=== PATIENT | female | born 1965 | race African-American/Black ===

== ENCOUNTER 2016-10-14 21:24 | Emergency (ER) | payer MEDICARE, MEDICAID ==
[2016-10-14] MEDS ORDERED: ASPIRIN 81 MG TABLET, CHEWABLE PO ONE (21:55)
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
[2016-10-14] MEDS ORDERED: ALPRAZOLAM 0.5 MG TABLET PO ONE (22:47)
[2016-10-14 22:59] LABS: ABSOLUTE BASOPHILS # (AUTO) 0.1 10^3/uL (0.0-0.2); ABSOLUTE EOSINOPHILS # (AUTO) 0.1 10^3/uL (0.0-0.6); ABSOLUTE LYMPHOCYTES (AUTO) 2.9 10^3/uL (0.5-4.7); ABSOLUTE NEUT (AUTO) 9.6 10^3/uL (1.7-8.2); BASOPHILS % (AUTO) 0.5 % (0-2); EOSINOPHILS % (AUTO) 1.1 % (0-6); HEMOGLOBIN 13.5 g/dL (12.0-15.5); HGB HCT DIFFERENCE -0.5; LYMPHOCYTES % (AUTO) 21.2 % (13-45); MEAN CORPUSCULAR HEMOGLOBIN 31.2 pg (27.0-33.4); MEAN CORPUSCULAR VOLUME 95 fl (80-97); MONOCYTES % (AUTO) 7.5 % (3-13); RED BLOOD COUNT 4.34 10^6/uL (3.72-5.28); SEGMENTED NEUTROPHILS % (AUTO) 69.7 % (42-78); WHITE BLOOD COUNT 13.8 10^3/uL (4.0-10.5)
[2016-10-14 23:15] LABS: BLOOD UREA NITROGEN 14 mg/dL (7-20); CREATININE RESULT 1.08 mg/dL (0.52-1.25); GLUCOSE 101 mg/dL (75-110)
[2016-10-14 23:16] LABS: ALANINE AMINOTRANSFERASE 25 U/L (9-52); ALBUMIN 4.5 g/dL (3.5-5.0); ALKALINE PHOSPHATASE 80 U/L (38-126); ANION GAP 13 (5-19); ASPARTATE AMINO TRANSFERASE 26 U/L (14-36); BILIRUBIN,TOTAL 0.5 mg/dL (0.2-1.3); CARBON DIOXIDE 28 mmol/L (22-30); CHLORIDE 103 mmol/L (98-107); CREATINE KINASE 145 U/L (30-135); LIPASE 125.7 U/L (23-300); POTASSIUM 3.3 mmol/L (3.6-5.0); SODIUM 144.4 mmol/L (137-145); TOTAL PROTEIN 7.5 g/dL (6.3-8.2)
[2016-10-14 23:27] LABS: CREATINE KINASE MB 1.67 ng/mL (<4.55); TROPONIN I < 0.012 ng/mL
[2016-10-15] LABS: APPEARANCE,URINE CLEAR; BILIRUBIN,URINE NEGATIVE (NEGATIVE); GLUCOSE, URINE NEGATIVE (NEGATIVE); KETONES,URINE NEGATIVE (NEGATIVE); LEUKOCYTE ESTERASE,URINE TRACE (NEGATIVE); NITRITE,URINE NEGATIVE (NEGATIVE); PROTEIN,URINE NEGATIVE (NEGATIVE); URINE SPECIFIC GRAVITY 1.009; UROBILINOGEN,URINE NEGATIVE mg/dL (<2.0)
[2016-10-15 00:21] LABS: URINE BARBITURATES SCREEN NEGATIVE; URINE METHADONE SCREEN NEGATIVE; URINE PHENCYCLIDINE SCREEN NEGATIVE
[2016-10-15 01:32] VITALS: BP 113/60
--- NOTE | 2016-10-15 08:13 | EKG REPORT ---
SEVERITY:- ABNORMAL ECG - SINUS RHYTHM PROBABLE LEFT ATRIAL ABNORMALITY PROBABLE LEFT VENTRICULAR HYPERTROPHY : Confirmed by: Pierre Jefferson MD 15-Oct-2016 08:12:47
== END 2016-10-15 01:40 | disposition home or self-care (01) ==
LOC: ER 21:24
DX: F41.9 Anxiety disorder, unspecified (principal); R07.9 Chest pain, unspecified; Z79.899 Other long term (current) drug therapy; F17.210 Nicotine dependence, cigarettes, uncomplicated
CPT/HCPCS: 93005; 99284; 36415; 82553; 82550; 83690; 85025; 80053; 81001; 84484; 80307; 71010; 93010; A9270

== ENCOUNTER → 2016-10-18 | Emergency (ER) | payer MEDICARE, MEDICAID ==
[~2016-10-18] MED LIST: ALPRAZOLAM 0.5 MG TABLET PO ONE; ASPIRIN 81 MG TABLET, CHEWABLE PO ONE; IBUPROFEN 800 MG TABLET PO ONE; LORAZEPAM 0.5 MG TABLET PO ONE; LORAZEPAM 0.5 MG TABLET PO PRN; MORPHINE SULFATE 10 MG/ML INJ IV ONE; NORMAL SALINE 1000 ML 1,000 ML IV PRN; OXYCODONE-ACETAMINOPHEN 5-325 MG TABLET PO ONE
[2016-10-18 13:22] LABS: ABSOLUTE BASOPHILS # (AUTO) 0.1 10^3/uL (0.0-0.2); ABSOLUTE LYMPHOCYTES (AUTO) 3.3 10^3/uL (0.5-4.7); ABSOLUTE NEUT (AUTO) 11.6 10^3/uL (1.7-8.2); BASOPHILS % (AUTO) 0.5 % (0-2); EOSINOPHILS % (AUTO) 0.1 % (0-6); HEMATOCRIT 42.9 % (36.0-47.0); HGB HCT DIFFERENCE -0.9; LYMPHOCYTES % (AUTO) 20.5 % (13-45); MEAN CORPUSCULAR HEMOGLOBIN 31.3 pg (27.0-33.4); MEAN CORPUSCULAR HGB CONC 32.7 g/dL (32.0-36.0); MEAN CORPUSCULAR VOLUME 96 fl (80-97); MONOCYTES % (AUTO) 6.4 % (3-13); RED BLOOD COUNT 4.49 10^6/uL (3.72-5.28); SEGMENTED NEUTROPHILS % (AUTO) 72.5 % (42-78)
--- NOTE | 2016-10-18 13:35 | ER Document Report ---
ED Syncope and Near Syncope <PILY WHITE - Last Filed: 10/19/16 06:50> <CHAO TAVARES - Last Filed: 10/19/16 20:37> <ISHAN HERRERA - Last Filed: 10/20/16 01:09> - General TRAVEL OUTSIDE OF THE [place] IN LAST 30 DAYS: No <WILFREDO CRAIG - Last Filed: 10/20/16 19:52> - General Chief Complaint: Fainting Stated Complaint: CHEST PAIN Time Seen by Provider: 10/18/16 12:40 Notes: Patient is a 51-year-old female presents emergency department via EMS after a near syncopal episode with associated chest pain shortness of breath. Patient states that she was walking across the street from her apartment when she got to the bus stop earlier this afternoon when she started getting short of breath , she went into her purse to find her albuterol inhaler. She states that she wasn't able to find it when she started seeing stars and fell on the ground. She states she hit the back of her head and now has an associated headache. She denies loss of consciousness, nausea, vomiting, confusion or altered mental status. She is also complaining of chest pain which is described as substernal and described as a pressure. She says this started after her fall, immediately after. She states that typically when she's had this chest pain before and is been related to her anxiety and has responded well to Xanax. Cards is Dr. Wilson Echo 09/30/2016 which showed Nl LVEF, mild Past medical history significant for anxiety/depression, history of a heart attack, history of stroke, asthma, COPD Past surgical history significant for hysterectomy and a right knee Social history significant for 40 pack years, denies a fall drug use Denies any allergies Primary care provider is Dr. Reese, fitness sales associate is Dr. Wilson (WILFREDO CRAIG) - Related Data Allergies/Adverse Reactions: cyclobenzaprine HCl [From Flexeril] Allergy (Verified 03/02/16 14:54) tramadol [Tramadol] Allergy (Verified 03/02/16 14:54) HTZ Allergy (Uncoded 03/02/16 14:54) Home Medications: Current Home Medications Alprazolam [Xanax 0.5 mg Tablet] 0.5 mg PO DAILY 10/19/16 [History] Amlodipine Besylate [Norvasc 5 mg Tablet] 5 mg PO DAILY 10/19/16 [History] Buspirone HCl [Buspar 15 mg Tablet] 7.5 mg PO BID 10/19/16 [History] Clonidine HCl [Catapres 0.1 mg Tablet] 0.1 mg PO Q12 10/19/16 [History] Hydralazine HCl [Apresoline 10 mg Tablet] 10 mg PO BIDACBS 10/19/16 [History] Lisinopril [Prinivil 40 mg Tablet] 40 mg PO DAILY 10/19/16 [History] Multivitamin [Multivitamins] 1 each PO DAILY 10/19/16 [History] Omeprazole 20 mg PO ACBRKFST 10/19/16 [History] Oxycodone HCl/Acetaminophen [Oxycodone-Acetaminophen 10-325] 1 each PO Q6HP PRN 10/19/16 [History] Potassium Chloride [Klor-Con 10 Meq Tablet.sa] 20 meq PO BIDACBSP PRN 10/19/16 [ History] Torsemide [Demadex 10 mg Tablet] 10 mg PO DAILY 10/19/16 [History] Past Medical History - General Information source: Patient - Social History Smoking Status: Current Every Day Smoker Family History: Malignancy, Other - [place] - Past Medical History Cardiac Medical History: Reports: Hx Heart Attack - mild, Hx Hypercholesterolemia, Hx Hypertension Pulmonary Medical History: Reports: Hx Asthma, Hx Bronchitis, Hx COPD Neurological Medical History: Reports: Hx Migraine, Hx Seizures Endocrine Medical History: Reports: Hx Diabetes Mellitus Type 2 - borderline Renal/ Medical History: Denies: Hx Peritoneal Dialysis GI Medical History: Reports: Hx Gastroesophageal Reflux Disease, Hx Ulcer Psychiatric Medical History: Reports: Hx Anxiety, Hx Depression Past Surgical History: Reports: Hx Hysterectomy, Hx Orthopedic Surgery - L leg AND R KNEE - Immunizations Hx Diphtheria, Pertussis, Tetanus Vaccination: Yes - <5 years <WILFREDO CRAIG - Last Filed: 10/20/16 19:52> Review of Systems - Review of Systems Constitutional: No symptoms reported EENT: No symptoms reported Cardiovascular: See HPI Respiratory: See HPI Gastrointestinal: No symptoms reported Genitourinary: No symptoms reported Female Genitourinary: No symptoms reported Musculoskeletal: No symptoms reported Skin: No symptoms reported Hematologic/Lymphatic: No symptoms reported Neurological/Psychological: See HPI <KIARAWILFREDO - Last Filed: 10/20/16 19:52> Physical Exam <PILY WHITE - Last Filed: 10/19/16 06:50> <CHAO TAVARES - Last Filed: 10/19/16 20:37> <ISHAN HERRERA - Last Filed: 10/20/16 01:09> <KIARAWILFREDO - Last Filed: 10/20/16 19:52> - Vital signs Vitals: Temp Pulse Resp BP Pulse Ox 98.4 F 87 15 118/62 97 10/18/16 12:19 10/18/16 12:19 10/18/16 12:19 10/18/16 12:19 10/18/16 12:19 (PILY WHITE) (CHAO TAVARES) (ISHAN HERRERA) (WILFREDO CRAIG) - Notes Notes: PHYSICAL EXAM GENERAL: Alert, interacts well. HEAD: Normocephalic, evidence of erythema and fluctuance superior to the occiput on the right side of her head. Tenderness to palpation EYES: Pupils equal, round, and reactive to light. Extraocular movements intact. ENT: Oral mucosa moist, tongue midline. NECK: Full range of motion. Supple. Trachea midline. LUNGS: Clear to auscultation bilaterally, no wheezes, rales, or rhonchi. No respiratory distress. HEART: Regular rate and rhythm. No murmurs, gallops, or rubs. Chest pain reproducible to palpation ABDOMEN: Soft, nondistended, nontender. No guarding, rebound, or rigidity.. Bowel sounds present in all 4 quadrants. EXTREMITIES: Moves all 4 extremities spontaneously. No edema, radial and dorsalis pedis pulses 2/4 bilaterally. No cyanosis. NEUROLOGICAL: Alert and oriented x3. Normal speech. PSYCH: Normal affect, normal mood. SKIN: Warm, dry, normal turgor. No rashes or lesions noted. (WILFREDO CRAIG) Course - Laboratory Result Diagrams: 10/18/16 13:13 10/18/16 13:13 <PILY WHITE - Last Filed: 10/19/16 06:50> - Laboratory Result Diagrams: 10/19/16 17:30 10/19/16 17:30 <CHAO TAVARES - Last Filed: 10/19/16 20:37> - Laboratory Result Diagrams: 10/19/16 17:30 10/19/16 17:30 <ISHAN HERRERA - Last Filed: 10/20/16 01:09> - Laboratory Result Diagrams: 10/19/16 17:30 10/19/16 17:30 - Diagnostic Test Radiology reviewed: Image reviewed, Reports reviewed - EKG Interpretation by Me EKG shows normal: Sinus rhythm Rate: Normal Rhythm: NSR When compared to previous EKG there are: No significant change <KIARAHALLEYWILFREDO - Last Filed: 10/20/16 19:52> - Re-evaluation Re-evalutation: 10/18/16 22:00 Concern for an NSTEMI with elevated troponin at 0.1 which is elevated from prior negative result. EKG nonischemic. Spoke with [facility] internal medicine Dr. Lainez, patient will be accepted to telemetry bed. Patient updated, still not complaining of any symptoms including chest pain. Pending room assignment in transfer. On reevaluation patient crying in the room, I asked if she is hurting or has any concerns, she states she is just anxious and needs something for anxiety. Patient was given 0.5 mg of Ativan. She states this did help when asked later. Troponins trended, steadily rising but not severely rising. On reevaluation patient appears to be resting but she complains that her head hurts where she hit it on the ground, she denies any chest pain but is requesting pain medication, she declines morphine when offered but states that she'll take an oxycodone because she takes this at home. Still pending transfer. Troponin still trending upwards, discussed with Dr. Rodriguez, recommends repeat EKG, repeat EKG shows no ischemic changes or concerning abnormalities. Still pending transfer (PILY WHITE) Patient reevaluated prior transfer. Patient's vital signs stable for transfer. Patient states she is low anxious. Transfer crew states they will give her medications once the heparin back of their truck. 10/19/16 20:37 (CHAO TAVARES) 10/20/16 01:09 (ISHAN HERRERA) 10/18/16 13:38 Patient is a 51-year-old female who presents emergency department after a near syncopal episode with associated shortness of breath, chest pain and headache after a fall where she hit her head. Patient is currently hemodynamically stable, no acute distress and afebrile. CT head did not reveal any evidence of fracture or bleed. EKG without evidence of acute changes. Labs show mild leukocytosis, no evidence of ARF. Cardiac enzymes: negative initial troponin but elevated CK-MB at 5.54 and a CK of 221. Patient kept for repeat troponin. 10/18/16 18:54 Waiting for repeat troponin, pateint has been asymptomatic in the department, denies any chest pain. 10/19/16 07:30 Patient's stable this morning resting comfortably in her bed watching TV. Denies any current chest pain or any episodes overnight. Discussed with her that if she has any episodes of chest pain today to alert her nurse her pain management and repeat EKG. Have called [facility] to discuss labs from overnight with her most recent troponin at 3 AM of 0.460. Discussed with hospitalist to keep her on a every 12 Lovenox and that she did receive a dose of aspirin upon arrival. We'll touch base with them later this morning for that status. 10/19/16 12:15 Patient reporting headache and low back pain. 10/19/16 14:27 Patient resting comfortably and sleeping. Arousable on exam. Denies any chest pain. States that she had a mild anxiety attack earlier without any chest pain to achieve repeat EKG was done which shows no significant changes. Otherwise she states that she has been asymptomatic throughout the day. 10/19/16 18:54 Patient resting comfortably started by her family. Denies any chest pain but asking for Ativan for her anxiety since she takes 6 mg of Xanax daily. States that she has had a mild headache earlier but that she is using an ice pack which helped. She's been hemodynamically stable throughout the day. (WILFREDO CRAIG) - Vital Signs Vital signs: Temp Pulse Resp BP Pulse Ox 98.1 F 75 18 170/88 H 95 10/19/16 20:51 10/19/16 20:51 10/19/16 20:51 10/19/16 20:51 10/19/16 20:51 (PILY WHITE) (CHAO TAVARES) (ISHAN HERRERA) (WILFREDO CRAIG) - Laboratory Laboratory results interpreted by me: 10/18/16 10/18/16 10/18/16 13:13 13:13 13:13 WBC 16.0 H RDW 15.0 H Absolute Neutrophils 11.6 H Est GFR ( Amer) 56 L Est GFR (Non-Af Amer) 46 L Creatine Kinase 221 H CK-MB (CK-2) 5.54 H 10/19/16 10/19/16 17:30 17:30 WBC 10.8 H RDW 15.0 H Absolute Neutrophils Est GFR ( Amer) 59 L Est GFR (Non-Af Amer) 49 L Creatine Kinase CK-MB (CK-2) (PILY WHITE) (CHAO TAVARES) (ISHAN HERRERA) (WILFREDO CRAIG) Discharge <PILY WHITE - Last Filed: 10/19/16 06:50> <CHAO TAVARES - Last Filed: 10/19/16 20:37> <ISHAN HERRERA - Last Filed: 10/20/16 01:09> <WILFREDO CRAIG - Last Filed: 10/20/16 19:52> - Discharge Clinical Impression: Near syncope Condition: Good Disposition: [facility] Additional Instructions: CHEST PAIN OF UNCLEAR CAUSE: The exact cause of your chest pain isn't clear. Fortunately, there is no evidence of a dangerous medical condition. Further testing may be required to find the source of the pain. Most often, we find that this pain is coming from the chest wall -- the muscles or rib joints in the chest. But chest pain can come from the lung and lung lining, the esophagus, the heart valves or heart lining, and even the stomach or gallbladder. Rest. Eat lightly until the pain is gone. We may prescribe medicine for pain and inflammation. You should call the physician immediately if the pain radiates to the shoulder, jaw or arms; if you start to run a fever or develop a cough; or if you develop shortness of breath, or other new or alarming symptoms. NORMAL EXAM AND WORKUP: At this time, your examination and workup show no significant abnormality. No significant abnormal physical findings were noted. All laboratory, EKG, and imaging (x-ray, CT scans, ultrasound) studies that were ordered show no significant abnormality. Although your examination and all studies that were ordered showed no significant abnormal finding, there are no examinations and no studies that are 100% accurate. There is always the possibility that some abnormality could exist and not be detected with physical examination or within the limits and capabilities of laboratory and other studies. You should return or follow up as you were instructed on your visit today for further evaluation if your symptoms do not resolve. ANGINA EPISODE: Your physician has diagnosed the pain you experienced as an episode of angina. Angina occurs when a portion of the heart muscle temporarily lacks oxygen. It does not cause any permanent heart damage, but serves as a warning. Hospitalization is not necessary now. Evaluation of your cardiac condition , and medical therapy for angina will be necessary. It's important you be sure to keep all appointments and take medication exactly as prescribed. Angina is usually treated with a type of "nitrate" medication. This is available as ointment, pills, or sublingual (under the tongue) tablets. Depending on your clinical situation, other medications may be added to help control angina. These may include beta blockers or calcium blockers. If episodes of angina are occurring with increased frequency, or if chest pain lasts longer than 15 minutes or does not respond to nitroglycerin, you must seek emergency medical care immediately. ASPIRIN: Aspirin has been shown to have a beneficial effect on blood circulation by reducing the clotting effect of platelets in the blood. These beneficial effects can be achieved by taking just a single baby (81 mg) aspirin a day. It is recommended that any person over the age of forty take a single baby aspirin every day for heart and brain circulation, unless you are allergic to aspirin or have some significant bleeding disorder. It is strongly recommended that people who have proven cardiac or blood circulation disturbances should take a baby aspirin every day. FOLLOW-UP CARE: If you have been referred to a physician for follow-up care, call the physician s office for an appointment as you were instructed or within the next two days. If you experience worsening or a significant change in your symptoms, notify the physician immediately or return to the Emergency Department at any time for re-evaluation. [facility] [address] [place] [address] Open until 10pm Referrals: MARTI REESE DO [Primary Care Provider] - Follow up as needed
[2016-10-18 13:51] LABS: ALANINE AMINOTRANSFERASE 31 U/L (9-52); ALBUMIN 4.8 g/dL (3.5-5.0); ALKALINE PHOSPHATASE 77 U/L (38-126); ANION GAP 13 (5-19); ASPARTATE AMINO TRANSFERASE 24 U/L (14-36); BILIRUBIN,TOTAL 0.6 mg/dL (0.2-1.3); BLOOD UREA NITROGEN 19 mg/dL (7-20); CARBON DIOXIDE 27 mmol/L (22-30); CHLORIDE 102 mmol/L (98-107); CREATINE KINASE 221 U/L (30-135); CREATININE RESULT 1.22 mg/dL (0.52-1.25); GLUCOSE 96 mg/dL (75-110); POTASSIUM 3.6 mmol/L (3.6-5.0); SODIUM 141.5 mmol/L (137-145); TOTAL PROTEIN 7.9 g/dL (6.3-8.2)
[2016-10-18 13:56] LABS: CREATINE KINASE MB 5.54 ng/mL (<4.55)
[2016-10-18 13:57] LABS: TROPONIN I < 0.012 ng/mL
--- NOTE | 2016-10-18 15:50 | EKG REPORT ---
SEVERITY:- BORDERLINE ECG - SINUS RHYTHM PROBABLE LEFT ATRIAL ABNORMALITY : Confirmed by: Gloria Wilson 18-Oct-2016 15:49:45
[2016-10-18] MEDS: ENOXAPARIN SODIUM INJ 80 MG/0.8 ML DISP.SYRIN SUBCUT SCH (22:15)
[2016-10-19] MEDS: ENOXAPARIN SODIUM INJ 80 MG/0.8 ML DISP.SYRIN SUBCUT SCH (09:50)
--- NOTE | 2016-10-19 11:47 | EKG REPORT ---
SEVERITY:- BORDERLINE ECG - SINUS ARRHYTHMIA, RATE 50-69 PROBABLE LEFT ATRIAL ABNORMALITY : Confirmed by: Sarah Padgett MD 19-Oct-2016 11:46:23
[2016-10-19 17:39] LABS: ABSOLUTE BASOPHILS # (AUTO) 0.1 10^3/uL (0.0-0.2); ABSOLUTE EOSINOPHILS # (AUTO) 0.1 10^3/uL (0.0-0.6); ABSOLUTE LYMPHOCYTES (AUTO) 3.7 10^3/uL (0.5-4.7); ABSOLUTE MONOCYTES (AUTO) 0.9 10^3/uL (0.1-1.4); BASOPHILS % (AUTO) 1.3 % (0-2); EOSINOPHILS % (AUTO) 0.6 % (0-6); HEMATOCRIT 40.3 % (36.0-47.0); HEMOGLOBIN 13.4 g/dL (12.0-15.5); HGB HCT DIFFERENCE -0.1; LYMPHOCYTES % (AUTO) 33.9 % (13-45); MEAN CORPUSCULAR HEMOGLOBIN 31.6 pg (27.0-33.4); MEAN CORPUSCULAR HGB CONC 33.3 g/dL (32.0-36.0); MEAN CORPUSCULAR VOLUME 95 fl (80-97); MONOCYTES % (AUTO) 8.4 % (3-13); RED BLOOD COUNT 4.24 10^6/uL (3.72-5.28); SEGMENTED NEUTROPHILS % (AUTO) 55.8 % (42-78); WHITE BLOOD COUNT 10.8 10^3/uL (4.0-10.5)
[2016-10-19 17:53] LABS: ALANINE AMINOTRANSFERASE 27 U/L (9-52); ALBUMIN 3.8 g/dL (3.5-5.0); ALKALINE PHOSPHATASE 67 U/L (38-126); ANION GAP 13 (5-19); ASPARTATE AMINO TRANSFERASE 22 U/L (14-36); BILIRUBIN,TOTAL 0.6 mg/dL (0.2-1.3); BLOOD UREA NITROGEN 20 mg/dL (7-20); CALCIUM 10.2 mg/dL (8.4-10.2); CARBON DIOXIDE 24 mmol/L (22-30); CHLORIDE 106 mmol/L (98-107); CREATININE RESULT 1.17 mg/dL (0.52-1.25); GLUCOSE 101 mg/dL (75-110); POTASSIUM 3.7 mmol/L (3.6-5.0); SODIUM 142.9 mmol/L (137-145); TOTAL PROTEIN 6.8 g/dL (6.3-8.2)
--- NOTE | 2016-10-19 18:42 | EKG REPORT ---
SEVERITY:- NORMAL ECG - SINUS RHYTHM : Confirmed by: Sarah Padgett MD 19-Oct-2016 18:42:03
[2016-10-19 20:51] VITALS: BP 170/88
== END | disposition short-term general hospital (02) ==
LOC: ER 12:03
DX: R55 Syncope and collapse (principal); R07.9 Chest pain, unspecified; F41.9 Anxiety disorder, unspecified; F17.210 Nicotine dependence, cigarettes, uncomplicated; R51 Headache; M54.5 Low back pain; F17.200 Nicotine dependence, unspecified, uncomplicated; K21.9 Gastro-esophageal reflux disease without esophagitis; E78.00 Pure hypercholesterolemia, unspecified; I10 Essential (primary) hypertension; R73.03 Prediabetes; Z90.710 Acquired absence of both cervix and uterus; Z79.899 Other long term (current) drug therapy; I25.2 Old myocardial infarction
CPT/HCPCS: 93005; 96376; 94640; 99285; 96372; 96374; 96375; 36415; 82553; 82550; 85025; 80053; 84484; 71010; 70450; 93010; A9270 ×3; J7030; J1650; J2270

== ENCOUNTER 2016-11-11 23:29 | Emergency (ER) | payer MEDICARE, MEDICAID ==
--- NOTE | 2016-11-11 23:52 | ER Document Report ---
ED Medical Screen (RME) - General Stated Complaint: CHEST PAIN, DIFFICULTY BREATHING Time seen by provider: 23:49 Mode of Arrival: Wheelchair Information source: Patient Notes: Chest pain, throat swelling, having trouble breathing for 3 days. She states she had to cancel's some her appointments due to his feeling weak. The feeling weak and vomiting. States she went to a heart doctor today. She says that she woke up out of her sleep today and her doctor told her that when she does that that means her heart is stopped. States her throat is swollen and she was told she has a thyroid. I have greeted and performed a rapid initial assessment of this patient. A comprehensive ED assessment and evaluation of the patient, analysis of test results and completion of medical decision making process will be conducted by an additional ED providers. TRAVEL OUTSIDE OF THE [place] IN LAST 30 DAYS: No - Related Data Allergies/Adverse Reactions: cyclobenzaprine HCl [From Flexeril] Allergy (Verified 03/02/16 14:54) tramadol [Tramadol] Allergy (Verified 03/02/16 14:54) HTZ Allergy (Uncoded 03/02/16 14:54) Past Medical History - Past Medical History Cardiac Medical History: Reports: Hx Heart Attack - mild, Hx Hypercholesterolemia, Hx Hypertension Pulmonary Medical History: Reports: Hx Asthma, Hx Bronchitis, Hx COPD Neurological Medical History: Reports: Hx Migraine, Hx Seizures Endocrine Medical History: Reports: Hx Diabetes Mellitus Type 2 - borderline Renal/ Medical History: Denies: Hx Peritoneal Dialysis GI Medical History: Reports: Hx Gastroesophageal Reflux Disease, Hx Ulcer Psychiatric Medical History: Reports: Hx Anxiety, Hx Depression Past Surgical History: Reports: Hx Hysterectomy, Hx Orthopedic Surgery - L leg AND R KNEE - Immunizations Hx Diphtheria, Pertussis, Tetanus Vaccination: Yes - <5 years
[2016-11-11 23:53] VITALS: BP 156/83
[2016-11-12 00:47] LABS: ABSOLUTE BASOPHILS # (AUTO) 0.1 10^3/uL (0.0-0.2); ABSOLUTE EOSINOPHILS # (AUTO) 0.1 10^3/uL (0.0-0.6); ABSOLUTE LYMPHOCYTES (AUTO) 2.1 10^3/uL (0.5-4.7); ABSOLUTE MONOCYTES (AUTO) 0.6 10^3/uL (0.1-1.4); ABSOLUTE NEUT (AUTO) 4.5 10^3/uL (1.7-8.2); BASOPHILS % (AUTO) 0.7 % (0-2); EOSINOPHILS % (AUTO) 1.9 % (0-6); HEMATOCRIT 40.3 % (36.0-47.0); HEMOGLOBIN 13.6 g/dL (12.0-15.5); HGB HCT DIFFERENCE 0.5; LYMPHOCYTES % (AUTO) 28.5 % (13-45); MEAN CORPUSCULAR HEMOGLOBIN 32.1 pg (27.0-33.4); MEAN CORPUSCULAR HGB CONC 33.7 g/dL (32.0-36.0); MEAN CORPUSCULAR VOLUME 95 fl (80-97); MONOCYTES % (AUTO) 7.8 % (3-13); RED BLOOD COUNT 4.24 10^6/uL (3.72-5.28); RED CELL DISTRIBUTION WIDTH 14.9 % (11.5-14.0); SEGMENTED NEUTROPHILS % (AUTO) 61.1 % (42-78); WHITE BLOOD COUNT 7.3 10^3/uL (4.0-10.5)
[2016-11-12 01:00] LABS: ALANINE AMINOTRANSFERASE 31 U/L (9-52); ALBUMIN 4.8 g/dL (3.5-5.0); ALKALINE PHOSPHATASE 83 U/L (38-126); ANION GAP 13 (5-19); ASPARTATE AMINO TRANSFERASE 24 U/L (14-36); BILIRUBIN,TOTAL 0.9 mg/dL (0.2-1.3); BLOOD UREA NITROGEN 14 mg/dL (7-20); CALCIUM 10.8 mg/dL (8.4-10.2); CARBON DIOXIDE 25 mmol/L (22-30); CHLORIDE 106 mmol/L (98-107); CREATINE KINASE 131 U/L (30-135); CREATININE RESULT 1.14 mg/dL (0.52-1.25); GLUCOSE 95 mg/dL (75-110); MAGNESIUM 2.1 mg/dL (1.6-2.3); POTASSIUM 4.4 mmol/L (3.6-5.0); SODIUM 143.5 mmol/L (137-145)
[2016-11-12 01:05] LABS: CREATINE KINASE MB 1.97 ng/mL (<4.55)
[2016-11-12 01:07] LABS: TROPONIN I < 0.012 ng/mL
--- NOTE | 2016-11-12 12:42 | EKG REPORT ---
SEVERITY:- ABNORMAL ECG - SINUS RHYTHM CONSIDER LEFT VENTRICULAR HYPERTROPHY : Confirmed by: Gloria Wilson 12-Nov-2016 12:41:09
== END 2016-11-12 01:20 | disposition left against medical advice (07) ==
LOC: ER 23:29
DX: R07.9 Chest pain, unspecified (principal); R06.00 Dyspnea, unspecified; R09.89 Other specified symptoms and signs involving the circulatory and respiratory systems; R53.1 Weakness; I25.2 Old myocardial infarction; I10 Essential (primary) hypertension; J44.9 Chronic obstructive pulmonary disease, unspecified; J45.909 Unspecified asthma, uncomplicated; Z88.8 Allergy status to other drugs, medicaments and biological substances; Z88.5 Allergy status to narcotic agent; Z87.19 Personal history of other diseases of the digestive system; Z53.20 Procedure and treatment not carried out because of patient's decision for unspecified reasons; R06.02 Shortness of breath; R53.83 Other fatigue
CPT/HCPCS: 36415; 71020; 80053; 82550; 82553; 83735; 84443; 84484; 85025; 93005; 93010; 99281

== ENCOUNTER 2016-11-14 20:55 | Emergency (ER) | payer MEDICARE, MEDICAID ==
[2016-11-14] MEDS ORDERED: ASPIRIN 81 MG TABLET, CHEWABLE PO ONE (20:59)
[2016-11-14 21:42] LABS: ABSOLUTE EOSINOPHILS # (AUTO) 0.1 10^3/uL (0.0-0.6); ABSOLUTE NEUT (AUTO) 9.9 10^3/uL (1.7-8.2); BASOPHILS % (AUTO) 0.3 % (0-2); EOSINOPHILS % (AUTO) 0.8 % (0-6); HEMATOCRIT 39.7 % (36.0-47.0); HEMOGLOBIN 13.4 g/dL (12.0-15.5); HGB HCT DIFFERENCE 0.5; LYMPHOCYTES % (AUTO) 21.4 % (13-45); MEAN CORPUSCULAR HEMOGLOBIN 32.1 pg (27.0-33.4); MEAN CORPUSCULAR HGB CONC 33.8 g/dL (32.0-36.0); MEAN CORPUSCULAR VOLUME 95 fl (80-97); MONOCYTES % (AUTO) 6.9 % (3-13); RED BLOOD COUNT 4.17 10^6/uL (3.72-5.28); RED CELL DISTRIBUTION WIDTH 14.7 % (11.5-14.0); SEGMENTED NEUTROPHILS % (AUTO) 70.6 % (42-78); WHITE BLOOD COUNT 14.1 10^3/uL (4.0-10.5)
[2016-11-14] MEDS ORDERED: LORAZEPAM 1 MG TABLET PO ONE (21:52)
[2016-11-14] MEDS ORDERED: NORMAL SALINE 1000 ML 1,000 ML IV ONE ×2 (21:52→23:11)
--- NOTE | 2016-11-14 21:53 | ER Document Report ---
ED General - General Stated Complaint: WEAKNESS Notes: Patient is a 51-year-old female who presents with concerns of feeling "bad". States that she feels generally ill and has not been drinking fluids for the past 2 days due to some throat discomfort. She is otherwise a very poor historian unable to better clarify why she is here in the emergency department or what made her call 911. She states nothing improves or worsens or symptoms. Patient does seem to be paranoid, stating that she thinks that her water may be contaminated and that somebody may be trying to switch her medications to intentionally make her ill. She denies any suicidal or homicidal ideation. No chest pain, shortness of breath, cough, sputum production or fever. No headache or neck pain. She is not seen her primary care doctor regarding today' s concerns. She has a history of present in the emergency department on multiple occasions for vague symptoms similar to today's presentation TRAVEL OUTSIDE OF THE [place] IN LAST 30 DAYS: No - Related Data Allergies/Adverse Reactions: cyclobenzaprine HCl [From Flexeril] Allergy (Verified 03/02/16 14:54) tramadol [Tramadol] Allergy (Verified 03/02/16 14:54) HTZ Allergy (Uncoded 03/02/16 14:54) Past Medical History - General Information source: Patient - Social History Smoking Status: Current Every Day Smoker Frequency of alcohol use: None Drug Abuse: None Lives with: Alone Family History: Reviewed & Not Pertinent, Malignancy, Other - [place] - Past Medical History Cardiac Medical History: Reports: Hx Heart Attack - mild, Hx Hypercholesterolemia, Hx Hypertension Pulmonary Medical History: Reports: Hx Asthma, Hx Bronchitis, Hx COPD Neurological Medical History: Reports: Hx Migraine, Hx Seizures Endocrine Medical History: Reports: Hx Diabetes Mellitus Type 2 - borderline Renal/ Medical History: Denies: Hx Peritoneal Dialysis GI Medical History: Reports: Hx Gastroesophageal Reflux Disease, Hx Ulcer Psychiatric Medical History: Reports: Hx Anxiety, Hx Depression Past Surgical History: Reports: Hx Hysterectomy, Hx Orthopedic Surgery - L leg AND R KNEE - Immunizations Hx Diphtheria, Pertussis, Tetanus Vaccination: Yes - <5 years Review of Systems - Review of Systems Notes: Constitutional: Negative for fever. Positive for generalized weakness HENT: Negative for sore throat. Eyes: Negative for visual changes. Cardiovascular: Negative for chest pain. Respiratory: Negative for shortness of breath. Gastrointestinal: Negative for abdominal pain, vomiting or diarrhea. Genitourinary: Negative for dysuria. Musculoskeletal: Negative for back pain. Skin: Negative for rash. Neurological: Negative for headaches, weakness or numbness. 10 point ROS negative except as marked above and in HPI. Physical Exam - Vital signs Vitals: Pulse Ox 96 11/14/16 21:00 Interpretation: Normal Notes: PHYSICAL EXAMINATION: GENERAL: Well-appearing, well-nourished and in no acute distress. HEAD: Atraumatic, normocephalic. EYES: Pupils equal round and reactive to light, extraocular movements intact, sclera anicteric, conjunctiva are normal. ENT: nares patent, oropharynx clear without exudates. Moderately dry mucous membranes. NECK: Normal range of motion, supple without lymphadenopathy LUNGS: Breath sounds clear to auscultation bilaterally and equal. No wheezes rales or rhonchi. HEART: Regular rate and rhythm without murmurs ABDOMEN: Soft, nontender, normoactive bowel sounds. No guarding, no rebound. No masses appreciated. EXTREMITIES: Normal range of motion, no pitting or edema. No cyanosis. NEUROLOGICAL: No focal neurological deficits. Moves all extremities spontaneously and on command. PSYCH: Anxious, tremulous SKIN: Warm, Dry, normal turgor, no rashes or lesions noted. Course - Re-evaluation Re-evalutation: 11/14/16 21:52 Patient presenting complaining of generalized weakness, poor po intake, and fatigue. Patient is highly anxious on arrival. She initially had mild hypertension for EMS likely secondary to volume depletion. She does have a mild acute kidney injury at time of presentation. Her blood pressure has normalized after receiving IV fluids. Patient denies any chest pain, and her EKG as well as troponin are reassuring. Chest x-ray is clear. The remainder laboratories are unremarkable and repeat physical exams remain reassuring. Her vitals have remained within normal limits. At this time and do not suspect any acute life-threatening etiology of patient's presentation and have encouraged her to continue to drink plenty of fluids and follow-up closely with her primary care physician in the next 1-2 days given her acute kidney injury for repeat basic metabolic panel. Her creatinine did downtrend here after receiving 1 L fluid and BUN/cr ratio is 19 consistent with pre-renal azotemia. W ill discharge with return precautions and follow-up recommendations. Verbal discharge instructions given a the bedside and opportunity for questions given. Medication warnings reviewed. Patient is in agreement with this plan and has verbalized understanding of return precautions and the need for primary care follow-up in the next 24-72 hours. - Vital Signs Vital signs: Temp Pulse Resp BP Pulse Ox 18 109/71 95 11/15/16 01:23 11/15/16 01:23 11/15/16 01:23 - Laboratory Result Diagrams: 11/14/16 21:27 11/15/16 00:36 Laboratory results interpreted by me: 11/14/16 11/14/16 11/15/16 21:27 21:27 00:36 WBC 14.1 H RDW 14.7 H Absolute Neutrophils 9.9 H BUN 33 H 32 H Creatinine 1.93 H 1.72 H Est GFR ( Amer) 33 L 38 L Est GFR (Non-Af Amer) 27 L 31 L Calcium 10.9 H Creatine Kinase 196 H - Diagnostic Test Radiology reviewed: Image reviewed, Reports reviewed Radiology results interpreted by me: 11/15/16 00:15 Chest x-ray: No acute infiltrate - EKG Interpretation by Me Additional EKG results interpreted by me: 11/15/16 00:16 Normal sinus rhythm. Rate 83. No ST elevations or depressions with exception of V2 which has a 0.25 mm elevation. Discharge - Discharge Clinical Impression: Acute kidney injury, Weakness Condition: Good Disposition: HOME, SELF-CARE Additional Instructions: Your labs show that you are dehydrated and your kidney function is slightly worse than normal. You need to have a follow-up appointment with her primary care doctor in the next several days to have his lab rechecked. Please continue drink plenty of fluids at home. Referrals: MARTI OWUSU DO [Primary Care Provider] - Follow up as needed
[2016-11-14 21:58] LABS: ALANINE AMINOTRANSFERASE 25 U/L (9-52); ALKALINE PHOSPHATASE 78 U/L (38-126); ANION GAP 16 (5-19); ASPARTATE AMINO TRANSFERASE 23 U/L (14-36); BILIRUBIN,TOTAL 0.7 mg/dL (0.2-1.3); BLOOD UREA NITROGEN 33 mg/dL (7-20); CALCIUM 10.9 mg/dL (8.4-10.2); CARBON DIOXIDE 23 mmol/L (22-30); CHLORIDE 100 mmol/L (98-107); CREATINE KINASE 196 U/L (30-135); CREATININE RESULT 1.93 mg/dL (0.52-1.25); GLUCOSE 110 mg/dL (75-110); POTASSIUM 3.8 mmol/L (3.6-5.0); SODIUM 138.7 mmol/L (137-145)
--- NOTE | 2016-11-14 22:01 | EKG REPORT ---
SEVERITY:- ABNORMAL ECG - SINUS RHYTHM CONSIDER LEFT VENTRICULAR HYPERTROPHY : Confirmed by: Gloria Wilson 14-Nov-2016 22:00:56
[2016-11-14 22:15] LABS: CREATINE KINASE MB 2.52 ng/mL (<4.55)
[2016-11-14 22:16] LABS: TROPONIN I < 0.012 ng/mL
[2016-11-15] MEDS ORDERED: LIDOCAINE 2% VISCOUS SOLN 20 ML UDCUP PO ONE (00:19)
[2016-11-15] MEDS ORDERED: METOCLOPRAMIDE HCL ORAL SOLN 10 MG/10 ML UDCUP PO ONE (00:19)
[2016-11-15] MEDS ORDERED: MAG HYDROX/AL HYDROX/SIMETH SUSP 30 ML UDCUP PO ONE (00:19)
[2016-11-15 01:07] LABS: ANION GAP 12 (5-19); BLOOD UREA NITROGEN 32 mg/dL (7-20); CARBON DIOXIDE 22 mmol/L (22-30); CHLORIDE 105 mmol/L (98-107); CREATININE RESULT 1.72 mg/dL (0.52-1.25); GLUCOSE 101 mg/dL (75-110); POTASSIUM 3.9 mmol/L (3.6-5.0); SODIUM 138.9 mmol/L (137-145)
[2016-11-15 01:45] VITALS: BP 109/71
== END 2016-11-15 01:50 | disposition home or self-care (01) ==
LOC: ER 20:55
DX: N17.9 Acute kidney failure, unspecified (principal); R53.1 Weakness; F17.210 Nicotine dependence, cigarettes, uncomplicated
CPT/HCPCS: 93005; 99285; 96360; 36415; 82553; 82550; 85025; 80048; 80053; 84484; 71010; 93010; A9270 ×3; J3490; J7030

== ENCOUNTER 2016-11-21 03:50 | Emergency (ER) | payer MEDICARE, MEDICAID | END 2016-11-21 05:25 | disposition left against medical advice (07) | LOC: ER 03:50 | DX: Z53.21 Procedure and treatment not carried out due to patient leaving prior to being seen by health care provider (principal) ==

== ENCOUNTER 2017-02-16 09:48 | Emergency (ER) | payer MEDICARE, MEDICAID ==
[2017-02-16 10:13] LABS: ABSOLUTE BASOPHILS # (AUTO) 0.1 10^3/uL (0.0-0.2); ABSOLUTE EOSINOPHILS # (AUTO) 0.1 10^3/uL (0.0-0.6); ABSOLUTE LYMPHOCYTES (AUTO) 2.3 10^3/uL (0.5-4.7); ABSOLUTE MONOCYTES (AUTO) 0.5 10^3/uL (0.1-1.4); ABSOLUTE NEUT (AUTO) 4.9 10^3/uL (1.7-8.2); BASOPHILS % (AUTO) 0.6 % (0-2); EOSINOPHILS % (AUTO) 0.9 % (0-6); HEMATOCRIT 40.2 % (36.0-47.0); HEMOGLOBIN 13.7 g/dL (12.0-15.5); HGB HCT DIFFERENCE 0.9; LYMPHOCYTES % (AUTO) 29.7 % (13-45); MEAN CORPUSCULAR HGB CONC 34.1 g/dL (32.0-36.0); MEAN CORPUSCULAR VOLUME 94 fl (80-97); MONOCYTES % (AUTO) 6.3 % (3-13); RED BLOOD COUNT 4.28 10^6/uL (3.72-5.28); RED CELL DISTRIBUTION WIDTH 13.6 % (11.5-14.0); SEGMENTED NEUTROPHILS % (AUTO) 62.5 % (42-78); WHITE BLOOD COUNT 7.9 10^3/uL (4.0-10.5)
[2017-02-16 10:30] LABS: ALANINE AMINOTRANSFERASE 23 U/L (9-52); ALBUMIN 3.9 g/dL (3.5-5.0); ALKALINE PHOSPHATASE 81 U/L (38-126); ANION GAP 10 (5-19); ASPARTATE AMINO TRANSFERASE 20 U/L (14-36); BILIRUBIN,DIRECT 0.4 mg/dL (0.0-0.4); BILIRUBIN,TOTAL 0.5 mg/dL (0.2-1.3); BLOOD UREA NITROGEN 13 mg/dL (7-20); CALCIUM 9.5 mg/dL (8.4-10.2); CARBON DIOXIDE 26 mmol/L (22-30); CHLORIDE 108 mmol/L (98-107); CREATINE KINASE 134 U/L (30-135); CREATININE RESULT 1.08 mg/dL (0.52-1.25); GLUCOSE 112 mg/dL (75-110); POTASSIUM 3.3 mmol/L (3.6-5.0); SODIUM 143.7 mmol/L (137-145); TOTAL PROTEIN 7.3 g/dL (6.3-8.2)
--- NOTE | 2017-02-16 10:31 | ER Document Report ---
ED General - General Chief Complaint: Near Syncope Stated Complaint: WEAKNESS Time Seen by Provider: 02/16/17 09:50 Mode of Arrival: Medic Information source: Patient Notes: 51 yr old female presents with hx ot htn and noting that she took 2 of her blood pressure medications . pt notes she felt weak, almost passed out. pt notes that since then her symptoms have improved and she feels better and has no complaints. TRAVEL OUTSIDE OF THE [place] IN LAST 30 DAYS: No - HPI Onset: Just prior to arrival Onset/Duration: Sudden Quality of pain: No pain Severity: Mild Pain Level: Denies Associated symptoms: Weakness Exacerbated by: Denies Relieved by: Denies Similar symptoms previously: No Recently seen / treated by doctor: No - Related Data Allergies/Adverse Reactions: cyclobenzaprine HCl [From Flexeril] Allergy (Verified 02/16/17 09:53) tramadol [Tramadol] Allergy (Verified 02/16/17 09:53) HTZ Allergy (Uncoded 02/16/17 09:53) Past Medical History - Social History Smoking Status: Never Smoker Cigarette use (# per day): No Chew tobacco use (# tins/day): No Smoking Education Provided: No Family History: Reviewed & Not Pertinent, Malignancy, Other - [place] - Past Medical History Cardiac Medical History: Reports: Hx Heart Attack - mild, Hx Hypercholesterolemia, Hx Hypertension Pulmonary Medical History: Reports: Hx Asthma, Hx Bronchitis, Hx COPD Neurological Medical History: Reports: Hx Migraine, Hx Seizures Endocrine Medical History: Reports: Hx Diabetes Mellitus Type 2 - borderline Renal/ Medical History: Denies: Hx Peritoneal Dialysis GI Medical History: Reports: Hx Gastroesophageal Reflux Disease, Hx Ulcer Psychiatric Medical History: Reports: Hx Anxiety, Hx Depression Past Surgical History: Reports: Hx Hysterectomy, Hx Orthopedic Surgery - L leg AND R KNEE - Immunizations Hx Diphtheria, Pertussis, Tetanus Vaccination: Yes - <5 years Review of Systems - Review of Systems Notes: PHYSICAL EXAMINATION: GENERAL: Well-appearing, well-nourished and in no acute distress. HEAD: Atraumatic, normocephalic. EYES: Pupils equal round and reactive to light, extraocular movements intact, conjunctiva are normal. ENT: Nares patent, oropharynx clear without exudates. Moist mucous membranes. NECK: Normal range of motion, supple without lymphadenopathy LUNGS: Breath sounds clear to auscultation bilaterally and equal. No wheezes rales or rhonchi. HEART: Regular rate and rhythm without murmurs ABDOMEN: Soft, nontender, nondistended abdomen. No guarding, no rebound. No masses appreciated. Female : deferred Musculoskeletal: Normal range of motion, no pitting or edema. No cyanosis. NEUROLOGICAL: Cranial nerves grossly intact. Normal speech, normal gait. Normal sensory, motor exams PSYCH: flat affect SKIN: Warm, Dry, normal turgor, no rashes or lesions noted. Physical Exam - Vital signs Vitals: Resp 17 02/16/17 09:50 Course - Re-evaluation Re-evalutation: 02/16/17 10:30 02/16/17 11:13 Patient symptoms have completely resolved, she is at this time stable, lab work notes no significant abnormality EKG was normal vital signs are stable. Blood pressure has improved. I will discharge her home with understand that she does not overdose on her medications. She states she will not and will follow up with her primary care physician After performing a Medical Screening Examination, I estimate there is LOW risk for INTRACRANIAL HEMORRHAGE, ISCHEMIC CVA, MALIGNANT DYSRHYTHMIA, ACUTE CORONARY SYNDROME, MENINGITIS, PULMONARY EMBOLISM, or SEPSIS thus I consider the discharge disposition reasonable. I have reevaluated this patient multiple times and no significant life threatening changes are noted. The patient and I have discussed the diagnosis and risks, and we agree with discharging home with close follow-up with the understanding that symptoms and presentations can change. We also discussed returning to the Emergency Department immediately if new or worsening symptoms occur. We have discussed the symptoms which are most concerning (e.g., changing or worsening pain, weakness, vomiting, fever) that necessitate immediate return. - Vital Signs Vital signs: Temp Pulse Resp BP Pulse Ox 14 139/69 H 93 02/16/17 10:50 02/16/17 10:50 02/16/17 10:50 - Laboratory Result Diagrams: 02/16/17 09:55 02/16/17 09:55 Laboratory results interpreted by me: 02/16/17 09:55 Potassium 3.3 L Chloride 108 H Est GFR (Non-Af Amer) 53 L Glucose 112 H - EKG Interpretation by Sc EKG shows normal: Sinus rhythm, [place], Intervals, QRS Complexes - No acute abnormality Discharge - Discharge Clinical Impression: Pre-syncope Hypotension Qualifiers: Hypotension type: unspecified hypotension type Qualified Code(s): I95.9 - Hypotension, unspecified Condition: Stable Disposition: HOME, SELF-CARE Instructions: Dizziness ([facility]) Referrals: MARTI OWUSU DO [Primary Care Provider] - Follow up tomorrow
[2017-02-16 10:41] LABS: TROPONIN I < 0.012 ng/mL
[2017-02-16 11:22] VITALS: BP 134/74
--- NOTE | 2017-02-16 13:34 | EKG REPORT ---
SEVERITY:- BORDERLINE ECG - SINUS RHYTHM BORDERLINE T ABNORMALITIES, INFERIOR LEADS : Confirmed by: Pierre Jefferson MD 16-Feb-2017 13:34:01
== END 2017-02-16 11:37 | disposition home or self-care (01) ==
LOC: ER 09:48
DX: R55 Syncope and collapse (principal); I95.9 Hypotension, unspecified; R53.1 Weakness; Z79.899 Other long term (current) drug therapy
CPT/HCPCS: 36415; 80053; 82550; 82553; 84484; 85025; 93005; 93010; 99285

== ENCOUNTER 2017-04-07 11:08 | Emergency (ER) | payer MEDICARE, MEDICAID ==
[2017-04-07] MEDS ORDERED: METHYLPREDNISOLONE INJ 125 MG/2 ML SDV IM ONE (11:47)
[2017-04-07] MEDS ORDERED: LIDOCAINE 5% (700 MG) TRANSDERMAL ADH..PATCH TP ONE (11:47)
--- NOTE | 2017-04-07 12:00 | ER Document Report ---
HPI - HPI Pain Level: 5 Notes: Patient is a 52-year-old female presents the ED complaining of a fall on a bus this morning. Patient states that she hurt her right shoulder, right ribs, and low back. Patient states that she is a sharp pain. Patient states that she still able to ambulate without any difficulty. The pain does not radiate in any of the locations. Patient states that she did just start physical therapy for core muscle improvement. She denies any loss of control of bowel or bladder. Denies any urinary retention. Denies any numbness or tingling. Denies saddle anesthesia. Patient states that moving her arm in abduction does increase the pain in her shoulder. Not moving does help her pain. Patient states that she is allergic to tramadol, Flexeril, and HCTZ. She does take medication for hypertension, GERD, chronic knee/back pain otherwise. Patient states that she does take oxycodone and she did take 1 just prior to arrival for her pain. Patient also takes an aspirin daily along with Xanax. Patient states that she does smoke but denies any other illicit drugs. Denies any back procedures or injections. Denies any diabetes. Denies any headache, fever, URI , sore throat, dysphagia, dysphasia, chest pain, palpitations, syncope, cough, wheeze, shortness of breath, abdominal pain, nausea/vomiting/diarrhea, dysuria, hematuria, muscle paralysis/weakness, or rash. No recent illness/sick contacts/ travel. - ROS Notes: REVIEW OF SYSTEMS: CONSTITUTIONAL : Denies fever, chills, or sweats. Denies recent illness. EENT: Denies eye, ear, throat, or mouth pain or symptoms. Denies nasal or sinus congestion or discharge. Denies throat, tongue, or mouth swelling or difficulty swallowing. CARDIOVASCULAR: Denies chest pain. Denies palpitations or racing or irregular heart beat. Denies ankle edema. RESPIRATORY: Denies cough, cold, or chest congestion. Denies shortness of breath, difficulty breathing, or wheezing. GASTROINTESTINAL: Denies abdominal pain or distention. Denies nausea, vomiting , or diarrhea. Denies blood in vomitus, stools, or per rectum. Denies black, tarry stools. Denies constipation. GENITOURINARY: Denies difficulty urinating, painful urination, burning, frequency, blood in urine, or discharge. MUSCULOSKELETAL: see hpi SKIN: Denies rash, lesions or sores.. NEUROLOGICAL: Denies confusion or altered mental status. Denies passing out or loss of consciousness. Denies dizziness or lightheadedness. Denies headache. Denies weakness or paralysis or loss of use of either side. Denies problems with gait or speech. Denies sensory loss, numbness, or tingling. Denies seizures. PSYCHIATRIC: Denies anxiety or stress. Denies depression, suicidal ideation, or homicidal ideation. ALL OTHER SYSTEMS REVIEWED AND NEGATIVE. Dictation was performed using [employer] voice recognition software - REPRODUCTIVE Reproductive: DENIES: : - DERM Skin Color: Normal Past Medical History - Social History Smoking Status: Current Every Day Smoker Chew tobacco use (# tins/day): No Frequency of alcohol use: None Drug Abuse: None Family History: Reviewed & Not Pertinent, Malignancy, Other - [place] Patient has suicidal ideation: No Patient has homicidal ideation: No - Past Medical History Cardiac Medical History: Reports: Hx Heart Attack - mild, Hx Hypercholesterolemia, Hx Hypertension Pulmonary Medical History: Reports: Hx Asthma, Hx Bronchitis, Hx COPD Neurological Medical History: Reports: Hx Migraine, Hx Seizures Endocrine Medical History: Reports: Hx Diabetes Mellitus Type 2 - borderline Renal/ Medical History: Denies: Hx Peritoneal Dialysis GI Medical History: Reports: Hx Gastroesophageal Reflux Disease, Hx Ulcer Psychiatric Medical History: Reports: Hx Anxiety, Hx Depression Past Surgical History: Reports: Hx Hysterectomy, Hx Orthopedic Surgery - L leg AND R KNEE - Immunizations Hx Diphtheria, Pertussis, Tetanus Vaccination: Yes - <5 years Vertical Provider Document - CONSTITUTIONAL Agree With Documented VS: Yes Notes: PHYSICAL EXAMINATION: GENERAL: Well-appearing, well-nourished and in no acute distress. HEAD: Atraumatic, normocephalic. No varner sign EYES: Pupils equal round and reactive to light, extraocular movements intact, sclera anicteric, conjunctiva are normal. No raccoon eyes ENT: EAC clear b/l. TM's intact b/l without erythema, fluid, or perforation. Nares patent and without discharge. oropharynx clear without exudates. No tonsilar hypertrophy or erythema. Moist mucous membranes. No sinus tenderness. No hemotympanum, No CSF discharge. NECK: Normal range of motion, supple without lymphadenopathy. No rigidity/ tenderness. + tenderness to rt trap mm LUNGS: Breath sounds clear to auscultation bilaterally and equal. No wheezes rales or rhonchi. HEART: Regular rate and rhythm without murmurs, rubs, gallops. ABDOMEN: Soft, nontender, nondistended abdomen. No guarding, no rebound. No masses appreciated. Normal bowel sounds present. No CVA tenderness bilaterally. No ecchymosis. Musculoskeletal: Rt shoulder: FROM to passive/active. Strength 5+/5. + mild tenderness to palp of the rt shoulder. RC intact. Speed neg. Impingement neg. + tenderness to rt rib approx #8-9. No ecchymosis or deformity. Back: FROM to passive/active. Strength 5+/5. + mild tenderness to L-spine paraspinal and min. midline near L4. SLR negative b/l. Extremities: No cyanosis, clubbing, or edema b/l. Peripheral pulses 2+. Capillary refill less than 3 seconds. NEUROLOGICAL: MMSE intact. Cranial nerves grossly intact. Normal speech, normal gait. Normal sensory, motor exams. Reflexes 2+ b/l PSYCH: Normal mood, normal affect. SKIN: Warm, Dry, normal turgor, no rashes or lesions noted. - INFECTION CONTROL TRAVEL OUTSIDE OF THE [place] IN LAST 30 DAYS: No - RESPIRATORY O2 Sat by Pulse Oximetry: 96 Course - Re-evaluation Re-evalutation: 04/07/17 13:08 Patient is an afebrile, well-hydrated, 52-year-old female presents the ED status post fall with right shoulder, low back, right rib pain, suspect contusion and sprain/strain vitals are stable. PE otherwise unremarkable for any focal neurological deficits at this time. Low suspicion for any expanding/ ruptured AAA, fracture, cauda equina syndrome, epidural mass lesion, disc herniation causing severe spinal stenosis. X-rays of the shoulder, low back, right ribs were unremarkable. Toradol 15 mg given IM along with a Lidoderm patch today in the office. Conservative measures for symptoms. I will send her home with Voltaren gel. Continue other medications as he normally would. Recheck your PCM in 2-3 days. Return to the ED with any worsening/concerning symptoms otherwise as reviewed in discharge. Patient is in agreement. - Vital Signs Vital signs: Temp Pulse Resp BP Pulse Ox 98.6 F 91 20 118/70 96 04/07/17 11:19 04/07/17 11:19 04/07/17 11:19 04/07/17 11:19 04/07/17 11:19 Discharge - Discharge Clinical Impression: Shoulder pain, right Qualifiers: Chronicity: acute Qualified Code(s): M25.511 - Pain in right shoulder Low back pain Qualifiers: Chronicity: acute Back pain laterality: right Sciatica presence: unspecified whether sciatica present Qualified Code(s): M54.5 - Low back pain Contusion Qualifiers: Encounter type: initial encounter Contusion area: shoulder Laterality: right Qualified Code(s): S40.011A - Contusion of right shoulder, initial encounter Condition: Stable Disposition: HOME, SELF-CARE Instructions: Ice & Elevation ([facility]), Ice Packs ([facility]), Warm Packs ([facility]), Low Back Pain ([facility]), Stretching Exercises for the Back ([facility]), Exercise Program for the Shoulder ([facility]), Shoulder Injury ([facility]) Additional Instructions: Rest, Ice, Compression, Elevation Tylenol/ibuprofen as needed Light stretches daily Strength exercises as able Moist heat and massage may help F/u with your PCP in 2-3 days for a recheck Consider consult(s) with Orthopedics, physical therapy for ongoing/worsening symptoms Return to the ED with any worsening symptoms and/or development of fever, headache, chest pain, palpitations, syncope, shortness of breath, trouble breathing, abdominal pain, n/v/d, blood in stool/urine, loss of control of bowel /bladder, urinary retention, muscle weakness/paralysis, numbness/tingling, or other worsening symptoms that are concerning to you. Prescriptions: Diclofenac Sodium [Voltaren] 4 gm TP QID PRN #100 gel..gm. PRN Reason: Referrals: MARTI OWUSU DO [Primary Care Provider] - Follow up as needed [facility] [Provider Group] - Follow up as needed
--- NOTE | 2017-04-07 12:49 | RADIOLOGY REPORT (SQ) ---
EXAM DESCRIPTION: RIBS RIGHT W/PA CHEST COMPLETED DATE/TIME: 04/07/2017 12:35 pm REASON FOR STUDY: fall, pain to rt shoulder/low back/rt ribs COMPARISON: None. TECHNIQUE: Frontal view of the chest and additional views of the right ribs acquired. NUMBER OF VIEWS: Three views LIMITATIONS: None. FINDINGS: FRONTAL CXR: No pneumothorax. No pleural effusion. No atelectasis or infiltrates. RIBS: No displaced rib fractures. No lytic or blastic bony lesions. OTHER: No other significant finding. IMPRESSION: NO PNEUMOTHORAX. NO DISPLACED RIB FRACTURES. COMMENT: SITE OF TRAUMA/COMPLAINT MARKED/STAMP COMPLETED: No TECHNICAL DOCUMENTATION: JOB ID: [id number] [employer]- All Rights Reserved
--- NOTE | 2017-04-07 12:50 | RADIOLOGY REPORT (SQ) ---
EXAM DESCRIPTION: SHOULDER RIGHT 2 OR MORE VIEWS COMPLETED DATE/TIME: 04/07/2017 12:35 pm REASON FOR STUDY: fall, pain to rt shoulder/low back/rt ribs COMPARISON: None. NUMBER OF VIEWS: Three views. TECHNIQUE: Internal rotation, external rotation, and Y view images acquired of the right shoulder. LIMITATIONS: None. FINDINGS: MINERALIZATION: Normal. BONES: No acute fracture or dislocation. No worrisome bone lesions. JOINTS: No dislocation. VISUALIZED LUNGS AND RIBS: No pneumothorax. No rib fracture. SOFT TISSUES: No radiopaque foreign body. OTHER: No other significant finding. IMPRESSION: NEGATIVE STUDY OF THE RIGHT SHOULDER. NO RADIOGRAPHIC EVIDENCE OF ACUTE INJURY. TECHNICAL DOCUMENTATION: JOB ID: [id number] [employer]- All Rights Reserved
--- NOTE | 2017-04-07 12:52 | RADIOLOGY REPORT (SQ) ---
EXAM DESCRIPTION: L SPINE WHOLE COMPLETED DATE/TIME: 04/07/2017 12:35 pm REASON FOR STUDY: fall, pain to rt shoulder/low back/rt ribs COMPARISON: 01/15/2014 NUMBER OF VIEWS: Five views including obliques. TECHNIQUE: AP, lateral, oblique, and sacral radiographic images acquired of the lumbar spine. LIMITATIONS: None. FINDINGS: MINERALIZATION: Normal. SEGMENTATION: Normal. No transitional anatomy. ALIGNMENT: There is minimal levoscoliosis centered about L2. VERTEBRAE: Maintained height. No fracture or worrisome bone lesion. DISCS: Preserved height. No significant osteophytes or end plate irregularity. POSTERIOR ELEMENTS: Hypertrophic facet changes are present at L4-5 L5-S1. HARDWARE: None in the spine. PARASPINAL SOFT TISSUES: Normal. PELVIS: Intact as visualized. No fractures or worrisome bone lesions. SI joints intact. OTHER: No other significant finding. IMPRESSION: Mild facet arthropathy with minimal scoliosis. TECHNICAL DOCUMENTATION: JOB ID: [id number] [employer]- All Rights Reserved
[2017-04-07 13:24] VITALS: BP 106/69
== END 2017-04-07 13:15 | disposition home or self-care (01) ==
LOC: ER 11:08
DX: S40.011A Contusion of right shoulder, initial encounter (principal); M25.511 Pain in right shoulder; R07.81 Pleurodynia; M54.5 Low back pain; I10 Essential (primary) hypertension; K21.9 Gastro-esophageal reflux disease without esophagitis; F17.200 Nicotine dependence, unspecified, uncomplicated; X58.XXXA Exposure to other specified factors, initial encounter
CPT/HCPCS: 99283; 96372; 72110; 71101; 73030; J2930

== ENCOUNTER 2017-05-12 23:58 | Emergency (ER) | payer MEDICARE, MEDICAID ==
[2017-05-13] MEDS ORDERED: ONDANSETRON 4 MG TAB.RAPDIS PO ONE (02:49)
[2017-05-13] MEDS ORDERED: NORMAL SALINE 1000 ML 1,000 ML IV ONE (06:12)
--- NOTE | 2017-05-13 06:48 | ER Document Report ---
ED General - General Chief Complaint: Vomiting/Diarrhea Stated Complaint: VOMITING,DIARRHEA Time Seen by Provider: 05/13/17 06:05 Mode of Arrival: Ambulatory Information source: Patient Notes: 52-year-old female presents with complaints of vomiting and diarrhea of 3 week duration. Patient denies any fevers or chills admits symptoms started when her air conditioner unit stopped functioning appropriately. TRAVEL OUTSIDE OF THE [place] IN LAST 30 DAYS: No - HPI Onset: Other Onset/Duration: Persistent Quality of pain: No pain Severity: Mild Pain Level: Denies Associated symptoms: Diarrhea, Nausea, Vomiting Exacerbated by: Denies Relieved by: Denies Similar symptoms previously: No Recently seen / treated by doctor: No - Related Data Allergies/Adverse Reactions: cyclobenzaprine HCl [From Flexeril] Allergy (Verified 04/07/17 11:18) tramadol [Tramadol] Allergy (Verified 04/07/17 11:18) HTZ Allergy (Uncoded 04/07/17 11:18) Past Medical History - Social History Smoking Status: Current Every Day Smoker Cigarette use (# per day): Yes Chew tobacco use (# tins/day): No Smoking Education Provided: No Family History: Reviewed & Not Pertinent, Malignancy, Other - [place] Patient has suicidal ideation: No Patient has homicidal ideation: No - Past Medical History Cardiac Medical History: Reports: Hx Heart Attack - mild, Hx Hypercholesterolemia, Hx Hypertension Pulmonary Medical History: Reports: Hx Asthma, Hx Bronchitis, Hx COPD Neurological Medical History: Reports: Hx Migraine, Hx Seizures Endocrine Medical History: Reports: Hx Diabetes Mellitus Type 2 - borderline Renal/ Medical History: Denies: Hx Peritoneal Dialysis GI Medical History: Reports: Hx Gastroesophageal Reflux Disease, Hx Ulcer Psychiatric Medical History: Reports: Hx Anxiety, Hx Depression Past Surgical History: Reports: Hx Hysterectomy, Hx Orthopedic Surgery - L leg AND R KNEE - Immunizations Hx Diphtheria, Pertussis, Tetanus Vaccination: Yes - <5 years Review of Systems - Review of Systems Notes: REVIEW OF SYSTEMS: CONSTITUTIONAL : Denies fever, chills, or sweats. Denies recent illness. EENT: Denies eye, ear, throat, or mouth pain or symptoms. Denies nasal or sinus congestion or discharge. Denies throat, tongue, or mouth swelling or difficulty swallowing. CARDIOVASCULAR: Denies chest pain. Denies palpitations or racing or irregular heart beat. Denies ankle edema. RESPIRATORY: Denies cough, cold, or chest congestion. Denies shortness of breath, difficulty breathing, or wheezing. GASTROINTESTINAL: Admits to nausea vomiting diarrhea GENITOURINARY: Denies difficulty urinating, painful urination, burning, frequency, blood in urine, or discharge. FEMALE GENITOURINARY: Denies vaginal bleeding, heavy or abnormal periods, irregular periods. Denies vaginal discharge or odor. MUSCULOSKELETAL: Denies back or neck pain or stiffness. Denies joint pain or swelling. SKIN: Denies rash, lesions or sores. HEMATOLOGIC : Denies easy bruising or bleeding. LYMPHATIC: Denies swollen, enlarged glands. NEUROLOGICAL: Denies confusion or altered mental status. Denies passing out or loss of consciousness. Denies dizziness or lightheadedness. Denies headache. Denies weakness or paralysis or loss of use of either side. Denies problems with gait or speech. Denies sensory loss, numbness, or tingling. Denies seizures. PSYCHIATRIC: Denies anxiety or stress. Denies depression, suicidal ideation, or homicidal ideation. ALL OTHER SYSTEMS REVIEWED AND NEGATIVE. PHYSICAL EXAMINATION: GENERAL: Well-appearing, well-nourished and in no acute distress. HEAD: Atraumatic, normocephalic. EYES: Pupils equal round and reactive to light, extraocular movements intact, conjunctiva are normal. ENT: Nares patent, oropharynx clear without exudates. Moist mucous membranes. NECK: Normal range of motion, supple without lymphadenopathy LUNGS: Breath sounds clear to auscultation bilaterally and equal. No wheezes rales or rhonchi. HEART: Regular rate and rhythm without murmurs ABDOMEN: Soft, nontender, nondistended abdomen. No guarding, no rebound. No masses appreciated. Female : deferred Musculoskeletal: Normal range of motion, no pitting or edema. No cyanosis. NEUROLOGICAL: Cranial nerves grossly intact. Normal speech, normal gait. Normal sensory, motor exams PSYCH: Normal mood, normal affect. SKIN: Warm, Dry, normal turgor, no rashes or lesions noted. Dictation was performed using [employer] voice recognition software Physical Exam - Vital signs Vitals: Temp Pulse Resp BP Pulse Ox 98.6 F 81 18 149/80 H 96 05/13/17 01:03 05/13/17 01:03 05/13/17 01:03 05/13/17 01:03 05/13/17 01:03 Course - Re-evaluation Re-evalutation: 05/13/17 06:48 This is an overall extremely well-appearing female no acute distress who presents with complaints of nausea vomiting diarrhea of 3 week duration, lab work is pending at this time 05/13/17 07:31 Labwork notes extremely mild elevation of creatinine. Otherwise patient looks well she has been given IV fluids and would be discharged home at this time After performing a Medical Screening Examination, I estimate there is LOW risk for ACUTE APPENDICITIS, BOWEL OBSTRUCTION, ACUTE CHOLECYSTITIS, PERFORATED DIVERTICULITIS, INCARCERATED HERNIA, PANCREATITIS, PELVIC INFLAMMATORY DISEASE, PERFORATED ULCER, ECTOPIC , or TUBO-OVARIAN ABSCESS, thus I consider the discharge disposition reasonable. Also, there is no evidence or peritonitis , sepsis, or toxicity. I have reevaluated this patient multiple times and no significant life threatening changes are noted. The patient and I have discussed the diagnosis and risks, and we agree with discharging home with close follow-up with the understanding that symptoms and presentations can change. We also discussed returning to the Emergency Department immediately if new or worsening symptoms occur. We have discussed the symptoms which are most concerning (e.g., bloody stool, fever, changing or worsening pain, vomiting) that necessitate immediate return. - Vital Signs Vital signs: Temp Pulse Resp BP Pulse Ox 98.6 F 81 18 149/80 H 96 05/13/17 01:03 05/13/17 01:03 05/13/17 01:03 05/13/17 01:03 05/13/17 01:03 - Laboratory Result Diagrams: 05/13/17 06:53 05/13/17 06:53 Laboratory results interpreted by me: 05/13/17 05/13/17 06:53 06:53 RDW 14.8 H Creatinine 1.28 H Est GFR ( Amer) 53 L Est GFR (Non-Af Amer) 44 L Calcium 10.3 H Direct Bilirubin 0.5 H AST 43 H Total Protein 8.9 H Discharge - Discharge Clinical Impression: Nausea vomiting and diarrhea, Renal insufficiency Condition: Stable Disposition: HOME, SELF-CARE Instructions: Vomiting ([facility]) Prescriptions: Ciprofloxacin HCl [Cipro 500 mg Tablet] 500 mg PO BID #6 tablet Referrals: MARTI OWUSU DO [Primary Care Provider] - Follow up in 3-5 days
[2017-05-13 07:05] LABS: ABSOLUTE BASOPHILS # (AUTO) 0.2 10^3/uL (0.0-0.2); ABSOLUTE EOSINOPHILS # (AUTO) 0.1 10^3/uL (0.0-0.6); ABSOLUTE LYMPHOCYTES (AUTO) 2.7 10^3/uL (0.5-4.7); ABSOLUTE MONOCYTES (AUTO) 0.7 10^3/uL (0.1-1.4); ABSOLUTE NEUT (AUTO) 4.7 10^3/uL (1.7-8.2); BASOPHILS % (AUTO) 1.8 % (0-2); EOSINOPHILS % (AUTO) 0.9 % (0-6); HEMATOCRIT 42.8 % (36.0-47.0); HEMOGLOBIN 14.5 g/dL (12.0-15.5); HGB HCT DIFFERENCE 0.7; LYMPHOCYTES % (AUTO) 32.5 % (13-45); MEAN CORPUSCULAR HEMOGLOBIN 32.8 pg (27.0-33.4); MEAN CORPUSCULAR HGB CONC 33.9 g/dL (32.0-36.0); MEAN CORPUSCULAR VOLUME 97 fl (80-97); MONOCYTES % (AUTO) 8.7 % (3-13); RED BLOOD COUNT 4.43 10^6/uL (3.72-5.28); RED CELL DISTRIBUTION WIDTH 14.8 % (11.5-14.0); SEGMENTED NEUTROPHILS % (AUTO) 56.1 % (42-78); WHITE BLOOD COUNT 8.3 10^3/uL (4.0-10.5)
[2017-05-13 07:21] LABS: ALANINE AMINOTRANSFERASE 28 U/L (9-52); ALBUMIN 4.8 g/dL (3.5-5.0); ALKALINE PHOSPHATASE 86 U/L (38-126); ANION GAP 10 (5-19); ASPARTATE AMINO TRANSFERASE 43 U/L (14-36); BILIRUBIN,DIRECT 0.5 mg/dL (0.0-0.4); BILIRUBIN,TOTAL 0.8 mg/dL (0.2-1.3); BLOOD UREA NITROGEN 18 mg/dL (7-20); CALCIUM 10.3 mg/dL (8.4-10.2); CARBON DIOXIDE 30 mmol/L (22-30); CHLORIDE 103 mmol/L (98-107); CREATININE RESULT 1.28 mg/dL (0.52-1.25); GLUCOSE 81 mg/dL (75-110); LIPASE 106.3 U/L (23-300); POTASSIUM 3.8 mmol/L (3.6-5.0); SODIUM 142.8 mmol/L (137-145); TOTAL PROTEIN 8.9 g/dL (6.3-8.2)
[2017-05-13 07:54] VITALS: BP 159/90
== END 2017-05-13 07:53 | disposition home or self-care (01) ==
LOC: ER 23:58
DX: R11.2 Nausea with vomiting, unspecified (principal); R19.7 Diarrhea, unspecified; N28.9 Disorder of kidney and ureter, unspecified; F17.210 Nicotine dependence, cigarettes, uncomplicated; I10 Essential (primary) hypertension; I25.2 Old myocardial infarction; J44.9 Chronic obstructive pulmonary disease, unspecified; Z87.19 Personal history of other diseases of the digestive system; Z88.5 Allergy status to narcotic agent; Z88.8 Allergy status to other drugs, medicaments and biological substances
CPT/HCPCS: 99284; 96360; 36415; 83690; 85025; 80053; A9270; J7030; S0119

== ENCOUNTER 2017-11-18 13:56 | Emergency (ER) | payer MEDICARE, MEDICAID ==
[2017-11-18 14:30] VITALS: BP 129/72
--- NOTE | 2017-11-18 15:08 | ER Document Report ---
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 She came to the emergency room from Dr. Reese's office. She went to his office today to get her Percocet prescription. She takes 10 mg 4 times a day for chronic neck pain and bilateral knee pain because of musculoskeletal injuries. She states she is calling in January her because there was a problem with his transport bus. No chest pain or shortness of breath. No fever. No abdominal pain. Associated Symptoms: None Exacerbated by: Movement, Walking Relieved by: Denies Similar symptoms previously: Yes Recently seen / treated by doctor: No - ROS ROS below otherwise negative: Yes Systems Reviewed and Negative: Yes All other systems reviewed and negative - REPRODUCTIVE Reproductive: DENIES: : Past Medical History - General Information source: Patient - Social History Smoking Status: Current Every Day Smoker Frequency of alcohol use: None Drug Abuse: None Lives with: Family Family History: Reviewed & Not Pertinent, Malignancy, Other - [place] - Past Medical History Cardiac Medical History: Reports: Hx Heart Attack - mild, Hx Hypercholesterolemia, Hx Hypertension Pulmonary Medical History: Reports: Hx Asthma, Hx Bronchitis, Hx COPD Neurological Medical History: Reports: Hx Migraine, Hx Seizures Endocrine Medical History: Reports: Hx Diabetes Mellitus Type 2 - borderline Renal/ Medical History: Denies: Hx Peritoneal Dialysis GI Medical History: Reports: Hx Gastroesophageal Reflux Disease, Hx Ulcer Psychiatric Medical History: Reports: Hx Anxiety, Hx Depression Past Surgical History: Reports: Hx Hysterectomy, Hx Orthopedic Surgery - L leg AND R KNEE - Immunizations Hx Diphtheria, Pertussis, Tetanus Vaccination: Yes - <5 years Vertical Provider Document - CONSTITUTIONAL Agree With Documented VS: Yes Exam Limitations: No Limitations - INFECTION CONTROL TRAVEL OUTSIDE OF THE [place] IN LAST 30 DAYS: No - NECK Neck: Supple - Nontender C-spine - RESPIRATORY Respiratory: Breath Sounds Normal, No Respiratory Distress O2 Sat by Pulse Oximetry: 96 - CARDIOVASCULAR Cardiovascular: Regular Rate, Regular Rhythm - BACK Back: Normal Inspection - Mild tender bilateral lumbar paraspinal muscles nontender spinous process. - MUSCULOSKELETAL/EXTREMETIES Musculoskeletal/Extremeties: ROZ TARIQ - NEURO Level of Consciousness: Awake, Alert, Appropriate Motor/Sensory: No Motor Deficit, No Sensory Deficit - DERM Integumentary: Warm, Dry Course - Re-evaluation Re-evalutation: 11/18/17 16:34 X-rays are negative for fracture. There is arthritis in the right knee with no effusion. Osteopenia in the lumbar spine. Tib-fib negative. - Vital Signs Vital signs: Temp Pulse Resp BP Pulse Ox 98.1 F 99 16 129/72 H 96 11/18/17 14:29 11/18/17 14:29 11/18/17 14:29 11/18/17 14:29 11/18/17 14:29 Procedures - Immobilization Right Knee Time completed: 16:50 Pre-Proc Neuro Vasc Exam: Normal Immobilizer type: Knee immobilizer Performed by: RN Post-Proc Neuro Vasc Exam: Normal Alignment checked and good: Yes Discharge - Discharge Clinical Impression: Arthritis Right knee sprain Qualifiers: Encounter type: initial encounter Involved ligament of knee: unspecified ligament Qualified Code(s): S83.91XA - Sprain of unspecified site of right knee , initial encounter Lumbar back sprain Qualifiers: Encounter type: initial encounter Qualified Code(s): S33.5XXA - Sprain of ligaments of lumbar spine, initial encounter Condition: Good Disposition: HOME, SELF-CARE Instructions: Knee Immobilizing Splint ([facility]) Additional Instructions: See your orthopedic doctor for follow-up Copy of x-rays given to you Return to the emergency room symptoms worsen Knee immobilizer this week. Referrals: MARTI REESE DO [Primary Care Provider] - Follow up as needed
--- NOTE | 2017-11-18 15:50 | RADIOLOGY REPORT (SQ) ---
EXAM DESCRIPTION: L SPINE WHOLE COMPLETED DATE/TIME: 11/18/2017 3:41 pm REASON FOR STUDY: twisting injury COMPARISON: 04/07/2017, 01/15/2014 NUMBER OF VIEWS: Five views including obliques. TECHNIQUE: AP, lateral, oblique, and sacral radiographic images acquired of the lumbar spine. LIMITATIONS: None. FINDINGS: MINERALIZATION: Osteoporotic SEGMENTATION: Normal. No transitional anatomy. ALIGNMENT: Normal. VERTEBRAE: Maintained height. No fracture or worrisome bone lesion. DISCS: Preserved height. No significant osteophytes or end plate irregularity. POSTERIOR ELEMENTS: Bilateral lower lumbar facet arthropathy at L4-5 and L5-S1 HARDWARE: None in the spine. PARASPINAL SOFT TISSUES: Normal. PELVIS: Not included in the field of view. SI joints unremarkable OTHER: No other significant finding. IMPRESSION: No acute fracture or malalignment. Bones are osteoporotic. TECHNICAL DOCUMENTATION: JOB ID: [id number] [employer]- All Rights Reserved Reading location - IP/workstation name: [email or web address]
--- NOTE | 2017-11-18 15:51 | RADIOLOGY REPORT (SQ) ---
EXAM DESCRIPTION: TIBIA FIBULA RIGHT COMPLETED DATE/TIME: 11/18/2017 3:41 pm REASON FOR STUDY: twisting injury COMPARISON: Right knee films same date NUMBER OF VIEWS: Two views. TECHNIQUE: Two radiographic images acquired of the right tibia and fibula to include the knee and an kle in at least one projection. LIMITATIONS: None. FINDINGS: MINERALIZATION: Normal. BONES: No acute fracture or dislocation. No worrisome bone lesions. SOFT TISSUES: No obvious swelling or foreign body. OTHER: No other significant finding. IMPRESSION: NEGATIVE STUDY OF THE RIGHT TIBIA AND FIBULA. NO RADIOGRAPHIC EVIDENCE OF ACUTE INJURY. TECHNICAL DOCUMENTATION: JOB ID: [id number] [employer]- All Rights Reserved Reading location - IP/workstation name: [email or web address]
--- NOTE | 2017-11-18 15:53 | RADIOLOGY REPORT (SQ) ---
EXAM DESCRIPTION: KNEE RIGHT 4 VIEWS COMPLETED DATE/TIME: 11/18/2017 3:41 pm REASON FOR STUDY: twisting injury COMPARISON: Right knee three views 01/14/2016 NUMBER OF VIEWS: Four views. TECHNIQUE: AP, lateral, and both oblique radiographic images acquired of the right knee. LIMITATIONS: None. FINDINGS: MINERALIZATION: Osteopenic BONES: No acute fracture or dislocation. No worrisome bone lesions. JOINT: No suprapatellar knee joint effusion. There is moderate patellofemoral and medial compartment joint space narrowing. Medial compartment bony spurring. SOFT TISSUES: No soft tissue swelling. No radio-opaque foreign body. OTHER: No other significant finding. IMPRESSION: No acute fracture or malalignment. Patellofemoral and medial compartment osteoarthritis TECHNICAL DOCUMENTATION: JOB ID: [id number] [employer]- All Rights Reserved Reading location - IP/workstation name: [email or web address]
== END 2017-11-18 16:48 | disposition home or self-care (01) ==
LOC: ER 13:56
DX: S83.91XA Sprain of unspecified site of right knee, initial encounter (principal); S33.5XXA Sprain of ligaments of lumbar spine, initial encounter; M54.5 Low back pain; M25.561 Pain in right knee; M54.2 Cervicalgia; G89.29 Other chronic pain; M25.562 Pain in left knee; F17.200 Nicotine dependence, unspecified, uncomplicated; X50.1XXA Overexertion from prolonged static or awkward postures, initial encounter
CPT/HCPCS: 99283; 73564; 72110; 73590; L1830

== ENCOUNTER 2017-11-29 11:28 | Emergency (ER) | payer MEDICARE, MEDICAID ==
--- NOTE | 2017-11-29 12:05 | ER Document Report ---
ED General - General Stated Complaint: CHEST PAIN Time Seen by Provider: 11/29/17 11:34 Mode of Arrival: Medic Information source: Patient Notes: 52-year-old female extensive history of anxiety presents with complaints of anxiety attack. Patient notes she has not taken her medication today, no she feels extremely anxious, is complaining of shortness of breath chest pain. Daughter notes that she is extremely anxious as well. Denies any fevers or chills. Patient notes this chest pain similar to all her previous chest pains in the past, denies any difficulty or difference in this chest pain TRAVEL OUTSIDE OF THE [place] IN LAST 30 DAYS: No - HPI Onset: Just prior to arrival Onset/Duration: Sudden Quality of pain: Sharp Severity: Mild Pain Level: 1 Associated symptoms: Chest pain Exacerbated by: Other Relieved by: Other - anxiety medication Similar symptoms previously: Yes Recently seen / treated by doctor: Yes - Related Data Allergies/Adverse Reactions: cyclobenzaprine HCl [From Flexeril] Allergy (Verified 11/18/17 14:10) tramadol [Tramadol] Allergy (Verified 11/18/17 14:10) HTZ Allergy (Uncoded 11/18/17 14:10) Past Medical History - Social History Smoking Status: Never Smoker Cigarette use (# per day): No Chew tobacco use (# tins/day): No Smoking Education Provided: No Family History: Reviewed & Not Pertinent, Malignancy, Other - [place] - Past Medical History Cardiac Medical History: Reports: Hx Heart Attack - mild, Hx Hypercholesterolemia, Hx Hypertension Pulmonary Medical History: Reports: Hx Asthma, Hx Bronchitis, Hx COPD Neurological Medical History: Reports: Hx Migraine, Hx Seizures Endocrine Medical History: Reports: Hx Diabetes Mellitus Type 2 - borderline Renal/ Medical History: Denies: Hx Peritoneal Dialysis GI Medical History: Reports: Hx Gastroesophageal Reflux Disease, Hx Ulcer Psychiatric Medical History: Reports: Hx Anxiety, Hx Depression Past Surgical History: Reports: Hx Hysterectomy, Hx Orthopedic Surgery - L leg AND R KNEE - Immunizations Hx Diphtheria, Pertussis, Tetanus Vaccination: Yes - <5 years Review of Systems - Review of Systems Notes: REVIEW OF SYSTEMS: CONSTITUTIONAL : Denies fever, chills, or sweats. Denies recent illness. EENT: Denies eye, ear, throat, or mouth pain or symptoms. Denies nasal or sinus congestion or discharge. Denies throat, tongue, or mouth swelling or difficulty swallowing. CARDIOVASCULAR: Admits to chest pain RESPIRATORY: Denies cough, cold, or chest congestion. Denies shortness of breath, difficulty breathing, or wheezing. GASTROINTESTINAL: Denies abdominal pain or distention. Denies nausea, vomiting , or diarrhea. Denies blood in vomitus, stools, or per rectum. Denies black, tarry stools. Denies constipation. GENITOURINARY: Denies difficulty urinating, painful urination, burning, frequency, blood in urine, or discharge. FEMALE GENITOURINARY: Denies vaginal bleeding, heavy or abnormal periods, irregular periods. Denies vaginal discharge or odor. MUSCULOSKELETAL: Denies back or neck pain or stiffness. Denies joint pain or swelling. SKIN: Denies rash, lesions or sores. HEMATOLOGIC : Denies easy bruising or bleeding. LYMPHATIC: Denies swollen, enlarged glands. NEUROLOGICAL: Denies confusion or altered mental status. Denies passing out or loss of consciousness. Denies dizziness or lightheadedness. Denies headache. Denies weakness or paralysis or loss of use of either side. Denies problems with gait or speech. Denies sensory loss, numbness, or tingling. Denies seizures. PSYCHIATRIC: Admits to severe anxiety ALL OTHER SYSTEMS REVIEWED AND NEGATIVE. PHYSICAL EXAMINATION: GENERAL: Well-appearing, well-nourished and in no acute distress. Patient is hyperventilating HEAD: Atraumatic, normocephalic. EYES: Pupils equal round and reactive to light, extraocular movements intact, conjunctiva are normal. ENT: Nares patent, oropharynx clear without exudates. Moist mucous membranes. NECK: Normal range of motion, supple without lymphadenopathy LUNGS: Breath sounds clear to auscultation bilaterally and equal. No wheezes rales or rhonchi. HEART: Regular rate and rhythm without murmurs ABDOMEN: Soft, nontender, nondistended abdomen. No guarding, no rebound. No masses appreciated. Female : deferred Musculoskeletal: Normal range of motion, no pitting or edema. No cyanosis. NEUROLOGICAL: Cranial nerves grossly intact. Normal speech, normal gait. Normal sensory, motor exams PSYCH: Extremely anxious SKIN: Warm, Dry, normal turgor, no rashes or lesions noted. Dictation was performed using [employer] voice recognition software Physical Exam - Vital signs Vitals: Pulse Ox 97 11/29/17 11:32 Course - Re-evaluation Re-evalutation: Patient is hyperventilating upon arrival, states this is similar until her previous anxiety attacks 11/29/17 12:39 Patient is quite anxious, her only complaints at this time are what TV channels we have, if she can have a cracker, and her complaints about staff members. Lab work cardiac workup pending nonetheless 11/29/17 16:02 Cardiac workup was benign, I explained that this is not a complete cardiac evaluation and a complete evaluation would require further cardiac enzymes possible stress test versus heart catheterization, both she and daughter state they understand, they do believe that this is just anxiety related wish to be discharged so she can go eat in the cafeteria. I will discharge at the request After performing a Medical Screening Examination, I estimate there is LOW risk for RUPTURED ESOPHAGUS, PNEUMOTHORAX, PULMONARY EMBOLISM, ACUTE CORONARY SYNDROME, OR THORACIC AORTIC DISSECTION, thus I consider the discharge disposition reasonable. I have reevaluated this patient multiple times and no significant life threatening changes are noted. The patient and I have discussed the diagnosis and risks, and we agree with discharging home with close follow-up. We also discussed returning to the Emergency Department immediately if new or worsening symptoms occur. We have discussed the symptoms which are most concerning (e.g., bloody sputum, worsening pain or shortness of breath) that necessitate immediate return. - Vital Signs Vital signs: Temp Pulse Resp BP Pulse Ox 98.7 F 120 H 22 H 180/100 H 97 11/29/17 12:33 11/29/17 12:33 11/29/17 12:33 11/29/17 12:33 11/29/17 12:33 - Laboratory Result Diagrams: 11/29/17 13:10 11/29/17 13:10 Laboratory results interpreted by me: 11/29/17 13:10 Est GFR (Non-Af Amer) 57 L Calcium 10.6 H - Diagnostic Test Radiology reviewed: Image reviewed, Reports reviewed - No acute abnormality - EKG Interpretation by Me EKG shows normal: Sinus rhythm, [place], Intervals, QRS Complexes Discharge - Discharge Clinical Impression: Anxiety Condition: Stable Disposition: HOME, SELF-CARE Instructions: Chest Pain of Unclear Cause ([facility]) Referrals: MARTI OWUSU DO [Primary Care Provider] - Follow up as needed SPEEDY ROBERTSON MD [ACTIVE STAFF] - Follow up tomorrow
--- NOTE | 2017-11-29 12:22 | RADIOLOGY REPORT (SQ) ---
EXAM DESCRIPTION: CHEST SINGLE VIEW COMPLETED DATE/TIME: 11/29/2017 12:05 pm REASON FOR STUDY: bed 4 cp COMPARISON: None. EXAM PARAMETERS: NUMBER OF VIEWS: One view. TECHNIQUE: Single frontal radiographic view of the chest acquired. RADIATION DOSE: NA LIMITATIONS: None. FINDINGS: LUNGS AND PLEURA: No opacities, masses or pneumothorax. No pleural effusion. MEDIASTINUM AND HILAR STRUCTURES: No masses. Contour normal. HEART AND VASCULAR STRUCTURES: Heart normal in size. Normal vasculature. BONES: No acute findings. HARDWARE: None in the chest. OTHER: No other significant finding. IMPRESSION: NO ACUTE RADIOGRAPHIC FINDING IN THE CHEST. TECHNICAL DOCUMENTATION: JOB ID: [id number] [employer]- All Rights Reserved Reading location - IP/workstation name: [email or web address]
[2017-11-29] MEDS ORDERED: LORAZEPAM 1 MG TABLET PO ONE (13:01)
[2017-11-29 13:22] LABS: ABSOLUTE BASOPHILS # (AUTO) 0.1 10^3/uL (0.0-0.2); ABSOLUTE EOSINOPHILS # (AUTO) 0.1 10^3/uL (0.0-0.6); ABSOLUTE LYMPHOCYTES (AUTO) 3.3 10^3/uL (0.5-4.7); ABSOLUTE MONOCYTES (AUTO) 0.6 10^3/uL (0.1-1.4); ABSOLUTE NEUT (AUTO) 5.1 10^3/uL (1.7-8.2); EOSINOPHILS % (AUTO) 0.6 % (0-6); HEMATOCRIT 40.9 % (36.0-47.0); HEMOGLOBIN 14.1 g/dL (12.0-15.5); LYMPHOCYTES % (AUTO) 35.8 % (13-45); MEAN CORPUSCULAR HEMOGLOBIN 32.8 pg (27.0-33.4); MEAN CORPUSCULAR HGB CONC 34.4 g/dL (32.0-36.0); MEAN CORPUSCULAR VOLUME 95 fl (80-97); MONOCYTES % (AUTO) 6.7 % (3-13); PLATELET COUNT 236 10^3/uL (150-450); RED BLOOD COUNT 4.29 10^6/uL (3.72-5.28); RED CELL DISTRIBUTION WIDTH 13.8 % (11.5-14.0); SEGMENTED NEUTROPHILS % (AUTO) 55.9 % (42-78); TOTAL CELLS COUNTED % (AUTO) 100 %; WHITE BLOOD COUNT 9.1 10^3/uL (4.0-10.5)
[2017-11-29 13:40] LABS: ALANINE AMINOTRANSFERASE 23 U/L (9-52); ALBUMIN 4.4 g/dL (3.5-5.0); ALKALINE PHOSPHATASE 67 U/L (38-126); ANION GAP 12 (5-19); ASPARTATE AMINO TRANSFERASE 18 U/L (14-36); BILIRUBIN,DIRECT 0.2 mg/dL (0.0-0.4); BILIRUBIN,TOTAL 0.4 mg/dL (0.2-1.3); BLOOD UREA NITROGEN 19 mg/dL (7-20); CALCIUM 10.6 mg/dL (8.4-10.2); CARBON DIOXIDE 28 mmol/L (22-30); CHLORIDE 103 mmol/L (98-107); CREATINE KINASE 118 U/L (30-135); GLUCOSE 84 mg/dL (75-110); POTASSIUM 3.7 mmol/L (3.6-5.0); SODIUM 143.2 mmol/L (137-145); TOTAL PROTEIN 7.2 g/dL (6.3-8.2)
[2017-11-29 13:53] LABS: CREATINE KINASE MB 0.86 ng/mL (<4.55)
[2017-11-29 13:54] LABS: TROPONIN I < 0.012 ng/mL
[2017-11-29] MEDS ORDERED: ALPRAZOLAM 0.5 MG TABLET PO ONE (13:58)
[2017-11-29 14:31] VITALS: BP 180/100
--- NOTE | 2017-11-29 21:25 | EKG REPORT ---
SEVERITY:- BORDERLINE ECG - SINUS RHYTHM PROBABLE LEFT ATRIAL ABNORMALITY : Confirmed by: Gloria Wilson 29-Nov-2017 21:24:42
== END 2017-11-29 14:30 | disposition home or self-care (01) ==
LOC: ER 11:28
DX: F41.9 Anxiety disorder, unspecified (principal); R07.9 Chest pain, unspecified; J44.9 Chronic obstructive pulmonary disease, unspecified; I10 Essential (primary) hypertension; I25.2 Old myocardial infarction; Z88.8 Allergy status to other drugs, medicaments and biological substances; Z88.5 Allergy status to narcotic agent
CPT/HCPCS: 93005; 99284; 36415; 82553; 82550; 85025; 80053; 84484; 71045; 93010; A9270

== ENCOUNTER → 2017-12-08 | Outpatient (CLI) | payer MEDICARE, MEDICAID ==
--- NOTE | 2017-12-08 13:21 | RADIOLOGY REPORT (SQ) ---
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 TECHNIQUE: Axial images acquired through the thoracic spine without intravenous contrast. Images re viewed with lung, soft tissue and bone windows. Reconstructed coronal and sagittal MPR images review ed. Images stored on PACS. All CT scanners at this facility use dose modulation, iterative reconstruction, and/or weight based d osing when appropriate to reduce radiation dose to as low as reasonably achievable (ALARA). [facility]: Dose Right [facility]: CareDose [facility]: Dose Right [facility]: Teradose 4D [facility]: [employer] RADIATION DOSE: CT Rad equipment meets quality standard of care and radiation dose reduction techniq ues were employed. CTDIvol: 6.8 mGy. DLP: 224 mGy-cm. mGy. LIMITATIONS: None. FINDINGS: VISUALIZED LUNGS: Small medial peripheral emphysematous blebs are seen in the right lung. SOFT TISSUES: No soft tissue swelling. No masses. VERTEBRAL BODIES: No fractures. No dislocation. No acute findings. DISCS: No significant disc space narrowing. ALIGNMENT: Normal. TRANSVERSE PROCESSES, POSTERIOR ELEMENTS: No fractures. No dislocation. No acute findings. HARDWARE: None in the spine. VISUALIZED RIBS: No fractures. OTHER: No other significant finding. IMPRESSION: NORMAL CT OF THE THORACIC SPINE. THERE ARE SOME SMALL EMPHYSEMATOUS BLEBS IN THE RIGHT LUNG. TECHNICAL DOCUMENTATION: JOB ID: [id number] Quality ID # [id number]: Final reports with documentation of one or more dose reduction techniques (e.g., Au tomated exposure control, adjustment of the mA and/or kV according to patient size, use of iterative reconstruction technique) 2010 [employer]- All Rights Reserved Reading location - IP/workstation name: [email or web address]
== END ==
LOC: RAD 10:07
PROVIDERS: ATTEND Orthopaedic Surgery
DX: M47.814 Spondylosis without myelopathy or radiculopathy, thoracic region (principal)
CPT/HCPCS: 72128

== ENCOUNTER 2018-03-19 15:19 | Emergency (ER) | payer MEDICARE, MEDICAID ==
[2018-03-19 15:28] VITALS: BP 155/106
[2018-03-19] MEDS ORDERED: CLONIDINE HCL 0.1 MG TABLET PO ONE (16:02)
[2018-03-19] MEDS ORDERED: ALPRAZOLAM 0.5 MG TABLET PO ONE (16:02)
[2018-03-19] MEDS ORDERED: POTASSIUM CHLORIDE 10 MEQ CAPSULE.ER PO ONE (16:03)
[2018-03-19] MEDS ORDERED: TORSEMIDE 20 MG TABLET PO ONE (16:03)
[2018-03-19] MEDS ORDERED: ONDANSETRON 4 MG TAB.RAPDIS PO ONE (16:03)
--- NOTE | 2018-03-19 16:17 | ER Document Report ---
HPI - HPI Patient complains to provider of: med refill uri Onset: Other - Patient requesting med refills because she has not been to her doctor yet Quality of pain: Achy Pain Level: 5 Associated Symptoms: Rhinnorhea, Sinus pain/drainage Exacerbated by: Denies Relieved by: Denies Similar symptoms previously: Yes Recently seen / treated by doctor: No - ROS ROS below otherwise negative: Yes - CONSTITUTIONAL Constitutional: DENIES: Fever, Chills - EENT EENT: REPORTS: Nasal Drainage-Clear - NEURO Neurology: REPORTS: Headache - CARDIOVASCULAR Cardiovascular: DENIES: Chest pain - RESPIRATORY Respiratory: REPORTS: Coughing - GASTROINTESTINAL Gastrointestinal: REPORTS: Nausea - REPRODUCTIVE Reproductive: DENIES: : - DERM Skin Color: Normal Skin Problems: None Past Medical History - General Information source: Patient - Social History Smoking Status: Unknown if Ever Smoked Family History: Reviewed & Not Pertinent, Malignancy, Other Patient has suicidal ideation: No Patient has homicidal ideation: No - Past Medical History Cardiac Medical History: Reports: Hx Heart Attack - mild, Hx Hypercholesterolemia, Hx Hypertension Pulmonary Medical History: Reports: Hx Asthma, Hx Bronchitis, Hx COPD Neurological Medical History: Reports: Hx Migraine, Hx Seizures Endocrine Medical History: Reports: Hx Diabetes Mellitus Type 2 - borderline Renal/ Medical History: Reports: None Malignancy Medical History: Reports: None GI Medical History: Reports: Hx Gastroesophageal Reflux Disease, Hx Ulcer Psychiatric Medical History: Reports: Hx Anxiety, Hx Depression Past Surgical History: Reports: Hx Hysterectomy, Hx Orthopedic Surgery - L leg AND R KNEE - Immunizations Hx Diphtheria, Pertussis, Tetanus Vaccination: Yes - <5 years Vertical Provider Document - CONSTITUTIONAL Agree With Documented VS: Yes Exam Limitations: No Limitations General Appearance: WD/WN, No Apparent Distress - INFECTION CONTROL TRAVEL OUTSIDE OF THE [place] IN LAST 30 DAYS: No - HEENT HEENT: negative: Normal ENT Exam Notes: Postnasal drip with swelling and purulent drainage to the nose. Patient's main reason for coming to the ED for was for a refill for her chronic medications of Xanax pressure medications and potassiums. Patient was given 1 dose of each of her medications as well as one Zofran while in the emergency room. She was instructed to follow-up with her primary doctor tomorrow she states she has a blood pressure medications at the pharmacy she just could not get them today. She was instructed to go to the pharmacy and get her medications in the morning and take them as prescribed. - RESPIRATORY Respiratory: Breath Sounds Normal, No Respiratory Distress - CARDIOVASCULAR Cardiovascular: Regular Rate, Regular Rhythm Course - Vital Signs Vital signs: Temp Pulse Resp BP Pulse Ox 98.9 F 98 16 155/106 H 93 03/19/18 15:26 03/19/18 15:26 03/19/18 15:26 03/19/18 15:26 03/19/18 15:26 Discharge - Discharge Clinical Impression: Medication refill URI (upper respiratory infection) Qualifiers: URI type: unspecified URI Qualified Code(s): J06.9 - Acute upper respiratory infection, unspecified Condition: Stable Disposition: HOME, SELF-CARE Additional Instructions: UPPER RESPIRATORY ILLNESS: You have a viral infection of the respiratory passages -- a "cold." This common infection causes nasal congestion, drainage, and often sore throat and cough. It is highly contagious. The disease usually lasts about 10 to 14 days. There is no "cure" for the viral infection -- it must run its course. If there is a complication, such as bacterial infection in the nose, sinuses, middle ear, or bronchial tubes, antibiotics may be required. The antibiotics won't affect the virus. Drink plenty of fluids. A humidifier may help. An expectorant medication or decongestant may make you more comfortable. Use acetaminophen or ibuprofen for fever or aches. See the doctor if fever persists over two days, if there is any significant worsening of your symptoms, or if you simply fail to improve as expected. Came to the ED today for medication refills for your chronic medications and your Xanax. I have given you 1 dose of each of the medications. You state that you have a refill of all the medications except for Xanax at the pharmacy but she just cannot get them today. You need to go tomorrow morning and get all of your medications you need to follow-up with your primary doctor to get a refill on your Xanax. As I will not write a prescription for your Xanax. USE OF ACETAMINOPHEN (Tylenol): Acetaminophen may be taken for pain relief or fever control. It's much safer than aspirin, offering a wider range of "safe" dosages. It is safe during . Some brand names are Tylenol, Panadol, Datril, Anacin 3, Tempra, and Liquiprin. Acetaminophen can be repeated every four hours. The following are maximum recommended dosages: >89 pounds or adults 650 mg to 900 mg Acetaminophen can be repeated every four hours. Maximum dose not to exceed 4000 mg a day. SMOKING: If you smoke, you should stop smoking. The tar and chemicals in cigarette smoke are harmful. Smoking has been shown to cause: emphysema chronic bronchitis lung cancer mouth and throat cancer stomach and pancreas cancer premature aging defects In addition, smoking increases ear and lung infections in children of smokers. FOLLOW-UP CARE: If you have been referred to a physician for follow-up care, call the physician s office for an appointment as you were instructed or within the next two days. If you experience worsening or a significant change in your symptoms, notify the physician immediately or return to the Emergency Department at any time for re-evaluation. Forms: Elevated Blood Pressure, Smoking Cessation Education Referrals: MARTI OWUSU DO [Primary Care Provider] - Follow up tomorrow
== END 2018-03-19 16:29 | disposition home or self-care (01) ==
LOC: ER 15:19
DX: Z76.0 Encounter for issue of repeat prescription (principal); J06.9 Acute upper respiratory infection, unspecified; R09.89 Other specified symptoms and signs involving the circulatory and respiratory systems; R51 Headache; I25.2 Old myocardial infarction; I10 Essential (primary) hypertension; J44.9 Chronic obstructive pulmonary disease, unspecified; E11.9 Type 2 diabetes mellitus without complications
CPT/HCPCS: 99281; A9270 ×5; S0119

== ENCOUNTER 2018-03-26 11:35 | Emergency (ER) | payer MEDICARE, MEDICAID ==
[2018-03-26 12:04] VITALS: BP 176/82
--- NOTE | 2018-03-26 12:26 | ER Document Report ---
HPI - HPI Pain Level: 4 Notes: Patient is a 53-year-old female with a history of anxiety and chronic pain who presents to the ED complaining of right dorsal proximal foot pain 3 weeks status post injury. Patient states that she had had this evaluated by her primary care doctor and has an x-ray ordered for tomorrow. Patient states that she did not want to wait just want to come in. Patient states that she is ambulating and has been weightbearing since then. Patient has not noticed any obvious swelling, bruising, or deformity. Pain does not radiate. Denies any headache, fever, URI, sore throat, chest pain, palpitations, syncope, cough, shortness of breath, wheeze, dyspnea, abdominal pain, nausea/vomiting/diarrhea, urinary retention, dysuria, hematuria, numbness/tingling, muscle paralysis/ weakness, or rash. - ROS Systems Reviewed and Negative: Yes All other systems reviewed and negative - REPRODUCTIVE Reproductive: DENIES: : Past Medical History - Social History Smoking Status: Unknown if Ever Smoked Family History: Reviewed & Not Pertinent, Malignancy, Other - Past Medical History Cardiac Medical History: Reports: Hx Heart Attack - mild, Hx Hypercholesterolemia, Hx Hypertension Pulmonary Medical History: Reports: Hx Asthma, Hx Bronchitis, Hx COPD Neurological Medical History: Reports: Hx Migraine, Hx Seizures Endocrine Medical History: Reports: Hx Diabetes Mellitus Type 2 - borderline Renal/ Medical History: Denies: Hx Peritoneal Dialysis GI Medical History: Reports: Hx Gastroesophageal Reflux Disease, Hx Ulcer Psychiatric Medical History: Reports: Hx Anxiety, Hx Depression Past Surgical History: Reports: Hx Hysterectomy, Hx Orthopedic Surgery - L leg AND R KNEE - Immunizations Hx Diphtheria, Pertussis, Tetanus Vaccination: Yes - <5 years Vertical Provider Document - CONSTITUTIONAL Agree With Documented VS: Yes Notes: PHYSICAL EXAMINATION: GENERAL: Well-appearing, well-nourished and in no acute distress. LUNGS: Breath sounds clear to auscultation bilaterally and equal. No wheezes rales or rhonchi. HEART: Regular rate and rhythm without murmurs, rubs, gallops. Musculoskeletal: Rt foot/ankle: FROM to passive/active dorsiflexion. Strength 5 +/5. N/V intact distal. Nontender to the ankle. No bony tenderness of the foot. Achilles intact. I am able to manipulate her foot and ankle without any signs of discomfort or tenderness noted. Patient is ambulating and weightbearing. There is no obvious effusion, swelling, deformity, ecchymosis noted. There is a plantar wart and callus buildup to the plantar foot. Extremities: No cyanosis, clubbing, or edema b/l. Peripheral pulses 2+. Capillary refill less than 3 seconds. NEUROLOGICAL: Normal speech, normal gait. Normal sensory, motor exams PSYCH: Normal mood, normal affect. SKIN: See above. Warm, Dry, normal turgor, no rashes or lesions noted. - INFECTION CONTROL TRAVEL OUTSIDE OF THE [place] IN LAST 30 DAYS: No Course - Re-evaluation Re-evalutation: 03/26/18 12:24 Patient is an afebrile, well-hydrated, 53-year-old female who presents to the ED with right foot pain which I suspect to be a probable contusion. Vitals are acceptable without any significant tachycardia, tachypnea, or hypoxia. PE is otherwise unremarkable for any neurovascular compromise, obvious tendon/ ligament rupture, obvious fracture/dislocation, septic joint. [place] foot/ ankle rules negative. No tenderness on exam. Advised patient that her presentation and symptomatology do not warrant an emergent XR at this time and she should keep her appointments as her PCM ordered already. Ankle stirrup provided today. Patient declined any Tylenol or Motrin at this time. Patient is nontoxic-appearing. Patient is able to ambulate and weight-bear. No other labs or imaging warranted at this time based on H&P. Conservative measures otherwise for symptoms. Recheck with your PCM in 3-5 days. Consider consult orthopedics. Return to the ED with any worsening/concerning symptoms otherwise as reviewed in discharge. Patient is in agreement. - Vital Signs Vital signs: Temp Pulse Resp BP Pulse Ox 99 F 99 20 176/82 H 96 03/26/18 12:02 03/26/18 12:02 03/26/18 12:02 03/26/18 12:02 03/26/18 12:02 Discharge - Discharge Clinical Impression: Right foot pain Condition: Stable Disposition: HOME, SELF-CARE Additional Instructions: Rest, Ice, Compression, Elevation Tylenol/ibuprofen as needed Light stretches daily Strength exercises as able Moist heat and massage may help F/u with your PCP in 3-5 days for a recheck Consider consult(s) with Orthopedics/physical therapy for ongoing/worsening symptoms Return to the ED with any worsening symptoms and/or development of fever, headache, chest pain, palpitations, syncope, shortness of breath, trouble breathing, abdominal pain, n/v/d, muscle weakness/paralysis, numbness/tingling, swelling, redness, or other worsening symptoms that are concerning to you. Forms: Elevated Blood Pressure Referrals: MARTI OWUSU DO [Primary Care Provider] - Follow up in 3-5 days [facility] [Provider Group] - Follow up as needed
== END 2018-03-26 12:30 | disposition home or self-care (01) ==
LOC: ER 11:35
DX: M79.671 Pain in right foot (principal); I10 Essential (primary) hypertension; J44.9 Chronic obstructive pulmonary disease, unspecified; E11.9 Type 2 diabetes mellitus without complications
CPT/HCPCS: 99283; L1902

== ENCOUNTER 2018-04-04 09:11 | Emergency (ER) | payer MEDICARE, MEDICAID ==
--- NOTE | 2018-04-04 10:27 | RADIOLOGY REPORT (SQ) ---
EXAM DESCRIPTION: TIBIA FIBULA RIGHT COMPLETED DATE/TIME: 04/04/2018 10:17 am REASON FOR STUDY: pain after tripping in store COMPARISON: None. NUMBER OF VIEWS: Four views. TECHNIQUE: Two radiographic images acquired of the right tibia and fibula to include the knee and an kle in at least one projection. LIMITATIONS: None. FINDINGS: MINERALIZATION: Normal. BONES: No acute fracture or dislocation. No worrisome bone lesions. SOFT TISSUES: No obvious swelling or foreign body. OTHER: No other significant finding. IMPRESSION: NEGATIVE STUDY OF THE RIGHT TIBIA AND FIBULA. NO RADIOGRAPHIC EVIDENCE OF ACUTE INJURY. TECHNICAL DOCUMENTATION: JOB ID: [id number] [employer]- All Rights Reserved Reading location - IP/workstation name: [email or web address]
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
[2018-04-04 10:44] VITALS: BP 140/85
== END 2018-04-04 10:45 | disposition home or self-care (01) ==
LOC: ER 09:11
DX: S83.91XA Sprain of unspecified site of right knee, initial encounter (principal); W01.0XXA Fall on same level from slipping, tripping and stumbling without subsequent striking against object, initial encounter; Y93.89 Activity, other specified; Y92.811 Bus as the place of occurrence of the external cause; M79.604 Pain in right leg; F17.200 Nicotine dependence, unspecified, uncomplicated; I10 Essential (primary) hypertension; I25.2 Old myocardial infarction; J44.9 Chronic obstructive pulmonary disease, unspecified; Z98.890 Other specified postprocedural states
CPT/HCPCS: 99283; 73564; 73590; L1830

== ENCOUNTER → 2018-04-04 | Outpatient (CLI) | payer MEDICARE, MEDICAID ==
--- NOTE | 2018-04-04 11:32 | RADIOLOGY REPORT (SQ) ---
EXAM DESCRIPTION: FOOT RIGHT COMPLETE COMPLETED DATE/TIME: 04/04/2018 11:23 am REASON FOR STUDY: RIGHT FOOT PAIN M79.671 PAIN IN RIGHT FOOT COMPARISON: None. NUMBER OF VIEWS: Three views. TECHNIQUE: AP, lateral and oblique radiographic images acquired of the right foot. LIMITATIONS: None. FINDINGS: MINERALIZATION: Normal. BONES: No acute fracture or dislocation. No worrisome bone lesions. JOINTS: Mild hallux valgus deformity at the right 1st metatarsophalangeal joint, unchanged. SOFT TISSUES: No soft tissue swelling. No foreign body. OTHER: No other significant finding. IMPRESSION: Hallux valgus deformity. No acute findings. TECHNICAL DOCUMENTATION: JOB ID: [id number] [employer]- All Rights Reserved Reading location - IP/workstation name: [email or web address]
== END ==
LOC: RAD 11:01
PROVIDERS: ATTEND Family Medicine
DX: M79.671 Pain in right foot (principal); M20.11 Hallux valgus (acquired), right foot

== ENCOUNTER 2018-04-14 14:25 | Emergency (ER) | payer MEDICARE, MEDICAID ==
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
--- NOTE | 2018-04-14 16:06 | RADIOLOGY REPORT (SQ) ---
EXAM DESCRIPTION: CHEST 2 VIEWS COMPLETED DATE/TIME: 04/14/2018 3:49 pm REASON FOR STUDY: SOB COMPARISON: Chest x-ray 11/12/2016. EXAM PARAMETERS: NUMBER OF VIEWS: two views TECHNIQUE: Digital Frontal and Lateral radiographic views of the chest acquired. RADIATION DOSE: NA LIMITATIONS: none FINDINGS: LUNGS AND PLEURA: No consolidation, pneumothorax or pleural effusion. MEDIASTINUM AND HILAR STRUCTURES: No masses or contour abnormalities. HEART AND VASCULAR STRUCTURES: Heart normal size. No evidence for failure. BONES: No acute findings. HARDWARE: None in the chest. IMPRESSION: NO ACUTE RADIOGRAPHIC FINDING IN THE CHEST. TECHNICAL DOCUMENTATION: JOB ID: [id number] [employer]- All Rights Reserved Reading location - IP/workstation name: [email or web address]
[2018-04-14 16:19] LABS: ABSOLUTE BASOPHILS # (AUTO) 0.2 10^3/uL (0.0-0.2); ABSOLUTE EOSINOPHILS # (AUTO) 0.1 10^3/uL (0.0-0.6); ABSOLUTE LYMPHOCYTES (AUTO) 3.4 10^3/uL (0.5-4.7); ABSOLUTE MONOCYTES (AUTO) 0.5 10^3/uL (0.1-1.4); ABSOLUTE NEUT (AUTO) 6.5 10^3/uL (1.7-8.2); BASOPHILS % (AUTO) 1.7 % (0-2); EOSINOPHILS % (AUTO) 1.1 % (0-6); HEMATOCRIT 44.4 % (36.0-47.0); HEMOGLOBIN 15.4 g/dL (12.0-15.5); LYMPHOCYTES % (AUTO) 31.7 % (13-45); MEAN CORPUSCULAR HEMOGLOBIN 32.6 pg (27.0-33.4); MEAN CORPUSCULAR HGB CONC 34.7 g/dL (32.0-36.0); MEAN CORPUSCULAR VOLUME 94 fl (80-97); MONOCYTES % (AUTO) 5.1 % (3-13); PLATELET COUNT 272 10^3/uL (150-450); RED BLOOD COUNT 4.71 10^6/uL (3.72-5.28); SEGMENTED NEUTROPHILS % (AUTO) 60.4 % (42-78); TOTAL CELLS COUNTED % (AUTO) 100 %; WHITE BLOOD COUNT 10.7 10^3/uL (4.0-10.5)
[2018-04-14 16:38] LABS: ALANINE AMINOTRANSFERASE 20 U/L (9-52); ALBUMIN 4.6 g/dL (3.5-5.0); ALKALINE PHOSPHATASE 65 U/L (38-126); ANION GAP 17 (5-19); ASPARTATE AMINO TRANSFERASE 21 U/L (14-36); BILIRUBIN,DIRECT 0.4 mg/dL (0.0-0.4); BILIRUBIN,TOTAL 0.5 mg/dL (0.2-1.3); BLOOD UREA NITROGEN 27 mg/dL (7-20); CALCIUM 10.3 mg/dL (8.4-10.2); CARBON DIOXIDE 23 mmol/L (22-30); CHLORIDE 103 mmol/L (98-107); GLUCOSE 130 mg/dL (75-110); POTASSIUM 3.8 mmol/L (3.6-5.0); SODIUM 143.4 mmol/L (137-145); TOTAL PROTEIN 8.4 g/dL (6.3-8.2)
[2018-04-14 16:50] LABS: NT PRO BNP 363 pg/mL (5-900)
[2018-04-14 16:54] LABS: TROPONIN I < 0.012 ng/mL
[2018-04-14] MEDS ORDERED: RINGERS SOLUTION,LACTATED 1,000 ML IV ONE (19:20)
[2018-04-14] MEDS ORDERED: ALPRAZOLAM 0.5 MG TABLET PO ONE (20:09)
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
[2018-04-14 20:20] VITALS: BP 157/79
--- NOTE | 2018-04-14 22:15 | EKG REPORT ---
SEVERITY:- ABNORMAL ECG - SINUS RHYTHM PROBABLE LEFT ATRIAL ABNORMALITY LEFT VENTRICULAR HYPERTROPHY : Confirmed by: Gloria Wilson 14-Apr-2018 22:15:09
== END 2018-04-14 20:20 | disposition home or self-care (01) ==
LOC: ER 14:25
DX: E86.0 Dehydration (principal); R55 Syncope and collapse; R79.89 Other specified abnormal findings of blood chemistry; R45.1 Restlessness and agitation; F17.200 Nicotine dependence, unspecified, uncomplicated; I10 Essential (primary) hypertension; I25.2 Old myocardial infarction; J44.9 Chronic obstructive pulmonary disease, unspecified; Z87.828 Personal history of other (healed) physical injury and trauma; Z88.8 Allergy status to other drugs, medicaments and biological substances; Z88.5 Allergy status to narcotic agent
CPT/HCPCS: 93005; 99284; 96360; 36415; 85025; 80053; 84484; 83880; 71046; 93010; A9270; J7120

== ENCOUNTER 2018-04-15 14:54 | Emergency (ER) | payer MEDICARE, MEDICAID ==
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
[2018-04-15 15:56] VITALS: BP 160/76
== END 2018-04-15 16:05 | disposition home or self-care (01) ==
LOC: ER 14:54
DX: T22.10XA Burn of first degree of shoulder and upper limb, except wrist and hand, unspecified site, initial encounter (principal); T20.10XA Burn of first degree of head, face, and neck, unspecified site, initial encounter; X10.0XXA Contact with hot drinks, initial encounter; Y92.511 Restaurant or cafe as the place of occurrence of the external cause; F17.210 Nicotine dependence, cigarettes, uncomplicated; E78.00 Pure hypercholesterolemia, unspecified; I10 Essential (primary) hypertension; J44.9 Chronic obstructive pulmonary disease, unspecified; E11.9 Type 2 diabetes mellitus without complications; I25.2 Old myocardial infarction; Z90.710 Acquired absence of both cervix and uterus
CPT/HCPCS: 99283; 99406

== ENCOUNTER → 2018-04-18 | Outpatient (CLI) | payer MEDICARE, MEDICAID ==
[~2018-04-18] MED LIST changes: -ALPRAZOLAM 0.5 MG TABLET PO ONE; -ASPIRIN 81 MG TABLET, CHEWABLE PO ONE; +DIAZEPAM 5 MG TABLET ONE; -IBUPROFEN 800 MG TABLET PO ONE; -LORAZEPAM 0.5 MG TABLET PO ONE; -LORAZEPAM 0.5 MG TABLET PO PRN; -MORPHINE SULFATE 10 MG/ML INJ IV ONE; -NORMAL SALINE 1000 ML 1,000 ML IV PRN; -OXYCODONE-ACETAMINOPHEN 5-325 MG TABLET PO ONE
--- NOTE | 2018-04-18 12:37 | RADIOLOGY REPORT (SQ) ---
EXAM DESCRIPTION: MRI CERVICAL SPINE WITHOUT COMPLETED DATE/TIME: 04/18/2018 10:40 am REASON FOR STUDY: CERVICAL RADICULOPATHY (M54.12) M54.12 RADICULOPATHY, CERVICAL REGION COMPARISON: None. TECHNIQUE: Sagittal and Axial imaging includes T1, T2, STIR and gradient echo sequences. LIMITATIONS: Motion. FINDINGS: ALIGNMENT: Normal. VERTEBRAE: Intact. BONE MARROW: Normal. No marrow replacement or reactive changes. DISCS: Desiccation multiple levels. HARDWARE: None in the spine. CORD AND BASE OF BRAIN: Lacunar infarcts in the cleve. SOFT TISSUES: No soft tissue masses. C1-C2: No significant spinal stenosis. C2-C3: Minimal narrowing of the spinal canal due to disc bulge. C3-C4: Mild left and moderate right neural foraminal narrowing due to disc osteophyte complex. C4-C5: Mild left neural foraminal narrowing due to uncovertebral arthropathy. C5-C6: No significant spinal stenosis or exit foraminal stenosis. C6-C7: No significant spinal stenosis or exit foraminal stenosis. C7-T1: No significant spinal stenosis or exit foraminal stenosis. UPPER THORACIC: Incompletely imaged. No significant spinal stenosis or exit foraminal stenosis. OTHER: No other significant finding. IMPRESSION: Mild spinal stenosis C2-3. Neural foraminal stenosis C3-4 and C4-5. TECHNICAL DOCUMENTATION: JOB ID: [id number] [employer]- All Rights Reserved Reading location - IP/workstation name: [email or web address]
== END ==
LOC: RAD 09:19
PROVIDERS: ATTEND Physician Assistant
DX: M54.12 Radiculopathy, cervical region (principal)
CPT/HCPCS: 72141; A9270

== ENCOUNTER 2018-04-19 11:22 | Emergency (ER) | payer MEDICARE, MEDICAID ==
[2018-04-19 11:29] VITALS: BP 136/89
--- NOTE | 2018-04-19 12:16 | ER Document Report ---
ED Eye Complaint - General Chief Complaint: Eye Problem Stated Complaint: SKIN PROBLEM Time Seen by Provider: 04/19/18 12:12 Notes: 53-year-old -Citizen Of [place] female patient to the emergency department complaining of some eye discomfort. Patient states that she had hot coffee splashed on her face a few days ago at [employer] restaurant when she was getting some hot coffee. States that she cussed out the lady and through the coffee away. Is going to avinash them. Has had worsening pain in her eyes and some blurred vision but no pain currently. Has been rubbing antibiotic ointment on her face. States that she is not hurting anywhere else. No eye pain but just some blurry vision. TRAVEL OUTSIDE OF THE [place] IN LAST 30 DAYS: No - HPI Eye location: Bilateral Occurred at: Public place - Related Data Allergies/Adverse Reactions: cyclobenzaprine HCl [From Flexeril] Allergy (Verified 04/19/18 11:39) tramadol [Tramadol] Allergy (Verified 04/19/18 11:39) HTZ Allergy (Uncoded 04/19/18 11:39) Past Medical History - General Information source: Patient - Social History Smoking Status: Current Every Day Smoker Chew tobacco use (# tins/day): No Frequency of alcohol use: None Lives with: Family Family History: Reviewed & Not Pertinent, Malignancy, Other Patient has suicidal ideation: No Patient has homicidal ideation: No - Past Medical History Cardiac Medical History: Reports: Hx Heart Attack - mild, Hx Hypercholesterolemia, Hx Hypertension Pulmonary Medical History: Reports: Hx Asthma, Hx Bronchitis, Hx COPD Neurological Medical History: Reports: Hx Migraine, Hx Seizures Endocrine Medical History: Reports: Hx Diabetes Mellitus Type 2 - borderline Renal/ Medical History: Denies: Hx Peritoneal Dialysis GI Medical History: Reports: Hx Gastroesophageal Reflux Disease, Hx Ulcer Psychiatric Medical History: Reports: Hx Anxiety, Hx Depression Past Surgical History: Reports: Hx Hysterectomy, Hx Orthopedic Surgery - L leg AND R KNEE - Immunizations Hx Diphtheria, Pertussis, Tetanus Vaccination: Yes - <5 years Review of Systems - Review of Systems Constitutional: No symptoms reported EENT: Blurred vision. denies: Eye pain, Eye discharge, Nose pain, Mouth pain Cardiovascular: denies: Chest pain, Palpitations, Heart racing Respiratory: denies: Cough, Hurts to breathe, Short of breath Musculoskeletal: denies: Back pain, Joint pain, Muscle pain Skin: See HPI, Other - Facial de la cruz. denies: Dryness, Lesions Physical Exam - Vital signs Vitals: Temp Pulse Resp BP Pulse Ox 97.9 F 103 H 16 136/89 H 94 04/19/18 11:28 04/19/18 11:28 04/19/18 11:28 04/19/18 11:28 04/19/18 11:28 Interpretation: Normal - HEENT Head: Normocephalic, Atraumatic Eyes: Normal Pupils: PERRL Visual acuity- Right eye: 20/40 Visual acuity- Left eye: 20/100 Visual acuity- Both eyes: 0 Corrective lenses worn: No Notes: There is no conjunctival inflammation. There is no injection. There is no obvious foreign bodies. There are no defects noted on the cornea with ophthalmoscopic evaluation. Funduscopic exam is normal. Visual acuity intact bilaterally. Pupils are equal round and reactive to light and accommodation. Extraocular muscles are intact with no pain with eye movement. - Respiratory Respiratory status: No respiratory distress Chest status: Nontender Breath sounds: Normal Chest palpation: Normal - Cardiovascular Rhythm: Regular Heart sounds: Normal auscultation Murmur: No - Psychological Associated symptoms: Agitated, Angry - Skin Skin Temperature: Warm Skin Moisture: Dry Skin Color: Normal, Other - No obvious de la cruz seem to the face. Patient has a bandage on her right upper extremity that she did not want to remove. Course - Re-evaluation Re-evalutation: 04/19/18 12:12 There is no evidence of significant de la cruz to the face. There is no evidence of abnormality on physical exam or eye exam. Patient does have a large amount of ointment on her face. I have question whether she is gotten some of the antibiotic ointment that she placed on her face and her eyes which may be causing some eye irritation. The funduscopic exam was unremarkable. Visual acuity was unremarkable. At this time I am recommending that she use some clear eyes eye lubricating drops. Avoid placing antibiotic ointment around her eyes and follow-up with an narrow gauge brakeman or flatwork washer for further evaluation of vision problems if they exist. Patient denies any eye pain at this time. No painful eye movement. No fever. No headaches. Discharge at this time in stable condition. - Vital Signs Vital signs: Temp Pulse Resp BP Pulse Ox 97.9 F 103 H 16 136/89 H 94 04/19/18 11:28 04/19/18 11:28 04/19/18 11:28 04/19/18 11:28 04/19/18 11:28 Discharge - Discharge Clinical Impression: Ocular pain, bilateral Condition: Good Disposition: HOME, SELF-CARE Instructions: Eyedrop Use (OM) Additional Instructions: There does not appear to be any significant de la cruz or injuries to your eye or face at this time. Please follow-up with an narrow gauge brakeman or flatwork washer if symptoms persist. You may try to use eyedrops to help lubricate the eyes. Avoid placing antibiotic ointment around the eyes as it may get in your eyes causing eye pain, vision problems and other issues. Return for any worsening concerns. Prescriptions: Naphazoline HCl/Glycerin [Clear Eyes Cooling Comfort Drp] 15 ml OU QID 7 Days # 1 bottle Referrals: MARTI OWUSU DO [Primary Care Provider] - Follow up as needed
== END 2018-04-19 12:22 | disposition home or self-care (01) ==
LOC: ER 11:22
DX: H57.13 Ocular pain, bilateral (principal); T20.00XA Burn of unspecified degree of head, face, and neck, unspecified site, initial encounter; X10.0XXA Contact with hot drinks, initial encounter; Y93.89 Activity, other specified; Y92.511 Restaurant or cafe as the place of occurrence of the external cause; F17.200 Nicotine dependence, unspecified, uncomplicated; H53.8 Other visual disturbances; I10 Essential (primary) hypertension; J44.9 Chronic obstructive pulmonary disease, unspecified; E11.9 Type 2 diabetes mellitus without complications; Z88.8 Allergy status to other drugs, medicaments and biological substances; Z88.5 Allergy status to narcotic agent
CPT/HCPCS: 99283

== ENCOUNTER 2018-06-12 15:28 | Emergency (ER) | payer MEDICARE, MEDICAID | END 2018-06-12 17:30 | disposition left against medical advice (07) | LOC: ER 15:28 | DX: H53.8 Other visual disturbances (principal); Z53.21 Procedure and treatment not carried out due to patient leaving prior to being seen by health care provider ==

== ENCOUNTER 2018-09-09 02:34 | Emergency (ER) | payer MEDICARE, MEDICAID ==
[2018-09-09 03:29] VITALS: BP 208/88
[2018-09-09] MEDS ORDERED: KETOROLAC TROMETHAMINE 60 MG/2 ML SDV IM ONE (03:59)
[2018-09-09] MEDS ORDERED: CLONIDINE HCL 0.2 MG TABLET PO ONE (04:01)
--- NOTE | 2018-09-09 04:02 | ER Document Report ---
HPI - HPI Patient complains to provider of: fall, pain Time Seen by Provider: 09/09/18 03:45 Pain Level: 5 Context: 53-year-old female with chief complaint of fall injury, she states she got out of a car quickly, tripped, landed against glass, states she hit both knees on the ground, hurt her right foot over the top, hit her left rib, hit her head on the glass. No headache, no vomiting, no loss of consciousness. She is not on a blood thinner. Denies focal numbness or weakness. Denies incontinence. Denies any other injuries. Past medical history of hypertension, anxiety. Missed her medications today. - REPRODUCTIVE Reproductive: DENIES: : Past Medical History - General Information source: Patient - Social History Smoking Status: Never Smoker Family History: Reviewed & Not Pertinent, Malignancy, Other - Past Medical History Cardiac Medical History: Reports: Hx Heart Attack - mild, Hx Hypercholesterolemia, Hx Hypertension Pulmonary Medical History: Reports: Hx Asthma, Hx Bronchitis, Hx COPD Neurological Medical History: Reports: Hx Migraine, Hx Seizures Endocrine Medical History: Reports: Hx Diabetes Mellitus Type 2 - borderline Renal/ Medical History: Denies: Hx Peritoneal Dialysis GI Medical History: Reports: Hx Gastroesophageal Reflux Disease, Hx Ulcer Psychiatric Medical History: Reports: Hx Anxiety, Hx Depression Past Surgical History: Reports: Hx Hysterectomy, Hx Orthopedic Surgery - L leg AND R KNEE - Immunizations Hx Diphtheria, Pertussis, Tetanus Vaccination: Yes - <5 years Vertical Provider Document - CONSTITUTIONAL General Appearance: WD/WN, No Apparent Distress, Other - Patient pacing around but does not appear to be in distress or pain - INFECTION CONTROL TRAVEL OUTSIDE OF THE [place] IN LAST 30 DAYS: No - HEENT HEENT: Atraumatic, Normal ENT Exam, Normocephalic - NECK Neck: Normal Inspection - RESPIRATORY Respiratory: Breath Sounds Normal, No Respiratory Distress, Other - Minimal nonspecific tenderness over the left ribs over the lateral aspect, no bruising or swelling, chest examination unremarkable otherwise - CARDIOVASCULAR Cardiovascular: Regular Rate, Regular Rhythm. negative: Tachycardia - Patient is not tachycardic on my exam - GI/ABDOMEN Gastrointestinal: Abdomen Soft, Abdomen Non-Tender - BACK Back: Normal Inspection - MUSCULOSKELETAL/EXTREMETIES Musculoskeletal/Extremeties: MAEW, FROM, Tender - Patient complains of palpation of both kneecaps and proximal tibias, no bruising or swelling noted, full range of motion noted, hips unremarkable, ankles unremarkable, pain with palpation over the dorsum of the right foot. Normal distal neurovascular exam. Patient also complains of palpation of both shoulders specifically over the humeral heads. Upper extremity exam is unremarkable otherwise bilaterally. - NEURO Level of Consciousness: Awake, Alert, Appropriate Motor/Sensory: No Motor Deficit, No Sensory Deficit - DERM Integumentary: Warm, Dry, No Rash Course - Re-evaluation Re-evalutation: Patient initially was worked up, talking rapidly, pacing around the room. She was calm and after discussion. She does not have any signs of head injury, she denies headache. Neck and back examination unremarkable with no signs of trauma. I do not see any signs of trauma over the shoulders, chest, abdomen, or extremities although patient has multiple locations of pain, mainly her shoulders, left ribs, bilateral knees, and right foot. These were imaged but without any acute findings. On reevaluation patient is calm and well-appearing. She states she has missed doses of her blood pressure medications including long acting once, clonidine, hydralazine. She states she will go home and take her medications, is asking for something here as well, she was given Toradol and clonidine. She is very well-appearing, no neurological deficits, no concerning abnormalities at this time, a symptom that from missing her blood pressure medications at home. She states she will follow-up and have this rechecked. She states she wants a muscle relaxer, she already has pain medication at home. She was prescribed this. Discussed expectations, follow-up, and return precautions. Patient states understanding and agreement. - Vital Signs Vital signs: Temp Pulse Resp BP Pulse Ox 98.6 F 106 H 16 208/88 H 97 09/09/18 02:49 09/09/18 02:49 09/09/18 02:49 09/09/18 03:29 09/09/18 02:49 - Diagnostic Test Radiology reviewed: Image reviewed, Reports reviewed Discharge - Discharge Clinical Impression: Rib pain on left side, Right foot pain Fall Qualifiers: Encounter type: initial encounter Qualified Code(s): W19.XXXA - Unspecified fall, initial encounter Shoulder pain Qualifiers: Chronicity: acute Laterality: bilateral Qualified Code(s): M25.511 - Pain in right shoulder Knee pain Qualifiers: Chronicity: acute Laterality: bilateral Qualified Code(s): M25.561 - Pain in right knee Condition: Stable Disposition: HOME, SELF-CARE Additional Instructions: Your x-rays do not show any fractures or concerning abnormalities. You will likely be progressively sore for the next 2 days, apply heat to your neck/ shoulders, apply ice to your knees and foot, rest. Take your medications for pain and blood pressure, please follow-up very closely with your primary provider to have your blood pressure rechecked for additional evaluation and management. Return if you worsen including severe headache, vomiting, passing out, difficulty breathing, numbness, or any other concerning or worsening symptoms. Prescriptions: Methocarbamol [Robaxin 750 mg Tablet] 750 mg PO Q6 PRN #20 tablet PRN Reason: Forms: Return to Work Referrals: SUSANA MCNEILL PA-C [NO LOCAL MD] - Follow up as needed
--- NOTE | 2018-09-09 04:27 | RADIOLOGY REPORT (SQ) ---
EXAM DESCRIPTION: XR RIBS UNILATERAL WITH CHEST COMPLETED DATE/TME: 09/09/2018 03:58 CLINICAL HISTORY: 53 years, Female, fall, pain COMPARISON: Chest x-ray 11/29/2017 NUMBER OF VIEWS: 3 TECHNIQUE: Frontal view the chest and 2 views of the left ribs LIMITATIONS: None. FINDINGS: The heart size is normal. Minor scarring left lung base. Lungs are otherwise clear. No pneumothorax. Osteopenia. Negative for left rib fracture. IMPRESSION: No acute cardiopulmonary process. Negative for left rib fracture. copyright 2010 [employer]- All Rights Reserved
--- NOTE | 2018-09-09 04:33 | RADIOLOGY REPORT (SQ) ---
EXAM DESCRIPTION: XR KNEE 1-2 VIEWS BILATERAL COMPLETED DATE/TME: 09/09/2018 03:58 CLINICAL HISTORY: 53 years, Female, fall, pain COMPARISON: None. NUMBER OF VIEWS: 4 TECHNIQUE: Frontal and lateral views of each knee LIMITATIONS: None. FINDINGS: Left knee: Osteopenia. Negative for fracture or dislocation. Tricompartmental degenerative change. No joint effusion. Right knee: Osteopenia. Negative for fracture or dislocation. Tricompartmental degenerative change. No evidence for joint effusion. IMPRESSION: Osteopenia with degenerative change bilaterally copyright 2010 [employer]- All Rights Reserved
--- NOTE | 2018-09-09 04:37 | RADIOLOGY REPORT (SQ) ---
EXAM DESCRIPTION: XR FOOT 3 OR MORE VIEWS COMPLETED DATE/TME: 09/09/2018 03:58 CLINICAL HISTORY: 53 years, Female, fall, pain COMPARISON: 04/04/2018 right foot NUMBER OF VIEWS: 3 TECHNIQUE: 3 view right foot LIMITATIONS: None. FINDINGS: Osteopenia with hallux valgus deformity. Old fracture deformity of the tarsal navicular. No radiographic evidence for acute fracture or dislocation. Tiny calcaneal spurs. Degenerative changes of the foot. IMPRESSION: No acute osseous abdomen only. Osteopenia. Hallux valgus deformity with degenerative change copyright 2010 [employer]- All Rights Reserved
== END 2018-09-09 05:15 | disposition home or self-care (01) ==
LOC: ER 02:34
DX: S09.90XA Unspecified injury of head, initial encounter (principal); M25.511 Pain in right shoulder; M25.561 Pain in right knee; R07.81 Pleurodynia; M79.671 Pain in right foot; W01.198A Fall on same level from slipping, tripping and stumbling with subsequent striking against other object, initial encounter; Y92.89 Other specified places as the place of occurrence of the external cause; I25.2 Old myocardial infarction; E78.00 Pure hypercholesterolemia, unspecified; I10 Essential (primary) hypertension; J44.9 Chronic obstructive pulmonary disease, unspecified; E11.9 Type 2 diabetes mellitus without complications; Z90.710 Acquired absence of both cervix and uterus
CPT/HCPCS: 99283; 96372; 73630; 71101; 73560; A9270; J1885

== ENCOUNTER → 2018-09-29 | Outpatient (CLI) | payer MEDICARE, MEDICAID ==
--- NOTE | 2018-09-29 10:10 | RADIOLOGY REPORT (SQ) ---
EXAM DESCRIPTION: CT HEAD WITHOUT COMPLETED DATE/TIME: 09/29/2018 9:56 am REASON FOR STUDY: CLOSED HEAD INJURY (S09.90XA) S09.90XA UNSPECIFIED INJURY OF HEAD, INITIAL ENCOUN TER COMPARISON: 123 mean TECHNIQUE: Axial images acquired through the brain without intravenous contrast. Images reviewed wi th bone, brain and subdural windows. Images stored on PACS. All CT scanners at this facility use dose modulation, iterative reconstruction, and/or weight based d osing when appropriate to reduce radiation dose to as low as reasonably achievable (ALARA). [facility]: Dose Right [facility]: CareDose [facility]: Dose Right [facility]: Teradose 4D [facility]: [place] RADIATION DOSE: CT Rad equipment meets quality standard of care and radiation dose reduction techniq ues were employed. CTDIvol: 48.7 mGy. DLP: 1053 mGy-cm. mGy. LIMITATIONS: None. FINDINGS: VENTRICLES: Normal size and contour. CEREBRUM: No masses. No hemorrhage. No midline shift. No evidence for acute infarction. Normal gra y/white matter differentiation. No areas of low density in the white matter. CEREBELLUM: No masses. No hemorrhage. No alteration of density. No evidence for acute infarction. EXTRAAXIAL SPACES: No masses or extra-axial collection. Mild prominence of the extra-axial space com patible with parenchymal volume loss. ORBITS AND GLOBE: No intra- or extraconal masses. Normal contour of globe without masses. CALVARIUM: No fracture. PARANASAL SINUSES: No fluid or mucosal thickening. SOFT TISSUES: No mass or hematoma. OTHER: No other significant finding. IMPRESSION: No evidence of acute intracranial abnormality. EVIDENCE OF ACUTE STROKE: NO. COMMENT: Quality ID # [id number]: Final reports with documentation of one or more dose reduction techniques (e.g., Automated exposure control, adjustment of the mA and/or kV according to patient size, use of iterative reconstruction technique) TECHNICAL DOCUMENTATION: JOB ID: [id number] [employer]- All Rights Reserved Reading location - IP/workstation name: PENDING SALE TO [email or web address]
--- NOTE | 2018-09-29 11:30 | RADIOLOGY REPORT (SQ) ---
EXAM DESCRIPTION: CERV SP 4 OR 5 VIEWS COMPLETED DATE/TIME: 09/29/2018 9:48 am REASON FOR STUDY: INJURY OF NECK (S19.9XXA) S09.90XA UNSPECIFIED INJURY OF HEAD, INITIAL ENCOUNTER COMPARISON: None. NUMBER OF VIEWS: Five views. TECHNIQUE: AP, lateral, obliques and odontoid radiographic images acquired of the cervical spine. LIMITATIONS: None. FINDINGS: MINERALIZATION: Normal. ALIGNMENT: Anatomic. VERTEBRAE: Vertebral bodies of normal height. DISCS: No significant osteophytes or sclerosis. Disc height maintained. FORAMINA: No osteophytes or foraminal narrowing. LATERAL AND POSTERIOR ELEMENTS: Facets, lateral masses and spinous processes without significant find ings. HARDWARE: None in the spine. SOFT TISSUES: No masses or calcifications. Lung apices clear. OTHER: No other significant finding. IMPRESSION: NO SIGNIFICANT RADIOGRAPHIC FINDING IN THE CERVICAL SPINE. TECHNICAL DOCUMENTATION: JOB ID: [id number] [employer]- All Rights Reserved Reading location - IP/workstation name: [email or web address]
== END ==
LOC: RAD 08:34
PROVIDERS: ATTEND Family Medicine
DX: S19.9XXA Unspecified injury of neck, initial encounter (principal); S09.90XA Unspecified injury of head, initial encounter; X58.XXXA Exposure to other specified factors, initial encounter
CPT/HCPCS: 70450; 72050

== ENCOUNTER 2019-01-04 03:26 | Emergency (ER) | payer MEDICARE, MEDICAID ==
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
[2019-01-04 06:15] LABS: ABSOLUTE LYMPHOCYTES (AUTO) 2.6 10^3/uL (0.5-4.7); ABSOLUTE MONOCYTES (AUTO) 0.7 10^3/uL (0.1-1.4); ABSOLUTE NEUT (AUTO) 9.2 10^3/uL (1.7-8.2); BASOPHILS % (AUTO) 0.2 % (0-2); EOSINOPHILS % (AUTO) 0.3 % (0-6); HEMOGLOBIN 15.7 g/dL (12.0-15.5); LYMPHOCYTES % (AUTO) 20.5 % (13-45); MEAN CORPUSCULAR HEMOGLOBIN 33.7 pg (27.0-33.4); MEAN CORPUSCULAR HGB CONC 35.7 g/dL (32.0-36.0); MEAN CORPUSCULAR VOLUME 94 fl (80-97); MONOCYTES % (AUTO) 5.4 % (3-13); PLATELET COUNT 279 10^3/uL (150-450); RED BLOOD COUNT 4.66 10^6/uL (3.72-5.28); RED CELL DISTRIBUTION WIDTH 14.6 % (11.5-14.0); SEGMENTED NEUTROPHILS % (AUTO) 73.6 % (42-78); TOTAL CELLS COUNTED % (AUTO) 100 %; WHITE BLOOD COUNT 12.5 10^3/uL (4.0-10.5)
[2019-01-04 06:37] LABS: ALBUMIN 4.7 g/dL (3.5-5.0); ANION GAP 9 (5-19); BLOOD UREA NITROGEN 11 mg/dL (7-20); CALCIUM 10.4 mg/dL (8.4-10.2); CARBON DIOXIDE 35 mmol/L (22-30); CHLORIDE 99 mmol/L (98-107); GLUCOSE 101 mg/dL (75-110); SODIUM 142.9 mmol/L (137-145)
[2019-01-04 06:38] LABS: ALANINE AMINOTRANSFERASE 15 U/L (9-52); ALKALINE PHOSPHATASE 81 U/L (38-126); ASPARTATE AMINO TRANSFERASE 39 U/L (14-36); BILIRUBIN,DIRECT 0.2 mg/dL (0.0-0.4); BILIRUBIN,TOTAL 0.7 mg/dL (0.2-1.3); TOTAL PROTEIN 8.7 g/dL (6.3-8.2)
[2019-01-04 06:42] LABS: POTASSIUM 2.5 mmol/L (3.6-5.0)
[2019-01-04] MEDS ORDERED: NORMAL SALINE 1000 ML 1,000 ML IV ONE (06:48)
[2019-01-04] MEDS ORDERED: POTASSI CL 20 MEQ/50 ML RIDER 20 MEQ/50 ML RTUPB IV ONE (06:49)
[2019-01-04] MEDS ORDERED: POTASSIUM CHLORIDE 10 MEQ CAPSULE.ER PO ONE (06:49)
[2019-01-04] MEDS ORDERED: ONDANSETRON 4 MG TAB.RAPDIS PO ONE (07:04)
[2019-01-04] MEDS ORDERED: SULFAMETHOXAZOLE/TRIMETHOPRIM 800-160 MG TABLET PO ONE (07:04)
[2019-01-04 08:44] LABS: APPEARANCE,URINE CLOUDY; BILIRUBIN,URINE SMALL (NEGATIVE); COLOR,URINE AMBER; GLUCOSE, URINE NEGATIVE (NEGATIVE); KETONES,URINE TRACE mg/dL (NEGATIVE); LEUKOCYTE ESTERASE,URINE TRACE (NEGATIVE); NITRITE,URINE NEGATIVE (NEGATIVE); PROTEIN,URINE >=500 mg/dL (NEGATIVE); URINE SPECIFIC GRAVITY 1.027
[2019-01-04 10:24] VITALS: BP 192/93
== END 2019-01-04 10:20 | disposition home or self-care (01) ==
LOC: ER 03:26
DX: K92.1 Melena (principal); E87.6 Hypokalemia; R10.9 Unspecified abdominal pain; E78.00 Pure hypercholesterolemia, unspecified; I10 Essential (primary) hypertension; J44.9 Chronic obstructive pulmonary disease, unspecified; Z88.6 Allergy status to analgesic agent; Z90.710 Acquired absence of both cervix and uterus; I25.2 Old myocardial infarction
CPT/HCPCS: 99285; 96365; 96366; 86900; 86901; 36415; 87045; 87205; 86850; 85025; 82272; 80053; 81001; A9270 ×3; J3480; J7030; S0119

== ENCOUNTER 2019-02-15 14:49 | Emergency (ER) | payer MEDICARE, MEDICAID ==
[2019-02-15] MEDS ORDERED: ASPIRIN 81 MG TABLET, CHEWABLE PO ONE (17:03)
[2019-02-15] MEDS ORDERED: ONDANSETRON 4 MG TAB.RAPDIS PO ONE (17:04)
[2019-02-15] MEDS ORDERED: CLONIDINE HCL 0.1 MG TABLET PO ONE (17:04)
--- NOTE | 2019-02-15 17:06 | ER Document Report ---
ED Medical Screen (RME) - General Chief Complaint: Anxiety Stated Complaint: ANXIETY Time Seen by Provider: 02/15/19 17:03 Primary Care Provider: MARTI OWUSU DO [Primary Care Provider] - Follow up as needed Information source: Patient Notes: Patient states she was at her primary doctor's office to have a routine Pap smear. Patient states that while she was there she became anxious developed chest pain nausea patient states that the headache is resolved but she still has chest discomfort at this time. Patient denies any anxiety at this time. Patient also complains of constipation over the past 3 days with black stools yesterday and today. Patient states that she has not taken some of her blood pressure medications today such as her clonidine and 1 of her medicines that begins with an H. I have greeted and performed a rapid initial assessment of this patient. A comprehensive ED assessment and evaluation of the patient, analysis of test results and completion of the medical decision making process will be conducted by additional ED providers. TRAVEL OUTSIDE OF THE [place] IN LAST 30 DAYS: No - Related Data Allergies/Adverse Reactions: cyclobenzaprine HCl [From Flexeril] Allergy (Verified 02/15/19 14:56) tramadol [Tramadol] Allergy (Verified 02/15/19 14:56) anesthesia Allergy (Severe, Uncoded 02/15/19 14:56) HTZ Allergy (Uncoded 02/15/19 14:56) Past Medical History - Past Medical History Cardiac Medical History: Reports: Hx Heart Attack - mild, Hx Hypercholesterolemia, Hx Hypertension Pulmonary Medical History: Reports: Hx Asthma, Hx Bronchitis, Hx COPD Neurological Medical History: Reports: Hx Migraine, Hx Seizures Endocrine Medical History: Reports: Hx Diabetes Mellitus Type 2 - borderline Renal/ Medical History: Denies: Hx Peritoneal Dialysis GI Medical History: Reports: Hx Gastroesophageal Reflux Disease, Hx Ulcer Psychiatric Medical History: Reports: Hx Anxiety, Hx Depression Past Surgical History: Reports: Hx Hysterectomy, Hx Orthopedic Surgery - L leg AND R KNEE - Immunizations Hx Diphtheria, Pertussis, Tetanus Vaccination: Yes - <5 years Physical Exam - Vital signs Vitals: BP 188/99 H 02/15/19 14:50 - General General appearance: Alert Notes: Tangential speech, respirations unlabored Course - Vital Signs Vital signs: Temp Pulse Resp BP Pulse Ox 98.7 F 78 16 197/75 H 95 02/15/19 15:04 02/15/19 15:04 02/15/19 15:04 02/15/19 15:04 02/15/19 15:04 Doctor's Discharge - Discharge Referrals: MARTI OWUSU DO [Primary Care Provider] - Follow up as needed
--- NOTE | 2019-02-15 17:26 | RADIOLOGY REPORT (SQ) ---
EXAM DESCRIPTION: CHEST 2 VIEWS COMPLETED DATE/TIME: 02/15/2019 5:15 pm REASON FOR STUDY: cp COMPARISON: 04/14/2018 EXAM PARAMETERS: NUMBER OF VIEWS: two views TECHNIQUE: Digital Frontal and Lateral radiographic views of the chest acquired. RADIATION DOSE: NA LIMITATIONS: none FINDINGS: LUNGS AND PLEURA: Slight scarring or atelectasis at the right lung base. No opacities, m asses or pneumothorax. No pleural effusion. MEDIASTINUM AND HILAR STRUCTURES: No masses or contour abnormalities. HEART AND VASCULAR STRUCTURES: Heart normal size. No evidence for failure. BONES: No acute findings. HARDWARE: None in the chest. OTHER: No other significant finding. IMPRESSION: 1. No significant interval changes since the prior examination dated 04/14/2018. No acu te findings. TECHNICAL DOCUMENTATION: JOB ID: [id number] [employer]- All Rights Reserved Reading location - IP/workstation name: [email or web address]
[2019-02-15 17:59] LABS: ABSOLUTE BASOPHILS # (AUTO) 0.1 10^3/uL (0.0-0.2); ABSOLUTE EOSINOPHILS # (AUTO) 0.1 10^3/uL (0.0-0.6); ABSOLUTE LYMPHOCYTES (AUTO) 3.4 10^3/uL (0.5-4.7); ABSOLUTE MONOCYTES (AUTO) 0.7 10^3/uL (0.1-1.4); ABSOLUTE NEUT (AUTO) 6.5 10^3/uL (1.7-8.2); BASOPHILS % (AUTO) 0.9 % (0-2); EOSINOPHILS % (AUTO) 0.6 % (0-6); HEMATOCRIT 43.4 % (36.0-47.0); HEMOGLOBIN 14.6 g/dL (12.0-15.5); LYMPHOCYTES % (AUTO) 31.7 % (13-45); MEAN CORPUSCULAR HEMOGLOBIN 31.8 pg (27.0-33.4); MEAN CORPUSCULAR HGB CONC 33.7 g/dL (32.0-36.0); MEAN CORPUSCULAR VOLUME 94 fl (80-97); MONOCYTES % (AUTO) 6.3 % (3-13); PLATELET COUNT 257 10^3/uL (150-450); RED CELL DISTRIBUTION WIDTH 13.9 % (11.5-14.0); SEGMENTED NEUTROPHILS % (AUTO) 60.5 % (42-78); TOTAL CELLS COUNTED % (AUTO) 100 %; WHITE BLOOD COUNT 10.8 10^3/uL (4.0-10.5)
[2019-02-15 18:16] LABS: ALANINE AMINOTRANSFERASE 28 U/L (9-52); ALBUMIN 4.3 g/dL (3.5-5.0); ALKALINE PHOSPHATASE 57 U/L (38-126); ANION GAP 12 (5-19); ASPARTATE AMINO TRANSFERASE 27 U/L (14-36); BILIRUBIN,DIRECT 0.3 mg/dL (0.0-0.4); BILIRUBIN,TOTAL 0.7 mg/dL (0.2-1.3); BLOOD UREA NITROGEN 16 mg/dL (7-20); CALCIUM 10.4 mg/dL (8.4-10.2); CARBON DIOXIDE 31 mmol/L (22-30); CHLORIDE 100 mmol/L (98-107); GLUCOSE 119 mg/dL (75-110); INTERNATIONAL RATION (INR) 0.89; POTASSIUM 3.5 mmol/L (3.6-5.0); PROTHROMBIN TIME 12.5 SEC (11.4-15.4); SODIUM 142.6 mmol/L (137-145); TOTAL PROTEIN 7.6 g/dL (6.3-8.2)
[2019-02-15 18:17] LABS: PARTIAL THROMBOPLASTIN TIME 32.1 SEC (23.5-35.8)
[2019-02-15 19:07] VITALS: BP 148/72
[2019-02-15] MEDS ORDERED: ALPRAZOLAM 0.25 MG TABLET PO ONE (19:13)
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
--- NOTE | 2019-02-16 22:37 | EKG REPORT ---
SEVERITY:- ABNORMAL ECG - SINUS RHYTHM PROBABLE LEFT VENTRICULAR HYPERTROPHY : Confirmed by: Gloria Wilson 16-Feb-2019 22:36:48
== END 2019-02-15 19:42 | disposition home or self-care (01) ==
LOC: ER 14:49
DX: F41.9 Anxiety disorder, unspecified (principal); R07.9 Chest pain, unspecified; I11.0 Hypertensive heart disease with heart failure; R61 Generalized hyperhidrosis; I50.9 Heart failure, unspecified; I25.10 Atherosclerotic heart disease of native coronary artery without angina pectoris; F17.200 Nicotine dependence, unspecified, uncomplicated; J44.9 Chronic obstructive pulmonary disease, unspecified; E11.9 Type 2 diabetes mellitus without complications
CPT/HCPCS: 93005; 99284; 36415; 85025; 85610; 85730; 80053; 84484; 71046; 93010; A9270 ×4; S0119

== ENCOUNTER 2019-03-02 17:22 | Emergency (ER) | payer MEDICARE, MEDICAID ==
[2019-03-02 17:40] VITALS: BP 138/85
[2019-03-02] MEDS ORDERED: METHOCARBAMOL 750 MG TABLET PO ONE (18:46)
[2019-03-02] MEDS ORDERED: KETOROLAC TROMETHAMINE 60 MG/2 ML SDV IM ONE (18:46)
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
== END 2019-03-02 19:00 | disposition home or self-care (01) ==
LOC: ER 17:22
DX: M54.2 Cervicalgia (principal); M25.512 Pain in left shoulder; M25.511 Pain in right shoulder; M25.531 Pain in right wrist; W22.09XA Striking against other stationary object, initial encounter; Y93.89 Activity, other specified; Y92.811 Bus as the place of occurrence of the external cause; I25.10 Atherosclerotic heart disease of native coronary artery without angina pectoris; I10 Essential (primary) hypertension; J44.9 Chronic obstructive pulmonary disease, unspecified; Z79.891 Long term (current) use of opiate analgesic
CPT/HCPCS: 99283; 96372; L0120; J1885; A9270; J3490

== ENCOUNTER 2019-03-03 14:19 | Emergency (ER) | payer MEDICARE, MEDICAID ==
[2019-03-03 14:50] VITALS: BP 150/88
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
[2019-03-03] MEDS ORDERED: ACETAMINOPHEN 325 MG TABLET PO ONE (16:16)
--- NOTE | 2019-03-03 17:29 | EKG REPORT ---
SEVERITY:- ABNORMAL ECG - SINUS TACHYCARDIA CONSIDER LEFT VENTRICULAR HYPERTROPHY : Confirmed by: Pierre Jefferson MD 03-Mar-2019 17:28:34
== END 2019-03-03 17:03 | disposition home or self-care (01) ==
LOC: ER 14:19
DX: R52 Pain, unspecified (principal); V89.2XXD Person injured in unspecified motor-vehicle accident, traffic, subsequent encounter; E78.00 Pure hypercholesterolemia, unspecified; I10 Essential (primary) hypertension; J44.9 Chronic obstructive pulmonary disease, unspecified; E11.9 Type 2 diabetes mellitus without complications; I25.2 Old myocardial infarction; Z90.710 Acquired absence of both cervix and uterus
CPT/HCPCS: 93005; 99283; 93010; A9270

== ENCOUNTER 2019-03-13 14:26 | Emergency (ER) | payer MEDICARE, MEDICAID ==
[2019-03-13] MEDS ORDERED: PROMETHAZINE HCL 25 MG TABLET PO ONE (16:03)
[2019-03-13] MEDS ORDERED: HYDROCODONE/ACETAMINOPHEN 5-325 MG TABLET PO ONE (16:04)
[2019-03-13] MEDS ORDERED: MECLIZINE HCL 12.5 MG TABLET PO ONE (16:04)
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
[2019-03-13 17:12] LABS: ABSOLUTE LYMPHOCYTES (AUTO) 2.4 10^3/uL (0.5-4.7); ABSOLUTE MONOCYTES (AUTO) 0.8 10^3/uL (0.1-1.4); ABSOLUTE NEUT (AUTO) 8.9 10^3/uL (1.7-8.2); BASOPHILS % (AUTO) 0.4 % (0-2); EOSINOPHILS % (AUTO) 0.4 % (0-6); HEMATOCRIT 40.8 % (36.0-47.0); HEMOGLOBIN 13.7 g/dL (12.0-15.5); LYMPHOCYTES % (AUTO) 19.7 % (13-45); MEAN CORPUSCULAR HGB CONC 33.6 g/dL (32.0-36.0); MEAN CORPUSCULAR VOLUME 95 fl (80-97); MONOCYTES % (AUTO) 6.5 % (3-13); PLATELET COUNT 198 10^3/uL (150-450); RED BLOOD COUNT 4.29 10^6/uL (3.72-5.28); RED CELL DISTRIBUTION WIDTH 14.4 % (11.5-14.0); TOTAL CELLS COUNTED % (AUTO) 100 %; WHITE BLOOD COUNT 12.2 10^3/uL (4.0-10.5)
[2019-03-13 17:18] LABS: APPEARANCE,URINE CLOUDY; BILIRUBIN,URINE NEGATIVE (NEGATIVE); COLOR,URINE YELLOW; GLUCOSE, URINE NEGATIVE (NEGATIVE); KETONES,URINE NEGATIVE (NEGATIVE); LEUKOCYTE ESTERASE,URINE TRACE (NEGATIVE); NITRITE,URINE NEGATIVE (NEGATIVE); PROTEIN,URINE 100 mg/dL (NEGATIVE); URINE SPECIFIC GRAVITY 1.014
[2019-03-13 17:29] LABS: ANION GAP 9 (5-19); BLOOD UREA NITROGEN 29 mg/dL (7-20); CARBON DIOXIDE 32 mmol/L (22-30); CHLORIDE 99 mmol/L (98-107); GLUCOSE 95 mg/dL (75-110); POTASSIUM 3.7 mmol/L (3.6-5.0); SODIUM 139.5 mmol/L (137-145)
[2019-03-13 18:29] VITALS: BP 131/85
--- NOTE | 2019-03-14 07:58 | EKG REPORT ---
SEVERITY:- ABNORMAL ECG - SINUS RHYTHM PROBABLE LEFT VENTRICULAR HYPERTROPHY : Confirmed by: Sarah Padgett MD 14-Mar-2019 07:57:33
== END 2019-03-13 18:29 | disposition home or self-care (01) ==
LOC: ER 14:26
DX: R42 Dizziness and giddiness (principal); G89.29 Other chronic pain; M25.562 Pain in left knee; M79.10 Myalgia, unspecified site; R51 Headache; F17.200 Nicotine dependence, unspecified, uncomplicated; R73.03 Prediabetes; I50.9 Heart failure, unspecified; I25.2 Old myocardial infarction; E78.00 Pure hypercholesterolemia, unspecified; I11.0 Hypertensive heart disease with heart failure; Z90.710 Acquired absence of both cervix and uterus
CPT/HCPCS: 93005; 99284; 36415; 83735; 85025; 80048; 81001; 84484; 93010; A9270 ×3; J3490

== ENCOUNTER 2019-04-22 15:53 | Emergency (ER) | payer MEDICARE, MEDICAID ==
[2019-04-22 17:47] LABS: ABSOLUTE BASOPHILS # (AUTO) 0.1 10^3/uL (0.0-0.2); ABSOLUTE EOSINOPHILS # (AUTO) 0.1 10^3/uL (0.0-0.6); ABSOLUTE LYMPHOCYTES (AUTO) 3.9 10^3/uL (0.5-4.7); ABSOLUTE MONOCYTES (AUTO) 0.8 10^3/uL (0.1-1.4); ABSOLUTE NEUT (AUTO) 7.6 10^3/uL (1.7-8.2); BASOPHILS % (AUTO) 0.7 % (0-2); EOSINOPHILS % (AUTO) 0.9 % (0-6); HEMATOCRIT 42.7 % (36.0-47.0); HEMOGLOBIN 14.5 g/dL (12.0-15.5); LYMPHOCYTES % (AUTO) 31.1 % (13-45); MEAN CORPUSCULAR HEMOGLOBIN 32.3 pg (27.0-33.4); MEAN CORPUSCULAR VOLUME 95 fl (80-97); MONOCYTES % (AUTO) 6.2 % (3-13); PLATELET COUNT 253 10^3/uL (150-450); RED BLOOD COUNT 4.49 10^6/uL (3.72-5.28); RED CELL DISTRIBUTION WIDTH 14.9 % (11.5-14.0); SEGMENTED NEUTROPHILS % (AUTO) 61.1 % (42-78); TOTAL CELLS COUNTED % (AUTO) 100 %; WHITE BLOOD COUNT 12.4 10^3/uL (4.0-10.5)
[2019-04-22 17:52] LABS: APPEARANCE,URINE CLEAR; BILIRUBIN,URINE NEGATIVE (NEGATIVE); CALCIUM OXALATE CRYSTALS,URINE MODERATE /HPF; COLOR,URINE YELLOW; GLUCOSE, URINE NEGATIVE (NEGATIVE); KETONES,URINE 20 mg/dL (NEGATIVE); LEUKOCYTE ESTERASE,URINE NEGATIVE (NEGATIVE); NITRITE,URINE NEGATIVE (NEGATIVE); PROTEIN,URINE NEGATIVE (NEGATIVE); URINE SPECIFIC GRAVITY 1.018; UROBILINOGEN,URINE NEGATIVE mg/dL (<2.0)
[2019-04-22 17:55] LABS: INTERNATIONAL RATION (INR) 0.92; PROTHROMBIN TIME 12.3 SEC (11.4-15.4)
[2019-04-22 18:09] LABS: ALANINE AMINOTRANSFERASE 31 U/L (9-52); ALBUMIN 4.5 g/dL (3.5-5.0); ALKALINE PHOSPHATASE 63 U/L (38-126); ANION GAP 11 (5-19); ASPARTATE AMINO TRANSFERASE 28 U/L (14-36); BILIRUBIN,DIRECT 0.4 mg/dL (0.0-0.4); BILIRUBIN,TOTAL 0.7 mg/dL (0.2-1.3); BLOOD UREA NITROGEN 11 mg/dL (7-20); CALCIUM 10.3 mg/dL (8.4-10.2); CARBON DIOXIDE 23 mmol/L (22-30); CHLORIDE 108 mmol/L (98-107); CREATINE KINASE 211 U/L (30-135); GLUCOSE 102 mg/dL (75-110); POTASSIUM 3.7 mmol/L (3.6-5.0); TOTAL PROTEIN 7.6 g/dL (6.3-8.2)
[2019-04-22 18:20] LABS: CREATINE KINASE MB 2.38 ng/mL (<4.55); TROPONIN I < 0.012 ng/mL
--- NOTE | 2019-04-22 20:17 | RADIOLOGY REPORT (SQ) ---
EXAM DESCRIPTION: XR CHEST 1 VIEW COMPLETED DATE/TME: 04/22/2019 17:21 CLINICAL HISTORY: chest discomfort; Hx CHF COMPARISON: February 15, 2019 FINDINGS: Cardiac silhouette is within normal limits. EKG leads project over the chest. There is no focal parenchymal or pleural disease. Straightening of the upper pulmonary vessels compatible underlying emphysematous changes. There is no acute osseous process visualized. IMPRESSION: No evidence of acute cardiopulmonary disease.
[2019-04-22] MEDS ORDERED: CLONIDINE HCL 0.1 MG TABLET PO ONE (20:38)
[2019-04-22] MEDS ORDERED: ONDANSETRON 4 MG TAB.RAPDIS PO ONE (20:38)
--- NOTE | 2019-04-22 20:44 | ER Document Report ---
ED Blood Pressure Problem - General Chief Complaint: High Blood Pressure Stated Complaint: HIGH BLOOD PRESSURE Time Seen by Provider: 04/22/19 17:08 TRAVEL OUTSIDE OF THE [place] IN LAST 30 DAYS: No - HPI Notes: Patient is a 54-year-old female that presents to the emergency department for chief complaint of hypertension and anxiety. Patient states she has been weaning herself off of Xanax while starting a new prescription of Zoloft. She has now been off of the Xanax for the last 3 days. For the last 3 days she reports feeling shaky, nauseated and very anxious. She states that she was on 2 mg of Xanax daily and had decreased to 1 mg daily for 5 days and then 0.5 mg daily for 5 days prior to coming off the medicine 3 days ago. The Zoloft was started 4 weeks ago. She denies any history of seizures or severe withdrawal symptoms in the past. Patient does state that she feels generally fidgety. She reports some shortness of breath but denies any chest pain. Patient also states she checked her blood pressure today and it was 229/82. She did take her hydralazine, lisinopril, and amlodipine today. She states she is supposed to have clonidine but that prescription has run out. She is currently in between primary care doctors. She does also state that she has an appointment with pain management on Tuesday to restart her Percocet, they had refused to refill it while she was on the Xanax. Past Medical History: Pretension, hyperlipidemia, CHF, anxiety Past Surgical History: Reviewed in chart Social History: Daily tobacco. Denies drug and alcohol use Family History: Reviewed and noncontributory for presenting illness Allergies: Reviewed, see documented allergy list. REVIEW OF SYSTEMS: CONSTITUTIONAL : No fever No chills No diaphoresis No recent illness EENT: No vision changes No congestion No sore throat CARDIOVASCULAR: No chest pain No palpitations RESPIRATORY: shortness of breath No cough No difficulty breathing GASTROINTESTINAL: No abdominal pain nausea vomiting diarrhea GENITOURINARY: No dysuria No hematuria No difficulty urinating MUSCULOSKELETAL: No back pain No leg pain No arm pain SKIN: No rashes No lesions LYMPHATIC: No swollen, enlarged glands. NEUROLOGICAL: No lightheadedness No headache No weakness No paresthesias PSYCHIATRIC: anxiety No depression PHYSICAL EXAMINATION: Vital signs reviewed, nursing noted reviewed. GENERAL: Well-appearing, well-nourished and in no acute distress. HEAD: Atraumatic, normocephalic. EYES: Eyes appear normal, extraocular movements intact, sclera anicteric, conjunctiva are normal. ENT: nares patent, oropharynx clear without exudates. Moist mucous membranes. NECK: Normal range of motion, supple without lymphadenopathy LUNGS: Breath sounds clear to auscultation bilaterally and equal. No wheezes rales or rhonchi. HEART: Regular rate and rhythm without murmurs ABDOMEN: Soft, nontender, normoactive bowel sounds. No rebound, guarding, or rigidity. No masses appreciated. EXTREMITIES: Nontender, good range of motion, no pitting or edema. NEUROLOGICAL: Tremulous, no focal neurological deficits. Moves all extremities spontaneously Motor and sensory grossly intact on exam. PSYCH: Normal mood, normal affect. SKIN: Warm, Dry, normal turgor, no rashes or lesions noted on exposed skin - Related Data Allergies/Adverse Reactions: cyclobenzaprine HCl [From Flexeril] Allergy (Verified 04/22/19 16:08) tramadol [Tramadol] Allergy (Verified 04/22/19 16:08) anesthesia Allergy (Severe, Uncoded 04/22/19 16:08) HTZ Allergy (Uncoded 04/22/19 16:08) Past Medical History - Social History Smoking Status: Unknown if Ever Smoked Family History: Reviewed & Not Pertinent, Malignancy, Other Patient has suicidal ideation: No Patient has homicidal ideation: No - Past Medical History Cardiac Medical History: Reports: Hx Congestive Heart Failure, Hx Heart Attack - mild, Hx Hypercholesterolemia, Hx Hypertension Pulmonary Medical History: Reports: Hx Asthma, Hx Bronchitis, Hx COPD Neurological Medical History: Reports: Hx Migraine, Hx Seizures Endocrine Medical History: Reports: Hx Diabetes Mellitus Type 2 - borderline Renal/ Medical History: Denies: Hx Peritoneal Dialysis GI Medical History: Reports: Hx Gastroesophageal Reflux Disease, Hx Ulcer Psychiatric Medical History: Reports: Hx Anxiety, Hx Depression Past Surgical History: Reports: Hx Hysterectomy, Hx Orthopedic Surgery - L leg AND R KNEE - Immunizations Hx Diphtheria, Pertussis, Tetanus Vaccination: Yes - <5 years Physical Exam - Vital signs Vitals: Temp Pulse Resp BP Pulse Ox 98.5 F 76 20 194/80 H 95 04/22/19 16:17 04/22/19 16:17 04/22/19 16:17 04/22/19 16:17 04/22/19 16:17 Course - Re-evaluation Re-evalutation: 04/22/19 20:41 Vitals reviewed. Nursing notes reviewed. Patient is well-appearing with normal vital signs. She is not currently tachycardic or hypoxic. She does complain of some shortness of breath but denies any change from her baseline and states that some of it feels like anxiety. She does smoke tobacco daily. She denies any history of DVT/PE, chest pain, exogenous estrogen use, recent surgery travel or immobilizations. There is no family history of DVT/PE. A d-dimer was ordered in triage because patient was complaining of shortness of breath. Her d-dimer is elevated. I did discuss with her that without CT scan in the setting of shortness of breath and elevated d-dimer it is possible that she has a pulmonary embolism however my clinical suspicion is very low. Patient states that she has had so many CT scans in the past that previous doctors had recommended that she never obtain a CT scan again because of the risk of radiation. Patient at this point is declining CT imaging. I do not feel that she is requiring further imaging at this point to evaluate for PE. Her symptoms are related to her Xanax withdrawal. She did taper herself off of the Xanax well and her symptoms currently are minimal. She has no focal neurologic deficits and is not having any seizures. The remainder of her work-up today is unremarkable. Her blood pressure has been elevated likely related to her withdrawals and difficult to control blood pressure at baseline she is on 4 medications. Patient was given a dose of her home clonidine and Zofran for further management. She was encouraged to establish with a primary care doctor tomorrow and has requested Dr. Montenegro's information to establish his primary care. I do not see any indication at this point for admission. Patient in agreement with outpatient follow-up and return precautions. Laboratory 04/22/19 04/22/19 04/22/19 17:25 17:25 17:25 WBC 12.4 H RBC 4.49 Hgb 14.5 Hct 42.7 MCV 95 MCH 32.3 MCHC 34.0 RDW 14.9 H Plt Count 253 Seg Neutrophils % 61.1 Lymphocytes % 31.1 Monocytes % 6.2 Eosinophils % 0.9 Basophils % 0.7 Absolute Neutrophils 7.6 Absolute Lymphocytes 3.9 Absolute Monocytes 0.8 Absolute Eosinophils 0.1 Absolute Basophils 0.1 PT 12.3 INR 0.92 D-Dimer 0.90 H Sodium 142.4 Potassium 3.7 Chloride 108 H Carbon Dioxide 23 Anion Gap 11 BUN 11 Creatinine 0.75 Est GFR ( Amer) > 60 Est GFR (Non-Af Amer) > 60 Glucose 102 Calcium 10.3 H Total Bilirubin 0.7 Direct Bilirubin 0.4 Neonat Total Bilirubin Not Reportable Neonat Direct Bilirubin Not Reportable Neonat Indirect Bili Not Reportable AST 28 ALT 31 Alkaline Phosphatase 63 Creatine Kinase 211 H CK-MB (CK-2) Troponin I Total Protein 7.6 Albumin 4.5 Urine Color Urine Appearance Urine pH Ur Specific [place] Urine Protein Urine Glucose (UA) Urine Ketones Urine Blood Urine Nitrite Urine Bilirubin Urine Urobilinogen Ur Leukocyte Esterase Urine WBC (Auto) Urine RBC (Auto) U Hyaline Cast (Auto) Squamous Epi Cells Auto Calcium Oxalate Cr Auto Urine Mucus (Auto) Urine Ascorbic Acid 04/22/19 04/22/19 17:25 17:25 WBC RBC Hgb Hct MCV MCH MCHC RDW Plt Count Seg Neutrophils % Lymphocytes % Monocytes % Eosinophils % Basophils % Absolute Neutrophils Absolute Lymphocytes Absolute Monocytes Absolute Eosinophils Absolute Basophils PT INR D-Dimer Sodium Potassium Chloride Carbon Dioxide Anion Gap BUN Creatinine Est GFR ( Amer) Est GFR (Non-Af Amer) Glucose Calcium Total Bilirubin Direct Bilirubin Neonat Total Bilirubin Neonat Direct Bilirubin Neonat Indirect Bili AST ALT Alkaline Phosphatase Creatine Kinase CK-MB (CK-2) 2.38 Troponin I < 0.012 Total Protein Albumin Urine Color YELLOW Urine Appearance CLEAR Urine pH 5.0 Ur Specific [place] 1.018 Urine Protein NEGATIVE Urine Glucose (UA) NEGATIVE Urine Ketones 20 H Urine Blood NEGATIVE Urine Nitrite NEGATIVE Urine Bilirubin NEGATIVE Urine Urobilinogen NEGATIVE Ur Leukocyte Esterase NEGATIVE Urine WBC (Auto) 5 Urine RBC (Auto) 1 U Hyaline Cast (Auto) 1 Squamous Epi Cells Auto 2 Calcium Oxalate Cr Auto MODERATE Urine Mucus (Auto) OCC Urine Ascorbic Acid NEGATIVE Chest X-Ray 04/22/19 17:21 IMPRESSION: No evidence of acute cardiopulmonary disease. 04/22/19 20:45 - Vital Signs Vital signs: Temp Pulse Resp BP Pulse Ox 98.5 F 76 19 212/78 H 98 04/22/19 16:17 04/22/19 16:17 04/22/19 20:00 04/22/19 19:01 04/22/19 20:00 - Laboratory Result Diagrams: 04/22/19 17:25 04/22/19 17:25 Laboratory results interpreted by me: 04/22/19 04/22/19 04/22/19 17:25 17:25 17:25 WBC 12.4 H RDW 14.9 H D-Dimer 0.90 H Chloride 108 H Calcium 10.3 H Creatine Kinase 211 H Urine Ketones 04/22/19 17:25 WBC RDW D-Dimer Chloride Calcium Creatine Kinase Urine Ketones 20 H Discharge - Discharge Clinical Impression: Elevated blood pressure reading Benzodiazepine withdrawal Qualifiers: Complication of substance-induced condition: uncomplicated Qualified Code(s): F13.230 - Sedative, hypnotic or anxiolytic dependence with withdrawal, uncomplicated Condition: Stable Disposition: HOME, SELF-CARE Instructions: High Blood Pressure ([facility]), Clonidine (Catapres) ([facility]) Additional Instructions: Please return to the emergency department if you have any worsening, or concern of your symptoms. Please return to the emergency department if you develop chest pain, difficulty breathing, severe abdominal pain, or ongoing vomiting. Please follow-up with your primary care physician in 2-3 days and any other recommended physicians. If prescribed, take all medications as directed. If you have any questions or concerns do not hesitate to return the emergency department for evaluation. [] Prescriptions: Clonidine HCl [Catapres] 0.1 mg PO Q12 #14 tablet Forms: Smoking Cessation Education Referrals: KWAKU MONTENERGO MD [ACTIVE STAFF] - Follow up tomorrow
[2019-04-22 21:15] VITALS: BP 213/82
--- NOTE | 2019-04-22 21:38 | ER Document Report ---
ED Medical Screen (RME) - General Chief Complaint: High Blood Pressure Stated Complaint: HIGH BLOOD PRESSURE Time Seen by Provider: 04/22/19 17:08 Primary Care Provider: KWAKU MONTENEGRO MD [ACTIVE STAFF] - Follow up tomorrow Notes: Patient is a 54-year-old female who presents the emergency department with a chief complaint of high blood pressure and shortness of breath. She states that she is being weaned off her Xanax and she ran out of Xanax 3 days ago. She states that when she takes a deep breath and she has some chest pain. She states that she tried to take some Tylenol, but did not help. Patient is also being transitioned to Zoloft and she is now on her fourth week of being on her Zoloft. Patient does have history of a heart murmur, CHF, myocardial infarction, and anxiety. Dr. Wilson is her valve repairer. Exam: Breath sounds clear to auscultation bilaterally. I have greeted and performed a rapid initial assessment of this patient. A comprehensive ED assessment and evaluation of the patient, analysis of test results and completion of medical decision making process will be conducted by an additional ED providers. TRAVEL OUTSIDE OF THE [place] IN LAST 30 DAYS: No - Related Data Allergies/Adverse Reactions: cyclobenzaprine HCl [From Flexeril] Allergy (Verified 04/22/19 16:08) tramadol [Tramadol] Allergy (Verified 04/22/19 16:08) anesthesia Allergy (Severe, Uncoded 04/22/19 16:08) HTZ Allergy (Uncoded 04/22/19 16:08) Past Medical History - Past Medical History Cardiac Medical History: Reports: Hx Congestive Heart Failure, Hx Heart Attack - mild, Hx Hypercholesterolemia, Hx Hypertension Pulmonary Medical History: Reports: Hx Asthma, Hx Bronchitis, Hx COPD Neurological Medical History: Reports: Hx Migraine, Hx Seizures Endocrine Medical History: Reports: Hx Diabetes Mellitus Type 2 - borderline Renal/ Medical History: Denies: Hx Peritoneal Dialysis GI Medical History: Reports: Hx Gastroesophageal Reflux Disease, Hx Ulcer Psychiatric Medical History: Reports: Hx Anxiety, Hx Depression Past Surgical History: Reports: Hx Hysterectomy, Hx Orthopedic Surgery - L leg AND R KNEE - Immunizations Hx Diphtheria, Pertussis, Tetanus Vaccination: Yes - <5 years Physical Exam - Vital signs Vitals: Temp Pulse Resp BP Pulse Ox 98.5 F 76 20 194/80 H 95 04/22/19 16:17 04/22/19 16:17 04/22/19 16:17 04/22/19 16:17 04/22/19 16:17 Course - Vital Signs Vital signs: Temp Pulse Resp BP Pulse Ox 98.1 F 76 17 213/82 H 98 04/22/19 21:00 04/22/19 16:17 04/22/19 21:01 04/22/19 21:00 04/22/19 21:01 - Laboratory Result Diagrams: 04/22/19 17:25 04/22/19 17:25 Laboratory results interpreted by me: 04/22/19 04/22/19 04/22/19 17:25 17:25 17:25 WBC 12.4 H RDW 14.9 H D-Dimer 0.90 H Chloride 108 H Calcium 10.3 H Creatine Kinase 211 H Urine Ketones 04/22/19 17:25 WBC RDW D-Dimer Chloride Calcium Creatine Kinase Urine Ketones 20 H Doctor's Discharge - Discharge Clinical Impression: Elevated blood pressure reading Benzodiazepine withdrawal Qualifiers: Complication of substance-induced condition: uncomplicated Qualified Code(s): F13.230 - Sedative, hypnotic or anxiolytic dependence with withdrawal, uncomplicated Condition: Stable Disposition: HOME, SELF-CARE Instructions: Clonidine (Catapres) ([facility]), High Blood Pressure ([facility]) Additional Instructions: Please return to the emergency department if you have any worsening, or concern of your symptoms. Please return to the emergency department if you develop chest pain, difficulty breathing, severe abdominal pain, or ongoing vomiting. Please follow-up with your primary care physician in 2-3 days and any other recommended physicians. If prescribed, take all medications as directed. If you have any questions or concerns do not hesitate to return the emergency department for evaluation. [] Prescriptions: Clonidine HCl [Catapres] 0.1 mg PO Q12 #14 tablet Forms: Smoking Cessation Education Referrals: KWAKU MONTENEGRO MD [ACTIVE STAFF] - Follow up tomorrow
--- NOTE | 2019-04-22 21:55 | EKG REPORT ---
SEVERITY:- ABNORMAL ECG - SINUS RHYTHM CONSIDER LEFT VENTRICULAR HYPERTROPHY : Confirmed by: Gloria Wilson 22-Apr-2019 21:54:47
== END 2019-04-22 21:24 | disposition home or self-care (01) ==
LOC: ER 15:53
DX: F13.230 Sedative, hypnotic or anxiolytic dependence with withdrawal, uncomplicated (principal); I11.0 Hypertensive heart disease with heart failure; I50.9 Heart failure, unspecified; R06.02 Shortness of breath; I25.2 Old myocardial infarction; F41.9 Anxiety disorder, unspecified; Z79.899 Other long term (current) drug therapy
CPT/HCPCS: 93005; 99284; 36415; 82553; 82550; 85025; 85610; 80053; 81001; 84484; 85379; 71045; 93010; A9270 ×2; S0119

== ENCOUNTER 2019-05-18 10:52 | Observation (INO) | payer MEDICARE, MEDICAID ==
[2019-05-18] MEDS ORDERED: ASPIRIN 81 MG TABLET, CHEWABLE PO ONE (11:33)
[2019-05-18 11:34] LABS: ABSOLUTE BASOPHILS # (AUTO) 0.1 10^3/uL (0.0-0.2); ABSOLUTE EOSINOPHILS # (AUTO) 0.1 10^3/uL (0.0-0.6); ABSOLUTE LYMPHOCYTES (AUTO) 2.8 10^3/uL (0.5-4.7); ABSOLUTE MONOCYTES (AUTO) 0.6 10^3/uL (0.1-1.4); ABSOLUTE NEUT (AUTO) 5.8 10^3/uL (1.7-8.2); BASOPHILS % (AUTO) 1.1 % (0-2); EOSINOPHILS % (AUTO) 1.3 % (0-6); HEMATOCRIT 39.5 % (36.0-47.0); HEMOGLOBIN 13.7 g/dL (12.0-15.5); LYMPHOCYTES % (AUTO) 30.2 % (13-45); MEAN CORPUSCULAR HGB CONC 34.6 g/dL (32.0-36.0); MEAN CORPUSCULAR VOLUME 95 fl (80-97); MONOCYTES % (AUTO) 5.8 % (3-13); PLATELET COUNT 212 10^3/uL (150-450); RED BLOOD COUNT 4.14 10^6/uL (3.72-5.28); RED CELL DISTRIBUTION WIDTH 15.4 % (11.5-14.0); SEGMENTED NEUTROPHILS % (AUTO) 61.6 % (42-78); TOTAL CELLS COUNTED % (AUTO) 100 %; WHITE BLOOD COUNT 9.4 10^3/uL (4.0-10.5)
[2019-05-18] MEDS ORDERED: NORMAL SALINE 1000 ML 1,000 ML IV ONE (11:40)
--- NOTE | 2019-05-18 11:41 | ER Document Report ---
ED General - General Chief Complaint: Chest Pain Stated Complaint: TROUBLE BREATHING Time Seen by Provider: 05/18/19 11:13 Primary Care Provider: CHRISTIANO CLEMENTS PA-C [Primary Care Provider] - Follow up as needed TRAVEL OUTSIDE OF THE [place] IN LAST 30 DAYS: No - HPI Notes: 54-year-old female with history of hypertension and hyperlipidemia to the emergency department with complaints of chest pain and shortness of breath that began this morning. She states that she was walking to [employer] when her symptoms began. She states that it was midsternal and nonradiating. She states that she also felt lightheaded like she is going to pass out. She states that she was diaphoretic but is also hot outside. She states that she typically does not exercise. She states that she is to see Dr. christine may but does not currently have any primary care. She states that when she got home she took a second lisinopril. She states that she supposed to take 20 mg of lisinopril as well as clonidine and hydrochlorothiazide. States when she got home from the walk, she took a 2nd Lisinopril. She then called the medics as she still was feeling chest pain and SOB. Medics report low blood pressure. States she takes a baby aspirin every morning and did take one today. States that she thinks she may have had a heart attack two years ago. She states that she was seen by a Topology Teacher in [facility] and had a heart cath. States that she had a negative cath and does not have any stents. She smokes 10 cigarettes a day. She denies any recent travel or recent new leg swelling. Denies any recent surgeries. She states that her chest pain has gotten better, but she still feels pressure, like something is sitting on her chest. - Related Data Allergies/Adverse Reactions: cyclobenzaprine HCl [From Flexeril] Allergy (Verified 05/18/19 10:55) tramadol [Tramadol] Allergy (Verified 05/18/19 10:55) anesthesia Allergy (Severe, Uncoded 05/18/19 10:55) HTZ Allergy (Uncoded 05/18/19 10:55) Past Medical History - General Information source: Patient - Social History Smoking Status: Current Every Day Smoker Frequency of alcohol use: None Drug Abuse: None Family History: Reviewed & Not Pertinent, Malignancy, Other Patient has suicidal ideation: No Patient has homicidal ideation: No - Past Medical History Cardiac Medical History: Reports: Hx Congestive Heart Failure, Hx Heart Attack - mild, Hx Hypercholesterolemia, Hx Hypertension Pulmonary Medical History: Reports: Hx Asthma, Hx Bronchitis, Hx COPD Neurological Medical History: Reports: Hx Migraine, Hx Seizures Endocrine Medical History: Reports: Hx Diabetes Mellitus Type 2 - borderline Renal/ Medical History: Denies: Hx Peritoneal Dialysis GI Medical History: Reports: Hx Gastroesophageal Reflux Disease, Hx Ulcer Psychiatric Medical History: Reports: Hx Anxiety, Hx Depression Past Surgical History: Reports: Hx Hysterectomy, Hx Orthopedic Surgery - L leg AND R KNEE - Immunizations Hx Diphtheria, Pertussis, Tetanus Vaccination: Yes - <5 years Review of Systems - Review of Systems Constitutional: Diaphoresis. denies: Chills, Fever EENT: No symptoms reported Cardiovascular: Chest pain, Dyspnea, Lightheaded. denies: Palpitations, Syncope, Dizziness Respiratory: Cough, Short of breath Gastrointestinal: denies: Abdominal pain, Diarrhea, Nausea, Vomiting Physical Exam - Vital signs Vitals: Temp Pulse Resp BP Pulse Ox 98.1 F 73 16 115/60 100 05/18/19 10:57 05/18/19 10:57 05/18/19 10:57 05/18/19 10:57 05/18/19 10:57 Interpretation: Normal - General General appearance: Appears well, Alert, Anxious In distress: None - HEENT Head: Normocephalic, Atraumatic Eyes: Normal Pupils: PERRL - Respiratory Respiratory status: No respiratory distress Chest status: Nontender Breath sounds: Normal Chest palpation: Normal - Cardiovascular Rhythm: Regular Heart sounds: Normal auscultation Murmur: No - Abdominal Inspection: Normal Distension: No distension Bowel sounds: Normal Tenderness: Nontender Organomegaly: No organomegaly - Back Back: Normal, Nontender - Neurological Neuro grossly intact: Yes Cognition: Normal Orientation: AAOx4 Michael Coma Scale Eye Opening: Spontaneous Michael Coma Scale Verbal: Oriented [place] Coma Scale Motor: Obeys Commands [place] Coma Scale Total: 15 Speech: Normal Motor strength normal: LUE, RUE, LLE, RLE Sensory: Normal - Psychological Associated symptoms: Normal affect, Normal mood - Skin Skin Temperature: Warm Skin Moisture: Dry Skin Color: Normal Course - Re-evaluation Re-evalutation: 05/18/19 13:39 Rounded on patient. She is chest pain-free. Patient has a heart score of 4. Noted labs with mild acute kidney injury. Initial troponin is 0.018. We will plan on admission for patient given her risk factors and the story. Discussed this patient with Dr. Ortiz, ER attending, and he agrees with the plan. Spoke with TAE Salvador, hospitalist TAE. He accepts patient for admission. He is aware of first troponin, chest x-ray, history, heart score, EKG findings. He will come and see the patient. Impression: Chest pain with heart score 4. Will admit patient for trending troponins and stress testing. Patient agrees with the plan. - Vital Signs Vital signs: Temp Pulse Resp BP Pulse Ox 98.1 F 68 16 122/60 100 05/18/19 10:57 05/18/19 12:16 05/18/19 10:57 05/18/19 12:16 05/18/19 10:57 - Laboratory Result Diagrams: 05/18/19 11:20 05/18/19 12:00 Laboratory results interpreted by me: 05/18/19 05/18/19 11:20 12:00 RDW 15.4 H Potassium 3.4 L Chloride 97 L BUN 29 H Creatinine 1.46 H Est GFR ( Amer) 45 L Est GFR (MDRD) Non-Af 37 L Creatine Kinase 194 H Discharge - Discharge Clinical Impression: Chest pain Qualifiers: Chest pain type: unspecified Qualified Code(s): R07.9 - Chest pain, unspecified Condition: Stable Disposition: ADMITTED INPATIENT Admitting Provider: Usman (Hospitalist) Unit Admitted: Medical Floor Referrals: CHRISTIANO CLEMENTS PA-C [Primary Care Provider] - Follow up as needed
--- NOTE | 2019-05-18 11:44 | RADIOLOGY REPORT (SQ) ---
EXAM DESCRIPTION: CHEST SINGLE VIEW COMPLETED DATE/TIME: 05/18/2019 11:37 am REASON FOR STUDY: chest pain COMPARISON: 04/22/2019 NUMBER OF VIEWS: One view. TECHNIQUE: Single frontal radiographic image of the chest acquired. LIMITATIONS: None. FINDINGS: LUNGS AND PLEURA: Stable appearance. MEDIASTINUM AND HILAR STRUCTURES: Stable heart size and mediastinal structures. HEART AND VASCULAR STRUCTURES: Stable appearance. SUPPORT DEVICES: Appropriate location without change. BONES: No acute findings. OTHER: No other significant finding. IMPRESSION: STABLE APPEARANCE OF THE CHEST. SUPPORT DEVICES UNCHANGED. TECHNICAL DOCUMENTATION: JOB ID: [id number] [employer]- All Rights Reserved Reading location - IP/workstation name: [email or web address]
--- NOTE | 2019-05-18 12:27 | EKG REPORT ---
SEVERITY:- ABNORMAL ECG - SINUS RHYTHM PROBABLE LVH WITH SECONDARY REPOL ABNRM : Confirmed by: Sarah Padgett MD 18-May-2019 12:25:54
[2019-05-18 12:32] LABS: ALBUMIN 4.1 g/dL (3.5-5.0); ALKALINE PHOSPHATASE 58 U/L (38-126); ANION GAP 11 (5-19); ASPARTATE AMINO TRANSFERASE 30 U/L (14-36); BILIRUBIN,DIRECT 0.3 mg/dL (0.0-0.4); BILIRUBIN,TOTAL 0.7 mg/dL (0.2-1.3); BLOOD UREA NITROGEN 29 mg/dL (7-20); CALCIUM 10.1 mg/dL (8.4-10.2); CARBON DIOXIDE 30 mmol/L (22-30); CHLORIDE 97 mmol/L (98-107); CREATINE KINASE 194 U/L (30-135); GLUCOSE 91 mg/dL (75-110); POTASSIUM 3.4 mmol/L (3.6-5.0); TOTAL PROTEIN 6.8 g/dL (6.3-8.2)
[2019-05-18 12:43] LABS: CREATINE KINASE MB 1.86 ng/mL (<4.55)
[2019-05-18 12:54] LABS: TROPONIN I 0.018 ng/mL
[2019-05-18 13:05] LABS: INTERNATIONAL RATION (INR) 0.97; PROTHROMBIN TIME 12.9 SEC (11.4-15.4)
[2019-05-18 13:06] LABS: PARTIAL THROMBOPLASTIN TIME 27.6 SEC (23.5-35.8)
[2019-05-18] MEDS ORDERED: OXYCODONE-ACETAMINOPHEN 5-325 MG TABLET PO ONE (14:09)
[2019-05-18] MEDS ORDERED: MAG HYDROX/AL HYDROX/SIMETH SUSP 30 ML UDCUP PO PRN (15:21)
[2019-05-18] MEDS ORDERED: NITROGLYCERIN 0.4 MG/TAB 25 TAB/BOTTLE SL PRN (15:21)
--- NOTE | 2019-05-18 15:41 | PDOC H&P ---
History of Present Illness Admission Date/PCP: 05/18/19 13:42 CHRISTIANO CLEMENTS PA-C Admitted 05/18/2019 patient states she sees [facility] for her care History of Present Illness: GERRY VELIZ is a 54 year old female 05/18/2019 patient is a 54-year-old black female who is brought to the emergency room for chest pain and shortness of breath. Patient states she was walking on the road to the [facility] when she started getting lightheaded chest pain sweating and short of breath. Patient also started having muscle cramps. Patient went home and started eaten a banana because of the cramps and also took a lisinopril 20 mg. When EMS got there the pressure was reportedly 88/50 Patient tells me she thinks she has had a heart attack 2 years ago and even was transferred to [facility] where she had a cath done. Patient states that the cath was "negative". Patient was actually here at this hospital prior to the transfer for the chest pain. Patient has a strong history of panic attacks and anxiety and depression. She also tells me that she takes Percocet for her pain but does not go on any more detail. When I have seen the patient in the emergency room today she is laughing and talking about her "CODE STATUS" patient appears to be in no distress. Patient states that she sees [facility] her care Past Medical History Cardiac Medical History: Reports: Congestive Heart Failure, Myocardial Infarction - mild, Hyperlipidema, Hypertension Pulmonary Medical History: Reports: Asthma, Bronchitis, Chronic Obstructive Pulmonary Disease (COPD) Neurological Medical History: Reports: Migraine, Seizures Endocrine Medical History: Reports: Diabetes Mellitus Type 2 - borderline, Other - Borderline diet controlled only Malignancy Medical History: Reports: None GI Medical History: Reports: Gastroesophageal Reflux Disease Psychiatric Medical History: Reports: Depression, General Anxiety Disorder Past Surgical History Past Surgical History: Reports: Hysterectomy, Orthopedic Surgery - L leg AND R KNEE Social History Smoking Status: Current Every Day Smoker - Advance Directive Resuscitation Status: Full Code Family History Family History: Reviewed & Not Pertinent, Malignancy, Other Parental Family History Reviewed: No Children Family History Reviewed: No Sibling(s) Family History Reviewed.: No - She lives alone Medication/Allergy Home Medications: Furosemide [Lasix 20 mg Tablet] 20 mg PO DAILY 05/18/19 Gabapentin [Neurontin 300 mg Capsule] 300 mg PO TID 05/18/19 Lisinopril [Prinivil] 20 mg PO DAILY 05/18/19 Allergies/Adverse Reactions: cyclobenzaprine HCl [From Flexeril] Allergy (Verified 05/18/19 10:55) tramadol [Tramadol] Allergy (Verified 05/18/19 10:55) anesthesia Allergy (Severe, Uncoded 05/18/19 10:55) HTZ Allergy (Uncoded 05/18/19 10:55) Review of Systems Constitutional: ABSENT: chills, fever(s), headache(s), weight gain, weight loss Eyes: ABSENT: visual disturbances Cardiovascular: ABSENT: chest pain, dyspnea on exertion, edema, orthropnea, palpitations Respiratory: ABSENT: cough, hemoptysis Gastrointestinal: ABSENT: abdominal pain, constipation, diarrhea, hematemesis, hematochezia, nausea, vomiting Neurological: ABSENT: abnormal gait, abnormal speech, confusion, dizziness, focal weakness, syncope Psychiatric: ABSENT: anxiety, depression, homidical ideation, suicidal ideation Physical Exam Vital Signs: Temp Pulse Resp BP Pulse Ox 97.7 F 61 17 127/57 H 93 05/18/19 15:13 05/18/19 15:13 05/18/19 15:13 05/18/19 15:13 05/18/19 15:13 Intake & Output 05/17/19 05/18/19 05/19/19 06:59 06:59 06:59 Intake Total 1000 Balance 1000 Weight 68.039 kg General appearance: PRESENT: no acute distress, well-developed, well-nourished, other - Patient is laughing and joking her CODE STATUS no distress Head exam: PRESENT: atraumatic, normocephalic Respiratory exam: PRESENT: clear to auscultation milind. ABSENT: rales, rhonchi, wheezes Cardiovascular exam: PRESENT: RRR. ABSENT: diastolic murmur, rubs, systolic murmur Neurological exam: PRESENT: alert, awake, oriented to person, oriented to place, oriented to time, oriented to situation, CN II-XII grossly intact. ABSENT: motor sensory deficit Psychiatric exam: PRESENT: appropriate affect, normal mood. ABSENT: homicidal ideation, suicidal ideation Results Laboratory Results: 05/18/19 11:20 05/18/19 12:00 05/18/19 05/18/19 05/18/19 11:20 11:20 12:00 WBC 9.4 RBC 4.14 Hgb 13.7 Hct 39.5 MCV 95 MCH 33.0 MCHC 34.6 RDW 15.4 H Plt Count 212 Seg Neutrophils % 61.6 Sodium Cancelled 137.9 Potassium Cancelled 3.4 L Chloride Cancelled 97 L Carbon Dioxide Cancelled 30 Anion Gap Cancelled 11 BUN Cancelled 29 H Creatinine Cancelled 1.46 H Est GFR ( Amer) Cancelled 45 L Est GFR (Non-Af Amer) Cancelled Glucose Cancelled 91 Calcium Cancelled 10.1 Total Bilirubin Cancelled 0.7 AST Cancelled 30 Alkaline Phosphatase Cancelled 58 Total Protein Cancelled 6.8 Albumin Cancelled 4.1 05/18/19 05/18/19 05/18/19 11:20 11:20 12:00 Creatine Kinase Cancelled 194 H CK-MB (CK-2) Cancelled Troponin I Cancelled 05/18/19 12:00 Creatine Kinase CK-MB (CK-2) 1.86 Troponin I 0.018 Impressions: Chest X-Ray 05/18/19 11:26 IMPRESSION: STABLE APPEARANCE OF THE CHEST. SUPPORT DEVICES UNCHANGED. Assessment and Plan - Diagnosis (1) Depression Is this a current diagnosis for this admission?: Yes Plan: Patient states that she sometimes has panic attacks as well as trouble with anxiety and depression. However she takes no medicine for this now. (2) Anxiety Is this a current diagnosis for this admission?: Yes Plan: Patient states that she has had anxiety, panic attacks for many years patient states she does not take any medicine for that (3) Hypertension Is this a current diagnosis for this admission?: Yes Plan: Patient is supposed to be taken lisinopril either 20 or 40 mg a day. Patient seems to take it when she needs to her when she feels like it is supposed to on a regular basis. Patient took an extra lisinopril this morning when she was having chest pain patient's blood pressure was 88/50 by EMS, when she arrived in the emergency room it was 115/60 (4) Borderline diabetes Is this a current diagnosis for this admission?: Yes Plan: States she takes no medicine for her diabetes only watches her diet - Time Time Spent with patient: 25-34 minutes
[2019-05-18 16:34] LABS: CHOLESTEROL 131.46 mg/dL (0-200); TRIGLYCERIDES 180 mg/dL (<150)
[2019-05-18 16:45] LABS: DIRECT LDL 50 mg/dL (<100)
[2019-05-18] MEDS: FAMOTIDINE 20 MG TABLET PO SCH (17:43)
[2019-05-18] MEDS: ACETAMINOPHEN 325 MG TABLET PO PRN (17:49)
[2019-05-18] MEDS ORDERED: HEPARIN SOD (PORCINE) 1,000 UNIT/ML 10 ML VIAL IV ONE (18:10)
[2019-05-18] MEDS ORDERED: HEPARIN SODIUM,PORCINE/D5W 25,000 UNIT/250 ML RTUINJ IV PRN (18:10)
[2019-05-18] MEDS: HEPARIN SOD (PORCINE) 1,000 UNIT/ML 10 ML VIAL IV PRN (18:40)
[2019-05-18] MEDS: TORSEMIDE 20 MG TABLET PO SCH (20:45)
[2019-05-18] MEDS: OXYCODONE-ACETAMINOPHEN 5-325 MG TABLET PO PRN (20:47)
[2019-05-18] MEDS: OXYCODONE HCL IR 5 MG TABLET PO PRN (20:47)
[2019-05-18] MEDS ORDERED: ATORVASTATIN CALCIUM 40 MG TABLET PO SCH (22:00)
[2019-05-18] MEDS ORDERED: GABAPENTIN 300 MG CAPSULE PO SCH (22:00)
[2019-05-18] MEDS ORDERED: ATORVASTATIN CALCIUM 10 MG TABLET PO SCH (22:00)
[2019-05-18 23:01] LABS: APPEARANCE,URINE CLEAR; BILIRUBIN,URINE NEGATIVE (NEGATIVE); COLOR,URINE STRAW; GLUCOSE, URINE NEGATIVE (NEGATIVE); KETONES,URINE NEGATIVE (NEGATIVE); LEUKOCYTE ESTERASE,URINE NEGATIVE (NEGATIVE); NITRITE,URINE NEGATIVE (NEGATIVE); PROTEIN,URINE NEGATIVE (NEGATIVE); UROBILINOGEN,URINE NEGATIVE mg/dL (<2.0)
[2019-05-19] MEDS: ACETAMINOPHEN 325 MG TABLET PO PRN ×3 (01:02→16:23)
[2019-05-19] MEDS: ONDANSETRON 4 MG TAB.RAPDIS PO PRN ×2 (01:07→12:21)
[2019-05-19] MEDS: HEPARIN SOD (PORCINE) 1,000 UNIT/ML 10 ML VIAL IV PRN (02:06)
[2019-05-19] MEDS: OXYCODONE HCL IR 5 MG TABLET PO PRN ×3 (02:51→18:20)
[2019-05-19] MEDS: OXYCODONE-ACETAMINOPHEN 5-325 MG TABLET PO PRN ×3 (02:51→18:20)
[2019-05-19] MEDS: ATORVASTATIN CALCIUM 40 MG TABLET PO SCH (08:01)
[2019-05-19] MEDS ORDERED: FUROSEMIDE 20 MG TABLET PO SCH (10:00)
[2019-05-19] MEDS: ASPIRIN 81 MG TABLET, ENT COATED PO SCH (10:24)
[2019-05-19] MEDS: LISINOPRIL 10 MG TABLET PO SCH (10:24)
[2019-05-19] MEDS: FAMOTIDINE 20 MG TABLET PO SCH ×2 (10:26→18:21)
[2019-05-19] MEDS: POTASSIUM CHLORIDE 10 MEQ CAPSULE.ER PO SCH ×2 (12:04→18:19)
[2019-05-19] MEDS: TORSEMIDE 20 MG TABLET PO SCH (13:01)
[2019-05-19] MEDS ORDERED: NITROGLYCERIN 5 MG (0.2 MG/HR) PATCH.TD24 TD ONE (13:19)
[2019-05-19] MEDS ORDERED: TORSEMIDE 20 MG TABLET PO ONE (13:30)
--- NOTE | 2019-05-19 13:44 | Progress Note Acknowledgement ---
Progress Note Acknowledgement Progess Note Acknowledgement: I, the undersigned member of the medical staff with appropriate privileges and with supervisory authority over [ PAC], a dependent practice allied health professional, acknowledge that I have reviewed the progress notes entered on this patient, and in my professional judgment believe that the assessment made and/or any care evidenced was appropriate
--- NOTE | 2019-05-19 13:57 | PDOC PROGRESS REPORT ---
Subjective Progress Note for:: 05/19/19 Subjective:: This is a 54-year-old black female who was admitted through the emergency room yesterday for chest pain. Patient's initial troponin is normal at 0.018, second troponin did up at 0.109, third was about the same at 0.10 troponin was checked this morning at 0300 hrs. which was down to .065 After seeing the troponins to trend up the patient was placed on heparin IV. Patient has had no chest pain to speak of since she is been here. Patient does have a history of having a previous [place] 2 years ago and a negative cath in [place] at that time Reason For Visit: CHEST PAIN Physical Exam Vital Signs: Temp Pulse Resp BP Pulse Ox 97.7 F 64 17 150/61 H 100 05/19/19 07:34 05/19/19 12:09 05/19/19 07:34 05/19/19 12:09 05/19/19 12:09 Intake & Output 05/18/19 05/19/19 05/20/19 06:59 06:59 06:59 Intake Total 1573 Output Total 400 Balance 1173 Weight 68.039 kg General appearance: PRESENT: no acute distress, other - Having talking texting on her cell phone Respiratory exam: PRESENT: clear to auscultation milind. ABSENT: rales, rhonchi, wheezes Cardiovascular exam: PRESENT: RRR. ABSENT: diastolic murmur, rubs, systolic murmur Neurological exam: PRESENT: alert, awake, oriented to person, oriented to place, oriented to time, oriented to situation, CN II-XII grossly intact. ABSENT: motor sensory deficit Psychiatric exam: PRESENT: appropriate affect, normal mood. ABSENT: homicidal ideation, suicidal ideation Results Laboratory Results: 05/18/19 11:20 05/18/19 12:00 05/18/19 05/18/19 16:05 22:38 Triglycerides 180 H Cholesterol 131.46 LDL Cholesterol Direct 50 VLDL Cholesterol 36.0 H HDL Cholesterol 44 Urine Color STRAW Urine Appearance CLEAR Urine pH 6.0 Ur Specific [place] 1.010 Urine Protein NEGATIVE Urine Glucose (UA) NEGATIVE Urine Ketones NEGATIVE Urine Blood NEGATIVE Urine Nitrite NEGATIVE Ur Leukocyte Esterase NEGATIVE Urine WBC (Auto) 1 Urine RBC (Auto) 1 08/23/19 08/23/19 08/23/19 11:20 11:20 12:00 Creatine Kinase Cancelled 194 H CK-MB (CK-2) Cancelled Troponin I Cancelled 05/18/19 05/18/19 05/18/19 12:00 16:05 16:05 Creatine Kinase CK-MB (CK-2) 1.86 2.56 Troponin I 0.018 0.109 05/18/19 05/19/19 21:06 03:45 Creatine Kinase CK-MB (CK-2) Troponin I 0.105 0.065 Impressions: Chest X-Ray 05/18/19 11:26 IMPRESSION: STABLE APPEARANCE OF THE CHEST. SUPPORT DEVICES UNCHANGED. Assessment and Plan - Diagnosis (1) Depression Is this a current diagnosis for this admission?: Yes Plan: Patient states that she sometimes has panic attacks as well as trouble with anxiety and depression. However she takes no medicine for this now. 05/19/2019 patient is on no medication for depression or anxiety now. Patient exhibits no behavior of depression or anxiety while in the hospital (2) Anxiety Is this a current diagnosis for this admission?: Yes Plan: Patient states that she has had anxiety, panic attacks for many years patient states she does not take any medicine for that 05/19/2019 patient has not asked for any medicine for anxiety, she did asked se veral times "am I going to ". I reassured patient that she was medically stable. (3) Hypertension Is this a current diagnosis for this admission?: Yes Plan: Patient is supposed to be taken lisinopril either 20 or 40 mg a day. Patient seems to take it when she needs to her when she feels like it is supposed to on a regular basis. Patient took an extra lisinopril this morning when she was having chest pain patient's blood pressure was 88/50 by EMS, when she arrived in the emergency room it was 115/60 05/19/2019 patient is on Lipitor 40 mg a day, lisinopril 20 mg a day. (4) Borderline diabetes Is this a current diagnosis for this admission?: Yes Plan: Patient's hemoglobin A1c is 5.5, she is on no medicine for diabetes.. Patient reports being "borderline diabetic" (5) Chest pain Qualifiers: Chest pain type: unspecified Qualified Code(s): R07.9 - Chest pain, unspecified Is this a current diagnosis for this admission?: Yes Plan: 05/19/2019 patient was admitted for chest pain. Patient has had a cardiac work- up. The music composition teacher has seen the patient and has made several good recommendations based on the patient's studies today. He does not feel that her chest pain is based on a cardiac ischemic problem - Time Time Spent with patient: 25-34 minutes
[2019-05-19] MEDS: PENICILLIN V POTASSIUM 500 MG TABLET PO SCH ×2 (16:23→21:23)
--- NOTE | 2019-05-19 19:10 | EKG REPORT ---
SEVERITY:- ABNORMAL ECG - SINUS RHYTHM PROBABLE LVH WITH SECONDARY REPOL ABNRM : Confirmed by: Sarah Padgett MD 19-May-2019 19:09:31
[2019-05-19] MEDS: CLONIDINE HCL 0.1 MG TABLET PO SCH (21:23)
--- NOTE | 2019-05-20 00:11 | PDOC CONSULTATION ---
Consultation-Blank Consultation: CARDIOLOGY CONSULTATION by Dr. Sarah Padgett on 05/19/2019. Patient seen at 8:30 AM. 60 minutes spent on this patient with more than 50% time spent in direct patient care. REASON FOR CONSULTATION: Patient with chest pain with borderline elevated troponin. CONSULT REQUESTING PROVIDER: Jose Elias Madeleine PEDROZA, [facility]. HISTORY PRESENT ILLNESS: The patient gives conflicting history. To me she states that she was walking on [place] when she felt lightheaded and diaphoretic and felt generalized tightness, and felt short of breath and thought that she had an asthmatic attack. She states her blood pressure was low at which time she also had some generalized chest tightness/pain. This was after she had taken gabapentin for her chronic pain. She states her blood pressure was low but she still took lisinopril and her blood pressure dropped into the 70s. And the pain continued. She states that when she came to the emergency room her blood pressure was low and she was given IV fluids and her blood pressure came up. Since then the patient has no further chest pain or discomfort. She denies any past history of myocardial infarction or coronary artery disease. She states she has a history of hypertension. She states her kidney functions deteriorated. She takes diuretics. But the patient is on a good dose of diuretics at home. She also has a history of chronic pain syndrome. She also has a history of severe anxiety with panic attacks and history of depression. She has no history of COPD although she states she has a history of asthma. She is a smoker. There is no history of sleep apnea. She states she is a diet-controlled diabetic. There is no history of thyroid disease. She states about a year ago she had congestive heart failure by diagnosis, and said had a cardiology work-up and it seems that she had a negative nuclear stress test, it is unknown what her ejection fraction was. But since then she has not had any problems of heart failure. There is no history of syncope. Note that the patient's EKG shows LVH with strain pattern. No acute ischemic changes. And the troponin I is borderline elevated at 0.109 being the peak value and subsequently it has trended down. Her renal function in the past has known to be reduced, but post hydration there is a prior GFR which is greater than 60. At present the GFR is 48, and the patient has been hydrated. Past Medical History Cardiac Medical History: Reports: Congestive Heart Failure, - mild, Hyperlipidema, Hypertension. She denies coronary artery disease or VA. There is no palpitations or cardiac arrhythmia. Pulmonary Medical History: Reports: Asthma, Bronchitis, Chronic Obstructive Pulmonary Disease (COPD). No history of sleep apnea or pulmonary embolism. Neurological Medical History: Reports: Migraine, Seizures. No history of TIA CVA Endocrine Medical History: Reports: Diabetes Mellitus Type 2: Borderline diet controlled only. No history of thyroid disease Malignancy Medical History: Reports: None GI Medical History: Reports: Gastroesophageal Reflux Disease. No history of GI bleed. Psychiatric Medical History: Reports: Depression, General Anxiety Disorder. MUSCULOSKELETAL: History of arthritis and chronic pain. No history of collagen vascular disease. Renal: The patient seems to have intermittent renal insufficiency secondary to possibly overdiuresis. No recurrent UTIs. Past Surgical History Past Surgical History: Reports: Hysterectomy, Orthopedic Surgery - L leg AND R KNEE Social History Smoking Status: Current Every Day Smoker. There is no history of EtOH abuse. No history of street drug abuse. - Advance Directive Resuscitation Status: Full Code. She states her aunt is her surrogate healthcare decision maker. Family History Family History: Reviewed & Not Pertinent, Malignancy. Her father had a myocardial infarction. Her brother had premature coronary artery disease and myocardial infarction. She lives alone Medication/Allergy Home Medications: Furosemide [Lasix 20 mg Tablet] 20 mg PO DAILY 05/18/19 Gabapentin [Neurontin 300 mg Capsule] 300 mg PO TID 05/18/19 Lisinopril [Prinivil] 20 mg PO DAILY 05/18/19 Allergies/Adverse Reactions: cyclobenzaprine HCl [From Flexeril] Allergy.tramadol [Tramadol] Allergy .anesthesia Allergy HTZ Allergy Review of Systems Constitutional: ABSENT: chills, fever(s), headache(s), weight gain, weight loss Eyes: ABSENT: visual disturbances Cardiovascular: ABSENT: , dyspnea on exertion, edema, orthropnea, palpitations. She states she had generalized chest tightness like her usual asthmatic attack, and shortness of breath, but no audible wheezing. Respiratory: ABSENT: cough, hemoptysis. Denies any wheezing Gastrointestinal: ABSENT: abdominal pain, constipation, diarrhea, hematemesis, hematochezia, nausea, vomiting Neurological: ABSENT: abnormal gait, abnormal speech, confusion, dizziness, focal weakness, syncope Psychiatric: ABSENT: , homidical ideation, suicidal ideation ENDOCRINE: No history of polydipsia polyuria. No history of heat or cold intolerance. PHYSICAL EXAMINATION: The patient is well-built and well-nourished. At present in no acute distress. 05/19/19 07:34 Temperature 97.7 F Temperature Oral Source Pulse Rate 77 Respiratory 17 Rate Blood Pressure 139/67 H Blood Pressure 91 Mean BP Location Left Arm BP Position Sitting O2 Sat by Pulse 94 Oximetry Oxygen Delivery Room Air Method Head: Is atraumatic normocephalic. EYES: Pupils equal round regular reactive to light accommodation. Extraocular movements are normal. There is no conjunctival pallor. There is no scleral icterus. EARS: Tympanic membranes are intact. External auditory canals are clear. NOSE: There is no deviated nasal septum. There is no inflammation nasal mucous membrane. MOUTH: Mucous members of mouth are present chest moist. Tongue is just moist. There is no ulcers. There is no bleeding from the gums. THROAT: There is no redness of the oropharynx. There is no exudates. SKIN: There is no petechia or ecchymosis. There is no skin rashes skin lesions. NECK: Is supple. There is no JVD. Carotids equal there is no bruit. There is no lymphadenopathy. There is no goiter. There is no accessory muscle respiration use. Trachea central. LUNGS: Shows diminished air entry prolonged expiration, without any rhonchi rales or wheezing. On percussion there is hyperresonance throughout. On palpation there is no chest wall tenderness. HEART: S1-S2 is heard. There is no S3 gallop. There is no S4 gallop. There is systolic murmur in the left sternal border and the apex there is no rub. ABDOMEN: Soft. There is no hepatosplenomegaly. Bowel sounds are well heard. There is no tender areas of masses. EXTREMITIES: Femorals well felt. Leg pulses are well felt. There is no pedal edema. There is no cyanosis or clubbing. Capillary refill is normal. There is no DVT or cellulitis. There is no calf tenderness. OSTOMY NURSE: The patient is conscious awake alert oriented x3 with no focal deficits. PSYCHIATRIC: Patient is a type patient judgment insight are intact her affect is normal. EKG: The patient's initial EKG shows sinus rhythm LVH by voltage. Subsequently EKG shows sinus rhythm with LVH with strain pattern. Current Medications Generic Name Dose Route Start Last Admin Trade Name Freq PRN Reason Stop Dose Admin Acetaminophen 650 mg 05/18/19 15:21 05/19/19 16:23 Tylenol 325 Mg Tablet PO 06/17/19 15:20 650 mg Q4HP PRN Administration FOR HEADACHE Al Hydrox/Mg Hydrox/Simethicone 30 ml 05/18/19 15:21 Maalox Plus Susp 30 Udcup PO 06/17/19 15:20 Q4HP PRN HEARTBURN Aspirin 81 mg 05/19/19 10:00 05/19/19 10:24 Ecotrin 81 Mg Ec Tablet PO 06/18/19 09:59 81 mg DAILY [place] Administration Atorvastatin Calcium 40 mg 05/19/19 08:00 05/19/19 08:01 Lipitor 40 Mg Tablet PO 06/18/19 07:59 40 mg QAM [place] Administration Clonidine 0.1 mg 05/19/19 22:00 05/19/19 21:23 Catapres 0.1 Mg Tablet PO 06/18/19 21:59 0.1 mg Q12 [place] Administration Famotidine 20 mg 05/18/19 18:00 05/19/19 18:21 Pepcid 20 Mg Tablet PO 06/17/19 17:59 20 mg BID [place] Administration Lisinopril 20 mg 05/19/19 10:00 05/19/19 10:24 Prinivil 10 Mg Tablet PO 06/18/19 09:59 20 mg DAILY [place] Administration Nitroglycerin 1 tab 05/18/19 15:21 Nitrostat 0.4 Mg (1/150 Gr) Tabs 25/Bottle SL Q5MP PRN FOR CHEST PAIN Ondansetron HCl 4 mg 05/18/19 15:21 05/19/19 12:21 Zofran Odt 4 Mg Tablet PO 06/17/19 15:20 4 mg Q6HP PRN Administration FOR NAUSEA/VOMITING Oxycodone HCl 5 mg 05/18/19 20:20 05/19/19 18:20 Oxy-Ir 5 Mg Tablet PO 05/25/19 20:19 5 mg Q6HP PRN Administration FOR PAIN Oxycodone/Acetaminophen 1 tab 05/18/19 20:19 05/19/19 18:20 Percocet 5-325 Mg Tablet PO 05/25/19 20:18 1 tab Q6HP PRN Administration FOR PAIN Penicillin V Potassium 500 mg 05/19/19 15:00 05/19/19 21:23 Penicillin Vk 500 Mg Tablet PO 05/26/19 14:59 500 mg Q8 [place] Administration Potassium Chloride 20 meq 05/19/19 11:00 05/19/19 18:19 Klor-Con 10 Meq Capsule Er PO 06/18/19 10:59 20 meq BID [place] Administration Sodium Chloride 2.5 ml 05/18/19 15:30 05/19/19 21:23 Saline Flush 2.5 Ml Monoject Prefil Syrin IV 06/17/19 15:29 2.5 ml Q8 [place] Administration Discontinued Medications Generic Name Dose Route Start Last Admin Trade Name Freq PRN Reason Stop Dose Admin Aspirin 324 mg 05/18/19 11:33 05/18/19 11:50 Aspirin 81 Mg Chewable Tablet PO 05/18/19 11:34 324 mg NOW ONE Administration Atorvastatin Calcium 10 mg 05/18/19 22:00 Lipitor 10 Mg Tablet PO 06/17/19 21:59 [facility] Atorvastatin Calcium 40 mg 05/18/19 22:00 Lipitor 40 Mg Tablet PO 06/17/19 21:59 [facility] Furosemide 20 mg 05/19/19 10:00 Lasix 20 Mg Tablet PO 06/18/19 09:59 DAILY [facility] Gabapentin 300 mg 05/18/19 22:00 Neurontin 300 Mg Capsule PO 06/17/19 21:59 Q8 [facility] Heparin Sodium (Porcine) 4,000 unit 05/18/19 18:10 05/18/19 18:42 Heparin Inj 1,000 Unit/Ml 10 Ml Vial IV 05/18/19 18:11 Not Given NOW ONE Heparin Sodium (Porcine) 0 - 12,000 unit 05/18/19 21:11 05/19/19 02:06 Heparin Inj 1,000 Unit/Ml 10 Ml Vial IV 06/17/19 21:10 1,875 units .BOLUS PER PROTOCOL PRN Administration RESPOND TO aPTT VALUE Protocol Sodium Chloride 1,000 mls @ 0 mls/hr 05/18/19 11:40 05/18/19 12:41 Nacl 0.9% 1000 Ml Iv Soln IV 05/18/19 11:41 Infused BOLUS ONE Infusion Wide Open Heparin Sodium/Dextrose 25,000 unit in 250 mls @ 0 mls/hr 05/18/19 18:10 05/19/19 14:02 Heparin Rtu 25,000 Unit/250 Ml D5w Premix IV 06/17/19 18:09 Infused CONTINUOUS PRN Titration THIS MED IS NOT "PRN" Protocol Titrate Nitroglycerin 1 each 05/19/19 13:19 05/19/19 14:21 Nitro-Dur 5 Mg (0.2 Mg/Hr) Transdermal Patch TD 05/19/19 13:20 1 each NOW ONE Administration Oxycodone/Acetaminophen 1 tab 05/18/19 14:09 05/18/19 14:38 Percocet 5-325 Mg Tablet PO 05/18/19 14:10 1 tab NOW ONE Administration Torsemide 20 mg 05/18/19 19:30 05/19/19 13:01 Demadex 20 Mg Tablet PO 06/17/19 19:29 Not Given BID [place] Torsemide 20 mg 05/19/19 13:30 05/19/19 13:05 Demadex 20 Mg Tablet PO 05/19/19 13:31 20 mg NOW ONE Administration Labs- Entire Visit 05/18/19 05/18/19 05/18/19 11:20 11:20 11:20 WBC 9.4 RBC 4.14 Hgb 13.7 Hct 39.5 MCV 95 MCH 33.0 MCHC 34.6 RDW 15.4 H Plt Count 212 Lymph % (Auto) 30.2 [place] % (Auto) 5.8 Eos % (Auto) 1.3 Baso % (Auto) 1.1 Absolute Neuts (auto) 5.8 Absolute Lymphs (auto) 2.8 Absolute Monos (auto) 0.6 Absolute Eos (auto) 0.1 Absolute Basos (auto) 0.1 Seg Neutrophils % 61.6 PT Cancelled INR Cancelled INR (Anticoag Therapy) Cancelled APTT Cancelled Sodium Cancelled Potassium Cancelled Chloride Cancelled Carbon Dioxide Cancelled Anion Gap Cancelled BUN Cancelled Creatinine Cancelled Est GFR ( Amer) Cancelled Est GFR (Non-Af Amer) Cancelled Est GFR (MDRD) Non-Af Cancelled Glucose Cancelled Hemoglobin A1c % Calcium Cancelled Total Bilirubin Cancelled Direct Bilirubin Cancelled Neonat Total Bilirubin Cancelled Neonat Direct Bilirubin Cancelled Neonat Indirect Bili Cancelled AST Cancelled ALT Cancelled Alkaline Phosphatase Cancelled Creatine Kinase Cancelled CK-MB (CK-2) Troponin I Total Protein Cancelled Albumin Cancelled Triglycerides Cholesterol LDL Cholesterol Direct VLDL Cholesterol HDL Cholesterol EGFR Cancelled Urine Color Urine Appearance Urine pH Ur Specific [place] Urine Protein Urine Glucose (UA) Urine Ketones Urine Blood Urine Nitrite Urine Bilirubin Urine Urobilinogen Ur Leukocyte Esterase Urine WBC (Auto) Urine RBC (Auto) Squamous Epi Cells Auto Urine Mucus (Auto) Urine Ascorbic Acid 05/18/19 05/18/19 05/18/19 11:20 12:00 12:00 WBC RBC Hgb Hct MCV MCH MCHC RDW Plt Count Lymph % (Auto) [place] % (Auto) Eos % (Auto) Baso % (Auto) Absolute Neuts (auto) Absolute Lymphs (auto) Absolute Monos (auto) Absolute Eos (auto) Absolute Basos (auto) Seg Neutrophils % PT INR INR (Anticoag Therapy) APTT Sodium 137.9 Potassium 3.4 L Chloride 97 L Carbon Dioxide 30 Anion Gap 11 BUN 29 H Creatinine 1.46 H Est GFR ( Amer) 45 L Est GFR (Non-Af Amer) Est GFR (MDRD) Non-Af 37 L Glucose 91 Hemoglobin A1c % Calcium 10.1 Total Bilirubin 0.7 Direct Bilirubin 0.3 Neonat Total Bilirubin Not Reportable Neonat Direct Bilirubin Not Reportable Neonat Indirect Bili Not Reportable AST 30 ALT 24 Alkaline Phosphatase 58 Creatine Kinase 194 H CK-MB (CK-2) Cancelled 1.86 Troponin I Cancelled 0.018 Total Protein 6.8 Albumin 4.1 Triglycerides Cholesterol LDL Cholesterol Direct VLDL Cholesterol HDL Cholesterol EGFR Urine Color Urine Appearance Urine pH Ur Specific [place] Urine Protein Urine Glucose (UA) Urine Ketones Urine Blood Urine Nitrite Urine Bilirubin Urine Urobilinogen Ur Leukocyte Esterase Urine WBC (Auto) Urine RBC (Auto) Squamous Epi Cells Auto Urine Mucus (Auto) Urine Ascorbic Acid 05/18/19 05/18/19 05/18/19 12:44 16:05 16:05 WBC RBC Hgb Hct MCV MCH MCHC RDW Plt Count Lymph % (Auto) [place] % (Auto) Eos % (Auto) Baso % (Auto) Absolute Neuts (auto) Absolute Lymphs (auto) Absolute Monos (auto) Absolute Eos (auto) Absolute Basos (auto) Seg Neutrophils % PT 12.9 INR 0.97 INR (Anticoag Therapy) APTT 27.6 Sodium Potassium Chloride Carbon Dioxide Anion Gap BUN Creatinine Est GFR ( Amer) Est GFR (Non-Af Amer) Est GFR (MDRD) Non-Af Glucose Hemoglobin A1c % Calcium Total Bilirubin Direct Bilirubin Neonat Total Bilirubin Neonat Direct Bilirubin Neonat Indirect Bili AST ALT Alkaline Phosphatase Creatine Kinase CK-MB (CK-2) 2.56 Troponin I 0.109 Total Protein Albumin Triglycerides Cholesterol LDL Cholesterol Direct VLDL Cholesterol HDL Cholesterol EGFR Urine Color Urine Appearance Urine pH Ur Specific [place] Urine Protein Urine Glucose (UA) Urine Ketones Urine Blood Urine Nitrite Urine Bilirubin Urine Urobilinogen Ur Leukocyte Esterase Urine WBC (Auto) Urine RBC (Auto) Squamous Epi Cells Auto Urine Mucus (Auto) Urine Ascorbic Acid 05/18/19 05/18/19 05/18/19 16:05 16:05 21:06 WBC RBC Hgb Hct MCV MCH MCHC RDW Plt Count Lymph % (Auto) [place] % (Auto) Eos % (Auto) Baso % (Auto) Absolute Neuts (auto) Absolute Lymphs (auto) Absolute Monos (auto) Absolute Eos (auto) Absolute Basos (auto) Seg Neutrophils % PT INR INR (Anticoag Therapy) APTT Sodium Potassium Chloride Carbon Dioxide Anion Gap BUN Creatinine Est GFR ( Amer) Est GFR (Non-Af Amer) Est GFR (MDRD) Non-Af Glucose Hemoglobin A1c % 5.5 Calcium Total Bilirubin Direct Bilirubin Neonat Total Bilirubin Neonat Direct Bilirubin Neonat Indirect Bili AST ALT Alkaline Phosphatase Creatine Kinase CK-MB (CK-2) Troponin I 0.105 Total Protein Albumin Triglycerides 180 H Cholesterol 131.46 LDL Cholesterol Direct 50 VLDL Cholesterol 36.0 H HDL Cholesterol 44 EGFR Urine Color Urine Appearance Urine pH Ur Specific [place] Urine Protein Urine Glucose (UA) Urine Ketones Urine Blood Urine Nitrite Urine Bilirubin Urine Urobilinogen Ur Leukocyte Esterase Urine WBC (Auto) Urine RBC (Auto) Squamous Epi Cells Auto Urine Mucus (Auto) Urine Ascorbic Acid 05/18/19 05/19/19 05/19/19 22:38 00:47 03:45 WBC RBC Hgb Hct MCV MCH MCHC RDW Plt Count Lymph % (Auto) [place] % (Auto) Eos % (Auto) Baso % (Auto) Absolute Neuts (auto) Absolute Lymphs (auto) Absolute Monos (auto) Absolute Eos (auto) Absolute Basos (auto) Seg Neutrophils % PT INR INR (Anticoag Therapy) APTT 51.0 H Sodium Potassium Chloride Carbon Dioxide Anion Gap BUN Creatinine Est GFR ( Amer) Est GFR (Non-Af Amer) Est GFR (MDRD) Non-Af Glucose Hemoglobin A1c % Calcium Total Bilirubin Direct Bilirubin Neonat Total Bilirubin Neonat Direct Bilirubin Neonat Indirect Bili AST ALT Alkaline Phosphatase Creatine Kinase CK-MB (CK-2) Troponin I 0.065 Total Protein Albumin Triglycerides Cholesterol LDL Cholesterol Direct VLDL Cholesterol HDL Cholesterol EGFR Urine Color STRAW Urine Appearance CLEAR Urine pH 6.0 Ur Specific [place] 1.010 Urine Protein NEGATIVE Urine Glucose (UA) NEGATIVE Urine Ketones NEGATIVE Urine Blood NEGATIVE Urine Nitrite NEGATIVE Urine Bilirubin NEGATIVE Urine Urobilinogen NEGATIVE Ur Leukocyte Esterase NEGATIVE Urine WBC (Auto) 1 Urine RBC (Auto) 1 Squamous Epi Cells Auto <1 Urine Mucus (Auto) RARE Urine Ascorbic Acid NEGATIVE 05/19/19 07:57 WBC RBC Hgb Hct MCV MCH MCHC RDW Plt Count Lymph % (Auto) [place] % (Auto) Eos % (Auto) Baso % (Auto) Absolute Neuts (auto) Absolute Lymphs (auto) Absolute Monos (auto) Absolute Eos (auto) Absolute Basos (auto) Seg Neutrophils % PT INR INR (Anticoag Therapy) APTT 95.5 H Sodium Potassium Chloride Carbon Dioxide Anion Gap BUN Creatinine Est GFR ( Amer) Est GFR (Non-Af Amer) Est GFR (MDRD) Non-Af Glucose Hemoglobin A1c % Calcium Total Bilirubin Direct Bilirubin Neonat Total Bilirubin Neonat Direct Bilirubin Neonat Indirect Bili AST ALT Alkaline Phosphatase Creatine Kinase CK-MB (CK-2) Troponin I Total Protein Albumin Triglycerides Cholesterol LDL Cholesterol Direct VLDL Cholesterol HDL Cholesterol EGFR Urine Color Urine Appearance Urine pH Ur Specific [place] Urine Protein Urine Glucose (UA) Urine Ketones Urine Blood Urine Nitrite Urine Bilirubin Urine Urobilinogen Ur Leukocyte Esterase Urine WBC (Auto) Urine RBC (Auto) Squamous Epi Cells Auto Urine Mucus (Auto) Urine Ascorbic Acid Chest X-Ray 05/18/19 11:26 IMPRESSION: STABLE APPEARANCE OF THE CHEST. SUPPORT DEVICES UNCHANGED. [I do not see any support devices on the x-ray. My interpretation x-ray is within normal limits.] IMPRESSION/RECOMMENDATION: 1. Vague chest pains appears to be noncardiac with borderline elevated troponin right. No definite evidence of non-ST elevation VA. Probably there is chest symptoms and the patient shortness of breath the patient's borderline elevation of troponin without reaching the non-ST elevation VA range is secondary to hypotension secondary to lisinopril. 2. Multiple CAD risk factors namely age, hypertension, diet-controlled diabetes, smoking, and family history of CAD. Would recommend outpatient IV Lexiscan Cardiolite stress test. 3. Hypertension: We will readjust the patient's blood pressure medications. 4. Acute renal failure: Most likely secondary to overdiuresis. We will stop the patient's diuretics. Recheck the patient's labs in the a.m. 5. Diet-controlled diabetes mellitus type 2: We will check the patient's hemoglobin A1c to see diabetic control. 6. Mild hypertriglyceridemia: Note that the patient's HDL and LDL levels are within acceptable limits. At regular there is rides a borderline elevated at 180. Hence this is one more reason to check the patient's hemoglobin A1c to see her diabetic control. 7. History of asthma/COPD: Continue antiasthmatic/anti-COPD medications as needed 8. History of chronic pain syndrome 9. History of tobacco abuse: Tobacco cessation counseling done. 5 minutes spent on this patient. Medications reviewed. Medications adjusted. Will add nitrates. Continue aspirin continue clonidine. Would recommend change the lisinopril to 10 mg p.o. twice daily. Management plan and medication changes discussed with the attending provider on the case medical decision making is of high complexity in view of the need to change medications. Would recommend outpatient echocardiogram and stress testing with nuclear imaging. The patient is asked to follow-up with me. 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 Hence we will give the patient contact numbers. Will follow.
[2019-05-20] MEDS: ACETAMINOPHEN 325 MG TABLET PO PRN (01:11)
[2019-05-20] MEDS: PENICILLIN V POTASSIUM 500 MG TABLET PO SCH (05:17)
[2019-05-20] MEDS: OXYCODONE HCL IR 5 MG TABLET PO PRN (08:30)
[2019-05-20] MEDS: OXYCODONE-ACETAMINOPHEN 5-325 MG TABLET PO PRN (08:30)
[2019-05-20 08:41] LABS: ALBUMIN 4.6 g/dL (3.5-5.0); ALKALINE PHOSPHATASE 60 U/L (38-126); ANION GAP 12 (5-19); ASPARTATE AMINO TRANSFERASE 34 U/L (14-36); BILIRUBIN,DIRECT 0.2 mg/dL (0.0-0.4); BILIRUBIN,TOTAL 0.6 mg/dL (0.2-1.3); BLOOD UREA NITROGEN 23 mg/dL (7-20); CALCIUM 10.3 mg/dL (8.4-10.2); CARBON DIOXIDE 33 mmol/L (22-30); CHLORIDE 96 mmol/L (98-107); GLUCOSE 101 mg/dL (75-110); POTASSIUM 3.6 mmol/L (3.6-5.0); TOTAL PROTEIN 7.6 g/dL (6.3-8.2)
[2019-05-20] MEDS: FAMOTIDINE 20 MG TABLET PO SCH (09:12)
[2019-05-20] MEDS: ATORVASTATIN CALCIUM 40 MG TABLET PO SCH (09:12)
[2019-05-20] MEDS: ASPIRIN 81 MG TABLET, ENT COATED PO SCH (09:12)
[2019-05-20] MEDS: LISINOPRIL 10 MG TABLET PO SCH (09:12)
[2019-05-20] MEDS: POTASSIUM CHLORIDE 10 MEQ CAPSULE.ER PO SCH (09:12)
[2019-05-20] MEDS: CLONIDINE HCL 0.1 MG TABLET PO SCH (09:12)
[2019-05-20] MEDS: ONDANSETRON 4 MG TAB.RAPDIS PO PRN (09:18)
[2019-05-20 10:21] VITALS: BP 133/60
--- NOTE | 2019-05-30 13:48 | PDOC DISCHARGE SUMMARY ---
General - Admit/Disc Date/PCP Admission Date/Primary Care Provider: 05/18/19 13:42 She admitted on 05/18/2019 for chest pain and shortness of breath Discharge Date: 05/20/19 - Discharge Diagnosis (1) Depression Is this a current diagnosis for this admission?: Yes Summary: Patient was taking no medication for depression prior to admission. During patient's hospitalization there is no evidence of depression (2) Anxiety Is this a current diagnosis for this admission?: Yes Summary: Patient seemed anxious however on no medication prior to admission for anxiety. Patient asked several times "Am I going to " (3) Hypertension Is this a current diagnosis for this admission?: Yes Summary: On admission patient's blood pressure was 115/60 on discharge it was 151/59, patient's blood pressure was well maintained during hospitalization. Patient had several medication recommendations by cardiology which were followed, lisinopril 10 mg twice a day. (4) Borderline diabetes Is this a current diagnosis for this admission?: Yes Summary: Patient is on no medications for diabetes, states she controls it with diet. Urine glucose has been between 91 and 101 and hemoglobin A1c on admission was 5.5 and it was inadvertently repeated and 5.9 (5) Chest pain Is this a current diagnosis for this admission?: Yes Summary: She had no further chest pain after being admitted cardiology felt that this was noncardiac in origin. No evidence of ST elevation [place] or non-ST elevation [place]. She did have risk factors however cardiology recommended a outpatient - Additional Information Resuscitation Status: Full Code Discharge Diet: Diabetic Discharge Activity: Balance Activity w/Rest Prescriptions: Nitroglycerin [Nitrostat 0.4 mg (1/150 Gr) Tabs 25/Bottle] 1 tab SL Q5MP PRN #30 bottle PRN Reason: Penicillin V Potassium [Penicillin Vk 500 mg Tablet] 500 mg PO Q8 #30 tablet Lisinopril [Prinivil 10 mg Tablet] 10 mg PO DAILY #60 tablet Home Medications: Aspirin [Vic Chewable Aspirin] 81 mg PO DAILY 05/18/19 Atorvastatin Calcium [Lipitor 40 mg Tablet] 40 mg PO QHS 05/18/19 Clobetasol Propionate [Temovate 0.05% Cream 15 gm] 1 applic TP BIDP PRN 05/18/19 Clonidine HCl [Catapres 0.1 mg Tablet] 0.1 mg PO BID 05/18/19 Naloxone HCl [Evzio] 2 mg IM ASDIR PRN 05/18/19 Oxycodone HCl/Acetaminophen [Percocet 10-325 mg Tablet] 1 tab PO Q6HP PRN 05/18/19 Potassium Chloride [Klor-Con M20] 20 meq PO TID 05/18/19 Aspirin [Ecotrin 81 mg EC Tablet] 81 mg PO DAILY tabec 05/20/19 Clonidine HCl [Catapres 0.1 mg Tablet] 0.1 mg PO Q12 tablet 05/20/19 Lisinopril [Prinivil 10 mg Tablet] 10 mg PO DAILY #60 tablet 05/20/19 Nitroglycerin [Nitrostat 0.4 mg (1/150 Gr) Tabs /] 1 tab SL Q5MP PRN #30 bottle 05/20/19 Oxycodone HCl [Oxy-Ir 5 mg Tablet] 5 mg PO Q6HP PRN tablet 05/20/19 Penicillin V Potassium [Penicillin Vk 500 mg Tablet] 500 mg PO Q8 #30 tablet 05/20/19 Potassium Chloride [Klor-Con 10 Meq Capsule ER] 20 meq PO BID capsule.er 05/20/19 History of Present Illness History of Present Illness: GERRY VELIZ is a 54 year old female 05/18/2019 patient is a 54-year-old black female who is brought to the emergency room for chest pain and shortness of breath. Patient states she was walking on the road to the [employer] when she started getting lightheaded chest pain sweating and short of breath. Patient also started having muscle cramps. Patient went home and started eaten a banana because of the cramps and also took a lisinopril 20 mg. When EMS got there the pressure was reportedly 88/50 Patient tells me she thinks she has had a heart attack 2 years ago and even was transferred to [facility] where she had a cath done. Patient states that the cath was "negative". Patient was actually here at this hospital prior to the transfer for the chest pain. Patient has a strong history of panic attacks and anxiety and depression. She also tells me that she takes Percocet for her pain but does not go on any more detail. When I have seen the patient in the emergency room today she is laughing and talking about her "CODE STATUS" patient appears to be in no distress. Patient states that she sees [facility] her care Physical Exam Vital Signs: Temp Pulse Resp BP Pulse Ox 98.5 F 70 20 133/60 H 94 05/20/19 10:17 05/20/19 10:17 05/20/19 10:17 05/20/19 10:17 05/20/19 10:17 General appearance: PRESENT: no acute distress Respiratory exam: PRESENT: clear to auscultation milind. ABSENT: rales, rhonchi, wheezes Cardiovascular exam: PRESENT: RRR, other. ABSENT: diastolic murmur, rubs, systolic murmur Neurological exam: PRESENT: alert, awake, oriented to person, oriented to place, oriented to time, oriented to situation, CN II-XII grossly intact. ABSENT: motor sensory deficit Psychiatric exam: PRESENT: appropriate affect, normal mood. ABSENT: homicidal ideation, suicidal ideation Results Laboratory Results: 05/18/19 11:20 05/20/19 08:20 05/18/19 05/18/19 05/18/19 11:20 11:20 12:00 Creatine Kinase Cancelled 194 H CK-MB (CK-2) Cancelled Troponin I Cancelled 05/18/19 05/18/19 05/18/19 12:00 16:05 16:05 Creatine Kinase CK-MB (CK-2) 1.86 2.56 Troponin I 0.018 0.109 05/18/19 05/19/19 21:06 03:45 Creatine Kinase CK-MB (CK-2) Troponin I 0.105 0.065 Impressions: Chest X-Ray 05/18/19 11:26 IMPRESSION: STABLE APPEARANCE OF THE CHEST. SUPPORT DEVICES UNCHANGED. Qualifiers - * PATIENT BEING DISCHARGED WITH ANY OF THE FOLLOWING DIAGNOSIS: No Acute Heart Failure - Is this a Heart Failure Patient?: No Plan Time Spent: Greater than 30 Minutes
== END 2019-05-20 11:10 | disposition home or self-care (01) ==
LOC: ER 10:52 → EH 13:42 → INTOOBSV 13:42 → 4S 15:12
PROVIDERS: ADMIT Hospitalist; ATTEND Hospitalist
PROC: HZ31ZZZ Individual Counseling for Substance Abuse Treatment, Behavioral (ICD-10-PCS; principal; 2019-05-19)
DX: R07.89 Other chest pain (principal); F41.1 Generalized anxiety disorder; F32.9 Major depressive disorder, single episode, unspecified; I10 Essential (primary) hypertension; R73.03 Prediabetes; N17.9 Acute kidney failure, unspecified; E78.1 Pure hyperglyceridemia; G89.4 Chronic pain syndrome; J44.9 Chronic obstructive pulmonary disease, unspecified; F17.210 Nicotine dependence, cigarettes, uncomplicated; R79.89 Other specified abnormal findings of blood chemistry; M19.90 Unspecified osteoarthritis, unspecified site; R25.2 Cramp and spasm; I25.2 Old myocardial infarction; Z82.49 Family history of ischemic heart disease and other diseases of the circulatory system; Z79.891 Long term (current) use of opiate analgesic; Z79.899 Other long term (current) drug therapy
CPT/HCPCS: 93005 ×2; 99285; 96360; 36415 ×3; 82553; 82550; 85025; 85610; 85730 ×3; 80053 ×2; 81001; 84484 ×2; 83036 ×2; 80061; 71045; 93010 ×2; 99406; G0378 ×3; A9270 ×26; J1644 ×3; J3490 ×4; J7030; S0119

== ENCOUNTER 2019-06-04 13:59 | Emergency (ER) | payer MEDICARE, MEDICAID ==
[2019-06-04 14:29] VITALS: BP 154/68
[2019-06-04] MEDS ORDERED: ASPIRIN 81 MG TABLET, CHEWABLE PO ONE (14:35)
--- NOTE | 2019-06-04 14:35 | ER Document Report ---
ED Medical Screen (RME) - General Chief Complaint: Chest Tightness Stated Complaint: CHEST TIGHTNESS Time Seen by Provider: 06/04/19 14:32 Mode of Arrival: Ambulatory Information source: Patient Notes: 54-year-old female presented to ED for complaint of shortness of breath and chest feeling tight since . She states she has had a history of blood pressure cholesterol and heart attacks. She states she is breathing and moaning insulation use is why she is having the shortness of breath. She states she has a history of asthma bronchitis and COPD. States she smokes about 5 cigarettes a day but denies any alcohol or drugs. I have greeted and performed a rapid initial assessment of this patient. A comprehensive ED assessment and evaluation of the patient, analysis of test r esults and completion of medical decision making process will be conducted by an additional ED providers. TRAVEL OUTSIDE OF THE [place] IN LAST 30 DAYS: No - Related Data Allergies/Adverse Reactions: gabapentin Allergy (Severe, Verified 05/18/19 18:21) Edema cyclobenzaprine HCl [From Flexeril] Allergy (Verified 05/18/19 10:55) tramadol [Tramadol] Allergy (Verified 05/18/19 10:55) anesthesia Allergy (Severe, Uncoded 05/18/19 10:55) HTZ Allergy (Uncoded 05/18/19 10:55) Past Medical History - Past Medical History Cardiac Medical History: Reports: Hx Congestive Heart Failure, Hx Heart Attack - mild, Hx Hypercholesterolemia, Hx Hypertension Pulmonary Medical History: Reports: Hx Asthma, Hx Bronchitis, Hx COPD Neurological Medical History: Reports: Hx Migraine, Hx Seizures Endocrine Medical History: Reports: Hx Diabetes Mellitus Type 2 - borderline Renal/ Medical History: Denies: Hx Peritoneal Dialysis GI Medical History: Reports: Hx Gastroesophageal Reflux Disease, Hx Ulcer Psychiatric Medical History: Reports: Hx Anxiety, Hx Depression Past Surgical History: Reports: Hx Hysterectomy, Hx Orthopedic Surgery - L leg AND R KNEE - Immunizations Hx Diphtheria, Pertussis, Tetanus Vaccination: Yes - <5 years Physical Exam - Vital signs Vitals: Temp Pulse Resp BP Pulse Ox 99.4 F 96 16 154/68 H 92 06/04/19 14:28 06/04/19 14:28 06/04/19 14:28 06/04/19 14:28 06/04/19 14:28 Course - Vital Signs Vital signs: Temp Pulse Resp BP Pulse Ox 99.4 F 96 16 154/68 H 92 06/04/19 14:28 06/04/19 14:28 06/04/19 14:28 06/04/19 14:28 06/04/19 14:28
--- NOTE | 2019-06-04 14:46 | EKG REPORT ---
SEVERITY:- NORMAL ECG - SINUS RHYTHM : Confirmed by: Sarah Padgett MD 04-Jun-2019 14:45:57
--- NOTE | 2019-06-04 15:03 | RADIOLOGY REPORT (SQ) ---
EXAM DESCRIPTION: CHEST 2 VIEWS COMPLETED DATE/TIME: 06/04/2019 2:53 pm REASON FOR STUDY: short of breath COMPARISON: 05/18/2019 EXAM PARAMETERS: NUMBER OF VIEWS: two views TECHNIQUE: Digital Frontal and Lateral radiographic views of the chest acquired. RADIATION DOSE: NA LIMITATIONS: none FINDINGS: LUNGS AND PLEURA: No opacities, masses or pneumothorax. No pleural effusion. MEDIASTINUM AND HILAR STRUCTURES: No masses or contour abnormalities. HEART AND VASCULAR STRUCTURES: Heart normal size. No evidence for failure. BONES: No acute findings. HARDWARE: None in the chest. OTHER: No other significant finding. IMPRESSION: No acute abnormality of the lungs. No focal airspace opacity. TECHNICAL DOCUMENTATION: JOB ID: [id number] [employer]- All Rights Reserved Reading location - IP/workstation name: [email or web address]
[2019-06-04 15:34] LABS: ABSOLUTE BASOPHILS # (AUTO) 0.2 10^3/uL (0.0-0.2); ABSOLUTE EOSINOPHILS # (AUTO) 0.2 10^3/uL (0.0-0.6); ABSOLUTE LYMPHOCYTES (AUTO) 3.1 10^3/uL (0.5-4.7); ABSOLUTE MONOCYTES (AUTO) 0.6 10^3/uL (0.1-1.4); ABSOLUTE NEUT (AUTO) 4.6 10^3/uL (1.7-8.2); BASOPHILS % (AUTO) 1.8 % (0-2); HEMATOCRIT 37.5 % (36.0-47.0); HEMOGLOBIN 12.7 g/dL (12.0-15.5); MEAN CORPUSCULAR HEMOGLOBIN 33.2 pg (27.0-33.4); MEAN CORPUSCULAR VOLUME 98 fl (80-97); MONOCYTES % (AUTO) 6.8 % (3-13); PLATELET COUNT 241 10^3/uL (150-450); RED BLOOD COUNT 3.83 10^6/uL (3.72-5.28); RED CELL DISTRIBUTION WIDTH 15.3 % (11.5-14.0); SEGMENTED NEUTROPHILS % (AUTO) 53.4 % (42-78); TOTAL CELLS COUNTED % (AUTO) 100 %; WHITE BLOOD COUNT 8.6 10^3/uL (4.0-10.5)
[2019-06-04 15:49] LABS: INTERNATIONAL RATION (INR) 0.94; PROTHROMBIN TIME 12.6 SEC (11.4-15.4)
[2019-06-04 15:50] LABS: PARTIAL THROMBOPLASTIN TIME 28.1 SEC (23.5-35.8)
[2019-06-04 15:52] LABS: ALBUMIN 4.2 g/dL (3.5-5.0); ALKALINE PHOSPHATASE 69 U/L (38-126); ANION GAP 7 (5-19); ASPARTATE AMINO TRANSFERASE 31 U/L (14-36); BILIRUBIN,DIRECT 0.1 mg/dL (0.0-0.4); BILIRUBIN,TOTAL 0.3 mg/dL (0.2-1.3); BLOOD UREA NITROGEN 25 mg/dL (7-20); CARBON DIOXIDE 33 mmol/L (22-30); CHLORIDE 98 mmol/L (98-107); CREATINE KINASE 249 U/L (30-135); GLUCOSE 107 mg/dL (75-110); POTASSIUM 4.7 mmol/L (3.6-5.0); TOTAL PROTEIN 6.8 g/dL (6.3-8.2)
[2019-06-04 16:02] LABS: CREATINE KINASE MB 2.79 ng/mL (<4.55)
[2019-06-04 16:09] LABS: TROPONIN I < 0.012 ng/mL
--- NOTE | 2019-06-04 18:43 | ER Document Report ---
ED Cardiac - General Chief Complaint: Chest Tightness Stated Complaint: CHEST TIGHTNESS Time Seen by Provider: 06/04/19 14:32 Mode of Arrival: Ambulatory Information source: Patient TRAVEL OUTSIDE OF THE [place] IN LAST 30 DAYS: No - HPI Notes: Patient presents complaining of chest tightness. She states she feels mildly short of breath. She states this is because her apartment is full of mold. She states she has a dry cough. She denies any exertional pain. She states that "I need an inhaler". She denies any fevers. Patient's pain is mild and consist of a tightness that radiates across her chest. Nothing makes it significantly better or worse. Patient denies any previous history of blood clots or pulmonary embolism. No previous history of cardiac disease. She is a smoker. - Related Data Allergies/Adverse Reactions: gabapentin Allergy (Severe, Verified 05/18/19 18:21) Edema cyclobenzaprine HCl [From Flexeril] Allergy (Verified 05/18/19 10:55) tramadol [Tramadol] Allergy (Verified 05/18/19 10:55) anesthesia Allergy (Severe, Uncoded 05/18/19 10:55) HTZ Allergy (Uncoded 05/18/19 10:55) Past Medical History - General Information source: Patient - Social History Smoking Status: Current Every Day Smoker Frequency of alcohol use: None Drug Abuse: None Family History: Reviewed & Not Pertinent, Malignancy, Other Patient has suicidal ideation: No Patient has homicidal ideation: No - Past Medical History Cardiac Medical History: Reports: Hx Congestive Heart Failure, Hx Heart Attack - mild, Hx Hypercholesterolemia, Hx Hypertension Pulmonary Medical History: Reports: Hx Asthma, Hx Bronchitis, Hx COPD Neurological Medical History: Reports: Hx Migraine, Hx Seizures Endocrine Medical History: Reports: Hx Diabetes Mellitus Type 2 - borderline Renal/ Medical History: Denies: Hx Peritoneal Dialysis GI Medical History: Reports: Hx Gastroesophageal Reflux Disease, Hx Ulcer Psychiatric Medical History: Reports: Hx Anxiety, Hx Depression Past Surgical History: Reports: Hx Hysterectomy, Hx Orthopedic Surgery - L leg AND R KNEE - Immunizations Hx Diphtheria, Pertussis, Tetanus Vaccination: Yes - <5 years Review of Systems - Review of Systems Constitutional: denies: Chills, Fever Cardiovascular: Chest pain, Dyspnea Respiratory: Cough, Short of breath Gastrointestinal: denies: Abdominal pain, Vomiting -: Yes All other systems reviewed and negative Physical Exam - Vital signs Vitals: Temp Pulse Resp BP Pulse Ox 99.4 F 96 16 154/68 H 92 06/04/19 14:28 06/04/19 14:28 06/04/19 14:28 06/04/19 14:28 06/04/19 14:28 Interpretation: Normal - General General appearance: Appears well, Alert - HEENT Head: Normocephalic, Atraumatic Eyes: Normal Pupils: PERRL - Respiratory Respiratory status: No respiratory distress Chest status: Nontender Breath sounds: Normal Chest palpation: Normal - Cardiovascular Rhythm: Regular Heart sounds: Normal auscultation Murmur: No - Abdominal Inspection: Normal Distension: No distension Bowel sounds: Normal Tenderness: Nontender Organomegaly: No organomegaly - Back Back: Normal, Nontender - Extremities General upper extremity: Normal inspection, Nontender, Normal color, Normal ROM, Normal temperature General lower extremity: Normal inspection, Nontender, Normal color, Normal ROM, Normal temperature, Normal weight bearing. No: Williams's sign - Neurological Neuro grossly intact: Yes Cognition: Normal Orientation: AAOx4 Michael Coma Scale Eye Opening: Spontaneous [place] Coma Scale Verbal: Oriented Michael Coma Scale Motor: Obeys Commands [place] Coma Scale Total: 15 Speech: Normal Motor strength normal: LUE, RUE, LLE, RLE Sensory: Normal - Psychological Associated symptoms: Normal affect, Normal mood - Skin Skin Temperature: Warm Skin Moisture: Dry Skin Color: Normal Course - Re-evaluation Re-evalutation: 06/04/19 18:42 Patient presents with chest tightness. Presentation and work-up is not consistent with coronary artery disease. Her enzymes are negative. Her EKG does not show ischemic changes. My impression of her history is also that this is noncardiac. She is concerned that she had may have mold in her house. I have been instructed her to discuss this with her landlord and if no results reported to social media senior associate. I will discharge her with an inhaler. She has essentially no wheezes now but she is asked for an inhaler. She denied having a breathing treatment here. I find no evidence of infectious process at this time she with antibiotics. I have instructed her to follow-up with her primary care physician. She is also been instructed of the need to stop smoking. - Vital Signs Vital signs: Temp Pulse Resp BP Pulse Ox 99.4 F 96 16 154/68 H 92 06/04/19 14:28 06/04/19 14:28 06/04/19 14:28 06/04/19 14:28 06/04/19 14:28 - Laboratory Result Diagrams: 06/04/19 15:12 06/04/19 15:12 Laboratory results interpreted by me: 06/04/19 06/04/19 15:12 15:12 MCV 98 H RDW 15.3 H Carbon Dioxide 33 H BUN 25 H Est GFR ( Amer) 56 L Est GFR (MDRD) Non-Af 47 L Creatine Kinase 249 H - Diagnostic Test Radiology reviewed: Image reviewed, Reports reviewed - EKG Interpretation by Me EKG shows normal: Sinus rhythm Rate: Normal - 86 Rhythm: NSR Discharge - Discharge Clinical Impression: Chest pain Dyspnea Qualifiers: Dyspnea type: unspecified Qualified Code(s): R06.00 - Dyspnea, unspecified Condition: Stable Disposition: HOME, SELF-CARE Instructions: Chest Pain of Unclear Cause ([facility]), Dyspnea, Nonspecific ([facility]) Additional Instructions: Please discuss the mold in your apartment with your landlord. If you feel that you do not get satisfactory results from discussions with your landlord please discuss it with social media senior associate. Prescriptions: Albuterol Sulfate [Proair HFA Inhalation Aerosol 8.5 gm MDI] 2 puff IH Q4H PRN #1 mdi PRN Reason: Forms: Smoking Cessation Education Referrals: MATT VALVERDE MD [COMMUNITY BASED STAFF] - Follow up in 1 week
== END 2019-06-04 19:08 | disposition home or self-care (01) ==
LOC: ER 13:59
DX: R07.9 Chest pain, unspecified (principal); R06.02 Shortness of breath; R06.00 Dyspnea, unspecified; F17.200 Nicotine dependence, unspecified, uncomplicated; I11.0 Hypertensive heart disease with heart failure; I50.9 Heart failure, unspecified; R73.03 Prediabetes; E78.00 Pure hypercholesterolemia, unspecified; I25.2 Old myocardial infarction; Z88.6 Allergy status to analgesic agent; Z90.710 Acquired absence of both cervix and uterus
CPT/HCPCS: 93005; 99285; 36415; 82553; 82550; 85025; 85610; 85730; 80053; 84484; 71046; 93010; A9270

== ENCOUNTER 2019-06-12 09:31 | Emergency (ER) | payer MEDICARE, MEDICAID ==
[2019-06-12 09:39] VITALS: BP 174/89
--- NOTE | 2019-06-12 10:16 | ER Document Report ---
HPI - HPI Time Seen by Provider: 06/12/19 09:57 Pain Level: Denies Notes: Patient is a 54-year-old female with history of hypertension, hypercholesterolemia, congestive heart failure, tobacco abuse who presents primarily to discuss the mold in her house. Patient states that she has been here before the dog about moving her house and she is called multiple different avenues [place]. Patient states that they did come in with a chemical to treat, but she has noticed occasional itching on her skin and wheezing at times. She does have an inhaler at home. She currently does not have any trouble breathing or any rash to note. She will have an occasional cough. Denies any headache, fever, neck pain, URI, sore throat, chest pain, palpitations, syncope, shortness of breath, dyspnea, abdominal pain, nausea/vomiting/diarrhea, urinary retention, dysuria, hematuria, or rash. - ROS Systems Reviewed and Negative: Yes All other systems reviewed and negative - EENT EENT: DENIES: Sore Throat, Ear Pain, Eye problems - NEURO Neurology: DENIES: Headache, Weakness, Vision blurred, Dizzinesss / Vertigo - CARDIOVASCULAR Cardiovascular: DENIES: Chest pain - RESPIRATORY Respiratory: REPORTS: Trouble Breathing. DENIES: Coughing - GASTROINTESTINAL Gastrointestinal: DENIES: Abdominal Pain, Black / Bloody Stools - URINARY Urinary: DENIES: Dysuria, Urgency, Frequency - REPRODUCTIVE Reproductive: DENIES: : - MUSCULOSKELETAL Musculoskeletal: DENIES: Extremity pain Past Medical History - Social History Smoking Status: Current Every Day Smoker Family History: Reviewed & Not Pertinent, Malignancy, Other Patient has suicidal ideation: No Patient has homicidal ideation: No - Past Medical History Cardiac Medical History: Reports: Hx Congestive Heart Failure, Hx Heart Attack - mild, Hx Hypercholesterolemia, Hx Hypertension Pulmonary Medical History: Reports: Hx Asthma, Hx Bronchitis, Hx COPD Neurological Medical History: Reports: Hx Migraine, Hx Seizures Endocrine Medical History: Reports: Hx Diabetes Mellitus Type 2 - borderline Renal/ Medical History: Denies: Hx Peritoneal Dialysis GI Medical History: Reports: Hx Gastroesophageal Reflux Disease, Hx Ulcer Psychiatric Medical History: Reports: Hx Anxiety, Hx Depression Past Surgical History: Reports: Hx Hysterectomy, Hx Orthopedic Surgery - L leg AND R KNEE - Immunizations Hx Diphtheria, Pertussis, Tetanus Vaccination: Yes - <5 years Vertical Provider Document - CONSTITUTIONAL Agree With Documented VS: Yes Notes: PHYSICAL EXAMINATION: GENERAL: Well-appearing, well-nourished and in no acute distress. HEAD: Atraumatic, normocephalic. EYES: Pupils equal round and reactive to light, extraocular movements intact, sclera anicteric, conjunctiva are normal. ENT: Nares patent and without discharge. oropharynx clear without exudates. No tonsilar hypertrophy or erythema. Moist mucous membranes. NECK: Normal range of motion, supple without lymphadenopathy LUNGS: Breath sounds clear to auscultation bilaterally and equal. No wheezes rales or rhonchi. HEART: Regular rate and rhythm without murmurs, rubs, gallops. Musculoskeletal: FROM to passive/active. Strength 5+/5. Extremities: No cyanosis, clubbing, or edema b/l. Peripheral pulses 2+. Capillary refill less than 3 seconds. NEUROLOGICAL: Cranial nerves grossly intact. Normal speech, normal gait. PSYCH: Normal mood, normal affect. SKIN: Warm, Dry, normal turgor, no rashes or lesions noted. - INFECTION CONTROL TRAVEL OUTSIDE OF THE [place] IN LAST 30 DAYS: No Course - Re-evaluation Re-evalutation: 06/12/19 10:14 Patient is an afebrile, well-hydrated, 34-year-old female who presents with occasional cough and wheeze, suspect allergy versus viral illness. Vitals are acceptable without significant tachycardia, tachypnea, or hypoxia. PE is otherwise unremarkable. Patient is nontoxic-appearing and is tolerating p.o. without difficulty. Her lungs are clear to auscultation bilaterally. She does have an inhaler at home. She is allergic to multiple medications including steroids and she was told that she is not to take Benadryl. She has already contacted multiple outside sources for the mold problem in her home and it has been treated once recently. No work-up warranted at this time. Low suspicion for any ACS, PE, pneumothorax, pericarditis, dissection, respiratory compromise, severe dehydration, sepsis, meningitis, or other systemic emergent condition at this time. Patient is aware that her condition can change from initial presentation and she needs to monitor symptoms closely and seek medical attention for any acute changes. Recommend conservative measures for symptoms. Recheck with your PCM in 3-5 days. Consider consult with pulmonology. Return to the ED with any worsening/concerning symptoms otherwise as reviewed in discharge. Patient is in agreement. - Vital Signs Vital signs: Temp Pulse Resp BP Pulse Ox 97.9 F 84 16 174/89 H 94 06/12/19 09:38 06/12/19 09:38 06/12/19 09:38 06/12/19 09:38 06/12/19 09:38 Discharge - Discharge Clinical Impression: Cough Condition: Stable Disposition: HOME, SELF-CARE Additional Instructions: Stop smoking Maintain adequate fluid intake tylenol/ibuprofen as needed alternating every 3 hours for fever/body ache over the counter cold medication as needed for symptoms Humidified air may help Wash your hands regularly Wear a mask when coughing F/u: with your PCM in 3-5 days for a recheck Consider consult with pulmonology Return to the ED with any fever, altered mental status/behavior, chest pain, palpitations, syncope, headache, neck pain/stiffness, shortness of breath, chest pains, wheezing, drooling, trouble swallowing/breathing, abdominal pain, n/v/d, rash, or worsening/concerning symptoms otherwise. Forms: Elevated Blood Pressure, Smoking Cessation Education Referrals: SHRUTHI ARGUETA MD [ACTIVE STAFF] - Follow up as needed
== END 2019-06-12 10:25 | disposition home or self-care (01) ==
LOC: ER 09:31
DX: R05 Cough (principal); J44.9 Chronic obstructive pulmonary disease, unspecified; I10 Essential (primary) hypertension; L29.9 Pruritus, unspecified; F17.200 Nicotine dependence, unspecified, uncomplicated; Z77.120 Contact with and (suspected) exposure to mold (toxic); Z88.8 Allergy status to other drugs, medicaments and biological substances
CPT/HCPCS: 82962; 99283

== ENCOUNTER 2019-08-29 19:38 | Emergency (ER) | payer MEDICARE, MEDICAID ==
--- NOTE | 2019-08-29 21:32 | ER Document Report ---
HPI - HPI Time Seen by Provider: 08/29/19 21:23 Pain Level: 5 Context: 54-year-old female presents the emergency department with "black mold over my whole body" and shortness of breath. Patient states that is been going on for several months. Patient denies fevers or chills, denies sore throat, states "my lungs are clear, I done been been prayed over". Patient is perseverating about black mold and black mold exposure and states he is on the bottom of her feet. When examining her feet there is dry skin but there is no evidence of any mold. - REPRODUCTIVE Reproductive: DENIES: : Past Medical History - Social History Smoking Status: Current Every Day Smoker Family History: Reviewed & Not Pertinent, Malignancy, Other Patient has suicidal ideation: No Patient has homicidal ideation: No - Past Medical History Cardiac Medical History: Reports: Hx Congestive Heart Failure, Hx Heart Attack - mild, Hx Hypercholesterolemia, Hx Hypertension Pulmonary Medical History: Reports: Hx Asthma, Hx Bronchitis, Hx COPD Neurological Medical History: Reports: Hx Migraine, Hx Seizures Endocrine Medical History: Reports: Hx Diabetes Mellitus Type 2 - borderline Renal/ Medical History: Denies: Hx Peritoneal Dialysis GI Medical History: Reports: Hx Gastroesophageal Reflux Disease, Hx Ulcer Psychiatric Medical History: Reports: Hx Anxiety, Hx Depression Past Surgical History: Reports: Hx Hysterectomy, Hx Orthopedic Surgery - L leg AND R KNEE - Immunizations Hx Diphtheria, Pertussis, Tetanus Vaccination: Yes - <5 years Vertical Provider Document - CONSTITUTIONAL Notes: PHYSICAL EXAMINATION: Reviewed vital signs and charting by RN GENERAL: Alert, interacts well. No acute distress. HEAD: Normocephalic, atraumatic. EYES: Pupils equal and round. Extraocular movements intact. ENT: Oral mucosa moist, tongue midline. NECK: Full range of motion. Trachea midline. LUNGS: Clear to auscultation bilaterally, no wheezes, rales, or rhonchi. No respiratory distress. HEART: Regular rate and rhythm. No murmur ABDOMEN: soft, non-tender. No distention. Bowel sounds present EXTREMITIES: Moves all 4 extremities spontaneously. No edema, No cyanosis. PSYCH: Normal affect, normal mood. SKIN: Warm, dry, normal turgor. No rashes or lesions noted. - INFECTION CONTROL TRAVEL OUTSIDE OF THE [place] IN LAST 30 DAYS: No Course - Re-evaluation Re-evalutation: 08/29/19 23:32 Patient is well-appearing no acute distress, there is no signs at all of any moles on any part of her body, lungs are clear to auscultation in all beltran, she is afebrile, she has a normal physical exam. I have no suspicion for acute pneumonia, obstructive airway disease, or any infectious process. At this time she is stable for discharge with strict return precautions. - Vital Signs Vital signs: Temp Pulse Resp BP Pulse Ox 98.1 F 81 20 171/90 H 96 08/29/19 21:20 08/29/19 21:20 08/29/19 21:20 08/29/19 21:20 08/29/19 21:20 Discharge - Discharge Clinical Impression: Shortness of breath Condition: Good Disposition: HOME, SELF-CARE Additional Instructions: You were seen for shortness of breath. Your chest x-ray was completely normal and your lungs are clear. I did not see any evidence of mold on your body or your feet. This is all very reassuring. Please return to the emergency department if you develop worsening shortness of breath, severe chest pain, you pass out, you develop acute confusion or slurred speech, acute limb weakness, intractable nausea or vomiting, profuse diarrhea, or any other concerning symptoms.
--- NOTE | 2019-08-29 23:29 | RADIOLOGY REPORT (SQ) ---
EXAM DESCRIPTION: XR CHEST 2 VIEWS COMPLETED DATE/TME: 08/29/2019 21:29 CLINICAL HISTORY: 54 years, Female, sob, black mold exposure COMPARISON: Prior study from 06/04/2019 NUMBER OF VIEWS: Two TECHNIQUE: Frontal and lateral radiographs of the chest were obtained LIMITATIONS: None. FINDINGS: Cardiac and mediastinal contours are normal in appearance. Lungs are clear. No pleural effusion or pneumothorax. IMPRESSION: No acute disease. copyright 2010 [employer]- All Rights Reserved
[2019-08-29 23:48] VITALS: BP 152/84
== END 2019-08-29 23:46 | disposition home or self-care (01) ==
LOC: ER 19:38
DX: J44.9 Chronic obstructive pulmonary disease, unspecified (principal); R06.02 Shortness of breath; I10 Essential (primary) hypertension; I25.2 Old myocardial infarction; F17.200 Nicotine dependence, unspecified, uncomplicated
CPT/HCPCS: 71046; 99285

== ENCOUNTER 2019-09-20 12:45 | Observation (INO) | payer MEDICARE, MEDICAID ==
[2019-09-20] MEDS ORDERED: METHYLPREDNISOLONE INJ 125 MG/2 ML SDV ONE (12:52)
[2019-09-20] MEDS ORDERED: DIPHENHYDRAMINE HCL 50 MG/ML VIAL ONE (12:52)
[2019-09-20] MEDS ORDERED: FAMOTIDINE INJ/PF 20 MG/2 ML SDV IV ONE ×2 (12:53→13:13)
[2019-09-20] MEDS ORDERED: IPRATROPIUM/ALBUTEROL 0.5-2.5 MG/3 ML AMPUL NEB ONE (13:11)
[2019-09-20] MEDS ORDERED: DIPHENHYDRAMINE HCL 50 MG/ML VIAL IV ONE (13:13)
[2019-09-20] MEDS ORDERED: METHYLPREDNISOLONE INJ 125 MG/2 ML SDV IV ONE (13:13)
[2019-09-20] MEDS ORDERED: BUDESONIDE NEB 0.5 MG/2 ML AMPUL NEB ONE (13:15)
--- NOTE | 2019-09-20 13:25 | ER Document Report ---
ED Allergic Reaction - General Chief Complaint: Allergic Reaction Stated Complaint: PALPITATIONS Time Seen by Provider: 09/20/19 12:54 Information source: Patient Notes: Patient presents via EMS for acute allergic reaction. Possible causes in this case per the patient are drinking Sprite or mold exposure at home or the amoxicillin she is been taking for sinusitis. Patient took 2 Benadryl's at home. EMS started IV fluid for hypotension and nonspecific ST changes for a systolic of approximately 40. The blood pressure improved in route with IV fluids per EMS. Patient has a cardiac history with CHF and hypertension. Patient has started to break out in her skin on her chest. No tongue swelling. Mild shortness of breath. No other complaints. Smoker. TRAVEL OUTSIDE OF THE [place] IN LAST 30 DAYS: No - Related Data Allergies/Adverse Reactions: gabapentin Allergy (Severe, Verified 09/20/19 14:06) Edema cyclobenzaprine HCl [From Flexeril] Allergy (Verified 09/20/19 14:06) tramadol [Tramadol] Allergy (Verified 09/20/19 14:06) anesthesia Allergy (Severe, Uncoded 09/20/19 14:06) HTZ Allergy (Uncoded 09/20/19 14:06) Steroids Allergy (Uncoded 09/20/19 14:06) Past Medical History - Social History Smoking Status: Current Every Day Smoker Family History: Reviewed & Not Pertinent, Malignancy, Other Patient has suicidal ideation: No Patient has homicidal ideation: No - Past Medical History Cardiac Medical History: Reports: Hx Congestive Heart Failure, Hx Heart Attack - mild, Hx Hypercholesterolemia, Hx Hypertension Pulmonary Medical History: Reports: Hx Asthma, Hx Bronchitis, Hx COPD Neurological Medical History: Reports: Hx Migraine, Hx Seizures Endocrine Medical History: Reports: Hx Diabetes Mellitus Type 2 - borderline Renal/ Medical History: Denies: Hx Peritoneal Dialysis GI Medical History: Reports: Hx Gastroesophageal Reflux Disease, Hx Ulcer Psychiatric Medical History: Reports: Hx Anxiety, Hx Depression Past Surgical History: Reports: Hx Hysterectomy, Hx Orthopedic Surgery - L leg AND R KNEE - Immunizations Hx Diphtheria, Pertussis, Tetanus Vaccination: Yes - <5 years Review of Systems - Review of Systems Constitutional: denies: Chills, Fever Cardiovascular: Chest pain, Dyspnea -: Yes All other systems reviewed and negative Physical Exam - Vital signs Vitals: Temp Pulse Resp BP Pulse Ox 97.8 F 82 16 122/74 93 09/20/19 12:50 09/20/19 12:50 09/20/19 12:50 09/20/19 12:50 09/20/19 12:50 Interpretation: Normal - General General appearance: Appears well, Alert - HEENT Head: Normocephalic, Atraumatic Eyes: Normal Pupils: PERRL - Respiratory Respiratory status: No respiratory distress Chest status: Nontender Breath sounds: Normal Chest palpation: Normal - Cardiovascular Rhythm: Regular Heart sounds: Normal auscultation Murmur: No - Abdominal Inspection: Normal Distension: No distension Bowel sounds: Normal Tenderness: Nontender Organomegaly: No organomegaly - Back Back: Normal, Nontender - Extremities General upper extremity: Normal inspection, Nontender, Normal color, Normal ROM, Normal temperature General lower extremity: Normal inspection, Nontender, Normal color, Normal ROM, Normal temperature, Normal weight bearing. No: Williams's sign - Neurological Neuro grossly intact: Yes Cognition: Normal Orientation: AAOx4 Michael Coma Scale Eye Opening: Spontaneous Michael Coma Scale Verbal: Oriented Michael Coma Scale Motor: Obeys Commands Michael Coma Scale Total: 15 Speech: Normal Motor strength normal: LUE, RUE, LLE, RLE Sensory: Normal - Psychological Associated symptoms: Normal affect, Normal mood - Skin Skin Temperature: Warm Skin Moisture: Dry Skin Color: Normal Character of irregularity: Urticarial Course - Re-evaluation Re-evalutation: 09/20/19 13:26 I have ordered IV fluids with IV Benadryl, IV famotidine 20 and IV Solu-Medrol. I have also ordered inhaled steroids and DuoNeb. Patient symptoms have improved. EKG per my interpretation shows a normal sinus rhythm at a rate of 67 with left atrial abnormality. Positive artifact. QRS normal axis. 09/20/19 14:08 Labs reviewed. Chest x-ray per radiologist shows no acute disease. Patient is comfortable at this time. 09/20/19 16:41 1 L normal saline IV ordered for hypotension and dry mouth. 09/20/19 18:16 Discussed case in detail with Dr. Mary who agrees with admission to Dr. Coughlin. I spoke to Dr. Coughlin who agreed. Patient is stable. The reason for admission is the episodes of hypotension and there is severe allergic reaction. 09/20/19 18:19 - Vital Signs Vital signs: Temp Pulse Resp BP Pulse Ox 97.8 F 93 21 H 117/67 93 09/20/19 12:50 09/20/19 14:06 09/20/19 17:01 09/20/19 17:01 09/20/19 17:01 - Laboratory Result Diagrams: 09/20/19 12:22 09/20/19 12:22 Laboratory results interpreted by me: 09/20/19 09/20/19 12:22 12:22 MCH 33.5 H RDW 14.1 H Lymph % (Auto) 49.6 H Seg Neutrophils % 40.9 L Potassium 3.2 L Chloride 96 L BUN 30 H Creatinine 1.89 H Est GFR ( Amer) 33 L Est GFR (MDRD) Non-Af 28 L Glucose 117 H Discharge - Discharge Clinical Impression: Allergic reaction Qualifiers: Encounter type: initial encounter Qualified Code(s): T78.40XA - Allergy, unspecified, initial encounter Hypotension Qualifiers: Hypotension type: unspecified hypotension type Qualified Code(s): I95.9 - Hypotension, unspecified CHF (congestive heart failure) Qualifiers: Heart failure type: unspecified Heart failure chronicity: unspecified Qualified Code(s): I50.9 - Heart failure, unspecified Condition: Serious Disposition: ADMITTED INPATIENT Admitting Provider: Madyson (Hospitalist) Unit Admitted: Telemetry
[2019-09-20 13:37] LABS: ABSOLUTE EOSINOPHILS # (AUTO) 0.2 10^3/uL (0.0-0.6); ABSOLUTE LYMPHOCYTES (AUTO) 4.1 10^3/uL (0.5-4.7); ABSOLUTE MONOCYTES (AUTO) 0.6 10^3/uL (0.1-1.4); ABSOLUTE NEUT (AUTO) 3.4 10^3/uL (1.7-8.2); BASOPHILS % (AUTO) 0.3 % (0-2); HEMATOCRIT 42.7 % (36.0-47.0); HEMOGLOBIN 14.8 g/dL (12.0-15.5); LYMPHOCYTES % (AUTO) 49.6 % (13-45); MEAN CORPUSCULAR HEMOGLOBIN 33.5 pg (27.0-33.4); MEAN CORPUSCULAR HGB CONC 34.6 g/dL (32.0-36.0); MEAN CORPUSCULAR VOLUME 97 fl (80-97); MONOCYTES % (AUTO) 7.2 % (3-13); PLATELET COUNT 267 10^3/uL (150-450); RED BLOOD COUNT 4.41 10^6/uL (3.72-5.28); RED CELL DISTRIBUTION WIDTH 14.1 % (11.5-14.0); SEGMENTED NEUTROPHILS % (AUTO) 40.9 % (42-78); TOTAL CELLS COUNTED % (AUTO) 100 %; WHITE BLOOD COUNT 8.3 10^3/uL (4.0-10.5)
[2019-09-20 13:40] LABS: INTERNATIONAL RATION (INR) 0.89
[2019-09-20 13:53] LABS: ALBUMIN 4.3 g/dL (3.5-5.0); ALKALINE PHOSPHATASE 86 U/L (38-126); ANION GAP 15 (5-19); ASPARTATE AMINO TRANSFERASE 28 U/L (14-36); BILIRUBIN,DIRECT 0.2 mg/dL (0.0-0.4); BILIRUBIN,TOTAL 0.6 mg/dL (0.2-1.3); BLOOD UREA NITROGEN 30 mg/dL (7-20); CALCIUM 9.8 mg/dL (8.4-10.2); CARBON DIOXIDE 28 mmol/L (22-30); CHLORIDE 96 mmol/L (98-107); GLUCOSE 117 mg/dL (75-110); POTASSIUM 3.2 mmol/L (3.6-5.0); TOTAL PROTEIN 7.3 g/dL (6.3-8.2)
--- NOTE | 2019-09-20 13:55 | RADIOLOGY REPORT (SQ) ---
EXAM DESCRIPTION: CHEST SINGLE VIEW COMPLETED DATE/TIME: 09/20/2019 1:33 pm REASON FOR STUDY: SOB COMPARISON: 08/29/2019 EXAM PARAMETERS: NUMBER OF VIEWS: One view. TECHNIQUE: Single frontal radiographic view of the chest acquired. RADIATION DOSE: NA LIMITATIONS: None. FINDINGS: LUNGS AND PLEURA: No opacities, masses or pneumothorax. No pleural effusion. MEDIASTINUM AND HILAR STRUCTURES: No masses. Contour normal. HEART AND VASCULAR STRUCTURES: Heart normal in size. Normal vasculature. BONES: No acute findings. HARDWARE: None in the chest. OTHER: No other significant finding. IMPRESSION: NO ACUTE RADIOGRAPHIC FINDING IN THE CHEST. TECHNICAL DOCUMENTATION: JOB ID: [id number]- All Rights Reserved Reading location - IP/workstation name: [email or web address]
--- NOTE | 2019-09-20 16:27 | EKG REPORT ---
SEVERITY:- BORDERLINE ECG - SINUS RHYTHM PROBABLE LEFT ATRIAL ABNORMALITY : Confirmed by: Sarah Padgett MD 20-Sep-2019 16:26:07
[2019-09-20] MEDS ORDERED: NORMAL SALINE 1000 ML 1,000 ML IV ONE (16:40)
[2019-09-20] MEDS ORDERED: HYDRALAZINE HCL INJ/PF 20 MG/1 ML SDV IV PRN (18:31)
[2019-09-20] MEDS ORDERED: NORMAL SALINE 1000 ML 1,000 ML IV PRN (18:31)
[2019-09-20] MEDS ORDERED: DIPHENHYDRAMINE HCL 50 MG/ML VIAL IV PRN (18:31)
[2019-09-20] MEDS ORDERED: METOPROLOL TARTRATE PF/INJ 5 MG/5 ML SDV IV PRN (18:32)
[2019-09-20] MEDS ORDERED: LORAZEPAM INJ 2 MG/1 ML VIAL IV PRN (18:32)
[2019-09-20] MEDS ORDERED: ACETAMINOPHEN 325 MG TABLET PO PRN (18:38)
[2019-09-20] MEDS ORDERED: IPRATROPIUM/ALBUTEROL 0.5-2.5 MG/3 ML AMPUL NEB PRN (18:38)
[2019-09-20] MEDS ORDERED: PROMETHAZINE HCL INJ 25 MG/1 ML VIAL IV PRN (18:38)
[2019-09-20] MEDS ORDERED: TEMAZEPAM 7.5 MG CAPSULE PO PRN (18:38)
--- NOTE | 2019-09-20 18:44 | PDOC H&P ---
History of Present Illness Admission Date/PCP: 09/20/19 18:31 History of Present Illness: GERRY VELIZ is a 54 year old female past medical history of hypertension, CHF, CKD, opiate dependent chronic lower back pain, obesity, tobacco abuse presented to ED via EMS for acute allergic reaction. Stating that she broke out in a rash yesterday which was resolving but after having some Sprite today she started breaking and severe generalized urticarial rash accompanied by shortness of breath, chest tightness, and feeling lightheaded. EMS called was called and patient was found to be hypotensive with systolic BP of 40s, patient was given IV fluids and Benadryl and brought to ED. Patient is stating that she is living in a moldy house, and was given amoxicillin for her sinusitis by her PCP. On my encounter today patient resting comfortably in bed in no apparent distress, urticarial rash has resolved, denies any chest pain, nausea, vomiting, diarrhea, constipation, shortness of breath or any urinary symptoms. Past Medical History Cardiac Medical History: Reports: Congestive Heart Failure, Myocardial Infarction - mild, Hyperlipidema, Hypertension Pulmonary Medical History: Reports: Asthma, Bronchitis, Chronic Obstructive Pulmonary Disease (COPD) Neurological Medical History: Reports: Migraine, Seizures Endocrine Medical History: Reports: Diabetes Mellitus Type 2 - borderline GI Medical History: Reports: Gastroesophageal Reflux Disease Psychiatric Medical History: Reports: Depression Past Surgical History Past Surgical History: Reports: Hysterectomy, Orthopedic Surgery - L leg AND R KNEE Social History Smoking Status: Current Every Day Smoker Frequency of Alcohol Use: None Hx Recreational Drug Use: No Drugs: None Hx Prescription Drug Abuse: No Family History Family History: Reviewed & Not Pertinent, Malignancy, Other Parental Family History Reviewed: Yes Children Family History Reviewed: Yes Sibling(s) Family History Reviewed.: Yes Medication/Allergy Allergies/Adverse Reactions: gabapentin Allergy (Severe, Verified 09/20/19 14:06) Edema cyclobenzaprine HCl [From Flexeril] Allergy (Verified 09/20/19 14:06) tramadol [Tramadol] Allergy (Verified 09/20/19 14:06) anesthesia Allergy (Severe, Uncoded 09/20/19 14:06) HTZ Allergy (Uncoded 09/20/19 14:06) Steroids Allergy (Uncoded 09/20/19 14:06) Physical Exam Vital Signs: Temp Pulse Resp BP Pulse Ox 97.8 F 93 21 H 117/67 93 09/20/19 12:50 09/20/19 14:06 09/20/19 17:01 09/20/19 17:01 09/20/19 17:01 Intake & Output 09/19/19 09/20/19 09/21/19 06:59 06:59 06:59 Weight 71.2 kg Results Laboratory Results: 09/20/19 12:22 09/20/19 12:22 09/20/19 09/20/19 12:22 12:22 WBC 8.3 RBC 4.41 Hgb 14.8 Hct 42.7 MCV 97 MCH 33.5 H MCHC 34.6 RDW 14.1 H Plt Count 267 Seg Neutrophils % 40.9 L Sodium 139.3 Potassium 3.2 L Chloride 96 L Carbon Dioxide 28 Anion Gap 15 BUN 30 H Creatinine 1.89 H Est GFR ( Amer) 33 L Glucose 117 H Calcium 9.8 Magnesium 1.9 Total Bilirubin 0.6 AST 28 Alkaline Phosphatase 86 Total Protein 7.3 Albumin 4.3 Lipase 104.3 09/20/19 12:22 Troponin I < 0.012 Impressions: Chest X-Ray 09/20/19 13:04 IMPRESSION: NO ACUTE RADIOGRAPHIC FINDING IN THE CHEST. Assessment and Plan - Diagnosis (1) Anaphylactic reaction Qualifiers: Encounter type: initial encounter Qualified Code(s): T78.2XXA - Anaphylactic shock, unspecified, initial encounter Is this a current diagnosis for this admission?: Yes Plan: Most likely due to allergic reaction to amoxicillin. Patient was found by EMS to be hypotensive and was started on volume resuscitation which improved. Urticarial rash has improved. Vitals are stable. In no apparent distress. We will observe overnight. Admit to telemetry, start on antihistamine PRN, IV steroids, cautious volume resuscitation guided by volume status. (2) CHF (congestive heart failure) Qualifiers: Heart failure type: combined systolic and diastolic Heart failure chronicity: chronic Qualified Code(s): I50.42 - Chronic combined systolic (congestive) and diastolic (congestive) heart failure Is this a current diagnosis for this admission?: Yes Plan: History of CHF. Denies any history of CAD. No symptoms. Troponins negative. Well compensated. Restart home meds. Monitor volume status. Outpatient PCP follow-up. (3) Hypotension Qualifiers: Hypotension type: unspecified hypotension type Qualified Code(s): I95.9 - Hypotension, unspecified Is this a current diagnosis for this admission?: Yes Plan: Due to #1. Stable. Continue cautious volume resuscitation guided by volume status keeping in mind that patient history of CHF and CKD. (4) Acute kidney injury superimposed on CKD Is this a current diagnosis for this admission?: Yes Plan: Prerenal. Mostly due to anaphylactic shock. Baseline creatinine 1.5- 1.9. Cautious volume restriction guided by volume status, monitor electrolytes and volume status. CMP tomorrow. Avoid nephrotoxic meds. Outpatient PCP and nephrology follow-up.
[2019-09-20] MEDS: OXYCODONE-ACETAMINOPHEN 5-325 MG TABLET PO PRN (21:14)
[2019-09-20] MEDS: METHYLPREDNISOLONE INJ 40 MG/1 ML SDV IV SCH (22:05)
[2019-09-20] MEDS: HEPARIN SOD (PORCINE) 5,000 UNIT/ML 1 ML VIAL SUBCUT SCH (22:06)
[2019-09-21] MEDS: HEPARIN SOD (PORCINE) 5,000 UNIT/ML 1 ML VIAL SUBCUT SCH ×2 (05:29→14:11)
[2019-09-21] MEDS: METHYLPREDNISOLONE INJ 40 MG/1 ML SDV IV SCH ×2 (05:30→14:10)
[2019-09-21 05:35] LABS: HEMATOCRIT 37.8 % (36.0-47.0); MEAN CORPUSCULAR HEMOGLOBIN 33.4 pg (27.0-33.4); MEAN CORPUSCULAR HGB CONC 34.5 g/dL (32.0-36.0); MEAN CORPUSCULAR VOLUME 97 fl (80-97); PLATELET COUNT 206 10^3/uL (150-450); RED BLOOD COUNT 3.91 10^6/uL (3.72-5.28); WHITE BLOOD COUNT 6.9 10^3/uL (4.0-10.5)
[2019-09-21 05:45] LABS: ANION GAP 14 (5-19); BLOOD UREA NITROGEN 27 mg/dL (7-20); CALCIUM 10.1 mg/dL (8.4-10.2); CARBON DIOXIDE 27 mmol/L (22-30); CHLORIDE 102 mmol/L (98-107); GLUCOSE 179 mg/dL (75-110); POTASSIUM 3.1 mmol/L (3.6-5.0)
[2019-09-21] MEDS ORDERED: PANTOPRAZOLE SODIUM 40 MG TABLET.DR PO SCH (06:00)
[2019-09-21] MEDS: OXYCODONE-ACETAMINOPHEN 5-325 MG TABLET PO PRN ×2 (06:20→14:18)
[2019-09-21] MEDS ORDERED: POTASSIUM CHLORIDE 10 MEQ TABLET.ER PO ONE ×3 (08:00→15:39)
[2019-09-21] MEDS ORDERED: CLONIDINE HCL 0.1 MG TABLET PO SCH (10:00)
[2019-09-21] MEDS ORDERED: TORSEMIDE 20 MG TABLET PO SCH (10:00)
[2019-09-21] MEDS ORDERED: LISINOPRIL 10 MG TABLET PO SCH (10:00)
[2019-09-21 14:35] VITALS: BP 158/65
[2019-09-21] MEDS ORDERED: IPRATROPIUM/ALBUTEROL 0.5-2.5 MG/3 ML AMPUL NEB PRN (15:40)
[2019-09-21] MEDS ORDERED: NICOTINE 14 MG/24 HR PATCH.TD24 TD SCH (15:45)
[2019-09-21] MEDS ORDERED: LEVOFLOXACIN 500 MG TABLET PO SCH (15:45)
[2019-09-21] MEDS ORDERED: IPRATROPIUM/ALBUTEROL 0.5-2.5 MG/3 ML AMPUL NEB SCH (20:00)
[2019-09-21] MEDS ORDERED: METHYLPREDNISOLONE INJ 40 MG/1 ML SDV IV SCH (22:00)
[2019-09-21] MEDS ORDERED: ATORVASTATIN CALCIUM 40 MG TABLET PO SCH (22:00)
[2019-09-21] MEDS ORDERED: METHYLPREDNISOLONE INJ 125 MG/2 ML SDV IV SCH (22:00)
--- NOTE | 2019-09-22 14:32 | Left Against Medical Advice ---
Against Medical Advice Admission Date/Time: 09/20/19 18:31 Primary Care Provider: Date of Patient Emigration: 09/21/19 - Diagnosis: (1) Anaphylactic reaction Is this a current diagnosis for this admission?: Yes (2) CHF (congestive heart failure) Is this a current diagnosis for this admission?: Yes (3) Hypotension Is this a current diagnosis for this admission?: Yes (4) Acute kidney injury superimposed on CKD Is this a current diagnosis for this admission?: Yes - Summary: Summary: Please see Admission and Progress Notes as well. GERRY VELIZ is a 54 F, who LEFT AGAINST MEDICAL ADVICE. The Patient was admitted on 09/20/19 18:31. History of Present Illness: GERRY VELIZ is a 54 year old female past medical history of hypertension, CHF, CKD, opiate dependent chronic lower back pain, obesity, tobacco abuse presented to ED via EMS for acute allergic reaction. Stating that she broke out in a rash yesterday which was resolving but after having some Sprite today she started breaking and severe generalized urticarial rash accompanied by shortness of breath, chest tightness, and feeling lightheaded. EMS called was called and patient was found to be hypotensive with systolic BP of 40s, patient was given IV fluids and Benadryl and brought to ED. Patient is stating that she is living in a moldy house, and was given amoxicillin for her sinusitis by her PCP. On my encounter today patient resting comfortably in bed in no apparent distress, urticarial rash has resolved, denies any chest pain, nausea, vomiting, diarrhea, constipation, shortness of breath or any urinary symptoms. (1) Anaphylactic reaction Resolved. Most likely due to allergic reaction to amoxicillin. Patient was found by EMS to be hypotensive and was started on volume resuscitation which improved. Urticarial rash has improved. Vitals are stable. In no apparent distress. We will observe overnight. Admitted to telemetry, started on antihistamine PRN, IV steroids and cautious volume resuscitation guided by volume status. Patient was noted to be hypoxic on room air, with BPs not optimized and still hypokalemic. Patient was advised to stay another day to rule out cause of her hypoxia and replenish her potassium and optimize her BP, but she kept insisting that she does not feel short of breath and does not have any chest pain and decided to leave AGAINST MEDICAL ADVICE. (2) CHF (congestive heart failure) History of CHF. Denied any history of CAD. No symptoms. Troponins negative. Well compensated. Restarted home meds. Monitor volume status. Outpatient PCP follow-up. (3) Hypotension Due to #1. Stable. Continue cautious volume resuscitation guided by volume status keeping in mind that patient history of CHF and CKD. (4) Acute kidney injury superimposed on CKD Resolved. Mostly due to anaphylactic shock. Baseline creatinine 1.5- 1.9. Cautious volume restriction guided by volume status, monitor electrolytes and volume status. CMP tomorrow. Avoid nephrotoxic meds. Outpatient PCP and nephrology follow-up.
== END 2019-09-21 16:50 | disposition left against medical advice (07) ==
LOC: ER 12:45 → INTOOBSV 18:31 → EH 18:31 → 4N 22:35
PROVIDERS: ADMIT Internal Medicine; ATTEND Internal Medicine
DX: T78.2XXA Anaphylactic shock, unspecified, initial encounter (principal); I95.9 Hypotension, unspecified; I13.0 Hypertensive heart and chronic kidney disease with heart failure and stage 1 through stage 4 chronic kidney disease, or unspecified chronic kidney disease; I50.42 Chronic combined systolic (congestive) and diastolic (congestive) heart failure; N18.9 Chronic kidney disease, unspecified; N17.9 Acute kidney failure, unspecified; F11.20 Opioid dependence, uncomplicated; M54.5 Low back pain; J32.9 Chronic sinusitis, unspecified; R09.02 Hypoxemia; E87.6 Hypokalemia; F17.200 Nicotine dependence, unspecified, uncomplicated; R68.2 Dry mouth, unspecified; I25.2 Old myocardial infarction; Z77.120 Contact with and (suspected) exposure to mold (toxic); Z88.6 Allergy status to analgesic agent; Z88.4 Allergy status to anesthetic agent; Z88.8 Allergy status to other drugs, medicaments and biological substances
CPT/HCPCS: 93005; 94640 ×2; 99285; 96361; 96374; 96375; 36415 ×2; 83690; 83735; 84132; 85025; 85027; 85610; 80048; 80053; 84484; 71045; 93010; G0378 ×3; J1644 ×2; A9270 ×8; J1200; J0360; J2920 ×2; J2930; J2060; J7030; S0028; J3490; J7620

== ENCOUNTER 2019-09-22 04:19 | Inpatient (IN) | payer MEDICARE, MEDICAID ==
--- NOTE | 2019-09-22 05:18 | RADIOLOGY REPORT (SQ) ---
EXAM DESCRIPTION: X-ray two view chest. CLINICAL HISTORY: 54 years Female, cp COMPARISON: 06/04/2019 and 04/22/2019 TECHNIQUE: PA and Lateral views of the chest performed on 09/22/2019 at 5:02 AM FINDINGS: The lungs are well expanded and are grossly clear. The costophrenic sulci are clear. There is no evidence of a pneumothorax. The cardiac silhouette is normal in size. The mediastinal contours are normal. No acute osseous abnormalities are identified. No focal soft tissue abnormalities are identified. IMPRESSION: No definite acute intrathoracic disease or significant change when compared to the prior studies.
[2019-09-22 05:21] LABS: HEMATOCRIT 38.4 % (36.0-47.0); HEMOGLOBIN 13.2 g/dL (12.0-15.5); MEAN CORPUSCULAR HEMOGLOBIN 33.2 pg (27.0-33.4); MEAN CORPUSCULAR HGB CONC 34.3 g/dL (32.0-36.0); MEAN CORPUSCULAR VOLUME 97 fl (80-97); PLATELET COUNT 240 10^3/uL (150-450); RED BLOOD COUNT 3.97 10^6/uL (3.72-5.28); RED CELL DISTRIBUTION WIDTH 14.1 % (11.5-14.0)
[2019-09-22 05:25] LABS: WHITE BLOOD COUNT 23.7 10^3/uL (4.0-10.5)
[2019-09-22 05:35] LABS: ALBUMIN 4.3 g/dL (3.5-5.0); ALKALINE PHOSPHATASE 75 U/L (38-126); ANION GAP 12 (5-19); ASPARTATE AMINO TRANSFERASE 31 U/L (14-36); BILIRUBIN,DIRECT 0.2 mg/dL (0.0-0.4); BILIRUBIN,TOTAL 0.5 mg/dL (0.2-1.3); BLOOD UREA NITROGEN 27 mg/dL (7-20); CALCIUM 10.6 mg/dL (8.4-10.2); CARBON DIOXIDE 27 mmol/L (22-30); CHLORIDE 105 mmol/L (98-107); CREATINE KINASE 351 U/L (30-135); GLUCOSE 106 mg/dL (75-110); POTASSIUM 3.7 mmol/L (3.6-5.0); TOTAL PROTEIN 7.3 g/dL (6.3-8.2)
[2019-09-22 05:44] LABS: ABSOLUTE LYMPHOCYTES# (MANUAL) 1.2 10^3/uL (0.5-4.7); ABSOLUTE MONOCYTES # (MANUAL) 0.5 10^3/uL (0.1-1.4); BASOPHILS % (MANUAL) 0 % (0-2); EOSINOPHILS % (MANUAL) 0 % (0-6); LYMPHOCYTES % (MANUAL) 5 % (13-45); MONOCYTES % (MANUAL) 2 % (3-13); SEGMENTED NEUTROPHILS % (MAN) 93 % (42-78); TOTAL CELLS COUNTED 100
[2019-09-22 05:45] LABS: PLATELET COMMENT ADEQUATE; RBC MORPHOLOGY COMMENT NORMO-CYTIC/CHROMIC
[2019-09-22 05:47] LABS: CREATINE KINASE MB 7.61 ng/mL (<4.55)
[2019-09-22 05:56] LABS: TROPONIN I 0.255 ng/mL
[2019-09-22] MEDS ORDERED: ASPIRIN 81 MG TABLET, CHEWABLE PO ONE (06:24)
[2019-09-22] MEDS ORDERED: NITROGLYCERIN 2% OINTMENT 1 GM PACKET TP ONE (06:26)
[2019-09-22] MEDS ORDERED: ENALAPRILAT DIHYDRATE INJ/PF 1.25 MG/1 ML SDV IV ONE (06:35)
--- NOTE | 2019-09-22 06:35 | ER Document Report ---
ED General - General Chief Complaint: Anxiety Stated Complaint: CHEST PAIN Time Seen by Provider: 09/22/19 06:06 TRAVEL OUTSIDE OF THE [place] IN LAST 30 DAYS: No - HPI Notes: Patient is a 54-year-old female who presents to the emergency department for evaluation via EMS. She is an extremely difficult historian. Evidently, the patient was discharged from the hospital yesterday. I am unsure at this time as to whether or not she was discharged or actually left AGAINST MEDICAL ADVICE. The patient states she was very upset, states that she believes someone made an error, and she could have "overdosed" on her Percocet. She states she was very upset by this. She also states she was fighting with family members. Again the patient is not a good historian. She states that at 11:00 last night she re alized, after having been so angry, that she had not taken any of her antihypertensive medications. She states she took them then, felt dizzy, and called EMS. EMS told her that it might take an hour for her blood pressure to respond to the medications, but they did not bring her to the hospital at this time. I am unsure as to whether or not this was because patient refused. Evidently, later, the patient was sleeping and woke with a burning chest pain. She states to me repeatedly that she believes that this is her anxiety. She points to a central area in her chest, substernal. She states is a burning sensation. She states she has had this symptom before. She has some associated shortness of breath. Initially, the patient states to me that she has chest pain, currently. She then tells me that she has no pain at all, and it had subsided over the last hour. She cannot give me any numerical rating for her pain. I asked her if she has ever had a stress test or heart catheterization. Patient states simply "they killed my mom with 1 of those, I will never have a heart cath." - Related Data Allergies/Adverse Reactions: gabapentin Allergy (Severe, Verified 09/22/19 05:10) Edema cyclobenzaprine HCl [From Flexeril] Allergy (Verified 09/22/19 05:10) tramadol [Tramadol] Allergy (Verified 09/22/19 05:10) anesthesia Allergy (Severe, Uncoded 09/20/19 14:06) HTZ Allergy (Uncoded 09/20/19 14:06) Steroids Allergy (Uncoded 09/20/19 14:06) Home Medications: Patient unsure, list reviewed Past Medical History - General Information source: Patient - Social History Smoking Status: Current Every Day Smoker Family History: Reviewed & Not Pertinent, Malignancy, Other Patient has suicidal ideation: No Patient has homicidal ideation: No - Past Medical History Cardiac Medical History: Reports: Hx Congestive Heart Failure, Hx Heart Attack, Hx Hypercholesterolemia, Hx Hypertension Pulmonary Medical History: Reports: Hx Asthma, Hx Bronchitis, Hx COPD Neurological Medical History: Reports: Hx Migraine, Hx Seizures Endocrine Medical History: Reports: Hx Diabetes Mellitus Type 2 - borderline Renal/ Medical History: Denies: Hx Peritoneal Dialysis GI Medical History: Reports: Hx Gastroesophageal Reflux Disease, Hx Ulcer Psychiatric Medical History: Reports: Hx Anxiety, Hx Depression Past Surgical History: Reports: Hx Hysterectomy, Hx Orthopedic Surgery - L leg AND R KNEE - Immunizations Hx Diphtheria, Pertussis, Tetanus Vaccination: Yes - <5 years Review of Systems - Review of Systems Constitutional: No symptoms reported EENT: No symptoms reported Cardiovascular: See HPI Respiratory: See HPI Gastrointestinal: No symptoms reported Genitourinary: No symptoms reported Musculoskeletal: No symptoms reported Skin: No symptoms reported Neurological/Psychological: No symptoms reported Physical Exam - Vital signs Vitals: Resp 22 H 09/22/19 04:24 - Notes Notes: This is a 54-year-old female who appears her stated age, no acute distress. She does appear mildly anxious, exhibits somewhat stream of consciousness conversation. She smells strongly of cigarette smoke. Vital signs reviewed, please refer to chart. Head is normocephalic, atraumatic. Pupils equal round, reactive to light. Neck is supple without meningismus. Heart is regular rate and rhythm. Lungs reveal diminished breath sounds but no wheezes, rales, rhonchi. Abdomen is soft, nontender, normoactive bowel sounds throughout. Extremities without cyanosis, clubbing. Posterior calves are nontender. Peripheral pulses are equal. Skin is warm and dry. Patient is awake, alert, neurological exam is nonfocal. Course - Re-evaluation Re-evalutation: 09/22/19 06:31 Patient presents to the emergency department for evaluation. She had initial orders as placed per protocol in a patient having chest pain. I was notified by nursing that the patient's troponin came back as positive. At that point I went and evaluated the patient. Again she is a difficult historian, it is difficult to discern whether or not the patient is having active chest pain. Her blood pressure initially was markedly elevated. It has come down, although it is still elevated here in the emergency department. Patient was ordered aspirin and nitroglycerin paste. I have attempted to review patient's records from her recent hospital stay. It does appear she was treated for a COPD exacerbation and given steroids. This is the likely etiology of her marked leuk ocytosis. At any rate, will add a urinalysis with culture, as well as blood cultures. Repeat troponin will be ordered. During this note I received a phone call from Dr. Padgett, leadership recruiter. We discussed this patient. He asked that this patient be admitted to the hospital. He asked that Vasotec to be given for her high blood pressure, and he will see her in consultation. Will place phone call to hospitalist. - Vital Signs Vital signs: Temp Pulse Resp BP Pulse Ox 97.8 F 85 17 178/78 H 94 09/22/19 05:51 09/22/19 05:51 09/22/19 06:01 09/22/19 06:01 09/22/19 06:01 - Laboratory Result Diagrams: 09/22/19 05:00 09/22/19 05:00 Laboratory results interpreted by me: 09/22/19 09/22/19 09/22/19 05:00 05:00 05:00 WBC 23.7 H D RDW 14.1 H Seg Neuts % (Manual) 93 H Lymphocytes % (Manual) 5 L Monocytes % (Manual) 2 L Abs Neuts (Manual) 22.0 H BUN 27 H Est GFR ( Amer) 57 L Est GFR (MDRD) Non-Af 47 L Calcium 10.6 H Creatine Kinase 351 H CK-MB (CK-2) 7.61 H - Diagnostic Test Radiology reviewed: Reports reviewed Radiology results interpreted by me: 09/22/19 06:36 Chest X-Ray 09/22/19 00:00 IMPRESSION: No definite acute intrathoracic disease or significant change when compared to the prior studies. - EKG Interpretation by Me Additional EKG results interpreted by me: 09/22/19 06:36 Significant baseline artifact noted. Sinus mechanism with a rate of 98 bpm. Normal axis and intervals. Nonspecific ST changes, but no acute changes co ncerning for ST elevation [place]. Discharge - Discharge Clinical Impression: Chest pain, NSTEMI (non-ST elevated myocardial infarction), Leukocytosis Condition: Stable Disposition: ADMITTED INPATIENT Admitting Provider: Russ (Hospitalist) Unit Admitted: [facility]
[2019-09-22] MEDS ORDERED: MAG HYDROX/AL HYDROX/SIMETH SUSP 30 ML UDCUP PO PRN (08:54)
[2019-09-22] MEDS ORDERED: NORMAL SALINE 1000 ML 1,000 ML IV PRN ×2 (08:54→19:37)
[2019-09-22] MEDS ORDERED: TEMAZEPAM 7.5 MG CAPSULE PO PRN (08:54)
[2019-09-22] MEDS ORDERED: NITROGLYCERIN 0.4 MG/TAB 25 TAB/BOTTLE SL PRN (09:04)
[2019-09-22] MEDS ORDERED: MORPHINE SULFATE 10 MG/ML INJ IV PRN (09:04)
--- NOTE | 2019-09-22 09:18 | PDOC H&P ---
History of Present Illness Admission Date/PCP: 09/22/19 06:50 Patient complains of: Chest pain History of Present Illness: GERRY VELIZ is a 54 year old female who left the hospital AGAINST MEDICAL ADVICE yesterday. At that time she was admitted for an allergic reaction. She does have a history of hypertension, congestive heart failure, chronic kidney disease and opiate dependence. She continues to use tobacco products as well. After leaving the hospital AGAINST MEDICAL ADVICE yesterday afternoon the patient called EMS at 11:00 PM last night. She reports that she called because her heart was racing. EMS evaluated her on left. She called again at 3:00 AM this morning. She states that she was having palpitations and could not breathe. She reports a squeezing sensation substernally. She also reports that she did not feel sublingual nitroglycerin give her any relief. The patient was given high-dose steroids yesterday for the allergic reaction. Initially her blood pressure was quite low less than systolic blood pressure of 80, but this r esponded with IV fluids. She states that her blood pressure has been high last night. Upon presentation to the emergency department her blood pressure was 206/91. This was confirmed with a repeat check. Her serum troponin was elevated at 0.255. 2 days ago it was less than 0.012. Her EKG was fairly unremarkable. The patient was referred to the hospitalist service for admission. Past Medical History Cardiac Medical History: Reports: Congestive Heart Failure, Myocardial Infarction, Hyperlipidema, Hypertension Pulmonary Medical History: Reports: Asthma, Bronchitis, Chronic Obstructive Pulmonary Disease (COPD) Neurological Medical History: Reports: Migraine, Seizures Endocrine Medical History: Reports: Diabetes Mellitus Type 2 - borderline GI Medical History: Reports: Gastroesophageal Reflux Disease Psychiatric Medical History: Reports: Depression Past Surgical History Past Surgical History: Reports: Hysterectomy, Orthopedic Surgery - L leg AND R KNEE Social History Information Source: Patient, [facility] Records Lives with: Family Smoking Status: Current Every Day Smoker Electronic Cigarette use?: No Frequency of Alcohol Use: None Hx Recreational Drug Use: No Drugs: None Hx Prescription Drug Abuse: No - Chronic opiate use for chronic back pain - Advance Directive Resuscitation Status: Full Code Family History Family History: Reviewed & Not Pertinent, Malignancy, Other Parental Family History Reviewed: Yes Children Family History Reviewed: Yes Sibling(s) Family History Reviewed.: Yes Medication/Allergy Home Medications: Atorvastatin Calcium [Lipitor 40 mg Tablet] 40 mg PO DAILY 09/20/19 Clobetasol Propionate [Temovate 0.05% Cream 15 Gm] 1 applic TP BID 09/20/19 Clonidine HCl [Catapres 0.1 mg Tablet] 0.1 mg PO Q12 09/20/19 Lisinopril [Prinivil 10 mg Tablet] 10 mg PO Q12 09/20/19 Oxycodone HCl/Acetaminophen [Percocet 10-325 Mg Tablet] 1 each PO Q6HP PRN 09/20/19 Polyethylene Glycol 3350 [Miralax Powder 17 gm/Packet] 1 packet PO BID 09/20/19 Sennosides/Docusate Sodium [Senna-S Laxative Tablet] 1 each PO BIDP PRN 09/20/19 Torsemide [Demadex 20 mg Tablet] 20 mg PO Q12 09/20/19 Ammonium Lactate [Lac-Hydrin 12% Lotion 225Gm/Bottle] 1 applic TOP BID 09/22/19 Ondansetron [Ondansetron Odt] 8 mg SL BIDP PRN 09/22/19 Allergies/Adverse Reactions: gabapentin Allergy (Severe, Verified 09/22/19 05:10) Edema cyclobenzaprine HCl [From Flexeril] Allergy (Verified 09/22/19 05:10) tramadol [Tramadol] Allergy (Verified 09/22/19 05:10) anesthesia Allergy (Severe, Uncoded 09/20/19 14:06) HTZ Allergy (Uncoded 09/20/19 14:06) Steroids Allergy (Uncoded 09/20/19 14:06) Review of Systems Review of Systems: The first 25 minutes of this encounter were spent with the patient recounting the events of the last 24 hours. She started by stating that her illnesses are related to mold in her home. She states that black mold was discovered in 2017. She requested air filters possibly from her landlord and she states that she was declined. She reports that she spoke with the section 8 housing authority and states that they did not help. From water she reports a hole in her ceiling and that it is covered in plastic. She is her stove for heat. She then proceeded to characterize a psych social worker, who evidently arrested her son years ago that led to incarceration, as appropriate. She thinks he is told her Percocet. She is very paranoid about people in her house. She then began to complain about her hospitalization yesterday. In addition, she was arguing with her son's father and reports that she argued with the police. She then states that she is packing to move so it does appear that section 8 housing is helping her resolve this issue. Her demeanor reflected anxiety and paranoia. Cardiovascular: PRESENT: chest pain, palpitations Musculoskeletal: PRESENT: back pain Neurological: PRESENT: other - As discussed above Psychiatric: PRESENT: anxiety, other - Paranoid-like ideation Physical Exam Vital Signs: Temp Pulse Resp BP Pulse Ox 97.7 F 99 19 183/93 H 94 09/22/19 07:21 09/22/19 07:21 09/22/19 08:01 09/22/19 08:01 09/22/19 08:01 Intake & Output 09/21/19 09/22/19 09/23/19 06:59 06:59 06:59 Weight 68.946 kg General appearance: PRESENT: cooperative, well-developed, other - Well-developed 54-year-old black female resting in bed. She is in moderate distress. Head exam: PRESENT: atraumatic, normocephalic Eye exam: PRESENT: conjunctiva pale, EOMI. ABSENT: scleral icterus Ear exam: PRESENT: TM's normal bilaterally. ABSENT: bleeding, drainage Mouth exam: PRESENT: dry mucosa, tongue midline Respiratory exam: PRESENT: rales - Faint rales at bases, symmetrical, unlabored. ABSENT: accessory muscle use, prolonged expiratory phas, rhonchi, tachypnea, wheezes Cardiovascular exam: PRESENT: RRR, +S1, +S2 GI/Abdominal exam: PRESENT: normal bowel sounds, soft. ABSENT: distended, tenderness Rectal exam: PRESENT: deferred Gentrourinary exam: ABSENT: indwelling catheter Extremities exam: PRESENT: full ROM. ABSENT: joint swelling, pedal edema Musculoskeletal exam: PRESENT: ambulatory, normal inspection. ABSENT: deformity Neurological exam: PRESENT: alert, awake, oriented to person, oriented to place, oriented to time, oriented to situation, CN II-XII grossly intact Psychiatric exam: PRESENT: agitated, anxious Focused psych exam: PRESENT: paranoid - As described above, other - Patient expresses multiple concerns. She reports that someone has taken her Percocet tablets as she believes the number in the bottle does not correspond with her use. She worries that a suspicious psych social worker was in her house going through her things. She reports a purse that is missing. She brought up events from the past including her son's arrest. She is suspicious of wrongful arrest. She has been extremely anxious since signing out of the hospital yesterday. EMS was called to her house at 11 PM and 3:00 this morning. She spent a significant amount of time going over her living conditions. She states that there is significant mold including black mold. It is on her furniture. She blames that for many of her health issues. She states that the landlord's and director of section 8 housing has not done anything to help her. She worries that her house will catch fire because she uses her stove for heat as well as cooking. She was dissatisfied with her care in the hospital yesterday.. ABSENT: delusional, restlessness Skin exam: PRESENT: dry, normal color, warm Results Laboratory Results: 09/22/19 05:00 09/22/19 05:00 09/22/19 09/22/19 05:00 05:00 WBC 23.7 H D RBC 3.97 Hgb 13.2 Hct 38.4 MCV 97 MCH 33.2 MCHC 34.3 RDW 14.1 H Plt Count 240 Seg Neutrophils % Not Reportable Sodium 144.2 Potassium 3.7 Chloride 105 Carbon Dioxide 27 Anion Gap 12 BUN 27 H Creatinine 1.19 Est GFR ( Amer) 57 L Glucose 106 Calcium 10.6 H Total Bilirubin 0.5 AST 31 Alkaline Phosphatase 75 Total Protein 7.3 Albumin 4.3 09/22/19 09/22/19 09/22/19 05:00 05:00 07:44 Creatine Kinase 351 H CK-MB (CK-2) 7.61 H Troponin I 0.255 0.235 Impressions: Chest X-Ray 09/22/19 00:00 IMPRESSION: No definite acute intrathoracic disease or significant change when compared to the prior studies. Assessment and Plan - Diagnosis (1) NSTEMI (non-ST elevated myocardial infarction) Is this a current diagnosis for this admission?: Yes Plan: 09/22/2019-the patient's troponins were positive. There was no evidence of acute ST elevation. She also had marked hypertension. In addition to her baseline clonidine and torsemide she was given TIMI inhibitor's, aspirin and beta-blockers. I will continue to trend her troponins. Dr. Padgett, who is her claims correspondence clerk, will be seeing her as well. (2) Hypertensive emergency Is this a current diagnosis for this admission?: Yes Plan: 09/22/2019-the patient was given intravenous enalapril and topical nitroglycerin in the emergency department. This was in addition to aspirin and sublingual nitroglycerin. I will continue her clonidine for blood pressure and I have added metoprolol. She is on torsemide 20 mg twice daily. She will be admitted and monitored on telemetry with regular vital sign checks. Intravenous hydralazine will be available as needed. (3) Chest pain Qualifiers: Chest pain type: precordial pain Qualified Code(s): R07.2 - Precordial pain Is this a current diagnosis for this admission?: Yes Plan: 09/22/2019-she does have positive troponins but her presentation is not characteristic of cardiac pain. Regardless she was given nitrates, beta- blockers, diuretics and TIMI inhibitors. We will continue statin therapy. Consultation by Dr. Padgett has been requested as he is her outpatient claims correspondence clerk. Serial troponins have been ordered as well. (4) Leukocytosis Qualifiers: Leukocytosis type: leukemoid reaction Qualified Code(s): D72.823 - Leukemoid reaction Is this a current diagnosis for this admission?: Yes Plan: 09/22/2019-the patient did get high-dose steroids yesterday for an allergic reaction. The elevated white blood cell count can be secondary to the steroids. We will recheck tomorrow. There is no obvious focus of infection. (5) Anxiety Is this a current diagnosis for this admission?: Yes Plan: 09/22/2019-as noted above the patient has significant anxiety. This could be causing these symptoms. A panic attack could certainly be at the root of her presentation. This should not increase her troponins however but wide fluctuations in blood pressure over the last 24 hours as well as the marked hypertension today certainly could cause a troponin leak. (6) CHF (congestive heart failure) Qualifiers: Heart failure type: combined systolic and diastolic Heart failure chronicity: chronic Qualified Code(s): I50.42 - Chronic combined systolic (co ngestive) and diastolic (congestive) heart failure Is this a current diagnosis for this admission?: Yes Plan: 09/22/2019-I was unable to find an old echocardiogram in the patient's hospital records. She is documented as having combined systolic and diastolic failure. She will be on the TIMI inhibitor. Her BUN was elevated as well as her serum calcium so I have decreased the torsemide to 20 mg once daily. I will monitor her intake and output closely. She states that she has not been drinking much fluid and so I have ordered gentle hydration. (7) Hypercalcemia Is this a current diagnosis for this admission?: Yes Plan: 09/22/2019-serum calcium is slightly elevated. I have ordered gentle IV fluids and will recheck the serum calcium tomorrow. (8) Chronic pain with drug dependence Is this a current diagnosis for this admission?: Yes Plan: 09/22/2019-the patient was quite focused on her pain pills as noted above. We will continue her pain medications at this time. Urine toxicology screen was positive for opiates as expected and negative for all other substances. - Plan Summary Summary: 09/22/2019-the patient will be admitted to the [facility]. We will treat her hypertensive emergency with a combination of medications as well as as needed hydralazine. She is on nitroglycerin paste and was given aspirin as well. We will monitor her blood pressure and check serial troponins. She was found to be hypercalcemic with an elevated BUN. She may be intravascularly depleted and so I have given gentle fluids and will recheck electrolytes tomorrow. She does not appear to be in overt heart failure and did not require oxygen supplementation. Her claims correspondence clerk (Dr. Padgett) will be seeing her as well. - Time Time Spent with patient: 35 or more minutes Smoking Cessation Education: 3 to 10 minutes Medications reviewed and adjusted accordingly: Yes - Inpatient Certification Based on my medical assessment, after consideration of the patient's comorbidities, presenting symptoms, or acuity I expect that the services needed warrant INPATIENT care.: Yes I certify that my determination is in accordance with my understanding of Medicare's requirements for reasonable and necessary INPATIENT services [42 CFR 412.3e].: Yes Medical Necessity: Need For IV Fluids, Need For Continuous Telemetry Monitoring, Need for Pain Control Post Hospital Care: D/C Information Systems Technician Documentation
[2019-09-22] MEDS ORDERED: TORSEMIDE 20 MG TABLET PO SCH ×2 (10:00)
[2019-09-22] MEDS ORDERED: METOPROLOL TARTRATE 25 MG TABLET PO SCH ×2 (10:00→22:00)
[2019-09-22] MEDS ORDERED: CLONIDINE HCL 0.1 MG TABLET PO SCH (10:00)
[2019-09-22] MEDS: ASPIRIN 81 MG TABLET, ENT COATED PO SCH (11:08)
[2019-09-22] MEDS: FAMOTIDINE 20 MG TABLET PO SCH ×2 (11:08→22:37)
[2019-09-22] MEDS: NITROGLYCERIN 2% OINTMENT 1 GM PACKET TP SCH ×2 (11:09→17:40)
[2019-09-22] MEDS: POTASSIUM CHLORIDE 20 MEQ PACKET PO SCH ×2 (11:09→22:38)
[2019-09-22] MEDS: LORAZEPAM INJ 2 MG/1 ML VIAL IV PRN (11:22)
[2019-09-22 12:48] LABS: APPEARANCE,URINE CLEAR; BILIRUBIN,URINE NEGATIVE (NEGATIVE); COLOR,URINE YELLOW; GLUCOSE, URINE NEGATIVE (NEGATIVE); KETONES,URINE NEGATIVE (NEGATIVE); LEUKOCYTE ESTERASE,URINE NEGATIVE (NEGATIVE); NITRITE,URINE NEGATIVE (NEGATIVE); PROTEIN,URINE NEGATIVE (NEGATIVE); URINE SPECIFIC GRAVITY 1.016; UROBILINOGEN,URINE NEGATIVE mg/dL (<2.0)
--- NOTE | 2019-09-22 13:49 | EKG REPORT ---
SEVERITY:- ABNORMAL ECG - SINUS RHYTHM VENTRICULAR PREMATURE COMPLEX PROBABLE LEFT ATRIAL ABNORMALITY PROBABLE LVH WITH SECONDARY REPOL ABNRM : Confirmed by: Sarah Padgett MD 22-Sep-2019 13:49:02
[2019-09-22] MEDS: HEPARIN SOD (PORCINE) 5,000 UNIT/ML 1 ML VIAL SUBCUT SCH ×2 (14:01→22:43)
[2019-09-22] MEDS ORDERED: SENNOSIDES/DOCUSATE 8.6-50 MG 1 EACH TABLET PO PRN (14:27)
[2019-09-22] MEDS ORDERED: HYDRALAZINE HCL INJ/PF 20 MG/1 ML SDV IV PRN (14:33)
[2019-09-22 15:39] LABS: URINE AMPHETAMINES SCREEN NEGATIVE; URINE BARBITURATES SCREEN NEGATIVE; URINE BENZODIAZEPINES SCREEN NEGATIVE; URINE COCAINE SCREEN NEGATIVE; URINE MARIJUANA (THC) SCREEN NEGATIVE; URINE METHADONE SCREEN NEGATIVE; URINE PHENCYCLIDINE SCREEN NEGATIVE
[2019-09-22] MEDS ORDERED: NICOTINE 14 MG/24 HR PATCH.TD24 TD ONE (17:30)
[2019-09-22] MEDS: POLYETHYLENE GLYCOL 3350 POWDER 17 GM/1 PACKET PO SCH (17:40)
[2019-09-22] MEDS: OXYCODONE-ACETAMINOPHEN 5-325 MG TABLET PO PRN (17:40)
[2019-09-22] MEDS: ONDANSETRON 4 MG TAB.RAPDIS PO PRN (18:31)
[2019-09-22] MEDS ORDERED: ATORVASTATIN CALCIUM 40 MG TABLET PO SCH (22:00)
[2019-09-22] MEDS: LISINOPRIL 10 MG TABLET PO SCH (22:38)
[2019-09-22] MEDS: CLONIDINE HCL 0.1 MG TABLET PO SCH (22:38)
[2019-09-22] MEDS: NORMAL SALINE 1000 ML 1,000 ML IV PRN (22:57)
[2019-09-23] MEDS: OXYCODONE-ACETAMINOPHEN 5-325 MG TABLET PO PRN ×2 (00:35→08:27)
[2019-09-23] MEDS: NITROGLYCERIN 2% OINTMENT 1 GM PACKET TP SCH ×3 (00:36→12:46)
[2019-09-23] MEDS: LORAZEPAM INJ 2 MG/1 ML VIAL IV PRN ×2 (03:56→10:42)
[2019-09-23] MEDS: HEPARIN SOD (PORCINE) 5,000 UNIT/ML 1 ML VIAL SUBCUT SCH (05:53)
[2019-09-23 06:54] LABS: ANION GAP 8 (5-19); BLOOD UREA NITROGEN 24 mg/dL (7-20); CALCIUM 8.6 mg/dL (8.4-10.2); CARBON DIOXIDE 27 mmol/L (22-30); CHLORIDE 108 mmol/L (98-107); GLUCOSE 90 mg/dL (75-110); POTASSIUM 3.9 mmol/L (3.6-5.0)
[2019-09-23] MEDS: ONDANSETRON 4 MG TAB.RAPDIS PO PRN (08:27)
[2019-09-23] MEDS ORDERED: NICOTINE 14 MG/24 HR PATCH.TD24 TD SCH (10:00)
[2019-09-23] MEDS ORDERED: ATORVASTATIN CALCIUM 40 MG TABLET PO SCH (10:00)
[2019-09-23] MEDS ORDERED: SERTRALINE HCL 50 MG TABLET PO ONE (10:20)
--- NOTE | 2019-09-23 10:21 | PDOC PROGRESS REPORT ---
Subjective Progress Note for:: 09/23/19 Subjective:: Resting in bed. Still looks worried/anxious. Denies any chest pain. Reason For Visit: HYPERTENSIVE EMERGENCY,CHEST PAIN,ELEVATED TROPONI Physical Exam Vital Signs: Temp Pulse Resp BP Pulse Ox 98.5 F 66 16 168/71 H 98 09/23/19 07:57 09/23/19 07:57 09/23/19 07:57 09/23/19 07:57 09/23/19 07:57 Intake & Output 09/22/19 09/23/19 09/24/19 06:59 06:59 06:59 Intake Total 2913 Balance 2913 Weight 68.946 kg 74.4 kg General appearance: PRESENT: no acute distress, cooperative, mild distress - Still appears to be very worried and anxious, well-developed, well-nourished Head exam: PRESENT: atraumatic, normocephalic Respiratory exam: PRESENT: clear to auscultation milind, symmetrical, unlabored. ABSENT: accessory muscle use, prolonged expiratory phas, rales, rhonchi, tachypnea, wheezes Cardiovascular exam: PRESENT: RRR, +S1, +S2 GI/Abdominal exam: PRESENT: normal bowel sounds, soft. ABSENT: distended, ten derness Neurological exam: PRESENT: alert, awake, oriented to person, oriented to place, oriented to time, oriented to situation, CN II-XII grossly intact Psychiatric exam: PRESENT: anxious - Still appears slightly anxious. ABSENT: agitated Results Laboratory Results: 09/22/19 05:00 09/23/19 05:21 09/22/19 09/23/19 09/23/19 11:50 05:21 05:21 Sodium 142.5 Potassium 3.9 Chloride 108 H Carbon Dioxide 27 Anion Gap 8 BUN 24 H Creatinine 1.04 Est GFR ( Amer) > 60 Glucose 90 Calcium 8.6 Magnesium 1.8 TSH 1.73 Urine Color YELLOW Urine Appearance CLEAR Urine pH 6.0 Ur Specific [place] 1.016 Urine Protein NEGATIVE Urine Glucose (UA) NEGATIVE Urine Ketones NEGATIVE Urine Blood NEGATIVE Urine Nitrite NEGATIVE Ur Leukocyte Esterase NEGATIVE Urine WBC (Auto) 2 Urine RBC (Auto) 0 09/22/19 09/22/19 09/22/19 05:00 05:00 07:44 Creatine Kinase 351 H CK-MB (CK-2) 7.61 H Troponin I 0.255 0.235 09/22/19 09/22/19 14:02 19:15 Creatine Kinase CK-MB (CK-2) Troponin I 0.204 0.179 Impressions: Chest X-Ray 09/22/19 00:00 IMPRESSION: No definite acute intrathoracic disease or significant change when compared to the prior studies. Assessment and Plan - Diagnosis (1) NSTEMI (non-ST elevated myocardial infarction) Is this a current diagnosis for this admission?: Yes Plan: 09/22/2019-the patient's troponins were positive. There was no evidence of acute ST elevation. She also had marked hypertension. In addition to her baseline clonidine and torsemide she was given TIMI inhibitor's, aspirin and beta-blockers. I will continue to trend her troponins. Dr. Padgett, who is her collection teller, will be seeing her as well. 09/23/2019-troponins are coming down. The troponin leak could have been secondary to physiologic strain but qualifies as an NSTEMI. Continue current medications (2) Hypertensive emergency Is this a current diagnosis for this admission?: Yes Plan: 09/22/2019-the patient was given intravenous enalapril and topical nitroglycerin in the emergency department. This was in addition to aspirin and sublingual nitroglycerin. I will continue her clonidine for blood pressure and I have added metoprolol. She is on torsemide 20 mg twice daily. She will be admitted and monitored on telemetry with regular vital sign checks. Intravenous hydralazine will be available as needed. 09/23/2019-blood pressures improved. Continue current regimen (3) Chest pain Qualifiers: Chest pain type: precordial pain Qualified Code(s): R07.2 - Precordial pain Is this a current diagnosis for this admission?: Yes Plan: 09/22/2019-she does have positive troponins but her presentation is not characteristic of cardiac pain. Regardless she was given nitrates, beta-blocke rs, diuretics and TIMI inhibitors. We will continue statin therapy. Consultation by Dr. Padgett has been requested as he is her outpatient collection teller. Serial troponins have been ordered as well. 09/23/2019-no chest pain today (4) Leukocytosis Qualifiers: Leukocytosis type: leukemoid reaction Qualified Code(s): D72.823 - Leukemoid reaction Is this a current diagnosis for this admission?: Yes Plan: 09/22/2019-the patient did get high-dose steroids yesterday for an allergic reaction. The elevated white blood cell count can be secondary to the steroids. We will recheck tomorrow. There is no obvious focus of infection. 09/23/2019-white blood cell count is down to 11,000. Elevation was due to the steroid dosing that the patient received yesterday (5) Anxiety Is this a current diagnosis for this admission?: Yes Plan: 09/22/2019-as noted above the patient has significant anxiety. This could be causing these symptoms. A panic attack could certainly be at the root of her presentation. This should not increase her troponins however but wide fluctuations in blood pressure over the last 24 hours as well as the marked hypertension today certainly could cause a troponin leak. 09/23/2019-we reviewed the fact that she has a lot of stress in her life at this time. She did agreed to start Zoloft for its antianxiety properties and it is not addicting. (6) CHF (congestive heart failure) Qualifiers: Heart failure type: combined systolic and diastolic Heart failure chronicity: chronic Qualified Code(s): I50.42 - Chronic combined systolic (congestive) and diastolic (congestive) heart failure Is this a current diagnosis for this admission?: Yes Plan: 09/22/2019-I was unable to find an old echocardiogram in the patient's hospital records. She is documented as having combined systolic and diastolic failure. She will be on the TIMI inhibitor. Her BUN was elevated as well as her serum calcium so I have decreased the torsemide to 20 mg once daily. I will monitor her intake and output closely. She states that she has not been drinking much fluid and so I have ordered gentle hydration. 09/23/2019-asymptomatic at this time. Continue current regimen. (7) Hypercalcemia Is this a current diagnosis for this admission?: Yes Plan: 09/22/2019-serum calcium is slightly elevated. I have ordered gentle IV fluids and will recheck the serum calcium tomorrow. 09/23/2019-calcium normal (8) Chronic pain with drug dependence Is this a current diagnosis for this admission?: Yes Plan: 09/22/2019-the patient was quite focused on her pain pills as noted above. We will continue her pain medications at this time. Urine toxicology screen was positive for opiates as expected and negative for all other substances. 09/23/2019-continue current opiate dosing. No increases will be made. - Plan Summary Summary: 09/22/2019-the patient will be admitted to the [facility]. We will treat her hypertensive emergency with a combination of medications as well as as needed hydralazine. She is on nitroglycerin paste and was given aspirin as well. We will monitor her blood pressure and check serial troponins. She was found to be hypercalcemic with an elevated BUN. She may be intravascularly depleted and so I have given gentle fluids and will recheck electrolytes tomorrow. She does not appear to be in overt heart failure and did not require oxygen supplementation. Her collection teller (Dr. Padgett) will be seeing her as well. - Time Time Spent with patient: Less than 15 minutes Medications reviewed and adjusted accordingly: Yes Anticipated discharge: Home Within: within 24 hours
[2019-09-23] MEDS: CLONIDINE HCL 0.1 MG TABLET PO SCH (10:23)
[2019-09-23] MEDS: ASPIRIN 81 MG TABLET, ENT COATED PO SCH (10:23)
[2019-09-23] MEDS: FAMOTIDINE 20 MG TABLET PO SCH (10:24)
[2019-09-23] MEDS: LISINOPRIL 10 MG TABLET PO SCH (10:24)
[2019-09-23] MEDS: POTASSIUM CHLORIDE 20 MEQ PACKET PO SCH (10:24)
[2019-09-23] MEDS: POLYETHYLENE GLYCOL 3350 POWDER 17 GM/1 PACKET PO SCH (10:24)
[2019-09-23 10:31] LABS: HEMATOCRIT 35.1 % (36.0-47.0); HEMOGLOBIN 11.9 g/dL (12.0-15.5); MEAN CORPUSCULAR HEMOGLOBIN 33.4 pg (27.0-33.4); MEAN CORPUSCULAR HGB CONC 33.9 g/dL (32.0-36.0); MEAN CORPUSCULAR VOLUME 98 fl (80-97); PLATELET COUNT 197 10^3/uL (150-450); RED BLOOD COUNT 3.57 10^6/uL (3.72-5.28); RED CELL DISTRIBUTION WIDTH 14.3 % (11.5-14.0); WHITE BLOOD COUNT 11.3 10^3/uL (4.0-10.5)
[2019-09-23] MEDS: NORMAL SALINE 1000 ML 1,000 ML IV PRN (11:50)
[2019-09-23 12:18] VITALS: BP 131/64
--- NOTE | 2019-09-23 19:34 | EKG REPORT ---
SEVERITY:- ABNORMAL ECG - SINUS RHYTHM CONSIDER LEFT VENTRICULAR HYPERTROPHY : Confirmed by: Sarah Padgett MD 23-Sep-2019 19:33:30
[2019-09-23] MEDS ORDERED: METOPROLOL TARTRATE 25 MG TABLET PO SCH (22:00)
--- NOTE | 2019-09-23 22:37 | Left Against Medical Advice ---
Against Medical Advice Admission Date/Time: 09/22/19 06:50 Primary Care Provider: Date of Patient Emigration: 09/23/19 - Diagnosis: (1) NSTEMI (non-ST elevated myocardial infarction) Is this a current diagnosis for this admission?: Yes (2) Hypertensive emergency Is this a current diagnosis for this admission?: Yes (3) Chest pain Is this a current diagnosis for this admission?: Yes (4) Leukocytosis Is this a current diagnosis for this admission?: Yes (5) Anxiety Is this a current diagnosis for this admission?: Yes (6) CHF (congestive heart failure) Is this a current diagnosis for this admission?: Yes (7) Hypercalcemia Is this a current diagnosis for this admission?: Yes (8) Chronic pain with drug dependence Is this a current diagnosis for this admission?: Yes - Summary: Summary: Please see Admission and Progress Notes as well. GERRY VELIZ is a 54 F, who LEFT AGAINST MEDICAL ADVICE. The Patient was admitted on 09/22/19 06:50. The patient was fine earlier today. She has an outpatient stress test with Dr. Caraballo in 2 weeks. I was writing for cardiology's opinion regarding discharge to day as the patient is improved and currently pain-free. I was called this afternoon and the patient signed out AGAINST MEDICAL ADVICE. She did this 2 days ago as well.
[2019-09-24] MEDS ORDERED: SERTRALINE HCL 50 MG TABLET PO SCH (10:00)
== END 2019-09-23 14:45 | disposition left against medical advice (07) | DRG 281 ==
LOC: ER 04:19 → EH 06:50 → 3W 09:00
PROVIDERS: ADMIT Emergency Medicine; ATTEND Emergency Medicine
DX: I21.4 Non-ST elevation (NSTEMI) myocardial infarction (principal); I16.1 Hypertensive emergency; I13.0 Hypertensive heart and chronic kidney disease with heart failure and stage 1 through stage 4 chronic kidney disease, or unspecified chronic kidney disease; I50.42 Chronic combined systolic (congestive) and diastolic (congestive) heart failure; F41.9 Anxiety disorder, unspecified; E83.52 Hypercalcemia; G89.29 Other chronic pain; N18.9 Chronic kidney disease, unspecified; E78.5 Hyperlipidemia, unspecified; J44.9 Chronic obstructive pulmonary disease, unspecified; E11.22 Type 2 diabetes mellitus with diabetic chronic kidney disease; K21.9 Gastro-esophageal reflux disease without esophagitis; F32.9 Major depressive disorder, single episode, unspecified; F17.210 Nicotine dependence, cigarettes, uncomplicated; I25.2 Old myocardial infarction; R07.2 Precordial pain; E78.00 Pure hypercholesterolemia, unspecified; T38.0X5A Adverse effect of glucocorticoids and synthetic analogues, initial encounter; D72.823 Leukemoid reaction; Z79.899 Other long term (current) drug therapy; Z79.891 Long term (current) use of opiate analgesic; Z88.6 Allergy status to analgesic agent; Z88.4 Allergy status to anesthetic agent; Z88.8 Allergy status to other drugs, medicaments and biological substances
CPT/HCPCS: 36415; 71046; 80048; 80053; 80307; 80361; 81001; 82550; 82553; 82962; 83735; 84443; 84484; 85025; 85027; 87040; 87086; 93005; 93010; 99285; J2060; J3490; J7030; S0119

== ENCOUNTER 2019-10-04 14:55 | Emergency (ER) | payer MEDICARE, MEDICAID ==
--- NOTE | 2019-10-04 17:46 | RADIOLOGY REPORT (SQ) ---
EXAM DESCRIPTION: CHEST 2 VIEWS COMPLETED DATE/TIME: 10/04/2019 4:18 pm REASON FOR STUDY: sob COMPARISON: None. EXAM PARAMETERS: NUMBER OF VIEWS: two views TECHNIQUE: Digital Frontal and Lateral radiographic views of the chest acquired. RADIATION DOSE: NA LIMITATIONS: none FINDINGS: LUNGS AND PLEURA: Lungs are hyperinflated. No opacities, masses or pneumothorax. No pleur al effusion. MEDIASTINUM AND HILAR STRUCTURES: No masses or contour abnormalities. HEART AND VASCULAR STRUCTURES: Heart normal size. No evidence for failure. BONES: No acute findings. HARDWARE: None in the chest. OTHER: No other significant finding. IMPRESSION: No acute cardiopulmonary disease. Hyperinflated lungs which can be seen with obstructiv e lung disease. TECHNICAL DOCUMENTATION: JOB ID: [id number] [employer]- All Rights Reserved Reading location - IP/workstation name: [email or web address]
[2019-10-04] MEDS ORDERED: IPRATROPIUM/ALBUTEROL 0.5-2.5 MG/3 ML AMPUL NEB ONE ×2 (17:59→20:45)
--- NOTE | 2019-10-04 18:02 | ER Document Report ---
ED Medical Screen (RME) - General Chief Complaint: Nonproductive Cough Stated Complaint: COUGHING UP BLOOD Time Seen by Provider: 10/04/19 17:57 Mode of Arrival: Ambulatory Notes: Nurse was finally able to locate patient as patient had been called multiple times and had to be located patient presents complaining of cough for the past 2 weeks and states she has had blood in her sputum. Patient states she feels as though her symptoms are due to mold in her house. Patient is currently taking Levaquin for a sinus infection. Patient denies any fever. I have greeted and performed a rapid initial assessment of this patient. A comprehensive ED assessment and evaluation of the patient, analysis of test results and completion of the medical decision making process will be conducted by additional ED providers. TRAVEL OUTSIDE OF THE [place] IN LAST 30 DAYS: No - Related Data Allergies/Adverse Reactions: gabapentin Allergy (Severe, Verified 09/22/19 05:10) Edema cyclobenzaprine HCl [From Flexeril] Allergy (Verified 09/22/19 05:10) tramadol [Tramadol] Allergy (Verified 09/22/19 05:10) anesthesia Allergy (Severe, Uncoded 09/20/19 14:06) HTZ Allergy (Uncoded 09/20/19 14:06) Steroids Allergy (Uncoded 09/20/19 14:06) Past Medical History - Past Medical History Cardiac Medical History: Reports: Hx Congestive Heart Failure, Hx Heart Attack, Hx Hypercholesterolemia, Hx Hypertension Pulmonary Medical History: Reports: Hx Asthma, Hx Bronchitis, Hx COPD Neurological Medical History: Reports: Hx Migraine, Hx Seizures Endocrine Medical History: Reports: Hx Diabetes Mellitus Type 2 - borderline Renal/ Medical History: Denies: Hx Peritoneal Dialysis GI Medical History: Reports: Hx Gastroesophageal Reflux Disease, Hx Ulcer Psychiatric Medical History: Reports: Hx Anxiety, Hx Depression Past Surgical History: Reports: Hx Hysterectomy, Hx Orthopedic Surgery - L leg AND R KNEE - Immunizations Hx Diphtheria, Pertussis, Tetanus Vaccination: Yes - <5 years Physical Exam - Vital signs Vitals: Temp Pulse Resp BP Pulse Ox 99 F 119 H 18 152/82 H 92 10/04/19 15:11 10/04/19 15:11 10/04/19 15:11 10/04/19 15:11 10/04/19 15:11 - Respiratory Respiratory status: No respiratory distress Breath sounds: Productive cough, Wheezing - Scattered Course - Vital Signs Vital signs: Temp Pulse Resp BP Pulse Ox 99 F 119 H 18 152/82 H 92 10/04/19 15:11 10/04/19 15:11 10/04/19 15:11 10/04/19 15:11 10/04/19 15:11
[2019-10-04] MEDS ORDERED: ALBUTEROL SULFATE 0.083% NEB 2.5 MG/3 ML AMPUL NEB SCH (18:14)
[2019-10-04 19:15] LABS: APPEARANCE,URINE SLIGHTLY-CLOUDY; BILIRUBIN,URINE NEGATIVE (NEGATIVE); COLOR,URINE YELLOW; GLUCOSE, URINE NEGATIVE (NEGATIVE); KETONES,URINE NEGATIVE (NEGATIVE); LEUKOCYTE ESTERASE,URINE NEGATIVE (NEGATIVE); NITRITE,URINE NEGATIVE (NEGATIVE); PROTEIN,URINE 30 mg/dL (NEGATIVE); URINE SPECIFIC GRAVITY 1.017; UROBILINOGEN,URINE NEGATIVE mg/dL (<2.0)
[2019-10-04] MEDS ORDERED: ALBUTEROL SULFATE 0.083% NEB 2.5 MG/3 ML AMPUL NEB ONE ×2 (20:45→21:05)
--- NOTE | 2019-10-04 21:38 | ER Document Report ---
ED General - General Chief Complaint: Cough Stated Complaint: COUGHING UP BLOOD Time Seen by Provider: 10/04/19 17:57 Mode of Arrival: Ambulatory Information source: Patient TRAVEL OUTSIDE OF THE [place] IN LAST 30 DAYS: No - Related Data Allergies/Adverse Reactions: gabapentin Allergy (Severe, Verified 09/22/19 05:10) Edema cyclobenzaprine HCl [From Flexeril] Allergy (Verified 09/22/19 05:10) tramadol [Tramadol] Allergy (Verified 09/22/19 05:10) anesthesia Allergy (Severe, Uncoded 09/20/19 14:06) HTZ Allergy (Uncoded 09/20/19 14:06) Steroids Allergy (Uncoded 09/20/19 14:06) Past Medical History - Social History Smoking Status: Current Every Day Smoker Frequency of alcohol use: None Drug Abuse: None Family History: Reviewed & Not Pertinent, Malignancy, Other Patient has suicidal ideation: No Patient has homicidal ideation: No - Past Medical History Cardiac Medical History: Reports: Hx Congestive Heart Failure, Hx Heart Attack, Hx Hypercholesterolemia, Hx Hypertension Pulmonary Medical History: Reports: Hx Asthma, Hx Bronchitis, Hx COPD Neurological Medical History: Reports: Hx Migraine, Hx Seizures Endocrine Medical History: Reports: Hx Diabetes Mellitus Type 2 - borderline Renal/ Medical History: Denies: Hx Peritoneal Dialysis GI Medical History: Reports: Hx Gastroesophageal Reflux Disease, Hx Ulcer Psychiatric Medical History: Reports: Hx Anxiety, Hx Depression Past Surgical History: Reports: Hx Hysterectomy, Hx Orthopedic Surgery - L leg AND R KNEE - Immunizations Hx Diphtheria, Pertussis, Tetanus Vaccination: Yes - <5 years Physical Exam - Vital signs Vitals: Temp Pulse Resp BP Pulse Ox 99 F 119 H 18 152/82 H 92 10/04/19 15:11 10/04/19 15:11 10/04/19 15:11 10/04/19 15:11 10/04/19 15:11 Course - Vital Signs Vital signs: Temp Pulse Resp BP Pulse Ox 99 F 119 H 18 152/82 H 92 10/04/19 15:11 10/04/19 15:11 10/04/19 15:11 10/04/19 15:11 10/04/19 15:11 - Laboratory Laboratory results interpreted by me: 10/04/19 18:38 Urine Protein 30 H
--- NOTE | 2019-10-04 22:01 | ER Document Report ---
ED General - General Chief Complaint: Cough Stated Complaint: COUGHING UP BLOOD Time Seen by Provider: 10/04/19 17:57 Mode of Arrival: Ambulatory Information source: Patient TRAVEL OUTSIDE OF THE [place] IN LAST 30 DAYS: No - HPI Onset: Other - 2 Weeks Onset/Duration: Sudden Quality of pain: Other - Congestion Severity: Moderate Pain Level: Denies Associated symptoms: Hoarseness, Sinus pain/drainage - She has some nasal bloody phlegm around 24 hours ago. - Related Data Allergies/Adverse Reactions: gabapentin Allergy (Severe, Verified 09/22/19 05:10) Edema cyclobenzaprine HCl [From Flexeril] Allergy (Verified 09/22/19 05:10) tramadol [Tramadol] Allergy (Verified 09/22/19 05:10) anesthesia Allergy (Severe, Uncoded 09/20/19 14:06) HTZ Allergy (Uncoded 09/20/19 14:06) Steroids Allergy (Uncoded 09/20/19 14:06) Past Medical History - General Information source: Patient - Social History Smoking Status: Current Every Day Smoker Cigarette use (# per day): Yes Chew tobacco use (# tins/day): No Smoking Education Provided: Yes Frequency of alcohol use: None Drug Abuse: None Lives with: Family Family History: Reviewed & Not Pertinent, Malignancy, Other Patient has suicidal ideation: No Patient has homicidal ideation: No - Medical History Medical History: Other - Positive for hypercholesterolemia and also CHF and also COPD and an acute allergic reaction - Past Medical History Cardiac Medical History: Reports: Hx Congestive Heart Failure, Hx Heart Attack, Hx Hypercholesterolemia, Hx Hypertension Pulmonary Medical History: Reports: Hx Asthma, Hx Bronchitis, Hx COPD EENT Medical History: Reports: Other - Patient was placed on amoxicillin by her personal Dr. Antonio Neurological Medical History: Reports: Hx Migraine, Hx Seizures Endocrine Medical History: Reports: Hx Diabetes Mellitus Type 2 - borderline Renal/ Medical History: Denies: Hx Peritoneal Dialysis GI Medical History: Reports: Hx Gastroesophageal Reflux Disease, Hx Ulcer Psychiatric Medical History: Reports: Hx Anxiety, Hx Depression Past Surgical History: Reports: Hx Hysterectomy, Hx Orthopedic Surgery - L leg AND R KNEE - Immunizations Hx Diphtheria, Pertussis, Tetanus Vaccination: Yes - <5 years Review of Systems - Review of Systems Constitutional: Fever, Weakness EENT: Nose congestion, Other - The phlegm yesterday Cardiovascular: Other - Acute cardia Physical Exam - Vital signs Vitals: Temp Pulse Resp BP Pulse Ox 99 F 119 H 18 152/82 H 92 10/04/19 15:11 10/04/19 15:11 10/04/19 15:11 10/04/19 15:11 10/04/19 15:11 Interpretation: Febrile - HEENT Head: Normocephalic Eyes: Normal Conjunctiva: Normal Cornea: Normal Eyelashes: Normal Pupils: PERRL -: right: Iridectomy Sinus: Abnormal Nasal: Bloody discharge, Purulent discharge - Respiratory Respiratory status: No respiratory distress - Cardiovascular Rhythm: Tachycardia Heart sounds: Normal auscultation Murmur: No Course - Re-evaluation Re-evalutation: 10/04/19 22:00 Patient wanted to go home because she has been here a long time and therefore I advised her to get some labs but she will still wanted to go home I wrote her prescription for Z-Sergo. And nasal Bactroban she had spoken to her sister who works at [employer] as a nurse and the Z-Sergo was recommended by her. - Vital Signs Vital signs: Temp Pulse Resp BP Pulse Ox 99 F 119 H 18 152/82 H 92 10/04/19 15:11 10/04/19 15:11 10/04/19 15:11 10/04/19 15:11 10/04/19 15:11 - Laboratory Laboratory results interpreted by me: 10/04/19 18:38 Urine Protein 30 H - Diagnostic Test Radiology reviewed: Reports reviewed Discharge - Discharge Clinical Impression: URI (upper respiratory infection), Sinusitis Clinical Impression: (Ruled Out): Acute frontal sinusitis Condition: Fair Disposition: HOME, SELF-CARE Instructions: Upper Respiratory Illness ([facility]) Additional Instructions: Follow-up with personal doctor this week;return to ER as needed; take medicines as directed; return to ER if symptoms persist or worsen Prescriptions: Mupirocin [Bactroban 2% Ointment 22 gm] 1 applic NASL TID #1 tube Azithromycin [Zithromax 250 mg Tablet] 250 mg PO ASDIR PRN #6 tablet PRN Reason:
--- NOTE | 2019-10-04 22:02 | EKG REPORT ---
SEVERITY:- ABNORMAL ECG - SINUS TACHYCARDIA ATRIAL PREMATURE COMPLEX RAA, CONSIDER BIATRIAL ABNORMALITIES PROBABLE LVH WITH SECONDARY REPOL ABNRM : Confirmed by: Gloria Wilson 04-Oct-2019 22:01:44
[2019-10-04 22:29] VITALS: BP 184/88
== END 2019-10-04 22:32 | disposition home or self-care (01) ==
LOC: ER 14:55
DX: J06.9 Acute upper respiratory infection, unspecified (principal); J32.9 Chronic sinusitis, unspecified; I50.9 Heart failure, unspecified; E78.00 Pure hypercholesterolemia, unspecified; I11.0 Hypertensive heart disease with heart failure; R73.03 Prediabetes; Z90.710 Acquired absence of both cervix and uterus; Z88.6 Allergy status to analgesic agent; I25.2 Old myocardial infarction
CPT/HCPCS: 93005; 94640 ×2; 99284; 81001; 71046; 93010; A9270 ×2; J7620

== ENCOUNTER 2019-10-09 12:58 | Emergency (ER) | payer MEDICARE, MEDICAID ==
--- NOTE | 2019-10-09 13:26 | ER Document Report ---
ED Medical Screen (RME) - General Chief Complaint: Blood Pressure Problem Stated Complaint: BLOOD PRESSURE ISSUES/BODY ACHES Time Seen by Provider: 10/09/19 13:25 Primary Care Provider: MELVA BOSE MD [Primary Care Provider] - Follow up as needed TRAVEL OUTSIDE OF THE [place] IN LAST 30 DAYS: No - HPI Notes: 10/09/19 13:25 Patient is a 54-year-old female with a history of multiple chronic comorbidities who presents complaining of general weakness, lightheaded, nauseated over the past several days. Patient states that she was here couple days ago diagnosed with an upper respiratory illness and was placed on antibiotics. She has not noticed any fever or chest pain. I have treated and performed a rapid initial assessment of this patient. A comprehensive ED assessment and evaluation of the patient, analysis of test results and completion of medical decision making process will be conducted by additional ED providers. PHYSICAL EXAMINATION: GENERAL: Well-appearing, well-nourished and in no acute distress. A&Ox4. Answers questions appropriately. Heart: RRR Lungs: CTAB - Related Data Allergies/Adverse Reactions: gabapentin Allergy (Severe, Verified 09/22/19 05:10) Edema cyclobenzaprine HCl [From Flexeril] Allergy (Verified 09/22/19 05:10) tramadol [Tramadol] Allergy (Verified 09/22/19 05:10) anesthesia Allergy (Severe, Uncoded 09/20/19 14:06) HTZ Allergy (Uncoded 09/20/19 14:06) Steroids Allergy (Uncoded 09/20/19 14:06) Past Medical History - Past Medical History Cardiac Medical History: Reports: Hx Congestive Heart Failure, Hx Heart Attack, Hx Hypercholesterolemia, Hx Hypertension Pulmonary Medical History: Reports: Hx Asthma, Hx Bronchitis, Hx COPD Neurological Medical History: Reports: Hx Migraine, Hx Seizures Endocrine Medical History: Reports: Hx Diabetes Mellitus Type 2 - borderline Renal/ Medical History: Denies: Hx Peritoneal Dialysis GI Medical History: Reports: Hx Gastroesophageal Reflux Disease, Hx Ulcer Psychiatric Medical History: Reports: Hx Anxiety, Hx Depression Past Surgical History: Reports: Hx Hysterectomy, Hx Orthopedic Surgery - L leg AND R KNEE - Immunizations Hx Diphtheria, Pertussis, Tetanus Vaccination: Yes - <5 years Physical Exam - Vital signs Vitals: Temp Pulse Resp BP Pulse Ox 97.5 F 101 H 20 107/64 95 10/09/19 13:03 10/09/19 13:03 10/09/19 13:03 10/09/19 13:03 10/09/19 13:03 Course - Vital Signs Vital signs: Temp Pulse Resp BP Pulse Ox 97.5 F 101 H 20 107/64 95 10/09/19 13:03 10/09/19 13:03 10/09/19 13:03 10/09/19 13:03 10/09/19 13:03 Doctor's Discharge - Discharge Referrals: MELVA BOSE MD [Primary Care Provider] - Follow up as needed
[2019-10-09] MEDS ORDERED: NORMAL SALINE 1000 ML 1,000 ML IV ONE (13:27)
[2019-10-09] MEDS ORDERED: ONDANSETRON 4 MG TAB.RAPDIS PO ONE (13:27)
[2019-10-09 14:28] LABS: APPEARANCE,URINE CLOUDY; BILIRUBIN,URINE NEGATIVE (NEGATIVE); GLUCOSE, URINE NEGATIVE (NEGATIVE); KETONES,URINE TRACE mg/dL (NEGATIVE); PROTEIN,URINE 100 mg/dL (NEGATIVE)
[2019-10-09 14:29] LABS: COLOR,URINE YELLOW
[2019-10-09] MEDS ORDERED: ONDANSETRON 4 MG TAB.RAPDIS ONE (16:01)
[2019-10-09 16:14] LABS: ABSOLUTE EOSINOPHILS # (AUTO) 0.3 10^3/uL (0.0-0.6); ABSOLUTE LYMPHOCYTES (AUTO) 3.9 10^3/uL (0.5-4.7); ABSOLUTE MONOCYTES (AUTO) 1.1 10^3/uL (0.1-1.4); ABSOLUTE NEUT (AUTO) 8.2 10^3/uL (1.7-8.2); BASOPHILS % (AUTO) 0.3 % (0-2); EOSINOPHILS % (AUTO) 2.1 % (0-6); HEMATOCRIT 42.4 % (36.0-47.0); HEMOGLOBIN 14.7 g/dL (12.0-15.5); LYMPHOCYTES % (AUTO) 29.1 % (13-45); MEAN CORPUSCULAR HEMOGLOBIN 33.3 pg (27.0-33.4); MEAN CORPUSCULAR HGB CONC 34.7 g/dL (32.0-36.0); MEAN CORPUSCULAR VOLUME 96 fl (80-97); MONOCYTES % (AUTO) 8.2 % (3-13); PLATELET COUNT 291 10^3/uL (150-450); RED BLOOD COUNT 4.42 10^6/uL (3.72-5.28); RED CELL DISTRIBUTION WIDTH 14.3 % (11.5-14.0); SEGMENTED NEUTROPHILS % (AUTO) 60.3 % (42-78); TOTAL CELLS COUNTED % (AUTO) 100 %; WHITE BLOOD COUNT 13.5 10^3/uL (4.0-10.5)
[2019-10-09 16:31] LABS: ALBUMIN 4.7 g/dL (3.5-5.0); ALKALINE PHOSPHATASE 79 U/L (38-126); ANION GAP 14 (5-19); ASPARTATE AMINO TRANSFERASE 29 U/L (14-36); BILIRUBIN,DIRECT 0.3 mg/dL (0.0-0.4); BILIRUBIN,TOTAL 0.7 mg/dL (0.2-1.3); BLOOD UREA NITROGEN 30 mg/dL (7-20); CALCIUM 10.5 mg/dL (8.4-10.2); CARBON DIOXIDE 29 mmol/L (22-30); CHLORIDE 96 mmol/L (98-107); GLUCOSE 105 mg/dL (75-110); POTASSIUM 3.1 mmol/L (3.6-5.0)
[2019-10-09] MEDS ORDERED: POTASSIUM CHLORIDE 10 MEQ TABLET.ER PO ONE (16:54)
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
--- NOTE | 2019-10-09 16:57 | RADIOLOGY REPORT (SQ) ---
EXAM DESCRIPTION: CHEST 2 VIEWS COMPLETED DATE/TIME: 10/09/2019 4:17 pm REASON FOR STUDY: cough COMPARISON: Chest films 10/04/2019, 02/15/2019 CT chest 03/22/2016 EXAM PARAMETERS: NUMBER OF VIEWS: two views TECHNIQUE: Digital Frontal and Lateral radiographic views of the chest acquired. RADIATION DOSE: NA LIMITATIONS: none FINDINGS: LUNGS AND PLEURA: Lungs are hyperinflated from obstructive disease. No acute infiltrates. No pleural effusion. No pneumothorax. MEDIASTINUM AND HILAR STRUCTURES: No masses or contour abnormalities. HEART AND VASCULAR STRUCTURES: Heart normal size. No evidence for failure. BONES: No acute findings. HARDWARE: None in the chest. OTHER: No other significant finding. IMPRESSION: Obstructive lung disease. No acute infiltrates. TECHNICAL DOCUMENTATION: JOB ID: [id number] ERN- All Rights Reserved Reading location - IP/workstation name: [email or web address]
[2019-10-09] MEDS ORDERED: NICOTINE 21 MG/24 HR PATCH.TD24 TD ONE (20:03)
--- NOTE | 2019-10-09 21:30 | EKG REPORT ---
SEVERITY:- ABNORMAL ECG - SINUS RHYTHM PROBABLE LEFT ATRIAL ABNORMALITY PROBABLE LVH WITH SECONDARY REPOL ABNRM : Confirmed by: Sarah Padgett MD 09-Oct-2019 21:29:51
--- NOTE | 2019-10-09 21:30 | EKG REPORT ---
SEVERITY:- ABNORMAL ECG - SINUS RHYTHM NONSPECIFIC T ABNORMALITIES, INFERIOR LEADS : Confirmed by: Sarah Padgett MD 09-Oct-2019 21:29:47
[2019-10-09] MEDS ORDERED: OXYCODONE-ACETAMINOPHEN 5-325 MG TABLET PO ONE (22:06)
[2019-10-09 22:24] VITALS: BP 133/71
== END 2019-10-09 22:25 | disposition home or self-care (01) ==
LOC: ER 12:58
DX: J06.9 Acute upper respiratory infection, unspecified (principal); F11.29 Opioid dependence with unspecified opioid-induced disorder; M19.90 Unspecified osteoarthritis, unspecified site; M41.9 Scoliosis, unspecified; G89.29 Other chronic pain; F41.9 Anxiety disorder, unspecified; E87.6 Hypokalemia; R53.1 Weakness; I10 Essential (primary) hypertension; R42 Dizziness and giddiness; R11.0 Nausea; R07.9 Chest pain, unspecified; J44.9 Chronic obstructive pulmonary disease, unspecified; R05 Cough; H92.03 Otalgia, bilateral; R09.89 Other specified symptoms and signs involving the circulatory and respiratory systems; F17.210 Nicotine dependence, cigarettes, uncomplicated; Z77.120 Contact with and (suspected) exposure to mold (toxic); Z88.6 Allergy status to analgesic agent; Z88.8 Allergy status to other drugs, medicaments and biological substances; Z88.4 Allergy status to anesthetic agent
CPT/HCPCS: 93005 ×2; 99285; 36415; 83735; 85025; 80053; 81001; 84484; 71046; 93010; A9270 ×4; J7030; S0119

== ENCOUNTER 2019-10-10 07:55 | Emergency (ER) | payer MEDICARE, MEDICAID ==
[2019-10-10 08:16] VITALS: BP 125/92
== END 2019-10-10 08:07 | disposition left against medical advice (07) ==
LOC: ER 07:55
DX: Z53.21 Procedure and treatment not carried out due to patient leaving prior to being seen by health care provider (principal)

== ENCOUNTER → 2019-10-10 | Outpatient (CLI) | payer MEDICARE, MEDICAID ==
[~2019-10-10] MED LIST changes: -DIAZEPAM 5 MG TABLET ONE; +REGADENOSON INJ 0.4 MG/5 ML DISP.SYRIN IV ONE
--- NOTE | 2019-10-10 23:47 | DRAGON STRESS TEST REPORT ---
ntravenous Lexiscan Cardiolite stress test using single photon emmision computerized tomography. Date of procedure: 10/10/2019.Ordering Provider: Dr. Sarah Padgett.Patient's status: Out Patient. Indication: Chest pain. Coronary risk factors: Age, borderline diabetes mellitus, hypertension dyslipidemia tobacco abuse disorder, and family history of coronary artery disease. Resting EKG: Sinus Rhythm. LVH with strain pattern. Cannot exclude inferior and lateral wall ischemia. Stress EKG: No changes of ischemia. Patient had no chest pain discomfort, and there were no arrhythmias seen. Reason for termination: Protocol. Conclusions: Normal EKG and hemodynamic response to IV Lexiscan. Nuclear data: At rest the patient was given 10.45 millicuries of technetium 99m sestamibi injected intravenously. As per protocol rest non gated SPECT images were obtained. Subsequently the patient was given intravenous Lexiscan at a dose of 0.4 mg in 5 mL intravenously, followed by flush with normal saline. Subsequently the stress dose of 32.7 millicuries of technetium 99m sestamibi was injected intravenously. As per protocol stress gated images were obtained. Nuclear interpretation: Review of images showed that all segments of the myocardium had normal perfusion at rest, and normal perfusion post stress with IV Lexiscan. All segments of the myocardium had normal motion, contraction, and thickening by gated study. T. I D. ratio was read as abnormal by the computer at 1.22. Visually this is not reliable, and visual T I D ratio is normal. There is no transient ischemic dilatation of the left ventricle. Computer read rest, and stress left ventricular ejection fraction were 68 %, and 74 %, respectively. Conclusion: 1. There is no scintigraphic evidence of Lexiscan induced myocardial ischemia. 2. There is no scintigraphic evidence of myocardial infarction/scar. Recommendations: Aggressive risk factor modification, and treating the underlying co- morbidities. MTDD
== END ==
LOC: RAD 08:21
PROVIDERS: ATTEND Specialist
DX: R07.9 Chest pain, unspecified (principal)
CPT/HCPCS: 93017; 78452; A9500; J2785; Q9969

== ENCOUNTER → 2019-10-24 | Outpatient (CLI) | payer MEDICARE, MEDICAID ==
[2019-10-24 15:45] LABS: ANION GAP 9 (5-19); BLOOD UREA NITROGEN 16 mg/dL (7-20); CALCIUM 9.5 mg/dL (8.4-10.2); CARBON DIOXIDE 29 mmol/L (22-30); CHLORIDE 99 mmol/L (98-107); GLUCOSE 110 mg/dL (75-110); POTASSIUM 3.6 mmol/L (3.6-5.0)
== END ==
LOC: OD 14:51
PROVIDERS: ATTEND Specialist
DX: R07.9 Chest pain, unspecified (principal); I10 Essential (primary) hypertension; R01.1 Cardiac murmur, unspecified; R73.03 Prediabetes; G89.4 Chronic pain syndrome; E78.5 Hyperlipidemia, unspecified; F17.210 Nicotine dependence, cigarettes, uncomplicated; J44.9 Chronic obstructive pulmonary disease, unspecified; Z79.899 Other long term (current) drug therapy
CPT/HCPCS: 36415; 80048; 83036; 83735

== ENCOUNTER 2019-11-17 09:01 | Emergency (ER) | payer MEDICARE, MEDICAID ==
[2019-11-17] MEDS ORDERED: FAMOTIDINE INJ/PF 20 MG/2 ML SDV IV ONE (09:34)
--- NOTE | 2019-11-17 09:47 | ER Document Report ---
ED Allergic Reaction - General Chief Complaint: Breathing Difficulty Stated Complaint: POSSIBLE ALLERGIC REACTION Time Seen by Provider: 11/17/19 09:16 Primary Care Provider: MELVA BOSE MD [ACTIVE STAFF] - Follow up as needed Notes: Patient is a 54-year-old female with a history of congestive heart failure, COPD, chronic kidney disease, opioid dependence on chronic pain management, hypertension who presents emergency department who presents to the emergency department with a chief complaint of allergic reaction. Patient reports 30 minutes prior to arrival she accidentally took Augmentin. Patient reports that she was prescribed Augmentin back in August for a sinus infection. Patient reports at that time she did have an allergic reaction and was admitted to the hospital. Patient reports she did not throw away her bottle of Augmentin. Patient reports she went to go take a stool softener. Patient only took 1 Augmentin. Patient reports within 10 minutes she began to have some wheezing and shortness of breath. EMS did administer a DuoNeb, IV Solu-Medrol 125 mg and IV Benadryl 50 mg. Patient also reports having flulike symptoms since Tuesday. Unknown of sick contacts. Patient reports a productive cough. Patient reports she does have chronic bronchitis but does not currently have her nebulizer machine at home as it needs to be cleaned. Patient reports nausea without vomiting or diarrhea. Patient denies fever. Patient denies hives. Patient reports she feels like she is having bilateral hand swelling and itching to arms and legs. Denies chest pain. Patient reports she feels like her hands are shaking which started after the DuoNeb. Patient denies lip or tongue swelling. Patient denies difficulty breathing or swallowing. TRAVEL OUTSIDE OF THE [place] IN LAST 30 DAYS: No - Related Data Allergies/Adverse Reactions: amoxicillin Allergy (Severe, Verified 11/17/19 09:22) Hives gabapentin Allergy (Severe, Verified 11/17/19 09:22) Edema cyclobenzaprine HCl [From Flexeril] Allergy (Verified 11/17/19 09:22) tramadol [Tramadol] Allergy (Verified 11/17/19 09:22) anesthesia Allergy (Severe, Uncoded 09/20/19 14:06) HTZ Allergy (Uncoded 09/20/19 14:06) Steroids Allergy (Uncoded 09/20/19 14:06) Home Medications: Lisinopril, Clonidine, Percocet, "cholesterol med", "water pill", "potassium pill", patient unable to recall names of additional medications Past Medical History - General Information source: Patient - Social History Smoking Status: Current Every Day Smoker Chew tobacco use (# tins/day): No Frequency of alcohol use: Rare Drug Abuse: None Family History: Reviewed & Not Pertinent, Malignancy, Other Patient has suicidal ideation: No Patient has homicidal ideation: No - Past Medical History Cardiac Medical History: Reports: Hx Congestive Heart Failure, Hx Heart Attack, Hx Hypercholesterolemia, Hx Hypertension Pulmonary Medical History: Reports: Hx Asthma, Hx Bronchitis, Hx COPD Neurological Medical History: Reports: Hx Migraine, Hx Seizures Endocrine Medical History: Reports: Hx Diabetes Mellitus Type 2 - borderline Renal/ Medical History: Denies: Hx Peritoneal Dialysis GI Medical History: Reports: Hx Gastroesophageal Reflux Disease, Hx Ulcer Psychiatric Medical History: Reports: Hx Anxiety, Hx Depression Past Surgical History: Reports: Hx Hysterectomy, Hx Orthopedic Surgery - L leg AND R KNEE - Immunizations Hx Diphtheria, Pertussis, Tetanus Vaccination: Yes - <5 years Physical Exam - Vital signs Vitals: Pulse Ox 86 L 11/17/19 09:02 - Notes Notes: GENERAL: Well-appearing, well-nourished and in no acute distress. HEAD: Atraumatic, normocephalic. EYES: Pupils equal round and reactive to light, extraocular movements intact, sclera anicteric, conjunctiva are normal. ENT: Nares patent, oropharynx clear without exudates. Moist mucous membranes. Uvula is midline. Airway is patent without edema. NECK: Normal range of motion, supple without lymphadenopathy or JVD. LUNGS: Breath sounds clear to auscultation bilaterally and equal. No wheezes rales or rhonchi. HEART: Regular rate and rhythm without murmurs, rubs or gallops. ABDOMEN: Soft, nontender, normoactive bowel sounds. No guarding, no rebound. No masses appreciated. BACK: No cervical, thoracic, lumbar midline tenderness. No saddle anesthesia, normal distal neurovascular exam. GENITOURINARY: Deferred. EXTREMITIES: Normal range of motion, no pitting or edema. No clubbing or cyanosis. NEUROLOGICAL: Cranial nerves II through XII grossly intact. Normal speech, normal gait. PSYCH: Normal mood, normal affect. SKIN: Warm, Dry, normal turgor, no rashes or lesions noted. Course - Re-evaluation Re-evalutation: 11/17/19 09:44 Upon initial exam patient is resting upright on stretcher. Patient complaints of bilateral hand shaking which started after her DuoNeb. Patient currently does not have any obvious facial edema/angioedema, difficulty breathing or swallowing. There is no drooling. Airway is patent. Uvula is midline. Patient reports she is having right-sided body pain which is chronic in nature as she reports having nerve damage. Patient did take a Percocet around 7 AM this morning which she is prescribed for her chronic pain. Patient reports she feels like she may be shaking as she has anxiety. Patient asking for Xanax. Patient reports she is not prescribed Xanax currently but did take this in the past which help with her anxiety. Patient is on a monitor technician at this time, will continue to monitor closely. There is no hives or rash. In addition to the medications that EMS administered we will also give IV Pepcid, obtain a chest x-ray as she reports of flulike symptoms and a productive cough since Tuesday. Patient initially stated she was not having any tongue swelling but states "well, maybe my tongue is tingling." Patient is not currently tachycardic, hypotensive, or hypoxic. Supposedly patient was 86% on room air on arrival to the emergency department without respiratory distress. Patient placed on 2 L nasal cannula and is at 94%. 11/17/19 10:21 Patient is resting comfortably. Patient keeps removing her oxygen. She is 96% on room air at this time. We will continue to monitor. Patient's chest x-ray was unremarkable and patient does have a negative influenza test. Patient states she has been living in a house with black mold. I did inform her since she has been on multiple antibiotics over the past few months her upper respiratory symptoms and flulike symptoms could be due to the mold. Patient reports she is trying to move out of her apartment currently. Patient's lung sounds remain clear, breathing is even and unlabored, there are no hives noted. Patient is not scratching or itching her upper or lower extremities. Airway is patent without angioedema. We will continue to monitor. 11/17/19 12:13 Patient is resting comfortably on stretcher no acute distress. Patient's breathing even and unlabored. Lung sounds remain clear to auscultation. Patient is a 96% on room air, at rest. Patient is not itching. There are no hives. No facial edema, tongue swelling, uvula midline. Patient has a bottle of Augmentin here in the emergency department with her. We will appropriately dispose of this so the patient does not accidentally take this at home again. Patient reports she does have an albuterol inhaler at home. Her wheezing could have been due to the exposure to the black mold in her home, her COPD and recent complaint of URI. Patient reports she is been battling a URI for months. Patient reports she does have an albuterol nebulizer machine and does not need a refill for this. Patient has not been hypotensive, complaint of nausea or vomiting. Has tolerated liquids. We will give the patient a prescription for Pepcid, oral steroids which help with the acute exacerbation of her chronic bronchitis/COPD exacerbation as well as the possible allergic reaction, give a prescription for an EpiPen with a good Rx discount card. Patient verbalized understanding. - Vital Signs Vital signs: Temp Pulse Resp BP Pulse Ox 98 F 24 H 153/94 H 92 11/17/19 12:40 11/17/19 12:31 11/17/19 12:31 11/17/19 12:31 - Laboratory Laboratory results interpreted by tx: Laboratory 11/17/19 09:44 Influenza A (Rapid) NEGATIVE Influenza B (Rapid) NEGATIVE - Diagnostic Test Radiology reviewed: Reports reviewed Radiology results interpreted by me: 11/17/19 10:20 Chest X-Ray 11/17/19 09:34 IMPRESSION: NO ACUTE RADIOGRAPHIC FINDING IN THE CHEST. Discharge - Discharge Clinical Impression: Allergic reaction Qualifiers: Encounter type: initial encounter Qualified Code(s): T78.40XA - Allergy, unspecified, initial encounter COPD (chronic obstructive pulmonary disease) Qualifiers: COPD type: chronic bronchitis Chronic bronchitis type: mixed simple and mucopu rulent Qualified Code(s): J41.8 - Mixed simple and mucopurulent chronic bronchitis Condition: Stable Disposition: HOME, SELF-CARE Additional Instructions: *Today was in the emergency department for a possible allergic reaction after taking Augmentin. Please refrain from taking this medication as it was the medication that caused your itching. I am giving you a course of steroids that you will take over the next 5 days. Please start this tomorrow, 2-23-20. Please also take Pepcid. This is an acid suppressing medication that can also have antihistamine type effects to relieve rash and itching. If needed you can also take Benadryl at home, this is [id number]. I have also given you a prescription for an EpiPen, as well as a medication discount card. It is very important to get the EpiPen prescribed and to use this if you experience any faintness, difficulty swallowing, tightness in the chest, wheezing or indication that your throat is closing. If you do have to use your EpiPen or have any of the symptoms please call 911 immediately. ACUTE ALLERGIC REACTION: Your symptoms are due to an allergic reaction. Allergy can cause hives, swelling of the hands, feet, and face, hoarseness, and difficulty swallowing or breathing. It may be due to exposure to medication, animal dander, foods, infection, or insect bites. Medication is a common cause, even when prior use of this same medication caused no problems. Acute treatment may include adrenalin and antihistamines. Usually, the specific allergic agent can't be identified unless repeated episodes occur. Home treatment includes the following: (1) Stop any suspicious medications. This will be discussed with you. (2) Oral antihistamines for the next four to five days. Example, diphenhydramine (Benadryl) every four hours. (3) You may also use cimetidine (Tagamet), ranitidine (Zantac), or famotidine (Pepcid) every four hours if diphenhydramine is not controlling itching and hives. (4) Avoid aspirin until the hives completely disappear. (5) Avoid hot baths or showers until the hives are completely gone. Call the doctor if faintness, difficulty swallowing, tightness in the chest, or wheezing occurs. EPINEPHRINE: An injection of epinephrine (also called adrenalin) is used to treat allergic reactions, asthma, and some other medical conditions. It is a stimulant medication that consticts blood vessels, relaxes smooth muscles such as in the bronchioles of the lung, elevates blood pressure, and increases heart rate. It can temporarily make you feel very nervous and shakey, but it's affects last only a short time, about 15 to 30 minutes at most. STEROID MEDICATION INJECTION: You have been given an injection of medicine of the cortisone/steroid class. This medication is used to control inflammation or allergy. It is often continued as a pill for a short period of time, until the acute process subsides. There are usually no side effects from short-term use of cortisone-like medications. Some persons feel an increased sense of well-being and are not sl eepy at bedtime. Long-term use of cortisone medications is best avoided, unless required for a severe condition. If your condition does not remit, or relapses after the course of corticosteroid medication, you should consult your physician. STEROID MEDICATION: You have been given a medicine of the cortisone/steroid class. This medication is used to control inflammation or allergy. It is usually only given for a short period of time, until the acute process subsides. There are usually no side effects from short-term use of cortisone-like medications. Some persons feel an increased sense of well-being and are not sleepy at bedtime. Long-term use of cortisone medications is best avoided, unless required for a severe condition. If your condition does not remit, or relapses after the course of corticosteroid medication, you should consult your physician. ACID-SUPPRESSING MEDICATION: You have a prescription for medicine which reduces the stomach's secretion of acid. Examples include Zantac, Tagament, and Pepcid. These drugs are often used to allow healing of ulcers or esophagitis. They may be needed to prevent recurrence of ulcers in some patients, or to prevent damage from acid reflux in the esophagus. Take all medication as prescribed, even after the pain is gone. Regular antacids may be added as needed if you have symptoms while taking this medicine. These medications sometimes are prescribed for allergic reactions because they have anti-histaminic effects and relieve the rash and itching of the reaction. There are usually no side effects from this medication. But, in rare cases and particularly in the elderly, serious problems can occur. Contact your doctor if there is fever, rash, hallucinations, confusion, or unusual bruising. Contact your doctor at once if you develop lightheadedness, black or bloody stool, or bloody vomitus. ANTIHISTAMINES: An antihistamine has been given and/or prescribed to control your symptoms. Antihistamines are used for many reasons, including itching, watering eyes, runny nose, allergic swelling, hives, and insect stings. Antihistamines may cause drowsiness, especially with the first dose. Do not operate machinery or drive while under the effects of the medication. Other common side effects include dry mouth and eyes. In older persons, antihistam abdullahi can occasionally cause urinary retention, constipation, and trouble focusing the eyes. Do not combine the medication with alcohol, or with any other medication without talking to your doctor. USE OF DIPHENHYDRAMINE: The use of diphenhydramine (Benadryl) has been recommended to control allergic symptoms. The 25 mg strength is available over- the-counter, as well as the elixir. This antihistamine is used for many symptoms. It's useful for itching, watering eyes and nose, allergic swelling, hives, and insect stings. The medication can be repeated four times daily. Age Elixir (12.5 mg/tsp) 25 mg pill 2-3 yr 1/2 tsp 4-8 yr 1 tsp 9-14 yr 2 tsp one tab adult 1-2 tabs Antihistamines may cause drowsiness, especially with the first dose. Do not operate machinery or drive while under the effects of the medication. Do not combine the medication with alcohol, or with any other medication without talking to your doctor. FOLLOW-UP CARE: If you have been referred to a physician for follow-up care, call the physicians office for an appointment as you were instructed or within the next two days. If you experience worsening or a significant change in your symptoms, notify the physician immediately or return to the Emergency Department at any time for re-evaluation. Prescriptions: RX: Prednisone [Deltasone 20 mg Tablet] 40 mg PO DAILY 5 Days #10 tablet Epinephrine [Epipen 2-Sergo] 0.3 mg IM ONCE PRN #1 packet PRN Reason: Famotidine [Pepcid 20 mg Tablet] 20 mg PO DAILY #14 tablet Referrals: MELVA BOSE MD [ACTIVE STAFF] - Follow up as needed
[2019-11-17 10:12] LABS: A TYPE INFLUENZA AG NEGATIVE (NEGATIVE); B INFLUENZA AG NEGATIVE (NEGATIVE)
--- NOTE | 2019-11-17 10:18 | RADIOLOGY REPORT (SQ) ---
EXAM DESCRIPTION: CHEST 2 VIEWS COMPLETED DATE/TIME: 11/17/2019 10:05 am REASON FOR STUDY: Productive cough COMPARISON: 10/09/2019 EXAM PARAMETERS: NUMBER OF VIEWS: two views TECHNIQUE: Digital Frontal and Lateral radiographic views of the chest acquired. RADIATION DOSE: NA LIMITATIONS: none FINDINGS: LUNGS AND PLEURA: No opacities, masses or pneumothorax. No pleural effusion. MEDIASTINUM AND HILAR STRUCTURES: No masses or contour abnormalities. HEART AND VASCULAR STRUCTURES: Heart normal size. No evidence for failure. BONES: No acute findings. HARDWARE: None in the chest. OTHER: No other significant finding. IMPRESSION: NO ACUTE RADIOGRAPHIC FINDING IN THE CHEST. TECHNICAL DOCUMENTATION: JOB ID: [id number] 2010 [employer]- All Rights Reserved Reading location - IP/workstation name: [email or web address]
[2019-11-17 12:42] VITALS: BP 153/94
== END 2019-11-17 12:42 | disposition home or self-care (01) ==
LOC: ER 09:01
DX: J44.1 Chronic obstructive pulmonary disease with (acute) exacerbation (principal); T36.0X1A Poisoning by penicillins, accidental (unintentional), initial encounter; R06.02 Shortness of breath; I10 Essential (primary) hypertension; R05 Cough; R11.0 Nausea; F17.200 Nicotine dependence, unspecified, uncomplicated; E78.00 Pure hypercholesterolemia, unspecified; G89.29 Other chronic pain; Z79.891 Long term (current) use of opiate analgesic; Z79.899 Other long term (current) drug therapy; Z77.120 Contact with and (suspected) exposure to mold (toxic); Z88.6 Allergy status to analgesic agent; Z88.8 Allergy status to other drugs, medicaments and biological substances; Z88.4 Allergy status to anesthetic agent
CPT/HCPCS: 99284; 96374; 87804; 71046; S0028

== ENCOUNTER 2019-12-01 13:52 | Emergency (ER) | payer MEDICARE, MEDICAID ==
--- NOTE | 2019-12-01 14:17 | ER Document Report ---
ED Medical Screen (RME) - General Chief Complaint: Flu Symptoms Stated Complaint: HEADACHE/CONGESTION/SORE THROAT Time Seen by Provider: 12/01/19 14:10 Primary Care Provider: CHRISTIANO CLEMENTS PA-C [Primary Care Provider] - Follow up in 3-5 days Mode of Arrival: Ambulatory Information source: Patient Notes: 54-year-old female presented to ED for cough cold congestion sore throat facial pain started yesterday. She states she took some Benadryl this morning because she felt like her throat was swelling. She is alert oriented respirations regular nonlabored lungs clear to auscultation she does have an upper respiratory infection. She states she smokes about 10 cigarettes a day. TRAVEL OUTSIDE OF THE [place] IN LAST 30 DAYS: No - HPI Onset: Yesterday Onset/Duration: Intermittent Quality of pain: Achy Associated Symptoms: Body/muscle aches, Cough (productive), Rhinorrhea, Sinus pain/drainage, Sore throat Exacerbated by: Coughing Relieved by: Denies Similar symptoms previously: Yes Recently seen / treated by doctor: Yes - Related Data Smoking: Cigarettes - 10 cigarettes a day Frequency of alcohol use: None Drug Abuse: None Allergies/Adverse Reactions: amoxicillin Allergy (Severe, Verified 12/01/19 14:12) Hives gabapentin Allergy (Severe, Verified 12/01/19 14:12) Edema hydrochlorothiazide Allergy (Unknown, Verified 12/01/19 14:12) cyclobenzaprine HCl [From Flexeril] Allergy (Verified 12/01/19 14:12) tramadol [Tramadol] Allergy (Verified 12/01/19 14:12) anesthesia Allergy (Severe, Uncoded 12/01/19 14:12) Malignant Hyperthermia Steroids Allergy (Uncoded 12/01/19 14:12) Past Medical History - General Information source: Patient - Social History Cigarette use (# per day): Yes - Half pack per day Frequency of alcohol use: None Drug Abuse: None Lives with: Alone Family history: Reviewed & Not Pertinent - Past Medical History Cardiac Medical History: Reports: Hx Congestive Heart Failure, Hx Heart Attack, Hx Hypercholesterolemia, Hx Hypertension Pulmonary Medical History: Reports: Hx Asthma, Hx Bronchitis, Hx COPD Neurological Medical History: Reports: Hx Migraine, Hx Seizures Endocrine Medical History: Reports: Hx Diabetes Mellitus Type 2 - borderline Renal/ Medical History: Reports: None Malignancy Medical History: Reports: None GI Medical History: Reports: Hx Gastroesophageal Reflux Disease, Hx Ulcer Musculoskeltal Medical History: Reports None Skin Medical History: Reports None Psychiatric Medical History: Reports: Hx Anxiety, Hx Depression Traumatic Medical History: Reports: None Infectious Medical History: Reports: None Past Surgical History: Reports: Hx Hysterectomy, Hx Orthopedic Surgery - L leg AND R KNEE - Immunizations Hx Diphtheria, Pertussis, Tetanus Vaccination: Yes - <5 years Review of Systems - Review of Systems Constitutional: No symptoms reported EENT: No symptoms reported Cardiovascular: No symptoms reported Respiratory: No symptoms reported Gastrointestinal: No symptoms reported Genitourinary: No symptoms reported Female Genitourinary: No symptoms reported Musculoskeletal: No symptoms reported Skin: No symptoms reported Hematologic/Lymphatic: No symptoms reported Neurological/Psychological: No symptoms reported -: Yes All other systems reviewed and negative Physical Exam - Vital signs Vitals: Temp Pulse Resp BP Pulse Ox 98.6 F 106 H 14 178/96 H 95 12/01/19 14:11 12/01/19 14:11 12/01/19 14:11 12/01/19 14:11 12/01/19 14:11 Interpretation: Normal - General General appearance: Appears well, Alert - HEENT Head: Normocephalic, Atraumatic Eyes: Normal Pupils: PERRL Ears: Normal External canal: Normal Tympanic membrane: Normal Sinus: Normal Nasal: Purulent discharge, Swelling Mouth/Lips: Normal Mucous membranes: Normal Pharynx: Normal Neck: Normal - Respiratory Respiratory status: No respiratory distress Chest status: Nontender Breath sounds: Nonproductive cough Chest palpation: Normal - Cardiovascular Rhythm: Regular Heart sounds: Normal auscultation Murmur: No - Abdominal Inspection: Normal Distension: No distension Bowel sounds: Normal Tenderness: Nontender Organomegaly: No organomegaly - Back Back: Normal, Nontender - Extremities General upper extremity: Normal inspection, Nontender, Normal color, Normal ROM, Normal temperature General lower extremity: Normal inspection, Nontender, Normal color, Normal ROM, Normal temperature, Normal weight bearing. No: Williams's sign - Neurological Neuro grossly intact: Yes Cognition: Normal Orientation: AAOx4 Michael Coma Scale Eye Opening: Spontaneous [place] Coma Scale Verbal: Oriented Michael Coma Scale Motor: Obeys Commands Michael Coma Scale Total: 15 Speech: Normal Motor strength normal: LUE, RUE, LLE, RLE Sensory: Normal - Psychological Associated symptoms: Normal affect, Normal mood - Skin Skin Temperature: Warm Skin Moisture: Dry Skin Color: Normal Course - Re-evaluation Re-evalutation: 12/01/19 21:58 Discussed x-ray with Dr. Briceno. Due to her having COPD and atelectasis she was treated with azithromycin. Instructions were given to decrease or preferably stop smoking. Patient was instructed to please follow-up with her primary care doctor. Patient verbalized understanding and agreement with treatment plan. - Vital Signs Vital signs: Temp Pulse Resp BP Pulse Ox 98.5 F 98 18 187/92 H 95 12/01/19 15:23 12/01/19 15:23 12/01/19 15:23 12/01/19 15:23 12/01/19 15:23 - Diagnostic Test Radiology reviewed: Image reviewed, Reports reviewed Doctor's Discharge - Discharge Clinical Impression: Atelectasis of both lungs URI (upper respiratory infection) Qualifiers: URI type: unspecified viral URI Qualified Code(s): J06.9 - Acute upper respiratory infection, unspecified Condition: Stable Disposition: HOME, SELF-CARE Additional Instructions: Atelectasis Your symptoms are due to partial collapse of the lung, called atelectasis. When lung air sacs aren't filled properly with air, they can collapse. This is common after surgery. It may occur whenever breathing is weak or painful. To correct the collapse, we need to get your lung air sacs to open. Do breathing exercises for the next two days. Every 15 minutes while awake, rapidly suck in a full breath and hold it a few seconds. Sometimes we'll prescribe a machine to measure your progress. Call or return if there's increasing shortness of breath, fever or chills, increasing chest pain, productive cough, or coughing of blood. UPPER RESPIRATORY ILLNESS: You have a viral infection of the respiratory passages -- a "cold." This common infection causes nasal congestion, drainage, and often sore throat and cough. It is highly contagious. The disease usually lasts about 10 to 14 days. There is no "cure" for the viral infection -- it must run its course. If there is a complication, such as bacterial infection in the nose, sinuses, midd le ear, or bronchial tubes, antibiotics may be required. The antibiotics won't affect the virus. Drink plenty of fluids. A humidifier may help. An expectorant medication or decongestant may make you more comfortable. Use acetaminophen or ibuprofen for fever or aches. See the doctor if fever persists over two days, if there is any significant worsening of your symptoms, or if you simply fail to improve as expected. You have been recommended treatment with Flonase which is obxg-[id number] 1 spray each nostril twice a day. You could also use salt soda solution gargles. These will help to remove the drainage from the back your throat. Chloraseptic spray was nuty-gtz-[id number] that will also help with your sore throat. Saline spray several times a day to the nose Salt and soda solution gargle 1 quart of water 1 tablespoon of salt 1 teaspoon of baking soda Mixed 3 ingredients together and boil for 1 minute Placed in a covered quart jar Use 1/2 ounce of cold solution to gargle 3 times a day USE OF ACETAMINOPHEN (Tylenol): Acetaminophen may be taken for pain relief or fever control. It's much safer than aspirin, offering a wider range of "safe" dosages. It is safe during . Some brand names are Tylenol, Panadol, Datril, Anacin 3, Tempra, and Liquiprin. Acetaminophen can be repeated every four hours. The following are maximum recommended dosages: >89 pounds or adults 650 mg to 900 mg Acetaminophen can be repeated every four hours. Maximum dose not to exceed 4000 mg a day. Azithromycin Azithromycin (Zithromax) is a broad spectrum antibiotic in the same class as erythromycin. It can treat a variety of bacterial infections, but is most frequently used for respiratory infections. Azithromycin is extremely long-lasting. It accumulates in body tissues and continues to kill bacteria for many days. In order to improve absorption, Azithromycin should be taken at least one hour before or two hours after a meal. It does not have the same strong tendency to upset the stomach as erythromycin and is usually very well tolerated. Patients who have had a rash or other true allergic reactions to erythromyc in should not take this medication. Call if you develop gastrointestinal distress, severe diarrhea, rash, hives, itching, or shortness of breath. SMOKING: If you smoke, you should stop smoking. The tar and chemicals in cigarette smoke are harmful. Smoking has been shown to cause: emphysema chronic bronchitis lung cancer mouth and throat cancer stomach and pancreas cancer premature aging defects In addition, smoking increases ear and lung infections in children of smokers. FOLLOW-UP CARE: If you have been referred to a physician for follow-up care, call the physicians office for an appointment as you were instructed or within the next two days. If you experience worsening or a significant change in your symptoms, notify the physician immediately or return to the Emergency Department at any time for re-evaluation. Prescriptions: Azithromycin [Zithromax 250 mg Tablet] 250 mg PO ASDIR PRN #6 tablet PRN Reason: Forms: Elevated Blood Pressure, Smoking Cessation Education Referrals: CHRISTIANO CLEMENTS PA-C [Primary Care Provider] - Follow up in 3-5 days
--- NOTE | 2019-12-01 15:16 | RADIOLOGY REPORT (SQ) ---
EXAM DESCRIPTION: CHEST 2 VIEWS COMPLETED DATE/TIME: 12/01/2019 2:43 pm REASON FOR STUDY: Cough congestion COMPARISON: None. EXAM PARAMETERS: NUMBER OF VIEWS: two views TECHNIQUE: Digital Frontal and Lateral radiographic views of the chest acquired. RADIATION DOSE: NA LIMITATIONS: none FINDINGS: LUNGS AND PLEURA: Minimal atelectasis at the bases. No opacities. MEDIASTINUM AND HILAR STRUCTURES: No masses or contour abnormalities. HEART AND VASCULAR STRUCTURES: Heart normal size. No evidence for failure. BONES: No acute findings. HARDWARE: None in the chest. OTHER: No other significant finding. IMPRESSION: Minimal basilar atelectasis. TECHNICAL DOCUMENTATION: JOB ID: [id number] 2010 [employer]- All Rights Reserved Reading location - IP/workstation name: [email or web address]
[2019-12-01 15:24] VITALS: BP 187/92
== END 2019-12-01 15:38 | disposition home or self-care (01) ==
LOC: ER 13:52
DX: J98.11 Atelectasis (principal); J06.9 Acute upper respiratory infection, unspecified; B97.89 Other viral agents as the cause of diseases classified elsewhere; J44.9 Chronic obstructive pulmonary disease, unspecified; R05 Cough; J02.9 Acute pharyngitis, unspecified; R51 Headache; M79.10 Myalgia, unspecified site; J34.89 Other specified disorders of nose and nasal sinuses; I10 Essential (primary) hypertension; F17.210 Nicotine dependence, cigarettes, uncomplicated; Z88.0 Allergy status to penicillin; Z88.6 Allergy status to analgesic agent; Z88.8 Allergy status to other drugs, medicaments and biological substances; Z88.4 Allergy status to anesthetic agent
CPT/HCPCS: 71046; 87070; 87880; 99283

== ENCOUNTER 2020-01-19 16:02 | Emergency (ER) | payer MEDICARE, MEDICAID ==
[2020-01-19 16:34] LABS: ABSOLUTE BASOPHILS # (AUTO) 0.1 10^3/uL (0.0-0.2); ABSOLUTE EOSINOPHILS # (AUTO) 0.3 10^3/uL (0.0-0.6); ABSOLUTE LYMPHOCYTES (AUTO) 2.8 10^3/uL (0.5-4.7); ABSOLUTE MONOCYTES (AUTO) 1.1 10^3/uL (0.1-1.4); ABSOLUTE NEUT (AUTO) 9.1 10^3/uL (1.7-8.2); BASOPHILS % (AUTO) 0.8 % (0-2); EOSINOPHILS % (AUTO) 2.1 % (0-6); HEMATOCRIT 44.5 % (36.0-47.0); HEMOGLOBIN 15.5 g/dL (12.0-15.5); LYMPHOCYTES % (AUTO) 21.2 % (13-45); MEAN CORPUSCULAR HEMOGLOBIN 33.7 pg (27.0-33.4); MEAN CORPUSCULAR HGB CONC 34.9 g/dL (32.0-36.0); MEAN CORPUSCULAR VOLUME 96 fl (80-97); MONOCYTES % (AUTO) 8.2 % (3-13); PLATELET COUNT 303 10^3/uL (150-450); RED BLOOD COUNT 4.61 10^6/uL (3.72-5.28); SEGMENTED NEUTROPHILS % (AUTO) 67.7 % (42-78); TOTAL CELLS COUNTED % (AUTO) 100 %; WHITE BLOOD COUNT 13.4 10^3/uL (4.0-10.5)
[2020-01-19 16:56] LABS: ALBUMIN 4.6 g/dL (3.5-5.0); ALKALINE PHOSPHATASE 122 U/L (38-126); ANION GAP 8 (5-19); ASPARTATE AMINO TRANSFERASE 32 U/L (14-36); BILIRUBIN,TOTAL 0.8 mg/dL (0.2-1.3); BLOOD UREA NITROGEN 11 mg/dL (7-20); CALCIUM 10.3 mg/dL (8.4-10.2); CARBON DIOXIDE 34 mmol/L (22-30); CHLORIDE 96 mmol/L (98-107); CREATINE KINASE 159 U/L (30-135); GLUCOSE 108 mg/dL (75-110); POTASSIUM 3.4 mmol/L (3.6-5.0); TOTAL PROTEIN 7.8 g/dL (6.3-8.2)
[2020-01-19] MEDS ORDERED: CLINDAMYCIN 900 MG/D5W RTU 900 MG/50 ML RTUPB IV ONE (17:12)
[2020-01-19 17:13] LABS: CREATINE KINASE MB 2.26 ng/mL (<4.55)
[2020-01-19 17:15] LABS: TROPONIN I < 0.012 ng/mL
[2020-01-19] MEDS ORDERED: KETOROLAC TROMETHAMINE INJ/PF 30 MG/1 ML SDV IV ONE (17:15)
[2020-01-19] MEDS ORDERED: LABETALOL HCL INJ 20 MG/4 ML DISP.SYRIN IV ONE (17:16)
[2020-01-19] MEDS ORDERED: MORPHINE SULFATE 10 MG/ML INJ IV ONE (17:34)
[2020-01-19] MEDS ORDERED: ONDANSETRON HCL INJ/PF 4 MG/2 ML SDV IV ONE (17:35)
[2020-01-19 19:12] VITALS: BP 165/63
--- NOTE | 2020-01-19 19:12 | ER Document Report ---
Entered by DIDI BRYSON SCRIBE 01/19/20 1716 Acting as scribe for:LISA CARR MD ED General - General Chief Complaint: High Blood Pressure Stated Complaint: HIGH BLOOD PRESSURE Information source: Patient Notes: This 54-year-old female presents to the emergency department complaining of left-sided facial swelling that began last night. Patient describes associated pain with the swelling. Patient stated that she believes that pain started after biting down on a pear yesterday. Patient mentions that she took a Benadryl with no relief. Patient states that she has a high blood pressure as well. Patient did not take her lisinopril this morning because it "shoots my blood pressure down quick". Patient reports constipation. TRAVEL OUTSIDE OF THE [place] IN LAST 30 DAYS: No - Related Data Allergies/Adverse Reactions: amoxicillin Allergy (Severe, Verified 12/01/19 14:12) Hives gabapentin Allergy (Severe, Verified 12/01/19 14:12) Edema hydrochlorothiazide Allergy (Unknown, Verified 12/01/19 14:12) cyclobenzaprine HCl [From Flexeril] Allergy (Verified 12/01/19 14:12) NSAIDS (Non-Steroidal Anti-Inflamma Allergy (Verified 01/19/20 17:34) tramadol [Tramadol] Allergy (Verified 12/01/19 14:12) anesthesia Allergy (Severe, Uncoded 12/01/19 14:12) Malignant Hyperthermia Steroids Allergy (Uncoded 12/01/19 14:12) Past Medical History - General Information source: Patient - Social History Smoking Status: Current Every Day Smoker Cigarette use (# per day): Yes Chew tobacco use (# tins/day): No Drug Abuse: Heroin Family History: Reviewed & Not Pertinent, Malignancy, Other Patient has suicidal ideation: No Patient has homicidal ideation: No - Past Medical History Cardiac Medical History: Reports: Hx Congestive Heart Failure, Hx Heart Attack, Hx Hypercholesterolemia, Hx Hypertension Pulmonary Medical History: Reports: Hx Asthma, Hx Bronchitis, Hx COPD Neurological Medical History: Reports: Hx Migraine, Hx Seizures Endocrine Medical History: Reports: Hx Diabetes Mellitus Type 2 - borderline GI Medical History: Reports: Hx Gastroesophageal Reflux Disease, Hx Ulcer Psychiatric Medical History: Reports: Hx Anxiety, Hx Depression Past Surgical History: Reports: Hx Hysterectomy, Hx Orthopedic Surgery - L leg AND R KNEE - Immunizations Hx Diphtheria, Pertussis, Tetanus Vaccination: Yes - <5 years Review of Systems - Review of Systems Constitutional: No symptoms reported EENT: See HPI, Mouth pain, Mouth swelling Cardiovascular: No symptoms reported Respiratory: No symptoms reported Gastrointestinal: See HPI, Constipation Genitourinary: No symptoms reported Female Genitourinary: No symptoms reported Musculoskeletal: No symptoms reported Skin: No symptoms reported Hematologic/Lymphatic: No symptoms reported Neurological/Psychological: No symptoms reported -: Yes All other systems reviewed and negative Physical Exam - Vital signs Vitals: Temp 98.9 F 01/19/20 16:02 - Notes Notes: Physical Exam: General: Alert, appears well. HEENT: Atraumatic. PERRL. Extraocular movements intact. Oropharynx clear. Left TMs bulging and pink in color. Premolar on the left side is fragmented. Neck: Supple. Non-tender. Respiratory: No respiratory distress. Clear and equal breath sounds bilaterally. Cardiovascular: Regular rate and rhythm. Abdominal: Normal Inspection. Non-tender. No distension. Normal Bowel Sounds. Back: No gross abnormalities. Extremities: Moves all four extremities. Upper extremities: Normal inspection. Normal ROM. Lower extremities: Normal inspection. No edema. Normal ROM. Neurological: Normal cognition. AAOx4. Normal speech. Psychological: Normal affect. Normal Mood. Skin: Warm. Dry. Normal color. Course - Re-evaluation Re-evalutation: 01/19/20 19:04 Patient has completed her antibiotics blood pressure has improved and patient appears to be in in less discomfort at this time. Patient is on chronic pain medications that include Percocet. I will write for patient to be on clindamycin for continued treatment of her facial cellulitis due to a fractured carious tooth in her left upper plate. Advised patient that she needs to follow-up with a dentist. - Vital Signs Vital signs: Temp Pulse Resp BP Pulse Ox 98.9 F 16 158/59 H 93 01/19/20 16:02 01/19/20 18:01 01/19/20 18:01 01/19/20 18:01 - Laboratory Result Diagrams: 01/19/20 16:20 01/19/20 16:20 Laboratory results interpreted by me: 01/19/20 01/19/20 16:20 16:20 WBC 13.4 H MCH 33.7 H Absolute Neuts (auto) 9.1 H Potassium 3.4 L Chloride 96 L Carbon Dioxide 34 H Calcium 10.3 H Creatine Kinase 159 H - Diagnostic Test Radiology reviewed: Image reviewed Discharge - Discharge Clinical Impression: Facial cellulitis, Partial loss of tooth due to caries, Hypertension Condition: Stable Disposition: HOME, SELF-CARE Instructions: High Blood Pressure ([facility]), High Blood Pressure, Requiring Treatment ([facility]) Additional Instructions: Dental Infection or Abscess You have an infection, perhaps an abscess (pus formation) of the gum around one of your teeth, which is probably decayed. If there is an abscess, it may drain on its own or it may need to be opened or lanced. Severe swelling or drainage around a tooth usually means a deep dental abscess which usually requires evaluation and treatment by a dentist or oral surgeon. Antibiotics may be prescribed while awaiting dental treatment. If you develop high fever with chills, worsening pain, or increasing swelling in the area, see a dentist or oral surgeon immediately or return to the Emergency Department immediately. Cellulitis You have an infection of your skin and underlying soft tissues called cellulitis. This is due to bacteria, which can enter through any break in the skin, or even through an irritated hair follicle. Untreated, cellulitis will usually worsen. Antibiotics are required. Usually, warm packs or warm soaks, and elevation of the infected area are recommended. You should start getting better within 24 to 36 hours. Most infections respond quickly to the right medication. Follow-up care is important, however, to check for abscess (boil) formation, unsuspected foreign body, or resistant infection. If you develop fever, chills, or if the area of infection is becoming rapidly more swollen or painful, call the doctor at once. Continue your same other medications you are taking including your Percocet as needed for pain. Start Strongly encourage you to follow-up with a dentist. I personally performed the services described in the documentation, reviewed and edited the documentation which was dictated to the scribe in my presence, and it accurately records my words and actions.
--- NOTE | 2020-01-20 11:05 | EKG REPORT ---
SEVERITY:- ABNORMAL ECG - SINUS RHYTHM PROBABLE LEFT ATRIAL ABNORMALITY PROBABLE LVH WITH SECONDARY REPOL ABNRM BORDERLINE PROLONGED QT INTERVAL : Confirmed by: Gloria Wilson 20-Jan-2020 11:04:29
== END 2020-01-19 20:05 | disposition home or self-care (01) ==
LOC: ER 16:02
DX: L03.211 Cellulitis of face (principal); K02.9 Dental caries, unspecified; I11.0 Hypertensive heart disease with heart failure; F17.210 Nicotine dependence, cigarettes, uncomplicated; K59.00 Constipation, unspecified; I50.9 Heart failure, unspecified; E78.00 Pure hypercholesterolemia, unspecified; J45.909 Unspecified asthma, uncomplicated; J44.9 Chronic obstructive pulmonary disease, unspecified; R73.03 Prediabetes; Z88.0 Allergy status to penicillin; Z88.6 Allergy status to analgesic agent; Z90.710 Acquired absence of both cervix and uterus; I25.2 Old myocardial infarction
CPT/HCPCS: 93005; 99284; 96375; 96365; 36415; 87040; 82553; 82550; 85025; 80053; 84484; 93010; J3490 ×2; J2270; J2405

== ENCOUNTER 2020-03-06 13:29 | Emergency (ER) | payer MEDICARE, MEDICAID ==
[2020-03-06 13:41] VITALS: BP 179/77
--- NOTE | 2020-03-06 14:34 | RADIOLOGY REPORT (SQ) ---
EXAM DESCRIPTION: CHEST SINGLE VIEW IMAGES COMPLETED DATE/TIME: 03/06/2020 2:26 pm REASON FOR STUDY: Shortness of breath COMPARISON: 12/01/2019 EXAM PARAMETERS: NUMBER OF VIEWS: One view. TECHNIQUE: Single frontal radiographic view of the chest acquired. RADIATION DOSE: NA LIMITATIONS: None. FINDINGS: LUNGS AND PLEURA: No opacities, masses or pneumothorax. No pleural effusion. MEDIASTINUM AND HILAR STRUCTURES: No masses. Contour normal. HEART AND VASCULAR STRUCTURES: Heart normal in size. Normal vasculature. BONES: No acute findings. HARDWARE: None in the chest. OTHER: No other significant finding. IMPRESSION: NO ACUTE RADIOGRAPHIC FINDING IN THE CHEST. TECHNICAL DOCUMENTATION: JOB ID: [id number] 2010 [employer]- All Rights Reserved Reading location - IP/workstation name: [email or web address]
--- NOTE | 2020-03-06 14:36 | ER Document Report ---
ED General - General Chief Complaint: Cough Stated Complaint: CONGESTION Time Seen by Provider: 03/06/20 13:40 Notes: For GI related with chronic pain presented to pain left upper quadrant intermittent biotics" is been hurting for 3 days with minimal swelling. No trouble opening her mouth or swallowing. Says that she always gets antibiotics. She is on pain management. Had a recent fall and is scheduled to get x-rays tomorrow but is having no trouble breathing. Mild cough and "chest congestion". No fever no coronavirus contacts. Smokes heavily. TRAVEL OUTSIDE OF THE [place] IN LAST 30 DAYS: No - Related Data Allergies/Adverse Reactions: amoxicillin Allergy (Severe, Verified 03/06/20 14:02) Hives gabapentin Allergy (Severe, Verified 03/06/20 14:02) Edema hydrochlorothiazide Allergy (Unknown, Verified 03/06/20 14:02) cyclobenzaprine HCl [From Flexeril] Allergy (Verified 03/06/20 14:02) NSAIDS (Non-Steroidal Anti-Inflamma Allergy (Verified 03/06/20 14:02) tramadol [Tramadol] Allergy (Verified 03/06/20 14:02) anesthesia Allergy (Severe, Uncoded 12/01/19 14:12) Malignant Hyperthermia Steroids Allergy (Uncoded 12/01/19 14:12) Past Medical History - General Information source: Patient - Social History Smoking Status: Current Every Day Smoker Smoking Education Provided: Yes - The patient ED visit today was directly related to their abuse of tobacco. Frequency of alcohol use: None Drug Abuse: None Family History: Reviewed & Not Pertinent, Malignancy, Other Patient has homicidal ideation: No - Past Medical History Cardiac Medical History: Reports: Hx Congestive Heart Failure, Hx Heart Attack, Hx Hypercholesterolemia, Hx Hypertension Pulmonary Medical History: Reports: Hx Asthma, Hx Bronchitis, Hx COPD Neurological Medical History: Reports: Hx Migraine, Hx Seizures Endocrine Medical History: Reports: Hx Diabetes Mellitus Type 2 - borderline Renal/ Medical History: Denies: Hx Peritoneal Dialysis GI Medical History: Reports: Hx Gastroesophageal Reflux Disease, Hx Ulcer Psychiatric Medical History: Reports: Hx Anxiety, Hx Depression Past Surgical History: Reports: Hx Cardiac Catheterization, Hx Hysterectomy, Hx Orthopedic Surgery - L leg AND R KNEE - Immunizations Hx Diphtheria, Pertussis, Tetanus Vaccination: Yes - <5 years Review of Systems - Review of Systems Notes: REVIEW OF SYSTEMS GEN: Denies fever, chills, weight loss ENT: Pain EYES: Denies blurry vision, eye pain, discharge CV: Denies chest pain, palpitations, edema RESP: Cough GI: Denies abdominal pain, nausea, vomiting, diarrhea MSK: Back and joint pain SKIN: Denies rash, skin lesions LYMPH: Denies swollen glands/lymph nodes NEURO: Denies headache, focal weakness or numbness, dizziness PSYCH: Denies depression, suicidal or homicidal ideation PHYSICAL EXAMINATION General: No acute distress, well-nourished Head: Atraumatic, normocephalic ENT: Mouth normal, oropharynx moist, no exudates or tonsillar enlargement Eyes: Conjunctiva normal, pupils equal, lids normal Neck: No JVD, supple, no guarding CVS: Normal rate, regular rhythm, no murmurs Resp: No resp distress, equal and normal breath sounds bilaterally GI: Nondistended, soft, no tenderness to palpation, no rebound or guarding Ext: No deformities, no edema, normal range of motion in upper and lower ext Back: No CVA or midline TTP Skin: No rash, warm Lymphatic: No lymphadeopathy noted Neuro: Awake, alert. Face symmetric. GCS 15. Physical Exam - Vital signs Vitals: Temp Pulse Resp BP Pulse Ox 98.8 F 90 14 179/77 H 95 03/06/20 13:38 03/06/20 13:38 03/06/20 13:38 03/06/20 13:38 03/06/20 13:38 Course - Re-evaluation Re-evalutation: 03/06/20 15:07 Dental pain. Does not need antibiotics per patient demanding. Discussed risk benefitsprescribed Pain management: Follow-up with regular doctor No signs of acute trauma Checks x-ray does not show pneumonia. Offered COVID testrefused Stable for discharge home, given tobacco cessation information I have discussed with the patient there likely diagnosis, aftercare plan, follow-up plans and my usual and customary return precautions. They verbalized understanding of this. - Vital Signs Vital signs: Temp Pulse Resp BP Pulse Ox 98.8 F 90 14 179/77 H 95 03/06/20 13:40 03/06/20 13:38 03/06/20 13:38 03/06/20 13:38 03/06/20 13:38 Discharge - Discharge Clinical Impression: Chest congestion, Chronic dental infection Condition: Good Disposition: HOME, SELF-CARE Instructions: Dental Infection or Abscess ([facility]) Additional Instructions: Request antibiotics for your dental infection which I let you know may not work and may be the complications but I prescribed them per your request. Please take probiotics and eat yogurt to prevent complications Please see your dentist for tooth extraction Prescriptions: Clindamycin HCl [Cleocin 150 mg Capsule] 150 mg PO Q6 #40 capsule
== END 2020-03-06 15:07 | disposition home or self-care (01) ==
LOC: ER 13:29
DX: K04.7 Periapical abscess without sinus (principal); R09.89 Other specified symptoms and signs involving the circulatory and respiratory systems; R05 Cough; R09.81 Nasal congestion; R10.12 Left upper quadrant pain; G89.29 Other chronic pain; W19.XXXA Unspecified fall, initial encounter; Z88.1 Allergy status to other antibiotic agents; Z88.8 Allergy status to other drugs, medicaments and biological substances; F17.210 Nicotine dependence, cigarettes, uncomplicated; I50.9 Heart failure, unspecified; I25.2 Old myocardial infarction; I11.0 Hypertensive heart disease with heart failure; J44.9 Chronic obstructive pulmonary disease, unspecified; E11.9 Type 2 diabetes mellitus without complications
CPT/HCPCS: 71045; 99283

== ENCOUNTER 2020-03-07 10:42 | Emergency (ER) | payer MEDICARE, MEDICAID ==
--- NOTE | 2020-03-07 11:12 | ER Document Report ---
ED General - General Stated Complaint: ABNORMAL LABS Time Seen by Provider: 03/07/20 10:50 Mode of Arrival: Ambulatory Information source: Patient Notes: 54-year-old female presents to the emergency department with a history of a low potassium noted in her doctor's office. She states that her potassium was 2.0. States that he has not been taking her potassium supplements as prescribed and when the blood was strong she was called this morning to come to the emergency department. Patient states that she is not having any symptoms at this time. She denies shortness of breath dizziness lightheadedness or palpitations. TRAVEL OUTSIDE OF THE [place] IN LAST 30 DAYS: No - Related Data Allergies/Adverse Reactions: amoxicillin Allergy (Severe, Verified 03/06/20 14:02) Hives gabapentin Allergy (Severe, Verified 03/06/20 14:02) Edema hydrochlorothiazide Allergy (Unknown, Verified 03/06/20 14:02) cyclobenzaprine HCl [From Flexeril] Allergy (Verified 03/06/20 14:02) NSAIDS (Non-Steroidal Anti-Inflamma Allergy (Verified 03/06/20 14:02) tramadol [Tramadol] Allergy (Verified 03/06/20 14:02) anesthesia Allergy (Severe, Uncoded 12/01/19 14:12) Malignant Hyperthermia Steroids Allergy (Uncoded 12/01/19 14:12) Past Medical History - Social History Smoking Status: Unknown if Ever Smoked Family History: Reviewed & Not Pertinent, Malignancy, Other - Past Medical History Cardiac Medical History: Reports: Hx Congestive Heart Failure, Hx Heart Attack, Hx Hypercholesterolemia, Hx Hypertension Pulmonary Medical History: Reports: Hx Asthma, Hx Bronchitis, Hx COPD Neurological Medical History: Reports: Hx Migraine, Hx Seizures Endocrine Medical History: Reports: Hx Diabetes Mellitus Type 2 - borderline Renal/ Medical History: Denies: Hx Peritoneal Dialysis GI Medical History: Reports: Hx Gastroesophageal Reflux Disease, Hx Ulcer Psychiatric Medical History: Reports: Hx Anxiety, Hx Depression Past Surgical History: Reports: Hx Cardiac Catheterization, Hx Hysterectomy, Hx Orthopedic Surgery - L leg AND R KNEE - Immunizations Hx Diphtheria, Pertussis, Tetanus Vaccination: Yes - <5 years Review of Systems - Review of Systems Notes: Constitutional: Negative for fever. HENT: Negative for sore throat. Eyes: Negative for visual changes. Cardiovascular: Negative for chest pain. Respiratory: Negative for shortness of breath. Gastrointestinal: Negative for abdominal pain, vomiting or diarrhea. Genitourinary: Negative for dysuria. Musculoskeletal: Negative for back pain. Skin: Negative for rash. Neurological: Negative for headaches, weakness or numbness. 10 point ROS negative except as marked above and in HPI. -: Yes ROS unobtainable due to patient's medical condition Physical Exam - Vital signs Vitals: Temp Pulse Resp BP Pulse Ox 99.0 F 85 17 171/85 H 98 03/07/20 10:50 03/07/20 10:50 03/07/20 10:50 03/07/20 10:50 03/07/20 10:50 - Notes Notes: PHYSICAL EXAMINATION: Physical Exam: General: Well-nourished well-developed 54-year-old female in no acute distress HEENT: NC/AT, pupils equal round and reactive to light, MM moist,nares clear, oropharynx clear, airway patent Neck: supple, no adenopathy, no masses. Good range of motion Lungs: clear, no wheezing, no rales no rhonchi CVS: Regular rate and rhythm no murmur gallop or rub Abdomen: Soft, active, nontender, no masses, no hepatosplenomegaly Ext: No edema, clubbing or cyanosis. Neuro: Alert and responsive, moving all 4 extremities on command, cranial nerves intact, no focal findings Skin: Intact no open lesions, no rash PSYCH: Normal mood, normal affect. Course - Re-evaluation Re-evalutation: 03/07/20 14:28 Patient was found to be hypokalemic with a potassium of 3.0, the magnesium level was normal. She was given an IV potassium rider 20 mEq and oral potassium at 40. I have encouraged her to continue her potassium supplements at home as they were prescribed. She will follow-up with her primary care doctor next week. - Vital Signs Vital signs: Temp Pulse Resp BP Pulse Ox 97.9 F 83 19 153/71 H 92 03/07/20 14:39 03/07/20 14:39 03/07/20 14:39 03/07/20 14:39 03/07/20 14:39 - Laboratory Result Diagrams: 03/07/20 11:26 03/07/20 11:26 Laboratory results interpreted by me: 03/07/20 03/07/20 11:26 11:26 MCV 98 H MCH 33.5 H RDW 14.8 H Potassium 3.0 L* Chloride 94 L Carbon Dioxide 38 H Est GFR (MDRD) Non-Af 59 L Glucose 118 H - EKG Interpretation by Me EKG shows normal: Sinus rhythm - Probable left atrial abnormality, probable LVH with secondary repolarization abnormality, rate of 82, normal axis, no acute changes compared to EKG dated 01/19/2020. Discharge - Discharge Clinical Impression: Hypokalemia Condition: Good Disposition: HOME, SELF-CARE Instructions: Hypokalemia ([facility]) Additional Instructions: You were seen in the emergency department today with a low potassium level. We have given you IV and oral supplement of potassium. It is important to continue with the potassium as previously prescribed by your doctor. Please follow-up with your doctor next week for a repeat potassium level. If you have dif ficulties or other concerns you may return to the emergency department HOME CARE INSTRUCTIONS & INFORMATION: Thank you for choosing us for your medical needs. We hope you're satisfied with the care you received. After you leave, you must properly care for your problem and, at the same time, observe its progress. Any condition can change. Some illnesses can change rapidly over hours or days. If your condition worsens, return to the Emergency Department or see your physician promptly. ABOUT YOUR X-RAYS AND EKG'S: If you had an EKG or X-rays taken, they have been read by the Emergency Physician. The X-rays and EKG's will also be read by a Radiologist or Commercial Specialist within 24 hours. If discrepancies are noted, you will be notified by telephone. Please be certain the ED has a correct telephone number & address where you can be reached. Also, realize that some fractures or abnormalities do not show up on initial X-rays. If your symptoms continue, see your physician. ABOUT YOUR LABORATORY TEST: If you had laboratory tests, the results have been reviewed by the Emergency Physician. Some test results (for example cultures) may not be available for several days. You will be contacted if any test result shows you need additional treatment. Please be certain the ED has a correct telephone number and address where you can be reached. ABOUT YOUR MEDICATIONS: You will receive instructions on how to take your medicine on the prescription label you receive. Additional information may be provided by the Pharmacy. If you have questions afterwards, call the ED for clarification or further instructions. Some prescribed medications may cause drowsiness. Do not perform tasks such as driving a car or operating machinery without consulting your Pharmacist. If you feel you need a refill of pain medication, your condition will need re-evaluation. Please do not call for a refill of any medication. ABOUT YOUR SIGNATURE: Signature of this document acknowledges to followin. Understanding that you received emergency treatment and that you may be released before al medical problems are known or treated. Please be certain the ED has a correct phone number & address where you can be reached. 2. Acknowledgement that you will arrange for follow-up care as recommended. 3. Authorization for the Emergency Physician to provide information to your follow-up Physician in order to maximize your care. AT ANY TIME, IF YOUR SYMPTOMS CHANGE SIGNIFICANTLY OR WORSEN OR YOU DEVELOP NEW SYMPTOMS, RETURN TO THE EMERGENCY DEPARTMENT IMMEDIATELY FOR RE-EVALUATION. OUR GOAL IS TO PROVIDE EXCELLENT MEDICAL CARE! WE HOPE THAT WE HAVE MET YOUR EXPECTATIONS DURING YOUR EMERGENCY DEPARTMENT VISIT AND THAT YOU FEEL YOU HAVE RECEIVED EXCELLENT CARE!
[2020-03-07 12:02] LABS: ALBUMIN 4.2 g/dL (3.5-5.0); ALKALINE PHOSPHATASE 86 U/L (38-126); ANION GAP 7 (5-19); ASPARTATE AMINO TRANSFERASE 31 U/L (14-36); BILIRUBIN,TOTAL 0.5 mg/dL (0.2-1.3); BLOOD UREA NITROGEN 16 mg/dL (7-20); CALCIUM 9.7 mg/dL (8.4-10.2); CARBON DIOXIDE 38 mmol/L (22-30); CHLORIDE 94 mmol/L (98-107); GLUCOSE 118 mg/dL (75-110); TOTAL PROTEIN 7.2 g/dL (6.3-8.2)
[2020-03-07 12:18] LABS: ABSOLUTE EOSINOPHILS # (AUTO) 0.2 10^3/uL (0.0-0.6); ABSOLUTE LYMPHOCYTES (AUTO) 2.6 10^3/uL (0.5-4.7); ABSOLUTE MONOCYTES (AUTO) 0.6 10^3/uL (0.1-1.4); ABSOLUTE NEUT (AUTO) 3.7 10^3/uL (1.7-8.2); BASOPHILS % (AUTO) 0.6 % (0-2); EOSINOPHILS % (AUTO) 3.4 % (0-6); HEMATOCRIT 40.4 % (36.0-47.0); HEMOGLOBIN 13.8 g/dL (12.0-15.5); LYMPHOCYTES % (AUTO) 35.9 % (13-45); MEAN CORPUSCULAR HEMOGLOBIN 33.5 pg (27.0-33.4); MEAN CORPUSCULAR HGB CONC 34.2 g/dL (32.0-36.0); MEAN CORPUSCULAR VOLUME 98 fl (80-97); MONOCYTES % (AUTO) 8.8 % (3-13); PLATELET COUNT 230 10^3/uL (150-450); RED BLOOD COUNT 4.13 10^6/uL (3.72-5.28); RED CELL DISTRIBUTION WIDTH 14.8 % (11.5-14.0); SEGMENTED NEUTROPHILS % (AUTO) 51.3 % (42-78); TOTAL CELLS COUNTED % (AUTO) 100 %; WHITE BLOOD COUNT 7.3 10^3/uL (4.0-10.5)
[2020-03-07] MEDS ORDERED: POTASSIUM CHLORIDE 10 MEQ TABLET.ER PO ONE (12:28)
[2020-03-07] MEDS ORDERED: POTASSI CL 20 MEQ/50 ML RIDER 20 MEQ/50 ML RTUPB IV ONE (12:28)
[2020-03-07 14:42] VITALS: BP 153/71
--- NOTE | 2020-03-07 19:13 | EKG REPORT ---
SEVERITY:- ABNORMAL ECG - SINUS RHYTHM PROBABLE LEFT ATRIAL ABNORMALITY PROBABLE LVH WITH SECONDARY REPOL ABNRM : Confirmed by: Sarah Padgett MD 07-Mar-2020 19:12:50
== END 2020-03-07 14:43 | disposition home or self-care (01) ==
LOC: ER 10:42
DX: E87.6 Hypokalemia (principal); Z88.1 Allergy status to other antibiotic agents; Z88.8 Allergy status to other drugs, medicaments and biological substances; I11.0 Hypertensive heart disease with heart failure; I50.9 Heart failure, unspecified; I25.2 Old myocardial infarction; J44.9 Chronic obstructive pulmonary disease, unspecified; E11.9 Type 2 diabetes mellitus without complications
CPT/HCPCS: 93005; 36415; 83735; 85025; 80053; 93010; J3480; A9270; 96365; 96366; 99284

== ENCOUNTER → 2020-04-18 | Outpatient (CLI) | payer MEDICARE, MEDICAID ==
[2020-04-18 09:57] LABS: ABSOLUTE BASOPHILS # (AUTO) 0.1 10^3/uL (0.0-0.2); ABSOLUTE EOSINOPHILS # (AUTO) 0.2 10^3/uL (0.0-0.6); ABSOLUTE LYMPHOCYTES (AUTO) 3.1 10^3/uL (0.5-4.7); ABSOLUTE MONOCYTES (AUTO) 0.6 10^3/uL (0.1-1.4); ABSOLUTE NEUT (AUTO) 3.9 10^3/uL (1.7-8.2); BASOPHILS % (AUTO) 1.2 % (0-2); EOSINOPHILS % (AUTO) 2.2 % (0-6); HEMATOCRIT 45.7 % (36.0-47.0); HEMOGLOBIN 15.6 g/dL (12.0-15.5); LYMPHOCYTES % (AUTO) 39.6 % (13-45); MEAN CORPUSCULAR HEMOGLOBIN 33.5 pg (27.0-33.4); MEAN CORPUSCULAR VOLUME 99 fl (80-97); MONOCYTES % (AUTO) 7.6 % (3-13); PLATELET COUNT 235 10^3/uL (150-450); RED BLOOD COUNT 4.64 10^6/uL (3.72-5.28); RED CELL DISTRIBUTION WIDTH 15.6 % (11.5-14.0); SEGMENTED NEUTROPHILS % (AUTO) 49.4 % (42-78); TOTAL CELLS COUNTED % (AUTO) 100 %; WHITE BLOOD COUNT 7.8 10^3/uL (4.0-10.5)
[2020-04-18 10:05] LABS: APPEARANCE,URINE CLEAR; BILIRUBIN,URINE NEGATIVE (NEGATIVE); COLOR,URINE YELLOW; GLUCOSE, URINE NEGATIVE (NEGATIVE); KETONES,URINE NEGATIVE (NEGATIVE); LEUKOCYTE ESTERASE,URINE NEGATIVE (NEGATIVE); NITRITE,URINE NEGATIVE (NEGATIVE); PROTEIN,URINE NEGATIVE (NEGATIVE); URINE SPECIFIC GRAVITY 1.009; UROBILINOGEN,URINE NEGATIVE mg/dL (<2.0)
[2020-04-18 10:22] LABS: ALBUMIN 4.7 g/dL (3.5-5.0); ANION GAP 13 (5-19); BLOOD UREA NITROGEN 14 mg/dL (7-20); CALCIUM 10.1 mg/dL (8.4-10.2); CARBON DIOXIDE 26 mmol/L (22-30); CHLORIDE 100 mmol/L (98-107); GLUCOSE 122 mg/dL (75-110); POTASSIUM 3.4 mmol/L (3.6-5.0)
[2020-04-19 14:37] LABS: CREATININE URINE 73.4 mg/dL (Not Estab.); MICROALBUMIN URINE 8.4 ug/mL (Not Estab.)
== END ==
LOC: OD 09:35
PROVIDERS: ATTEND Physician Assistant Medical
DX: N17.9 Acute kidney failure, unspecified (principal); I12.9 Hypertensive chronic kidney disease with stage 1 through stage 4 chronic kidney disease, or unspecified chronic kidney disease; N18.2 Chronic kidney disease, stage 2 (mild); E11.22 Type 2 diabetes mellitus with diabetic chronic kidney disease; R60.9 Edema, unspecified
CPT/HCPCS: 36415; 80069; 81001; 82043; 82570; 83970; 85025